=== PATIENT | male | born 1940 | race Asian ===

== ENCOUNTER 2018-03-18 15:01 | Inpatient (IN) | payer MEDICARE, OTHER ==
[~2018-03-18] VITALS: Ht 177.8 cm; Wt 93.0 kg
[2018-03-18 15:02] VITALS: BP 110/54
--- NOTE | 2018-03-18 15:10 | Emergency Room Report ---
History of Present Illness General Chief Complaint: Abnormal Labs Source: Medical Record, EMS Present Illness HPI Patient is sent in for low hemoglobin. It was 6.4 on March 07. The patient is on chronic hemodialysis. Patient is on amiodarone, Plavix, vitamin B complex, vitamin C, aspirin, Colace , labetalol, lactobacillus, zinc, [place] and multivitamins. The patient has hemodialysis Tuesdays and Tuesday. He has an AV shunt right upper arm and also a central line in the right upper chest. He has multiple decubiti. Diagnoses: Chronic respiratory failure, hypertension, type 2 diabetes, end- stage renal disease, dysphagia. Allergies: Coded Allergies: No Known Allergies (Unverified , 03/18/18) Patient History Limited by: medical condition Past Medical History: see triage record, old chart reviewed Past Surgical History: other - av fistula, G tube Social History: Denies: smoking, alcohol use, drug use Social History Narrative [facility] Reviewed Nursing Documentation: PMH: Agreed; PSxH: Agreed Review of Systems All Other Systems: limited Physical Exam Vital Signs Date Time Temp Pulse Resp B/P (MAP) Pulse Ox O2 Delivery O2 Flow Rate FiO2 03/18/18 14:54 97.3 64 25 110/54 99 Mechanical Ventilator 5.0 97.3 Sp02 EP Interpretation: reviewed, normal General Appearance: no apparent distress, alert, Chronically Ill Head: normocephalic, other - anasarca Eyes: bilateral eye normal inspection, bilateral eye PERRL ENT: moist mucus membranes Neck: supple, tracheotomy Respiratory: lungs clear, normal breath sounds Cardiovascular #1: regular rate, rhythm, edema - anasarca Cardiovascular #2: 2+ radial (R) - AV fistula upper arm with thrill Gastrointestinal: non tender, soft, no mass, other - g tu be, decreased bowel sounds Genitourinary: penis normal Musculoskeletal: swelling, other - contractures UE Neurologic: alert - follows examiner with eyes, other - functional paraplegia Psychiatric: depressed affect Skin: other - multiple decubiti Procedures Critical Care Time Critical Care Time Total Critical Care Time: 45 min bedside evaluation and treatment excludes procedures (EKG). Reason for critical care: critical anemia, sepsis, hypotension, ESRD Possible complications: hypotension, hypertension, NV, shock, arrhythmias, metabolic acidosis, end organ damage, respiratory failure. Interventions: blood transfusion, fluid bolus, antibiotics, consultation Course: Patient with low h/h. BP dropped. Fluid bolus ordered as needed time to get blood. Blood bank notified of need for emergent transfusion. BP better with fluids. Antibiotics started for plumonary and urinary sources of infection. Discussed with admitting MD. Improved. Blood transfused with improvement. Emergent transfusion (patient unable to sign for consent). Consultations: nursing staff, EMS, consulting MD, blood bank, RN Performed by: Dr. Perez Tolerated well condition = serious Medical Decision Making Diagnostic Impression: Primary Impression: Sepsis Qualified Codes: A41.9 - Sepsis, unspecified organism Additional Impressions: Anemia Qualified Codes: N18.6 - End stage renal disease; D63.1 - Anemia in chronic kidney disease; Z99.2 - Dependence on renal dialysis UTI (urinary tract infection) Qualified Codes: N39.0 - Urinary tract infection, site not specified ESRD (end stage renal disease) on dialysis Ventilator dependent [place] Soft tissue disorder related to use, overuse, and pressure of multiple sites ER Course Patient presents with laboratory value that shows a low hemoglobin and hematocrit. Differential includes active bleeding, anemia of chronic disease, iron deficiency amongst others. The patient will be evaluated with EKG, chest x -ray and blood cultures and labs. Because is a dialysis patient we will hold off on hydration. Ventilator settings have been ordered. Depending on lab results he may be admitted for transfusion and dialysis. Based on normal vital , acute blood loss less likely. EKG without injury. Chest x-ray with bilateral infiltrates and effusions. This could be congestive heart failure or pneumonia. Labs with critical anemia and ESRD, elevated WBC. Pyuria. Normal lactate. Patient's blood pressure dropped. His could be related to blood loss and also sepsis. A small fluid bolus is given and also blood is ordered immediately. In addition to that the patient will be covered with broad-spectrum antibiotics. BP better with small fluid bolus. Antibiotics ordered and also blood. Discussed with Dr. Conner. Blood transfused emergently (signed by me). Improved VS after transfusion and antibiotics. Admit SDU, Dr. Conner. Laboratory Tests Test 03/18/18 15:10 White Blood Count 16.2 K/UL (4.8-10.8) H Red Blood Count 2.37 M/UL (4.70-6.10) L Hemoglobin 6.7 G/DL (14.2-18.0) *L Hematocrit 21.6 % (42.0-52.0) L Mean Corpuscular Volume 91 FL (80-99) Mean Corpuscular Hemoglobin 28.2 PG (27.0-31.0) Mean Corpuscular Hemoglobin Concent 31.0 G/DL (32.0-36.0) L Red Cell Distribution Width 17.6 % (11.6-14.8) H Platelet Count 59 K/UL (150-450) L Mean Platelet Volume 6.5 FL (6.5-10.1) Neutrophils (%) (Auto) % (45.0-75.0) Lymphocytes (%) (Auto) % (20.0-45.0) Monocytes (%) (Auto) % (1.0-10.0) Eosinophils (%) (Auto) % (0.0-3.0) Basophils (%) (Auto) % (0.0-2.0) Differential Total Cells Counted 100 Neutrophils % (Manual) 86 % (45-75) H Lymphocytes % (Manual) 7 % (20-45) L Monocytes % (Manual) 4 % (1-10) Eosinophils % (Manual) 3 % (0-3) Basophils % (Manual) 0 % (0-2) Band Neutrophils 0 % (0-8) Reactive Lymphocytes Occasional Platelet Estimate Decreased L Platelet Morphology Normal Polychromasia 1+ Hypochromasia 2+ Basophilic Stippling Occasional Anisocytosis 2+ Prothrombin Time 11.4 SEC (9.30-11.50) Prothrombin Time INR 1.1 (0.9-1.1) PTT 47 SEC (23-33) H Urine Color Brown Urine Appearance Turbid Urine pH 8 (4.5-8.0) Urine Specific [place] 1.015 (1.005-1.035) Urine Protein 4+ (NEGATIVE) H Urine Glucose (UA) 1+ (NEGATIVE) H Urine Ketones Negative (NEGATIVE) Urine Blood 5+ (NEGATIVE) H Urine Nitrite Negative (NEGATIVE) Urine Bilirubin Negative (NEGATIVE) Urine Urobilinogen Normal MG/DL (0.0-1.0) Urine Leukocyte Esterase 3+ (NEGATIVE) H Urine RBC 10-15 /HPF (0 - 0) H Urine WBC Tntc /HPF (0 - 0) H Urine Squamous Epithelial Cells None /LPF (NONE/OCC) Urine Amorphous Sediment Many /LPF (NONE) H Urine Bacteria Few /HPF (NONE) Sodium Level 138 MMOL/L (136-145) Potassium Level 3.2 MMOL/L (3.5-5.1) L Chloride Level 101 MMOL/L (98-107) Carbon Dioxide Level 31 MMOL/L (21-32) Anion Gap 7 mmol/L (5-15) Blood Urea Nitrogen 71 mg/dL (7-18) H Creatinine 2.2 MG/DL (0.55-1.30) H Estimate Glomerular Filtration Rate mL/min (>60) Glucose Level 122 MG/DL (74-106) H Lactic Acid Level 1.60 mmol/L (0.4-2.0) Calcium Level 8.6 MG/DL (8.5-10.1) Total Bilirubin 0.5 MG/DL (0.2-1.0) Aspartate Amino Transferase (AST) 49 U/L (15-37) H Alanine Aminotransferase (ALT) 26 U/L (12-78) Alkaline Phosphatase 344 U/L (46-116) H Total Creatine Kinase 43 U/L (26-308) Troponin I 0.000 ng/mL (0.000-0.056) Pro-B-Type Natriuretic Peptide > 32196 pg/mL (0-125) H Total Protein 5.7 G/DL (6.4-8.2) L Albumin 1.2 G/DL (3.4-5.0) L Globulin 4.5 g/dL Albumin/Globulin Ratio 0.3 (1.0-2.7) L EKG Diagnostic Results Rate: normal Rhythm: NSR ST Segments: no acute changes Rhythm Strip Diag. Results EP Interpretation: yes Rhythm: NSR, no PVC's, no ectopy Chest X-Ray Diagnostic Results Chest X-Ray Diagnostic Results : Chest X-Ray Ordered: Yes # of Views/Limited/Complete: 1 View Indication: Other EP Interpretation: Yes Interpretation: no pneumothorax, other - infiltrates and possible effusions Impression: Other Electronically Signed by: Electronically signed by Kenneth Perez MD Last Vital Signs Date Time Temp Pulse Resp B/P (MAP) Pulse Ox O2 Delivery O2 Flow Rate FiO2 03/19/18 00:58 73 18 40 03/19/18 00:00 96.1 108/48 (68) 100 96.1 03/18/18 22:14 Mechanical Ventilator 03/18/18 19:51 15.0 Status: improved Disposition: ADMITTED INPATIENT Condition: Serious Kenneth Perez M.D. Mar 18, 2018 15:10
[2018-03-18 15:40] LABS: HEMATOCRIT 21.6 % (42.0-52.0); MEAN CORPUSCULAR VOLUME 91 FL (80-99); PLATELET COUNT 59 K/UL (150-450); RED BLOOD COUNT 2.37 M/UL (4.70-6.10); RED CELL DISTRIBUTION WIDTH 17.6 % (11.6-14.8); WHITE BLOOD COUNT 16.2 K/UL (4.8-10.8)
[2018-03-18 15:42] LABS: APPEARANCE,URINE TURBID; BILIRUBIN, URINE NEGATIVE (NEGATIVE); COLOR,URINE BROWN; GLUCOSE, URINE (UA) 1+ (NEGATIVE); KETONES,URINE NEGATIVE (NEGATIVE); LEUKOCYTE ESTERASE ,URINE 3+ (NEGATIVE); NITRITE,URINE NEGATIVE (NEGATIVE); PH,URINE 8 (4.5-8.0); PROTEIN,URINE 4+ (NEGATIVE); UROBILINOGEN,URINE NORMAL MG/DL (0.0-1.0)
[2018-03-18 15:45] VITALS: BP 60/38
[2018-03-18 15:48] LABS: HEMOGLOBIN 6.7 G/DL (14.2-18.0)
--- NOTE | 2018-03-18 15:57 | Diagnostic Imaging Report ---
EXAM: XR Chest, 1 View CLINICAL HISTORY: ALOC TECHNIQUE: Frontal view of the chest. COMPARISON: No relevant prior studies available. FINDINGS: Large basilar opacities, likely combination of pleural fluid and atelectasis/consolidation. Obscured heart margins. Vascular congestion. Central venous catheter in a right subclavian approach, tip in the lower SVC. Right axillary arterial stent. Tracheostomy. IMPRESSION: Large basilar opacities, likely a combination of pleural fluid and atelectasis/consolidation. Vascular congestion.
[2018-03-18] MEDS ORDERED: Piperacillin/Tazobactam 3.375 GM in NS 110 ML IVPB ONE (16:00)
[2018-03-18] MEDS ORDERED: Gentamicin 100mg/50ml Premix 50 ML IVPB ONE (16:00)
[2018-03-18] MEDS ORDERED: NS 250 ML IVPB ONE (16:00)
[2018-03-18] MEDS ORDERED: Vancomycin 1 GM in D5W 275 ML IVPB ONE (16:00)
[2018-03-18 16:03] LABS: INR 1.1 (0.9-1.1)
[2018-03-18 16:13] LABS: ANION GAP 7 mmol/L (5-15); BLOOD UREA NITROGEN 71 mg/dL (7-18); CALCIUM 8.6 MG/DL (8.5-10.1); CARBON DIOXIDE 31 MMOL/L (21-32); CHLORIDE 101 MMOL/L (98-107); CREATININE 2.2 MG/DL (0.55-1.30); POTASSIUM 3.2 MMOL/L (3.5-5.1); SODIUM 138 MMOL/L (136-145)
[2018-03-18 16:23] LABS: ALANINE AMINOTRANSFERASE 26 U/L (12-78); ALBUMIN 1.2 G/DL (3.4-5.0); ALBUMIN/GLOBULIN RATIO 0.3 (1.0-2.7); ALKALINE PHOSPHATASE 344 U/L (46-116); ASPARTATE AMINO TRANSFERASE 49 U/L (15-37); BILIRUBIN,TOTAL 0.5 MG/DL (0.2-1.0); CREATINE KINASE 43 U/L (26-308)
[2018-03-18 16:36] VITALS: BP 104/49
[2018-03-18] MEDS ORDERED: ATORVASTATIN CA20 MG GT (18:17)
[2018-03-18] MEDS ORDERED: MULTIVITAMINS1 EAC8 GT (18:17)
[2018-03-18] MEDS ORDERED: PLAVIX75 MG GT (18:17)
[2018-03-18] MEDS ORDERED: ACIDOPHILUS1 EAC6 GT (18:17)
[2018-03-18] MEDS ORDERED: ASPIRIN EC81 MG GT (18:17)
[2018-03-18] MEDS ORDERED: VITAMIN C500 MG/11 GT (18:17)
[2018-03-18] MEDS ORDERED: NORCO 5-325 TA1 EACH GT (18:17)
[2018-03-18] MEDS ORDERED: VITAMIN B COMP1 EAC2 GT (18:17)
[2018-03-18] MEDS ORDERED: RENVELA0.8 GM GT (18:17)
[2018-03-18] MEDS ORDERED: AMIODARONE HCL200 MG GT (18:17)
[2018-03-18] MEDS ORDERED: LABETALOL HCL100 MG GT (18:17)
[2018-03-18] MEDS ORDERED: DOCUSATE SODIU100 MG GT (18:17)
[2018-03-18] MEDS ORDERED: ZINC SULFATE220 M1 GT (18:17)
[2018-03-18 19:20] VITALS: BP 123/38
[2018-03-18 20:00] VITALS: BP 101/47
[2018-03-18] MEDS: Dyna-Hex 2% Top Sol 2oz TOPIC SCH (21:12)
[2018-03-18] MEDS ORDERED: FLEET ENEMA133 ML RECTAL (21:33)
[2018-03-18] MEDS ORDERED: LOPERAMIDE2 M1 PO (21:33)
[2018-03-18] MEDS ORDERED: ACETAMINOPHEN325 M1 GT (21:33)
[2018-03-18] MEDS ORDERED: DULCOLAX10 MG RC (21:33)
[2018-03-18] MEDS ORDERED: MILK OF MA2400 MG/10 GT (21:42)
[2018-03-18] MEDS ORDERED: Milk of Magnesia 30ml Ud GT PRN (22:30)
[2018-03-18] MEDS: Amiodarone 200mg tab GT SCH (23:00)
[2018-03-18] MEDS: Renvela 800mg Pkt GT SCH (23:24)
[2018-03-19] VITALS: BP 108/48
[2018-03-19] MEDS ORDERED: Norco 5mg/325mg tab ORAL PRN
[2018-03-19] MEDS ORDERED: Norco 5mg/325mg tab GT PRN (00:15)
[2018-03-19 04:00] VITALS: BP 92/45
[2018-03-19 05:42] LABS: HEMATOCRIT 22.8 % (42.0-52.0); HEMOGLOBIN 7.5 G/DL (14.2-18.0); MEAN CORPUSCULAR VOLUME 88 FL (80-99); PLATELET COUNT 54 K/UL (150-450); RED CELL DISTRIBUTION WIDTH 17.1 % (11.6-14.8); WHITE BLOOD COUNT 15.8 K/UL (4.8-10.8)
[2018-03-19 05:51] LABS: ANION GAP 10 mmol/L (5-15); BLOOD UREA NITROGEN 73 mg/dL (7-18); CALCIUM 8.2 MG/DL (8.5-10.1); CARBON DIOXIDE 29 MMOL/L (21-32); CHLORIDE 102 MMOL/L (98-107); CREATININE 2.4 MG/DL (0.55-1.30); POTASSIUM 2.8 MMOL/L (3.5-5.1); SODIUM 141 MMOL/L (136-145)
[2018-03-19] MEDS: NovoLOG Insulin Flexpen SUBQ SCH ×5 (06:00→23:48)
[2018-03-19] MEDS: Renvela 800mg Pkt GT SCH ×3 (06:21→21:34)
[2018-03-19 08:00] VITALS: BP 129/60
[2018-03-19] MEDS ORDERED: Multivitamins W/Minerals 15 ML UDC GT SCH (09:00)
[2018-03-19] MEDS ORDERED: Ascorbic Acid 500mg tab GT SCH ×2 (09:00)
[2018-03-19] MEDS ORDERED: Lactobacillus-GG tablet ORAL SCH (09:00)
[2018-03-19] MEDS ORDERED: Amiodarone 200mg tab GT SCH (09:00)
[2018-03-19] MEDS: Zosyn 2.25 gm in D5W 55ml IV SCH ×3 (10:28→21:34)
[2018-03-19] MEDS: Vitamin B Complex Tab GT SCH (10:28)
[2018-03-19] MEDS: Amiodarone 200mg tab GT SCH ×2 (10:28→21:34)
[2018-03-19] MEDS: Zinc Sulfate 220mg cap GT SCH (10:28)
[2018-03-19] MEDS: Lactobacillus-GG tablet GT SCH (10:29)
--- NOTE | 2018-03-19 10:30 | History and Physical Report ---
DATE OF ADMISSION: 03/18/2018 CHIEF COMPLAINT: Severe anemia needing transfusion. HISTORY OF PRESENT ILLNESS: This is a 77-year-old [place] male who is a ventilator, dialysis patient. I was called yesterday about the patient having hemoglobin dropped to 6.4. The patient was supposed to have his dialysis yesterday, but was rerouted to this hospital for a blood transfusion. An emergency room workup revealed that the patient done at [facility] is septic and this is probably the reason why the patient is becoming more anemic. The patient is extremely complicated as listed below. PAST MEDICAL HISTORY: 1. Ventilator-dependent respiratory failure. 2. Status post anoxic encephalopathy following a CVA. 3. End-stage renal failure secondary to type 2 diabetes mellitus. 4. Multiple decubitus ulcer amounting to 42 lesions. 5. Status post G-tube. 6. Anemia of chronic kidney disease. 7. History of schizophrenia. 8. Unrepresented patient. No family or DPOA. MEDICATIONS: Enteral tube feeding, Epogen on dialysis, Tylenol p.r.n., amiodarone, vitamin C, atorvastatin, subcutaneous heparin, insulin sliding scale, lactobacillus, milk of magnesia, sevelamer. ALLERGIES: No known drug allergies. FAMILY HISTORY: Unable to obtain due to mental status. SOCIAL HISTORY: Unable to obtain due to mental status. REVIEW OF SYSTEMS: Unable to obtain due to mental status. PHYSICAL EXAMINATION: GENERAL: This is an elderly, vegetative patient who is on ventilator. VITAL SIGNS: Current blood pressure 120/50, pulse 74 and regular, respirations 18, and temperature 97.2 axillary. HEENT: The head is normocephalic and atraumatic. Pupils are equal, round, and reactive to light. NECK: He has midline tracheostomy with semi-purulent secretions. LUNGS: Bilateral rhonchi. HEART: Regular rate and rhythm without rubs, murmurs, or gallops. CHEST: He has multiple scars from previous surgeries. ABDOMEN: Soft and nontender. He has a G-tube. No hepatosplenomegaly. EXTREMITIES: He has multiple contractures, especially in the right arm. He has right upper arm AV fistula with thrill and bruit. He has 3 to 4+ peripheral edema everywhere. NEUROLOGIC: The patient is obtunded. There were no lateralizing signs. LABORATORY AND ANCILLARY DATA: Admission hemoglobin 6.7 and today 7.5 after transfusion. White count on admission 16,200 and today 15,800. Platelet count on admission 59,000 and today 54,000. Admission sodium 138 and potassium 3.2, and today 141 and 2.8 respectively. BUN 73 and creatinine 2.4. Albumin 1.2. Chest x-ray, large basilar opacities the nature of which is unknown, it can be fluid, atelectasis, or consolidation. ASSESSMENT: 1. Suspect line sepsis, most likely related to the patient's central line. 2. Multifactorial anemia, mainly of CKD, exacerbated by recurrent septicemia, which is multifactorial. 3. Ventilator-dependent respiratory failure. 4. Status post anoxic encephalopathy following a CVA. 5. End-stage renal failure secondary to type 2 diabetes mellitus. 6. Multiple decubitus ulcer amounting to 42 lesions. 7. Status post G-tube. 8. History of schizophrenia. 9. Unrepresented patient. No family or DPOA. PLAN: 1. Broad-spectrum IV antibiotics awaiting the culture results.Rule our line sepsis. 2. ID and Pulmonary consults. 3. Hemodialysis has been already attempted yesterday. The patient did not tolerate. To be repeated today and then as needed and tolerated by the patient. 4. Transfuse on dialysis as tolerated. Dilip Conner M.D. DR: Axel JOB#: [id number] CC: ALEIDA
[2018-03-19] MEDS ORDERED: Heparin 2000 units/Ns 1000ml INJ PRN (10:45)
[2018-03-19] MEDS ORDERED: Lidocaine 1% Plain 30 ml INJ PRN (10:45)
[2018-03-19 10:55] LABS: % IRON SATURATION 19 % (15-50); IRON 19 ug/dL (50-175); TOTAL IRON BINDING CAPACITY 98 ug/dL (250-450)
[2018-03-19 11:11] LABS: FERRITIN 1752 NG/ML (8-388)
[2018-03-19 12:00] VITALS: BP 126/52
[2018-03-19] MEDS ORDERED: Vancomycin 500mg/D5W 110ml IVPB ONE ×2 (13:00)
--- NOTE | 2018-03-19 13:40 | Consultation ---
History of Present Illness General Date patient seen: Mar 19, 2018 Chief Complaint: Abnormal Labs Reason for Consultation: multiple large full thickness wounds / decubitus Present Illness HPI 77 year old male with multiple medical comorbidities presented for anemia. During admission noted to have multiple large wounds and decubitus ulcers of full thickness. surgery called to evaluate. patient seen, chart reviewed, patient examined. Allergies: Coded Allergies: No Known Allergies (Unverified , 03/18/18) Medication History Scheduled Amiodarone Hcl* (Cordarone*), 200 MG GT EVERY 12 HOURS, (Reported) Aspirin Ec* (Aspirin Ec*), 81 MG GT DAILY, (Reported) Atorvastatin Calcium* (Atorvastatin Calcium*), 20 MG GT BEDTIME, (Reported) Clopidogrel Bisulfate* (Plavix*), 75 MG GT DAILY, (Reported) Docusate Sodium* (Docusate Sodium*), 100 MG GT TWICE A DAY, (Reported) Labetalol Hcl* (Normodyne*), 100 MG GT EVERY 12 HOURS, (Reported) Lactobacillus Acidophilus (Acidophilus), 4 EACH GT DAILY, (Reported) Multivitamin With Minerals (Multivitamins With Minerals*), 1 TAB GT DAILY, ( Reported) Sevelamer Carbonate* (Renvela*), 800 MG GT Q8HR, (Reported) Vit C/Ascorbate Ca/Ascorb Sod (Vitamin C 500 Mg/15 Ml Liquid), 500 MG GT BID, ( Reported) Vitamin B Complex (Vitamin B Complex), 1 CAP GT DAILY, (Reported) Zinc Sulfate (Zinc Sulfate*), 220 MG GT DAILY, (Reported) Scheduled PRN Acetaminophen* (Acetaminophen 325MG Tablet*), 650 MG GT Q4H PRN for Mild Pain/ Temp > 100.5, (Reported) Bisacodyl (Dulcolax), 10 MG RC DAILY PRN for Constipation, (Reported) Hydrocodone Bit/Acetaminophen 5-325* ([place] 5-325*), 1 TAB GT DAILY PRN for For Pain, (Reported) Loperamide Hcl (Loperamide), 2 MG PO DAILY PRN for Diarrhea, (Reported) Magnesium Hydroxide* (Milk Of Magnesia*), 10 ML GT DAILY PRN for Constipation, ( Reported) Na Phos,M-B/Na Phos,Di-Ba* (Fleet Enema*), 133 ML RECTAL DAILY PRN for Constipation, (Reported) Patient History Limited by: medical condition History Provided By: Medical Record, PMD Healthcare decision maker Resuscitation status Full Code Advanced Directive on File Past Medical/Surgical History Past Medical/Surgical History: (1) Decubitus ulcer of ankle, stage 4 (2) Decubitus ulcer of buttock, stage 4 (3) Decubitus ulcer of foot, stage 4 (4) Decubitus ulcer of heel, stage 4 (5) Decubitus ulcer of both heels, stage 4 (6) Decubitus ulcer of left buttock, stage 4 (7) Decubitus ulcer of right buttock, stage 4 (8) Decubitus ulcer of sacral region, 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, overuse, and pressure of multiple sites (11) Anemia (12) Sepsis (13) UTI (urinary tract infection) (14) Ventilator dependent (15) ESRD (end stage renal disease) on dialysis Review of Systems ROS Narrative cannot obtain given medical condition Physical Exam General Appearance: no apparent distress Lines, tubes and drains: other HEENT: mucous membranes moist Neck: normal inspection Respiratory/Chest: no respiratory distress, no accessory muscle use, other Cardiovascular/Chest: normal rate Abdomen: soft, no organomegaly, no mass Extremities: other Skin Exam: other Neurologic: unresponsiveness Last 24 Hour Vital Signs Date Time Temp Pulse Resp B/P (MAP) Pulse Ox O2 Delivery O2 Flow Rate FiO2 03/19/18 13:23 75 03/19/18 10:32 79 20 40 03/19/18 09:00 82 19 40 03/19/18 08:00 98.0 86 18 129/60 (83) 100 98.0 03/19/18 08:00 40 03/19/18 08:00 Mechanical Ventilator 03/19/18 08:00 81 03/19/18 07:05 81 19 40 03/19/18 05:26 74 18 40 03/19/18 04:00 Mechanical Ventilator 03/19/18 04:00 40 03/19/18 04:00 73 03/19/18 04:00 97.2 76 16 92/45 (61) 99 97.2 03/19/18 03:10 14 19 40 03/19/18 00:58 73 18 40 03/19/18 00:00 40 03/19/18 00:00 97.0 74 16 108/48 (68) 100 97.0 03/19/18 00:00 Mechanical Ventilator 03/19/18 00:00 72 03/18/18 23:00 81 18 40 03/18/18 22:53 70 97/47 03/18/18 22:14 Mechanical Ventilator 03/18/18 22:08 Mechanical Ventilator 03/18/18 21:00 Mechanical Ventilator 03/18/18 20:57 73 21 40 03/18/18 20:00 97.0 73 19 101/47 (65) 99 97.0 03/18/18 20:00 40 03/18/18 20:00 75 03/18/18 19:51 97.3 69 15 123/38 99 Mechanical Ventilator 15.0 40 97.3 03/18/18 19:20 69 15 123/38 100 Mechanical Ventilator 15.0 40 03/18/18 19:16 87 22 40 03/18/18 17:20 68 14 40 03/18/18 16:36 71 21 104/49 100 Mechanical Ventilator 15.0 40 03/18/18 16:31 40 03/18/18 15:45 73 21 60/38 100 Mechanical Ventilator 40 03/18/18 15:13 73 14 40 03/18/18 15:13 73 14 Mechanical Ventilator 15.0 40 03/18/18 15:02 97.3 70 25 110/54 99 Mechanical Ventilator 5.0 97.3 03/18/18 14:54 97.3 64 25 110/54 99 Mechanical Ventilator 5.0 97.3 Intake and Output 03/18/18 03/19/18 19:00 07:00 Intake Total 310 ml Output Total 30 ml Balance 280 ml Intake Tube Feeding 60 ml Blood Product 250 ml Output Urine Total 0 ml Stool Total 30 ml Laboratory Tests Test 03/18/18 15:10 03/19/18 03:40 03/19/18 10:10 White Blood Count 16.2 K/UL (4.8-10.8) H 15.8 K/UL (4.8-10.8) H Red Blood Count 2.37 M/UL (4.70-6.10) L 2.60 M/UL (4.70-6.10) L Hemoglobin 6.7 G/DL (14.2-18.0) *L 7.5 G/DL (14.2-18.0) L Hematocrit 21.6 % (42.0-52.0) L 22.8 % (42.0-52.0) L Mean Corpuscular Volume 91 FL (80-99) 88 FL (80-99) Mean Corpuscular Hemoglobin 28.2 PG (27.0-31.0) 28.8 PG (27.0-31.0) Mean Corpuscular Hemoglobin Concent 31.0 G/DL (32.0-36.0) L 32.8 G/DL (32.0-36.0) Red Cell Distribution Width 17.6 % (11.6-14.8) H 17.1 % (11.6-14.8) H Platelet Count 59 K/UL (150-450) L 54 K/UL (150-450) L Mean Platelet Volume 6.5 FL (6.5-10.1) 6.6 FL (6.5-10.1) Neutrophils (%) (Auto) % (45.0-75.0) % (45.0-75.0) Lymphocytes (%) (Auto) % (20.0-45.0) % (20.0-45.0) Monocytes (%) (Auto) % (1.0-10.0) % (1.0-10.0) Eosinophils (%) (Auto) % (0.0-3.0) % (0.0-3.0) Basophils (%) (Auto) % (0.0-2.0) % (0.0-2.0) Differential Total Cells Counted 100 100 Neutrophils % (Manual) 86 % (45-75) H 82 % (45-75) H Lymphocytes % (Manual) 7 % (20-45) L 7 % (20-45) L Monocytes % (Manual) 4 % (1-10) 3 % (1-10) Eosinophils % (Manual) 3 % (0-3) 0 % (0-3) Basophils % (Manual) 0 % (0-2) 0 % (0-2) Band Neutrophils 0 % (0-8) 8 % (0-8) Reactive Lymphocytes Occasional Platelet Estimate Decreased L Decreased L Platelet Morphology Normal Normal Polychromasia 1+ Hypochromasia 2+ 1+ Basophilic Stippling Occasional Anisocytosis 2+ 1+ Prothrombin Time 11.4 SEC (9.30-11.50) Prothromb Time International Ratio 1.1 (0.9-1.1) Activated Partial Thromboplast Time 47 SEC (23-33) H Urine Color Brown Urine Appearance Turbid Urine pH 8 (4.5-8.0) Urine Specific [place] 1.015 (1.005-1.035) Urine Protein 4+ (NEGATIVE) H Urine Glucose (UA) 1+ (NEGATIVE) H Urine Ketones Negative (NEGATIVE) Urine Blood 5+ (NEGATIVE) H Urine Nitrite Negative (NEGATIVE) Urine Bilirubin Negative (NEGATIVE) Urine Urobilinogen Normal MG/DL (0.0-1.0) Urine Leukocyte Esterase 3+ (NEGATIVE) H Urine RBC 10-15 /HPF (0 - 0) H Urine WBC Tntc /HPF (0 - 0) H Urine Squamous Epithelial Cells None /LPF (NONE/OCC) Urine Amorphous Sediment Many /LPF (NONE) H Urine Bacteria Few /HPF (NONE) Sodium Level 138 MMOL/L (136-145) 141 MMOL/L (136-145) Potassium Level 3.2 MMOL/L (3.5-5.1) L 2.8 MMOL/L (3.5-5.1) L Chloride Level 101 MMOL/L (98-107) 102 MMOL/L (98-107) Carbon Dioxide Level 31 MMOL/L (21-32) 29 MMOL/L (21-32) Anion Gap 7 mmol/L (5-15) 10 mmol/L (5-15) Blood Urea Nitrogen 71 mg/dL (7-18) H 73 mg/dL (7-18) H Creatinine 2.2 MG/DL (0.55-1.30) H 2.4 MG/DL (0.55-1.30) H Estimat Glomerular Filtration Rate mL/min (>60) mL/min (>60) Glucose Level 122 MG/DL (74-106) H 77 MG/DL (74-106) Lactic Acid Level 1.60 mmol/L (0.4-2.0) Calcium Level 8.6 MG/DL (8.5-10.1) 8.2 MG/DL (8.5-10.1) L Total Bilirubin 0.5 MG/DL (0.2-1.0) Aspartate Amino Transf (AST/SGOT) 49 U/L (15-37) H Alanine Aminotransferase (ALT/SGPT) 26 U/L (12-78) Alkaline Phosphatase 344 U/L (46-116) H Total Creatine Kinase 43 U/L (26-308) Troponin I 0.000 ng/mL (0.000-0.056) Pro-B-Type Natriuretic Peptide > 18573 pg/mL (0-125) H Total Protein 5.7 G/DL (6.4-8.2) L Albumin 1.2 G/DL (3.4-5.0) L Globulin 4.5 g/dL Albumin/Globulin Ratio 0.3 (1.0-2.7) L Iron Level 19 ug/dL (50-175) L Total Iron Binding Capacity 98 ug/dL (250-450) L Percent Iron Saturation 19 % (15-50) Unsaturated Iron Binding 79 ug/dL (112-346) L Ferritin 1752 NG/ML (8-388) H Random Vancomycin Level 12.8 ug/mL Microbiology Date/Time Source Procedure Growth Status 03/18/18 15:15 Blood Blood Culture - Preliminary Resulted 03/18/18 15:00 Blood Blood Culture - Preliminary Resulted 03/18/18 15:10 Urine,Clean Catch Urine Culture - Preliminary Resulted 03/18/18 20:00 Sacral Wound Gram Stain - Final Resulted 03/18/18 20:00 Sacral Wound Wound Culture Pending Resulted Height (Feet): 5 Height (Inches): 10.00 Weight (Pounds): 188 Medications Current Medications Medications (Trade) Dose Ordered Sig/Marques Route PRN Reason Start Time Stop Time Status Last Admin Dose Admin Acetaminophen (Tylenol) 650 mg Q4H PRN GT Mild Pain/Temp > 100.5 03/18/18 21:00 04/17/18 20:59 Acetaminophen/ Hydrocodone Bitart ([place] 5/325) 1 tab DAILY PRN GT For Pain 03/19/18 00:15 03/26/18 00:00 Albumin Human 100 ml @ 200 mls/hr PRN PRN IV sbp<90 during hd 03/19/18 21:30 03/20/18 04:00 Amiodarone HCl (Cordarone) 200 mg EVERY 12 HOURS GT 03/18/18 23:00 04/17/18 22:59 03/19/18 10:28 Ascorbic Acid (Vitamin C) 100 mg TWICE A DAY GT 03/19/18 09:00 04/18/18 08:59 UNV Atorvastatin Calcium (Lipitor) 20 mg BEDTIME GT 03/18/18 23:00 04/17/18 22:59 03/18/18 23:24 Chlorhexidine Gluconate (Linda-Hex 2%) 1 applic DAILY@1999 TOPIC 03/18/18 21:00 04/17/18 20:59 03/18/18 21:12 Chlorhexidine Gluconate (Linda-Hex 2%) 1 applic DAILY@1999 TOPIC 03/19/18 20:00 04/18/18 19:59 Dextrose (Dextrose 50%) 25 ml Q30M PRN IV Hypoglycemia 03/18/18 22:30 04/17/18 22:29 Dextrose (Dextrose 50%) 50 ml Q30M PRN IV Hypoglycemia 03/18/18 22:30 04/17/18 22:29 Epoetin Pawel (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)) 10,000 units TUE-TUE-TUE SUBQ 03/20/18 21:00 04/19/18 20:59 Heparin Sodium (Porcine) (Heparin Sod 1000 units/ml 10ml) 2,000 unit ONCE IV 03/19/18 20:30 03/19/18 21:30 Heparin Sodium (Porcine) (Heparin Sod 1000 units/ml 10ml) 2,000 unit ONCE IV 03/19/18 21:30 03/19/18 22:30 Heparin Sodium/ Sodium Chloride (Heparin 2000 units/Ns 1000ml premix) 2,000 unit ONCE PRN INJ PICC PLACEMENT 03/19/18 10:45 03/20/18 23:59 Insulin Aspart (NovoLOG) Q6HR SUBQ 03/19/18 00:00 04/18/18 00:00 03/19/18 12:31 Iron Sucrose 100 mg/Sodium Chloride 60 ml @ 240 mls/hr BEDTIME IV 03/19/18 21:00 03/23/18 21:14 Lactobacillus Acidophilus (Culturelle) 4 tab DAILY GT 03/19/18 09:00 04/18/18 08:59 03/19/18 10:29 Lidocaine HCl (Xylocaine 1% 30ml) 30 ml ONCE PRN INJ PICC PLACEMENT 03/19/18 10:45 03/20/18 23:59 Magnesium Hydroxide (Mom) 10 ml DAILY PRN GT Constipation 03/18/18 22:30 04/17/18 22:29 Multivitamins (Multivitamins W/ Minerals 15ml Liquid) 15 ml DAILY GT 03/19/18 09:00 04/18/18 08:59 03/19/18 10:27 Piperacillin Sod/ Tazobactam Sod 2.25 gm/Dextrose 55 ml @ 110 mls/hr Q8HR IV 03/19/18 09:00 03/26/18 08:59 03/19/18 10:28 Sevelamer Carbonate (Renvela) 800 mg Q8HR GT 03/18/18 23:00 04/17/18 22:59 03/19/18 06:21 Sodium Chloride 1,000 ml @ 500 mls/hr Q2H PRN IVLG sbp<90 during hd 03/19/18 20:25 03/20/18 04:00 Vancomycin HCl (Vanco rx to dose) 1 ea DAILY PRN MISC Per rx protocol 03/19/18 07:45 04/18/18 07:44 Vancomycin HCl 1 gm/Dextrose 275 ml @ 183.708 mls/hr ONCE ONCE IVPB 03/19/18 18:00 03/19/18 19:29 Vitamin B Complex (Vitamin B Complex) 1 tab DAILY GT 03/19/18 09:00 04/18/18 08:59 03/19/18 10:28 Zinc Sulfate (Zinc Sulfate) 220 mg DAILY GT 03/19/18 09:00 04/18/18 08:59 03/19/18 10:28 Assessment/Plan Problem List: (1) Decubitus ulcer of sacral region, stage 4 Assessment & Plan: Unstageable right lower buttock ulcer; large; no active drainage, no foul odor, macerated edges, eschar cap noted Unstageable right inner buttock ulcer; large; no active drainage, no foul odor, macerated edges, necrotic soft eschar cap noted Stage 4 full thickness sacral decubitus ulcer with necrotic / fibrinous tissue noted, macerated edges, bleeding at edges, serous drainage, no odor Unstageable left buttock ulcer; large; no active drainage, no foul odor, macerated edges, eschar w/ debris noted Left heel with large unstageable necrotic eschar cap Left leg with large unstageable necrotic eschar cap left foot with anterior unstageable necrotic eschar cap left leg with large linear wound with necrotic eschar right ankle with large necrotic eschar cap right heel with large necortic eschar cap all wounds present upon admission. will be cared for during hospital stay. no wounds with active infection some wounds will require debridement Plan: pressure release mattress turn q2h as per protocol elevate heels with pillows. heel protectors apply foam dressings to heels and dry necrotic eschar wounds gauze packing and dressing for sacral wound which will need debridement foam dressings to buttock wounds. will discuss with wound care nurse and adjust orders prn ICD Codes: L89.154 - Pressure ulcer of sacral region, stage 4 SNOMED: [id number], [id number] Tray Francis Mar 19, 2018 13:40
[2018-03-19] MEDS ORDERED: NS Irrig 1000ml ONE (15:12)
[2018-03-19] MEDS ORDERED: Tubing IV Secondary IV ONE (15:12)
[2018-03-19] MEDS ORDERED: D5 1/2NS 1000ml IV ONE (15:12)
[2018-03-19 16:00] VITALS: BP 132/58
[2018-03-19] MEDS ORDERED: Vancomycin 1gm/D5W 275ml IVPB ONE ×2 (18:00)
[2018-03-19 20:00] VITALS: BP 132/48
[2018-03-19] MEDS ORDERED: Dyna-Hex 2% Top Sol 2oz TOPIC SCH (20:00)
--- NOTE | 2018-03-19 20:01 | Infectious Diseases Prog Note ---
Assessment/Plan Assessment/Plan Full consult to follow: A) 1) sepsis, leukocytosis, fevers 2) gram neg and gram + bacteremia, likely line infection 3) uti, ? c.diff., rectal tube 4) pna 5) multiple wounds P) 1) vancomycin and zosyn, po vancomycin 2) will need removal of subclavian central line and change to picc line 3) wound care and debridement per surgery as needed 4) check cultures, labs and c.diff, f/u chest x-ray 5) thank you Subjective Allergies: Coded Allergies: No Known Allergies (Unverified , 03/18/18) Objective Vital Signs Last 24 Hour Vital Signs Date Time Temp Pulse Resp B/P (MAP) Pulse Ox O2 Delivery O2 Flow Rate FiO2 03/19/18 19:09 84 27 40 03/19/18 17:05 87 20 40 03/19/18 16:13 84 03/19/18 16:00 Mechanical Ventilator 03/19/18 16:00 99.7 81 20 132/58 (82) 100 99.7 03/19/18 16:00 40 03/19/18 15:29 85 20 40 03/19/18 13:23 75 03/19/18 12:55 79 21 40 03/19/18 12:00 99.7 82 18 126/52 (76) 100 99.7 03/19/18 12:00 Mechanical Ventilator 03/19/18 12:00 40 03/19/18 10:32 79 20 40 03/19/18 09:00 82 19 40 03/19/18 08:00 98.0 86 18 129/60 (83) 100 98.0 03/19/18 08:00 40 03/19/18 08:00 Mechanical Ventilator 03/19/18 08:00 81 03/19/18 07:05 81 19 40 03/19/18 05:26 74 18 40 03/19/18 04:00 Mechanical Ventilator 03/19/18 04:00 40 03/19/18 04:00 73 03/19/18 04:00 97.2 76 16 92/45 (61) 99 97.2 03/19/18 03:10 14 19 40 03/19/18 00:58 73 18 40 03/19/18 00:00 40 03/19/18 00:00 97.0 74 16 108/48 (68) 100 97.0 03/19/18 00:00 Mechanical Ventilator 03/19/18 00:00 72 03/18/18 23:00 81 18 40 03/18/18 22:53 70 97/47 03/18/18 22:14 Mechanical Ventilator 03/18/18 22:08 Mechanical Ventilator 03/18/18 21:00 Mechanical Ventilator 03/18/18 20:57 73 21 40 03/18/18 20:00 97.0 73 19 101/47 (65) 99 97.0 03/18/18 20:00 40 03/18/18 20:00 75 Height (Feet): 5 Height (Inches): 10.00 Weight (Pounds): 188 Microbiology Date/Time Source Procedure Growth Status 03/18/18 15:15 Blood Blood Culture - Preliminary Resulted 03/18/18 15:00 Blood Blood Culture - Preliminary Resulted 03/18/18 15:10 Urine,Clean Catch Urine Culture - Preliminary Resulted 03/18/18 20:00 Sacral Wound Gram Stain - Final Resulted 03/18/18 20:00 Sacral Wound Wound Culture Pending Resulted Laboratory Tests Test 03/19/18 03:40 03/19/18 10:10 White Blood Count 15.8 K/UL (4.8-10.8) H Red Blood Count 2.60 M/UL (4.70-6.10) L Hemoglobin 7.5 G/DL (14.2-18.0) L Hematocrit 22.8 % (42.0-52.0) L Mean Corpuscular Volume 88 FL (80-99) Mean Corpuscular Hemoglobin 28.8 PG (27.0-31.0) Mean Corpuscular Hemoglobin Concent 32.8 G/DL (32.0-36.0) Red Cell Distribution Width 17.1 % (11.6-14.8) H Platelet Count 54 K/UL (150-450) L Mean Platelet Volume 6.6 FL (6.5-10.1) Neutrophils (%) (Auto) % (45.0-75.0) Lymphocytes (%) (Auto) % (20.0-45.0) Monocytes (%) (Auto) % (1.0-10.0) Eosinophils (%) (Auto) % (0.0-3.0) Basophils (%) (Auto) % (0.0-2.0) Differential Total Cells Counted 100 Neutrophils % (Manual) 82 % (45-75) H Lymphocytes % (Manual) 7 % (20-45) L Monocytes % (Manual) 3 % (1-10) Eosinophils % (Manual) 0 % (0-3) Basophils % (Manual) 0 % (0-2) Band Neutrophils 8 % (0-8) Platelet Estimate Decreased L Platelet Morphology Normal Hypochromasia 1+ Anisocytosis 1+ Sodium Level 141 MMOL/L (136-145) Potassium Level 2.8 MMOL/L (3.5-5.1) L Chloride Level 102 MMOL/L (98-107) Carbon Dioxide Level 29 MMOL/L (21-32) Anion Gap 10 mmol/L (5-15) Blood Urea Nitrogen 73 mg/dL (7-18) H Creatinine 2.4 MG/DL (0.55-1.30) H Estimat Glomerular Filtration Rate mL/min (>60) Glucose Level 77 MG/DL (74-106) Calcium Level 8.2 MG/DL (8.5-10.1) L Iron Level 19 ug/dL (50-175) L Total Iron Binding Capacity 98 ug/dL (250-450) L Percent Iron Saturation 19 % (15-50) Unsaturated Iron Binding 79 ug/dL (112-346) L Ferritin 1752 NG/ML (8-388) H Random Vancomycin Level 12.8 ug/mL Current Medications Medications (Trade) Dose Ordered Sig/Marques Route PRN Reason Start Time Stop Time Status Last Admin Dose Admin Acetaminophen (Tylenol) 650 mg Q4H PRN GT Mild Pain/Temp > 100.5 03/18/18 21:00 04/17/18 20:59 Acetaminophen/ Hydrocodone Bitart ([place] 5/325) 1 tab DAILY PRN GT For Pain 03/19/18 00:15 03/26/18 00:00 Albumin Human 100 ml @ 200 mls/hr PRN PRN IV sbp<90 during hd 03/19/18 21:30 03/20/18 04:00 Amiodarone HCl (Cordarone) 200 mg EVERY 12 HOURS GT 03/18/18 23:00 04/17/18 22:59 03/19/18 10:28 Ascorbic Acid (Vitamin C) 100 mg TWICE A DAY GT 03/19/18 09:00 04/18/18 08:59 UNV Atorvastatin Calcium (Lipitor) 20 mg BEDTIME GT 03/18/18 23:00 04/17/18 22:59 03/18/18 23:24 Chlorhexidine Gluconate (Linda-Hex 2%) 1 applic DAILY@1999 TOPIC 03/18/18 21:00 04/17/18 20:59 03/18/18 21:12 Chlorhexidine Gluconate (Linda-Hex 2%) 1 applic DAILY@1999 TOPIC 03/19/18 20:00 04/18/18 19:59 Dextrose (Dextrose 50%) 25 ml Q30M PRN IV Hypoglycemia 03/18/18 22:30 04/17/18 22:29 Dextrose (Dextrose 50%) 50 ml Q30M PRN IV Hypoglycemia 03/18/18 22:30 04/17/18 22:29 Epoetin Pawel (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)) 10,000 units TUE-TUE-TUE SUBQ 03/20/18 21:00 04/19/18 20:59 Heparin Sodium (Porcine) (Heparin Sod 1000 units/ml 10ml) 2,000 unit ONCE IV 03/19/18 20:30 03/19/18 21:30 Heparin Sodium (Porcine) (Heparin Sod 1000 units/ml 10ml) 2,000 unit ONCE IV 03/19/18 21:30 03/19/18 22:30 Heparin Sodium/ Sodium Chloride (Heparin 2000 units/Ns 1000ml premix) 2,000 unit ONCE PRN INJ PICC PLACEMENT 03/19/18 10:45 03/20/18 23:59 Insulin Aspart (NovoLOG) Q6HR SUBQ 03/19/18 00:00 04/18/18 00:00 03/19/18 18:24 Iron Sucrose 100 mg/Sodium Chloride 60 ml @ 240 mls/hr BEDTIME IV 03/19/18 21:00 03/23/18 21:14 Lactobacillus Acidophilus (Culturelle) 4 tab DAILY GT 03/19/18 09:00 04/18/18 08:59 03/19/18 10:29 Lidocaine HCl (Xylocaine 1% 30ml) 30 ml ONCE PRN INJ PICC PLACEMENT 03/19/18 10:45 03/20/18 23:59 Magnesium Hydroxide (Mom) 10 ml DAILY PRN GT Constipation 03/18/18 22:30 04/17/18 22:29 Multivitamins (Multivitamins W/ Minerals 15ml Liquid) 15 ml DAILY GT 03/19/18 09:00 04/18/18 08:59 03/19/18 10:27 Piperacillin Sod/ Tazobactam Sod 2.25 gm/Dextrose 55 ml @ 110 mls/hr Q8HR IV 03/19/18 09:00 03/26/18 08:59 03/19/18 14:57 Sevelamer Carbonate (Renvela) 800 mg Q8HR GT 03/18/18 23:00 04/17/18 22:59 03/19/18 14:57 Sodium Chloride 1,000 ml @ 500 mls/hr Q2H PRN IVLG sbp<90 during hd 03/19/18 20:25 03/20/18 04:00 Vancomycin HCl (Vanco rx to dose) 1 ea DAILY PRN MISC Per rx protocol 03/19/18 07:45 04/18/18 07:44 Vitamin B Complex (Vitamin B Complex) 1 tab DAILY GT 03/19/18 09:00 04/18/18 08:59 03/19/18 10:28 Zinc Sulfate (Zinc Sulfate) 220 mg DAILY GT 03/19/18 09:00 04/18/18 08:59 03/19/18 10:28 Kate Quintero MD Mar 19, 2018 20:01
[2018-03-19] MEDS ORDERED: Heparin Sod 1000 units/ml 10ml IV SCH ×2 (20:30→21:30)
[2018-03-19] MEDS: Dyna-Hex 2% Top Sol 2oz TOPIC SCH (21:33)
[2018-03-19] MEDS: Iron Sucrose 100 MG in NS 55 ML IV SCH (21:34)
[2018-03-19] MEDS: Vancomycin oral 125mg/2.5ml ORAL SCH (21:38)
[2018-03-20] VITALS: BP 132/55
[2018-03-20 04:00] VITALS: BP 103/53
[2018-03-20 04:59] LABS: HEMATOCRIT 24.5 % (42.0-52.0); HEMOGLOBIN 8.1 G/DL (14.2-18.0); MEAN CORPUSCULAR VOLUME 88 FL (80-99); PLATELET COUNT 77 K/UL (150-450); RED BLOOD COUNT 2.77 M/UL (4.70-6.10); RED CELL DISTRIBUTION WIDTH 16.5 % (11.6-14.8); WHITE BLOOD COUNT 13.2 K/UL (4.8-10.8)
[2018-03-20 05:11] LABS: ALANINE AMINOTRANSFERASE 26 U/L (12-78); ALBUMIN 1.2 G/DL (3.4-5.0); ALBUMIN/GLOBULIN RATIO 0.3 (1.0-2.7); ALKALINE PHOSPHATASE 356 U/L (46-116); ANION GAP 12 mmol/L (5-15); ASPARTATE AMINO TRANSFERASE 39 U/L (15-37); BILIRUBIN,TOTAL 0.7 MG/DL (0.2-1.0); BLOOD UREA NITROGEN 86 mg/dL (7-18); CALCIUM 8.1 MG/DL (8.5-10.1); CARBON DIOXIDE 26 MMOL/L (21-32); CHLORIDE 100 MMOL/L (98-107); CREATININE 2.9 MG/DL (0.55-1.30); POTASSIUM 3.5 MMOL/L (3.5-5.1); SODIUM 138 MMOL/L (136-145)
[2018-03-20] MEDS: Zosyn 2.25 gm in D5W 55ml IV SCH ×3 (05:47→21:25)
[2018-03-20] MEDS: Renvela 800mg Pkt GT SCH ×3 (05:47→21:25)
[2018-03-20] MEDS: NovoLOG Insulin Flexpen SUBQ SCH ×4 (05:49→23:38)
[2018-03-20 08:00] VITALS: BP 104/52
[2018-03-20] MEDS ORDERED: Lidocaine 1% Plain 30 ml INJ PRN (08:30)
[2018-03-20] MEDS ORDERED: Heparin 2000 units/Ns 1000ml INJ PRN (08:30)
--- NOTE | 2018-03-20 08:57 | Nephrology Progress Note ---
Assessment/Plan Plan m/p polymicrobial line sepsis. Needs new PICC line urgently!!!. Patient unrepresented. Another attempt to dialyze under way today. Difficult to dialyze due to septic shock. May need ICU+ pressors. Decubiti - Dr. Andrade consulted. VDRF Per Pul. Severe Anemia --STEPHEN IV Venofer, transfuse PRN. Subjective Subjective Obtunded Objective Objective Last 24 Hour Vital Signs Date Time Temp Pulse Resp B/P (MAP) Pulse Ox O2 Delivery O2 Flow Rate FiO2 03/20/18 04:56 75 20 40 03/20/18 04:00 73 03/20/18 04:00 98.5 74 20 103/53 (70) 96 98.5 03/20/18 04:00 40 03/20/18 04:00 Mechanical Ventilator 03/20/18 03:06 77 19 40 03/20/18 01:24 87 25 40 03/20/18 00:00 Mechanical Ventilator 03/20/18 00:00 99.0 82 19 132/55 (80) 100 99.0 03/19/18 22:43 80 21 40 03/19/18 20:42 80 21 40 03/19/18 20:00 Mechanical Ventilator 03/19/18 20:00 81 03/19/18 20:00 98.2 80 20 132/48 (76) 98 98.2 03/19/18 20:00 40 03/19/18 19:09 84 27 40 03/19/18 17:05 87 20 40 03/19/18 16:13 84 03/19/18 16:00 Mechanical Ventilator 03/19/18 16:00 99.7 81 20 132/58 (82) 100 99.7 03/19/18 16:00 40 03/19/18 15:29 85 20 40 03/19/18 13:23 75 03/19/18 12:55 79 21 40 03/19/18 12:00 99.7 82 18 126/52 (76) 100 99.7 03/19/18 12:00 Mechanical Ventilator 03/19/18 12:00 40 03/19/18 10:32 79 20 40 03/19/18 09:00 82 19 40 Intake and Output 03/19/18 03/20/18 19:00 07:00 Intake Total 690 ml 433.708 ml Output Total 100 ml 0 ml Balance 590 ml 433.708 ml Intake Free Water 200 ml 50 ml IV Total 310 ml 183.708 ml Tube Feeding 180 ml 200 ml Output Urine Total 0 ml Stool Total 100 ml 0 ml Laboratory Tests 03/19/18 10:10: Iron Level 19L, Total Iron Binding Capacity 98L, Percent Iron Saturation 19, Unsaturated Iron Binding 79L, Ferritin 1752H, Random Vancomycin Level 12.8 03/20/18 03:47: White Blood Count 13.2H, Red Blood Count 2.77L, Hemoglobin 8.1L, Hematocrit 24.5L, Mean Corpuscular Volume 88, Mean Corpuscular Hemoglobin 29.2, Mean Corpuscular Hemoglobin Concent 33.2, Red Cell Distribution Width 16.5H, Platelet Count 77L, Mean Platelet Volume 6.5, Neutrophils (%) (Auto) , Lymphocytes (%) (Auto) , Monocytes (%) (Auto) , Eosinophils (%) (Auto) , Basophils (%) (Auto) , Differential Total Cells Counted 100, Neutrophils % ( Manual) 84H, Lymphocytes % (Manual) 10L, Monocytes % (Manual) 3, Eosinophils % ( Manual) 3, Basophils % (Manual) 0, Band Neutrophils 0, Platelet Estimate DecreasedL, Platelet Morphology Normal, Hypochromasia 1+, Anisocytosis 1+, Sodium Level 138, Potassium Level 3.5, Chloride Level 100, Carbon Dioxide Level 26, Anion Gap 12, Blood Urea Nitrogen 86H, Creatinine 2.9H, Estimat Glomerular Filtration Rate , Glucose Level 156H, Calcium Level 8.1L, Total Bilirubin 0.7, Aspartate Amino Transf (AST/SGOT) 39H, Alanine Aminotransferase (ALT/SGPT) 26, Alkaline Phosphatase 356H, Total Protein 5.7L, Albumin 1.2L, Globulin 4.5, Albumin/Globulin Ratio 0.3L Height (Feet): 5 Height (Inches): 10.00 Weight (Pounds): 188 Objective Multiple decubiti noted. CV RR Trach site Ok. Lungs B ronchi. And SNT. BS +. PEG OK. E muscle wasting. Rt. arm contracture @ elbow. Rt. arm AVF + bruit. Neuro - alert + responsive. Nonverbal. Dilip Conner MD Mar 20, 2018 08:57
[2018-03-20] MEDS: Vancomycin oral 125mg/2.5ml ORAL SCH ×4 (09:35→21:24)
[2018-03-20] MEDS: Lactobacillus-GG tablet GT SCH (09:36)
[2018-03-20] MEDS: Vitamin B Complex Tab GT SCH (09:36)
[2018-03-20] MEDS: Zinc Sulfate 220mg cap GT SCH (09:37)
[2018-03-20] MEDS: Nephrovite tab (Rena-Vite) ORAL SCH (09:45)
--- NOTE | 2018-03-20 11:02 | Diagnostic Imaging Report ---
Indication: Dyspnea Technique: One view of the chest Comparison: 03/18/2018 Findings: Bilateral pleural effusions, mid and lower lung hazy opacities, interstitial congestive changes are probably not significantly changed allowing for differences in exposure technique. Right axillary stent, right subclavian central venous catheter, tracheostomy remain. Heart size is upper limits normal. Impression: Unchanged, over 2 days, findings as above.
[2018-03-20 12:00] VITALS: BP 154/68
[2018-03-20] MEDS: Amiodarone 200mg tab GT SCH ×2 (13:26→21:26)
--- NOTE | 2018-03-20 14:00 | Consultation ---
DATE OF CONSULTATION: 03/20/2018 PULMONARY CONSULTATION CONSULTING PHYSICIAN: Rogelio Chiu M.D. REFERRING PHYSICIAN: Dilip Conner M.D. REASON FOR CONSULTATION: Respiratory failure, abnormal x-ray. HISTORY OF PRESENT ILLNESS: This is a 77-year-old Persian male, who is a ventilator dialysis patient. The patient noted to have a reduced hemoglobin and was admitted for further care and management. I was called to assist with ventilator management at this time. The patient admitted, cultures obtained, and notable for positive sepsis, bacteremia. I was called to assist with his overall respiratory care. The patient is unable to give much in the way of history. Respiratory status reviewed. The patient is currently on full support on the ventilator. The patient findings all reviewed in detail. The patient is chronically ventilator-dependent as mentioned, has chronic secretions. No acute changes noted. X-ray with significant findings suggestive of pulmonary edema. Care discussed with the primary care doctor. History and physical previously reviewed. assisted chart was reviewed. PAST MEDICAL HISTORY: Notable for chronic respiratory failure, chronic ventilator dependence, anoxia, CVA, end-stage renal disease, multiple decubitus, G-tube, and history of schizophrenia. MEDICATIONS: Reviewed. ALLERGIES: Reviewed. FAMILY HISTORY: Unable to obtain. SOCIAL HISTORY: Resides in a subacute. PHYSICAL EXAMINATION: GENERAL: A well-developed male, chronically ill appearing. VITAL SIGNS: Blood pressure 103/53, pulse 74, respirations 20, saturations 96% on 40% FiO2, and temperature 98.5. HEENT: Overall negative. NECK: Supple. Tracheostomy is in midline. Carotids 2+. LUNGS: With scattered rhonchi. Crackles at both bases. CARDIAC: S1, S2. Regular rate and rhythm without murmurs, rubs, or gallops. ABDOMEN: Soft, nontender. G-tube in place. No hepatosplenomegaly. EXTREMITIES: Chronic contractures noted. Notable for significant edema. NEUROLOGIC: The patient is obtunded and unable to respond to painful stimuli. LABORATORY DATA: Reviewed. Blood cultures are positive. White count 13, hemoglobin 8.1, and platelets 277. Chemistries noted, BUN 86, creatinine 2.9. Electrolytes are otherwise within normal. Albumin is only 1.2. X-ray with significant pulmonary edema and pleural effusions, possible pneumonia cannot be fully ruled out. IMPRESSION: 1. Respiratory failure. 2. Profound anemia, status post transfusion. 3. Chronic respiratory failure. 4. Severe protein-calorie malnutrition. 5. CVA. 6. Anoxia. 7. Underlying sepsis. RECOMMENDATIONS: Supportive care. IV antibiotics. Cultures noted. Final sensitivities to follow. ID followup. Hemodialysis with ultrafiltration. Follow up x-ray exam. Follow up arterial blood gases. Monitor clinically for change and intervention and chronic ventilatory support with adjustment as needed. Pending re-evaluation. Supportive care. Hold on any type of anticoagulation with noted anemia and we will monitor clinically for changes. Rogelio Chiu M.D. DR: ОЛЕГ JOB#: [id number] CC: ALEIDA
[2018-03-20 16:00] VITALS: BP 127/60
--- NOTE | 2018-03-20 18:14 | Diagnostic Imaging Report ---
Indication: Normal renal function tests. Abnormal liver function tests Technique: Barriga-scale and duplex images of the upper abdomen were obtained Comparison: none Findings: There is a large right pleural effusion Gallbladder demonstrates gallstones. Sonographic Gomez's sign is negative. Common bile duct measures 2 mm in diameter. No intrahepatic biliary ductal dilatation. Liver demonstrates equivocally minimally decreased echogenicity, no focal abnormality. Portal vein and hepatic veins are patent. Pancreas is unremarkable. Spleen is mildly enlarged, measuring 13.9 cm long axis dimension. Left kidney measures 10.6 cm in length. Right kidney measures 10.4 cm length. Both kidneys demonstrate increased echogenicity. There is no hydronephrosis. There are renal cysts bilaterally. . Non-aneurysmal abdominal aorta . Impression: Cholelithiasis. Negative for dilated ducts Equivocal apparent minimal decrease hepatic echogenicity, doubtful significance. Echogenic bilateral kidneys, consistent with medical renal disease. Negative for hydronephrosis Large right pleural effusion Incidental finding bilateral renal cysts
[2018-03-20 20:00] VITALS: BP 111/64
[2018-03-20] MEDS ORDERED: Dyna-Hex 2% Top Sol 2oz TOPIC SCH ×2 (20:00)
[2018-03-20] MEDS: Dyna-Hex 2% Top Sol 2oz TOPIC SCH (21:24)
[2018-03-20] MEDS: Iron Sucrose 100 MG in NS 55 ML IV SCH (21:25)
[2018-03-20] MEDS: Epogen (for ESRD on dialysis) SUBQ SCH (21:25)
[2018-03-21] VITALS: BP 155/88
--- NOTE | 2018-03-21 00:45 | Consultation ---
DATE OF CONSULTATION: 03/19/2018 INFECTIOUS DISEASE CONSULTATION CONSULTING PHYSICIAN: Kate Quintero M.D. ATTENDING PHYSICIAN: Dilip Conner M.D. REFERRING PHYSICIAN: Dilip Conner M.D. REASON FOR CONSULTATION: Sepsis, elevated white count, fevers, gram-positive and gram-negative bacteremia, urinary tract infection, and pneumonia. CHIEF COMPLAINT: The patient's chief complaint coming in to the hospital was severe anemia, sepsis, elevated white count, and fevers. HISTORY OF PRESENT ILLNESS: This is a 77-year-old male, who has history of multiple medical problems. The patient has trach and vent and came in with a central line and has a Reynolds, G-tube, and dysphagia. The patient presents with fevers, anemia, leukocytosis, and sepsis. Infectious Disease consultation was requested for antibiotic management. The patient was placed on vancomycin and Zosyn. Workup shows that he has gram-negative and gram-positive cocci in chains in the blood. He has a positive UA. He has multiple wounds and he has pneumonia. The patient is currently on vancomycin and Zosyn. The patient really cannot give any history. He is poorly responsive. Case was discussed with Dr. Conner and the RN. MAR was noted. Orders were noted. Notes and records were reviewed. PAST MEDICAL HISTORY: The patient's past medical history includes the history of the following. The patient has a past medical history of respiratory failure, vent, trach, chronic respiratory failure, history of dysphagia, G-tube, history of encephalopathy, CVA, history of end-stage renal disease, history of diabetes, hypertension, history of multiple decubitus, history of anemia, and history of schizophrenia. He has a history of AV fistula in the past. He has a history of central line coming in, in the right subclavian upper chest. No history of diabetes or cancer mentioned, but he does have a CVA history. No history of hypertension mentioned in the records. Possible hyperlipidemia, he is on atorvastatin and possible arrhythmia, he is on amiodarone. Again, unclear if he has history of hypertension at this time. MEDICATIONS: Upon reviewing the MAR, the patient is on the following medications. He is on vitamin B, Epogen, and lidocaine. He has been on heparin, vancomycin, Zosyn, and chlorhexidine. He has been on zinc sulfate, vitamin B, lactobacillus, ascorbic acid, and hydrocodone. He is on atorvastatin and Lipitor. He is on Renvela and amiodarone. Outside medication noted and reconciliated. He has been on also acetaminophen. ALLERGIES: No known drug allergies. No antibiotic allergies. SOCIAL HISTORY: Negative for smoking, alcohol, or drug abuse. FAMILY HISTORY: Noncontributory per the records. No mention of exposure to tuberculosis or cancer. REVIEW OF SYSTEMS: CONSTITUTIONAL: He has generalized weakness and fatigue. Poorly responsive. He in with low-grade fevers. He is currently not on pressors. resp -+ vent. CARDIAC: No pressors, no chest pain GASTROINTESTINAL: No nausea or vomiting, but does have a rectal tube or G-tube. GENITOURINARY: He has a Reynolds. PULMONARY: On a vent. SKIN: He has multiple wounds. NEUROLOGIC: No seizures. Generalized weakness. Poorly responsive. PHYSICAL EXAMINATION: VITAL SIGNS: When I saw the patient, temperature 99.7, pulse rate 82, respiratory rate 18, saturation 100%, FiO2 40%, and blood pressure 126/52. GENERAL: Lethargic, weak, and poorly responsive. HEAD AND NECK: He has trach. Normocephalic. No icterus. No thrush. LUNGS: Bilateral rhonchi and rales. No crackles. HEART: Regular. No obvious gallop or murmur. ABDOMEN: Soft. Positive bowel sounds. He has G-tube. SKIN: No rash. He has multiple wounds that are reviewed. MUSCULOSKELETAL: No effusion. Legs are without cellulitis. PERIPHERAL VASCULAR: No cyanosis or gangrene. GENITOURINARY: He has a Reynolds. Urine is slightly cloudy. He has a rectal tube. LINES: Line sites without phlebitis. NEUROLOGIC: Weakness. Poorly responsive. LABORATORY DATA: Creatinine 2.4. Alkaline phosphatase 344. White count 15.8 and hemoglobin 7.5. White count yesterday was 16.2. UA, 3+ leukocyte esterase and too many to count white blood cells. CULTURES: Blood cultures grew out gram-negative bacilli and also gram-positive cocci in chains. I discussed with microbiology. Identification is pending. Urine culture is pending. Wound cultures are pending. Sputum culture is pending. It has been ordered. IMAGING STUDIES: Chest x-ray showed large basilar opacities, combination of fluid, atelectasis, and consolidation. Report was noted and reviewed. ASSESSMENT AND PLAN: 1. The patient has sepsis, elevated white count, and fevers. The patient has gram-positive and gram-negative bacteremia. Most likely, line infection. Rule out gastrointestinal source. Rule out urine source. The patient has what looks like possible aspiration and healthcare-acquired pneumonia. The patient has what looks like urinary tract infection. The patient has multiple wounds and is being followed by surgery. Debridement as needed. The patient will be continued on vancomycin and Zosyn to cover multiple infection including sepsis, gram-positive bacteremia, line infection, pneumonia, and urinary tract infection. Continue vancomycin and Zosyn. Check final cultures. Followup blood cultures. Check identification of blood cultures. I would also change line and I would convert to PICC line and remove subclavian line. Case discussed at length with Dr. Conner and the RN. Continue vancomycin and Zosyn pending final workup. 2. The patient has history of cerebrovascular accident and questionable history of hypertension and arrhythmia. 3. Vent respiratory failure. 4. Dysphagia, G-tube. 5. End-stage renal disease, unclear if he has hemodialysis at this time. 6. Diabetes. Diabetes treatment per primary. 7. Anemia. 8. The patient is on amiodarone. 9. Schizophrenia. 10. Possible hyperlipidemia. 11. No known allergies. 12. Social history is negative. 13. MAR was noted. 14. Case was discussed with RN. 15. Family history is noncontributory. 16. Step-down unit care. 17. Vent care. 18. Continue treatment per primary consultants. 19. Notes and records were noted. 20. Orders were entered. Kate Quintero M.D. DR: LEILA JOB#: [id number] CC: ALEIDA
--- NOTE | 2018-03-21 01:00 | Consultation ---
DATE OF CONSULTATION: 03/19/2018 ADDENDUM PAST MEDICAL HISTORY: The past medical history of the patient I believe includes the patient does have past history of diabetes if I did not mention. In addition, he also has history of possible hypertension, hyperlipidemia, and arrhythmias. He is on amiodarone. Kate Quintero M.D. DR: Cassidy JOB#: [id number] CC:
[2018-03-21 04:00] VITALS: BP 105/49
[2018-03-21] MEDS: Zosyn 2.25 gm in D5W 55ml IV SCH ×2 (05:37→13:39)
[2018-03-21] MEDS: Renvela 800mg Pkt GT SCH ×3 (05:37→21:55)
[2018-03-21] MEDS: NovoLOG Insulin Flexpen SUBQ SCH ×3 (05:41→19:00)
[2018-03-21 08:00] VITALS: BP 139/58
--- NOTE | 2018-03-21 08:36 | Pulmonology Progress Note ---
Assessment/Plan Assessment/Plan IMPRESSION: 1. Respiratory failure. 2. Profound anemia, status post transfusion. 3. Chronic respiratory failure. 4. Severe protein-calorie malnutrition. 5. CVA. 6. Anoxia. 7. Underlying sepsis. 8. pulmonary jeaneth 9. possible pneumonia 10. pleural effusion PLAN care noted IV antibiotics respiratory care Ventilatory support SNF meds supportive care suction as needed keep negative no wean oxygen therapy prognosis guarded Subjective ROS Limited/Unobtainable: Yes Allergies: Coded Allergies: No Known Allergies (Unverified , 03/18/18) Subjective on vent poorly responsive care reviewed Objective Last 24 Hour Vital Signs Date Time Temp Pulse Resp B/P (MAP) Pulse Ox O2 Delivery O2 Flow Rate FiO2 03/21/18 08:00 99.0 78 21 139/58 (85) 100 99.0 03/21/18 06:50 77 22 30 03/21/18 05:20 81 19 30 03/21/18 04:05 79 03/21/18 04:00 97.9 80 22 105/49 (67) 100 97.9 03/21/18 04:00 30 03/21/18 04:00 Mechanical Ventilator 03/21/18 03:29 82 20 30 03/21/18 01:30 50 20 30 03/21/18 00:00 Mechanical Ventilator 03/21/18 00:00 80 03/21/18 00:00 98.2 50 20 155/88 (110) 100 98.2 03/20/18 22:56 54 22 30 03/20/18 21:21 74 21 30 03/20/18 20:00 Mechanical Ventilator 03/20/18 20:00 30 03/20/18 20:00 98.2 77 19 111/64 (80) 100 98.2 03/20/18 19:53 77 03/20/18 19:30 75 23 30 03/20/18 18:00 81 19 30 03/20/18 16:45 79 03/20/18 16:00 86 03/20/18 16:00 98.1 87 20 127/60 (82) 100 98.1 03/20/18 16:00 30 03/20/18 16:00 Mechanical Ventilator 03/20/18 15:10 89 25 30 03/20/18 12:42 80 20 30 03/20/18 12:00 98.4 79 20 154/68 (96) 99 98.4 03/20/18 12:00 Mechanical Ventilator 03/20/18 12:00 79 03/20/18 12:00 30 03/20/18 11:30 30 03/20/18 11:10 30 03/20/18 10:53 75 27 40 Intake and Output 03/20/18 03/21/18 19:00 07:00 Intake Total 460 ml 520 ml Output Total 50 ml Balance 410 ml 520 ml Intake Free Water 220 ml 60 ml Tube Feeding 240 ml 460 ml Output Urine Total 0 ml Stool Total 50 ml Objective GENERAL: A well-developed male, chronically ill appearing. male, reduced LOC HEENT: Overall negative. NECK: Supple. Tracheostomy is in midline. Carotids 2+. LUNGS: With noted rhonchi. Crackles at both bases. CARDIAC: S1, S2. Regular rate and rhythm without murmurs, rubs, or gallops. ABDOMEN: Soft, nontender. G-tube in place. No hepatosplenomegaly. EXTREMITIES: Chronic contractures noted. Notable for significant edema. NEUROLOGIC: The patient is obtunded without change Microbiology Date/Time Source Procedure Growth Status 03/18/18 15:15 Blood Blood Culture - Preliminary Klebsiella Pneumoniae Resulted 03/18/18 15:00 Blood Blood Culture - Preliminary Gram Negative Bacillus 1 Resulted 03/19/18 11:30 Sputum Induced Gram Stain - Final Resulted 03/19/18 11:30 Sputum Culture - Preliminary Gram Negative Bacillus 1 Gram Negative Bacillus 2 Resulted 03/18/18 15:10 Nasal Nares MRSA Culture - Final NO METHICILLIN RESISTANT STAPH AUREUS... Complete 03/18/18 15:10 Urine,Clean Catch Urine Culture - Preliminary YEAST Resulted 03/18/18 20:00 Sacral Wound Gram Stain - Final Resulted 03/18/18 20:00 Wound Culture - Preliminary Gram Negative Bacillus 1 Gram Negative Bacillus 2 Resulted 03/18/18 15:10 Rectum VRE Culture - Final Enterococcus Faecalis - Vre Enterococcus Faecium - Vre Resulted 03/18/18 15:10 Rectum Pending Resulted Laboratory Tests 03/20/18 10:10: Arterial Blood pH 7.532H, Arterial Blood Partial Pressure CO2 31.7L, Arterial Blood Partial Pressure O2 145.1H, Arterial Blood HCO3 26.0, Arterial Blood Oxygen Saturation 98.5, Arterial Blood Base Excess 3.4H, Joe Test Positive Current Medications Medications (Trade) Dose Ordered Sig/Marques Route PRN Reason Start Time Stop Time Status Last Admin Dose Admin Acetaminophen (Tylenol) 650 mg Q4H PRN GT Mild Pain/Temp > 100.5 03/18/18 21:00 04/17/18 20:59 Acetaminophen/ Hydrocodone Bitart ([place] 5/325) 1 tab DAILY PRN GT For Pain 03/19/18 00:15 03/26/18 00:00 Amiodarone HCl (Cordarone) 200 mg EVERY 12 HOURS GT 03/18/18 23:00 04/17/18 22:59 03/20/18 21:26 Ascorbic Acid (Vitamin C) 100 mg TWICE A DAY GT 03/19/18 09:00 04/18/18 08:59 UNV Atorvastatin Calcium (Lipitor) 20 mg BEDTIME GT 03/18/18 23:00 04/17/18 22:59 03/20/18 21:26 Chlorhexidine Gluconate (Linda-Hex 2%) 1 applic DAILY@2000 TOPIC 03/20/18 20:00 04/19/18 19:59 03/20/18 21:24 Dextrose (Dextrose 50%) 25 ml Q30M PRN IV Hypoglycemia 03/18/18 22:30 04/17/18 22:29 Dextrose (Dextrose 50%) 50 ml Q30M PRN IV Hypoglycemia 03/18/18 22:30 04/17/18 22:29 Epoetin Pawel (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)) 10,000 units TUE-TUE-TUE SUBQ 03/20/18 21:00 04/19/18 20:59 03/20/18 21:25 Insulin Aspart (NovoLOG) Q6HR SUBQ 03/19/18 00:00 04/18/18 00:00 03/21/18 05:41 Iron Sucrose 100 mg/Sodium Chloride 60 ml @ 240 mls/hr BEDTIME IV 03/19/18 21:00 03/23/18 21:14 03/20/18 21:25 Lactobacillus Acidophilus (Culturelle) 4 tab DAILY GT 03/19/18 09:00 04/18/18 08:59 03/20/18 09:36 Linezolid 300 ml @ 300 mls/hr Q12HR@0500,1700 IVPB 03/20/18 17:00 03/27/18 16:59 03/21/18 04:13 Magnesium Hydroxide (Mom) 10 ml DAILY PRN GT Constipation 03/18/18 22:30 04/17/18 22:29 Piperacillin Sod/ Tazobactam Sod 2.25 gm/Dextrose 55 ml @ 110 mls/hr Q8HR IV 03/19/18 09:00 03/26/18 08:59 03/21/18 05:37 Sevelamer Carbonate (Renvela) 800 mg Q8HR GT 03/18/18 23:00 04/17/18 22:59 03/21/18 05:37 Vancomycin HCl (Firvanq) 125 mg FOUR TIMES A DAY ORAL 03/19/18 21:00 03/26/18 20:59 03/20/18 21:24 Vitamin B Complex (Vitamin B Complex) 1 tab DAILY GT 03/19/18 09:00 04/18/18 08:59 03/20/18 09:36 Vitamin B Complex/ Vit C/Folic Acid (Nephrovite) 1 tab DAILY ORAL 03/20/18 09:31 04/19/18 09:30 03/20/18 09:45 Zinc Sulfate (Zinc Sulfate) 220 mg DAILY GT 03/19/18 09:00 04/18/18 08:59 03/20/18 09:37 Rogelio Chiu MD Mar 21, 2018 08:36
[2018-03-21] MEDS: Nephrovite tab (Rena-Vite) ORAL SCH (08:57)
[2018-03-21] MEDS: Amiodarone 200mg tab GT SCH ×2 (08:57→20:49)
[2018-03-21] MEDS: Vitamin B Complex Tab GT SCH (08:57)
[2018-03-21] MEDS: Zinc Sulfate 220mg cap GT SCH (08:57)
[2018-03-21] MEDS: Lactobacillus-GG tablet GT SCH (09:03)
[2018-03-21] MEDS: Vancomycin oral 125mg/2.5ml ORAL SCH ×2 (09:04→12:01)
--- NOTE | 2018-03-21 09:56 | Nephrology Progress Note ---
Assessment/Plan Plan m/p polymicrobial line sepsis. Needs new central line urgently!!!. Patient unrepresented. ESRD HD MWF Decubiti - Dr. Andrade consulted. VDRF Per Pul. Severe Anemia --STEPHEN IV Venofer, transfuse PRN. Subjective Subjective Obtunded Objective Objective Last 24 Hour Vital Signs Date Time Temp Pulse Resp B/P (MAP) Pulse Ox O2 Delivery O2 Flow Rate FiO2 03/21/18 08:00 82 03/21/18 08:00 99.0 78 21 139/58 (85) 100 99.0 03/21/18 06:50 77 22 30 03/21/18 05:20 81 19 30 03/21/18 04:05 79 03/21/18 04:00 97.9 80 22 105/49 (67) 100 97.9 03/21/18 04:00 30 03/21/18 04:00 Mechanical Ventilator 03/21/18 03:29 82 20 30 03/21/18 01:30 50 20 30 03/21/18 00:00 Mechanical Ventilator 03/21/18 00:00 80 03/21/18 00:00 98.2 50 20 155/88 (110) 100 98.2 03/20/18 22:56 54 22 30 03/20/18 21:21 74 21 30 03/20/18 20:00 Mechanical Ventilator 03/20/18 20:00 30 03/20/18 20:00 98.2 77 19 111/64 (80) 100 98.2 03/20/18 19:53 77 03/20/18 19:30 75 23 30 03/20/18 18:00 81 19 30 03/20/18 16:45 79 03/20/18 16:00 86 03/20/18 16:00 98.1 87 20 127/60 (82) 100 98.1 03/20/18 16:00 30 03/20/18 16:00 Mechanical Ventilator 03/20/18 15:10 89 25 30 03/20/18 12:42 80 20 30 03/20/18 12:00 98.4 79 20 154/68 (96) 99 98.4 03/20/18 12:00 Mechanical Ventilator 03/20/18 12:00 79 03/20/18 12:00 30 03/20/18 11:30 30 03/20/18 11:10 30 10/1/18 10:53 75 27 40 Intake and Output 03/20/18 03/21/18 19:00 07:00 Intake Total 460 ml 520 ml Output Total 50 ml Balance 410 ml 520 ml Intake Free Water 220 ml 60 ml Tube Feeding 240 ml 460 ml Output Urine Total 0 ml Stool Total 50 ml Laboratory Tests 03/20/18 10:10: Arterial Blood pH 7.532H, Arterial Blood Partial Pressure CO2 31.7L, Arterial Blood Partial Pressure O2 145.1H, Arterial Blood HCO3 26.0, Arterial Blood Oxygen Saturation 98.5, Arterial Blood Base Excess 3.4H, Joe Test Positive Height (Feet): 5 Height (Inches): 10.00 Weight (Pounds): 188 Objective Multiple decubiti noted and examined with nursing staff. Thw wounds are very deep! CV RR Trach site Ok. Lungs B ronchi. And SNT. BS +. PEG OK. E muscle wasting. Rt. arm contracture @ elbow. Rt. arm AVF + bruit. Neuro - alert + responsive. Nonverbal. Dilip Conner MD Mar 21, 2018 09:56
[2018-03-21] MEDS ORDERED: Heparin 2000 units/Ns 1000ml INJ SCH (11:15)
[2018-03-21] MEDS ORDERED: Lidocaine 1% Plain 30 ml INJ SCH (11:15)
[2018-03-21 12:00] VITALS: BP 145/71
[2018-03-21] MEDS: Dakin's 0.125% Soln (Quarter Strength) 16oz TOPIC SCH (13:40)
[2018-03-21] MEDS: Acetaminophen 650mg/20.3ml GT PRN (14:07)
--- NOTE | 2018-03-21 14:07 | Brief Operative Note ---
Immediate Post Operative Note Operative Note Chief Complaint: anemia Pre-op Diagnosis: needs central IV access Procedure: L fem central line Post-op Diagnosis: same as pre-op Findings: consistent w/pre-op dx studies Surgeon: Renae SHERWOOD Anesthesia: local Specimen: none Complications: none Fluids: none Implant(s) used?: No Eric Sherwood MD Mar 21, 2018 14:07
--- NOTE | 2018-03-21 14:14 | Diagnostic Imaging Report ---
Indication: Reason For Exam: IV Technique: Emergency signed physician consent, documentation of need for such, was confirmed to be in the electronic medical record. Procedure performed at bedside. Procedural timeout performed. Due to evidence of prior upper extremity venous interventions, left groin access was chosen. Ultrasound confirms patent compressible left common femoral vein. Total sterile technique, including sterile probe cover and sterile gel, sterile gloves, hand hygiene, hat, mask, sterile gown, large sterile drape, and preparation with 2% chlorhexidine utilized.Local anesthesia with 1% lidocaine. Under real-time ultrasound guidance, puncture left greater saphenous vein using 21-gauge needle, passage 0.018 guidewire, insertion 4 Croatian micropuncture introducer, passage 0.035 guidewire, over which was passed serial dilators and then a triple-lumen central venous catheter. Completion chest radiograph obtained, demonstrating catheter tip position at the mid common iliac vein. Impression: Successful placement of left femoral central venous catheter, as described.
--- NOTE | 2018-03-21 15:30 | General Surgery Progress Note ---
General Surgery-Progress Note Subjective Additional Comments central line changed to femoral temporarily Objective Last 24 Hour Vital Signs Date Time Temp Pulse Resp B/P (MAP) Pulse Ox O2 Delivery O2 Flow Rate FiO2 03/21/18 14:07 100.4 03/21/18 12:55 84 18 30 03/21/18 12:00 81 03/21/18 12:00 30 03/21/18 12:00 99.7 81 17 145/71 (95) 100 99.7 03/21/18 12:00 Mechanical Ventilator 03/21/18 11:15 71 18 30 03/21/18 09:01 68 20 30 03/21/18 08:00 Mechanical Ventilator 03/21/18 08:00 30 03/21/18 08:00 82 03/21/18 08:00 99.0 78 21 139/58 (85) 100 99.0 03/21/18 06:50 77 22 30 03/21/18 05:20 81 19 30 03/21/18 04:05 79 03/21/18 04:00 97.9 80 22 105/49 (67) 100 97.9 03/21/18 04:00 30 03/21/18 04:00 Mechanical Ventilator 03/21/18 03:29 82 20 30 03/21/18 01:30 50 20 30 03/21/18 00:00 Mechanical Ventilator 03/21/18 00:00 80 03/21/18 00:00 98.2 50 20 155/88 (110) 100 98.2 03/20/18 22:56 54 22 30 03/20/18 21:21 74 21 30 03/20/18 20:00 Mechanical Ventilator 03/20/18 20:00 30 03/20/18 20:00 98.2 77 19 111/64 (80) 100 98.2 03/20/18 19:53 77 03/20/18 19:30 75 23 30 03/20/18 18:00 81 19 30 03/20/18 16:45 79 03/20/18 16:00 86 03/20/18 16:00 98.1 87 20 127/60 (82) 100 98.1 03/20/18 16:00 30 03/20/18 16:00 Mechanical Ventilator I&O Intake and Output 03/20/18 03/21/18 19:00 07:00 Intake Total 460 ml 520 ml Output Total 50 ml Balance 410 ml 520 ml Intake Free Water 220 ml 60 ml Tube Feeding 240 ml 460 ml Output Urine Total 0 ml Stool Total 50 ml Dressing: other Wound: other Drains: other Cardiovascular: RSR Respiratory: clear, decreased breath sounds Abdomen: soft, distended, present bowel sounds Extremities: other Plan Problems: (1) Decubitus ulcer of sacral region, stage 4 Assessment & Plan: Unstageable right lower buttock ulcer; large; no active drainage, no foul odor, macerated edges, eschar cap noted Unstageable right inner buttock ulcer; large; no active drainage, no foul odor, macerated edges, necrotic soft eschar cap noted Stage 4 full thickness sacral decubitus ulcer with necrotic / fibrinous tissue noted, macerated edges, bleeding at edges, serous drainage, no odor Unstageable left buttock ulcer; large; no active drainage, no foul odor, macerated edges, eschar w/ debris noted Left heel with large unstageable necrotic eschar cap Left leg with large unstageable necrotic eschar cap left foot with anterior unstageable necrotic eschar cap left leg with large linear wound with necrotic eschar right ankle with large necrotic eschar cap right heel with large necortic eschar cap Maroon indurated area in close proximity Trachea(L)4.8cm x (W)3.5cm ,multiple full thickness wounds with necrosis R and L upper ext including metacarpals of both hands .Scattered full thickness wounds across abd. Largest of which is to R abd (L)6.3cm x (W)2.5cm with loose slough and erythema .Full thickness ulcer noted to deejay R tibia- inferior to R knee (L)1.5cm x (W)1cm wound bed with 75 % slough ,scant purulent exudate.Full thickness wound deejay R tibia (L)12.8cm x (W)2.4 cm,wound has 100% mixed slough /necrosis. Full thickness wound dorsum R foot with 100% soft necrosis(L)8.7cm x (W)5.2cm .Dry eschar lateral and head of R 1st metatarsal (L)3.5cm x (W)1.7cm.Dry eschar R hallux (L) 2.5cm x (W) 2.8cm.Dry eschar noted to2nd through 5th metatarsals.Dry necrosis with yellow slough noted to lateral L tibia (L)17.5cm x (W)2.1cm. 100% necrosis dorso / flexor L foot (L)4.4cm x (W)3.7cm. 100% necrosis lateral L malleolus (L)2.7cm x (W)2.2cm. Necrosis noted to all five metatarsal heads on L foot.Full thickness wound L trochanteric with 90% mixed slough /necrosis (L)6.5cm x (W)7cm.Wound is malodorous. Full thickness wound L Ischium (L)9.3cm x (W)8cm wound with 100% mixed slough /necrosis and is malodorous. Full thickness sacral wound with slough /necrosis (L)14.5cm x (W)11cm x (D)2.4cm.Wound malodorous.Full thickness wound R trochanter (L)11cm x (W)8.4cm with 95% necrosis and is malodorous .Full thickness wound R ischium (L)5cm x (W02.5cm ,95% soft necrosis and erythema ,and is malodorous . all wounds present upon admission. will be cared for during hospital stay. no wounds with active infection some wounds will require debridement Plan: pressure release mattress turn q2h as per protocol elevate heels with pillows. heel protectors apply foam dressings to heels and dry necrotic eschar wounds gauze packing and dressing for sacral wound which will need debridement foam dressings to buttock wounds. will discuss with wound care nurse and adjust orders Tray Sutton Mar 21, 2018 15:30
[2018-03-21 16:00] VITALS: BP 102/40
[2018-03-21] MEDS ORDERED: Amikacin Rx to dose MISC PRN (16:30)
[2018-03-21] MEDS ORDERED: Amikacin 500 MG in NS 110 ML IV ONE ×2 (16:30→18:00)
--- NOTE | 2018-03-21 16:49 | Infectious Diseases Prog Note ---
Assessment/Plan Assessment/Plan ASSESSMENT AND PLAN: 1. sepsis, klebsiella/gram + chains bacteremia/line infection, leukocytosis, fevers, ? fungal uti vs colonizer, multiple wounds - ? infected, vre colonization - meropenem, amikacin, zyvox (cover for vre pending final blood culture results) - change/remove line - monitor labs and chest x-ray, f/u on surveillance blood cultures - wound care and debridement if needed per surgery - recheck ua and culture - d/w Dr. Conner 2. The patient has history of cerebrovascular accident and questionable history of hypertension and arrhythmia. 3. Vent respiratory failure. 4. Dysphagia, G-tube. 5. End-stage renal disease - getting hd, has shunt 6. Diabetes - Diabetes treatment per primary. 7. Anemia. 8. The patient is on amiodarone. 9. Schizophrenia. 10. Possible hyperlipidemia. 11. No known allergies. 12. Social history is negative. 13. MAR was noted. 14. Case was discussed with RN. 15. Family history is noncontributory. 16. Step-down unit care. 17. Vent care. 18. Continue treatment per primary consultants. 19. Notes and records were noted. 20. Orders were entered. Subjective Constitutional: Reports: fatigue, other - + trach and vent ; Denies: fever HEENT: Reports: congestion Respiratory: Reports: shortness of breath Cardiovascular: Denies: chest pain Gastrointestinal/Abdominal: Reports: diarrhea, other - + rectal tube ; Denies: nausea, vomiting Genitourinary: Reports: other - + condom cath, + hd Neurologic: Reports: weakness, other - poorly responsive Psychiatric: Reports: other - na Skin: Reports: other - wounds covered ; Denies: rash Endocrine: Reports: other - na Hematologic: Denies: bleeding Musculoskeletal: Reports: other - na Allergies: Coded Allergies: No Known Allergies (Unverified , 03/18/18) Objective Vital Signs Last 24 Hour Vital Signs Date Time Temp Pulse Resp B/P (MAP) Pulse Ox O2 Delivery O2 Flow Rate FiO2 03/21/18 16:00 30 03/21/18 16:00 Mechanical Ventilator 03/21/18 16:00 98.4 81 22 102/40 (60) 96 98.4 03/21/18 15:20 81 18 30 03/21/18 14:37 98.4 03/21/18 14:07 100.4 03/21/18 12:55 84 18 30 03/21/18 12:00 81 03/21/18 12:00 30 03/21/18 12:00 99.7 81 17 145/71 (95) 100 99.7 03/21/18 12:00 Mechanical Ventilator 03/21/18 11:15 71 18 30 03/21/18 09:01 68 20 30 03/21/18 08:00 Mechanical Ventilator 03/21/18 08:00 30 03/21/18 08:00 82 03/21/18 08:00 99.0 78 21 139/58 (85) 100 99.0 03/21/18 06:50 77 22 30 03/21/18 05:20 81 19 30 03/21/18 04:05 79 03/21/18 04:00 97.9 80 22 105/49 (67) 100 97.9 03/21/18 04:00 30 03/21/18 04:00 Mechanical Ventilator 03/21/18 03:29 82 20 30 03/21/18 01:30 50 20 30 03/21/18 00:00 Mechanical Ventilator 03/21/18 00:00 80 03/21/18 00:00 98.2 50 20 155/88 (110) 100 98.2 03/20/18 22:56 54 22 30 03/20/18 21:21 74 21 30 03/20/18 20:00 Mechanical Ventilator 03/20/18 20:00 30 03/20/18 20:00 98.2 77 19 111/64 (80) 100 98.2 03/20/18 19:53 77 03/20/18 19:30 75 23 30 03/20/18 18:00 81 19 30 03/20/18 16:45 79 Height (Feet): 5 Height (Inches): 10.00 Weight (Pounds): 188 General Appearance: no acute distress, other - + trach and vent, poorly responsive HEENT: normocephalic, atraumatic, anicteric, no JVD, status post trach Respiratory/Chest: crackles/rales, rhonchi - bilaterally, other - on vent Cardiovascular: normal rate, regular rhythm, no gallop/murmur, no JVD Abdomen: normal bowel sounds, soft, non tender, non distended Genitourinary: other - + condom cath, + hd Extremities: no cyanosis Skin: no rash, other - wounds covered Neurologic/Psychiatric: motor weakness, other - lethargic, poorly responsive Lymphatic: no neck adenopathy Musculoskeletal: no effusion Objective 03/20 - chest -ray - Comparison: 03/18/2018 Findings: Bilateral pleural effusions, mid and lower lung hazy opacities, interstitial congestive changes are probably not significantly changed allowing for differences in exposure technique. Right axillary stent, right subclavian central venous catheter, tracheostomy remain. Heart size is upper limits normal. Impression: Unchanged, over 2 days, findings as above. Microbiology Date/Time Source Procedure Growth Status 03/19/18 11:30 Sputum Induced Gram Stain - Final Resulted 03/19/18 11:30 Sputum Culture - Preliminary Gram Negative Bacillus 1 Gram Negative Bacillus 2 Resulted 03/20/18 16:00 Stool Clostridium difficile Toxin Assay - Final Complete 03/18/18 20:00 Sacral Wound Gram Stain - Final Resulted 03/18/18 20:00 Wound Culture - Preliminary Klebsiella Pneumoniae Providencia Stuartii Gram Positive Cocci Resulted Labs Test 03/19/18 03:40 03/19/18 10:10 03/20/18 03:47 03/20/18 10:10 White Blood Count 15.8 K/UL (4.8-10.8) 13.2 K/UL (4.8-10.8) Red Blood Count 2.60 M/UL (4.70-6.10) 2.77 M/UL (4.70-6.10) Hemoglobin 7.5 G/DL (14.2-18.0) 8.1 G/DL (14.2-18.0) Hematocrit 22.8 % (42.0-52.0) 24.5 % (42.0-52.0) Mean Corpuscular Volume 88 FL (80-99) 88 FL (80-99) Mean Corpuscular Hemoglobin 28.8 PG (27.0-31.0) 29.2 PG (27.0-31.0) Mean Corpuscular Hemoglobin Concent 32.8 G/DL (32.0-36.0) 33.2 G/DL (32.0-36.0) Red Cell Distribution Width 17.1 % (11.6-14.8) 16.5 % (11.6-14.8) Platelet Count 54 K/UL (150-450) 77 K/UL (150-450) Mean Platelet Volume 6.6 FL (6.5-10.1) 6.5 FL (6.5-10.1) Neutrophils (%) (Auto) % (45.0-75.0) % (45.0-75.0) Lymphocytes (%) (Auto) % (20.0-45.0) % (20.0-45.0) Monocytes (%) (Auto) % (1.0-10.0) % (1.0-10.0) Eosinophils (%) (Auto) % (0.0-3.0) % (0.0-3.0) Basophils (%) (Auto) % (0.0-2.0) % (0.0-2.0) Differential Total Cells Counted 100 100 Neutrophils % (Manual) 82 % (45-75) 84 % (45-75) Lymphocytes % (Manual) 7 % (20-45) 10 % (20-45) Monocytes % (Manual) 3 % (1-10) 3 % (1-10) Eosinophils % (Manual) 0 % (0-3) 3 % (0-3) Basophils % (Manual) 0 % (0-2) 0 % (0-2) Band Neutrophils 8 % (0-8) 0 % (0-8) Platelet Estimate Decreased Decreased Platelet Morphology Normal Normal Hypochromasia 1+ 1+ Anisocytosis 1+ 1+ Sodium Level 141 MMOL/L (136-145) 138 MMOL/L (136-145) Potassium Level 2.8 MMOL/L (3.5-5.1) 3.5 MMOL/L (3.5-5.1) Chloride Level 102 MMOL/L (98-107) 100 MMOL/L (98-107) Carbon Dioxide Level 29 MMOL/L (21-32) 26 MMOL/L (21-32) Anion Gap 10 mmol/L (5-15) 12 mmol/L (5-15) Blood Urea Nitrogen 73 mg/dL (7-18) 86 mg/dL (7-18) Creatinine 2.4 MG/DL (0.55-1.30) 2.9 MG/DL (0.55-1.30) Estimat Glomerular Filtration Rate mL/min (>60) mL/min (>60) Glucose Level 77 MG/DL (74-106) 156 MG/DL (74-106) Calcium Level 8.2 MG/DL (8.5-10.1) 8.1 MG/DL (8.5-10.1) Iron Level 19 ug/dL (50-175) Total Iron Binding Capacity 98 ug/dL (250-450) Percent Iron Saturation 19 % (15-50) Unsaturated Iron Binding 79 ug/dL (112-346) Ferritin 1752 NG/ML (8-388) Random Vancomycin Level 12.8 ug/mL Total Bilirubin 0.7 MG/DL (0.2-1.0) Aspartate Amino Transf (AST/SGOT) 39 U/L (15-37) Alanine Aminotransferase (ALT/SGPT) 26 U/L (12-78) Alkaline Phosphatase 356 U/L (46-116) Total Protein 5.7 G/DL (6.4-8.2) Albumin 1.2 G/DL (3.4-5.0) Globulin 4.5 g/dL Albumin/Globulin Ratio 0.3 (1.0-2.7) Arterial Blood pH 7.532 (7.350-7.450) Arterial Blood Partial Pressure CO2 31.7 mmHg (35.0-45.0) Arterial Blood Partial Pressure O2 145.1 mmHg (75.0-100.0) Arterial Blood HCO3 26.0 mmol/L (22.0-26.0) Arterial Blood Oxygen Saturation 98.5 % (95-100) Arterial Blood Base Excess 3.4 (-2-2) Joe Test Positive Current Medications Medications (Trade) Dose Ordered Sig/Marques Route PRN Reason Start Time Stop Time Status Last Admin Dose Admin Acetaminophen (Tylenol) 650 mg Q4H PRN GT Mild Pain/Temp > 100.5 03/18/18 21:00 04/17/18 20:59 03/21/18 14:07 Acetaminophen/ Hydrocodone Bitart (Amity 5/325) 1 tab DAILY PRN GT For Pain 03/19/18 00:15 03/26/18 00:00 Amiodarone HCl (Cordarone) 200 mg EVERY 12 HOURS GT 03/18/18 23:00 04/17/18 22:59 03/21/18 08:57 Atorvastatin Calcium (Lipitor) 20 mg BEDTIME GT 03/18/18 23:00 04/17/18 22:59 03/20/18 21:26 Chlorhexidine Gluconate (Linda-Hex 2%) 1 applic DAILY@2000 TOPIC 03/20/18 20:00 04/19/18 19:59 03/20/18 21:24 Dextrose (Dextrose 50%) 25 ml Q30M PRN IV Hypoglycemia 03/18/18 22:30 04/17/18 22:29 Dextrose (Dextrose 50%) 50 ml Q30M PRN IV Hypoglycemia 03/18/18 22:30 04/17/18 22:29 Epoetin Pawel (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)) 10,000 units TUE-TUE-TUE SUBQ 03/20/18 21:00 04/19/18 20:59 03/20/18 21:25 Heparin Sodium/ Sodium Chloride (Heparin 2000 units/Ns 1000ml premix) 2,000 unit ONCE INJ 03/21/18 11:15 03/21/18 23:59 03/21/18 11:15 Insulin Aspart (NovoLOG) Q6HR SUBQ 03/19/18 00:00 04/18/18 00:00 03/21/18 12:01 Iron Sucrose 100 mg/Sodium Chloride 60 ml @ 240 mls/hr BEDTIME IV 03/19/18 21:00 03/23/18 21:14 03/20/18 21:25 Lactobacillus Acidophilus (Culturelle) 4 tab DAILY GT 03/19/18 09:00 04/18/18 08:59 03/21/18 09:03 Lidocaine HCl (Xylocaine 1% 30ml) 30 ml ONCE INJ 03/21/18 11:15 03/21/18 23:59 03/21/18 11:15 Linezolid 300 ml @ 300 mls/hr Q12HR@0500,1700 IVPB 03/20/18 17:00 03/27/18 16:59 03/21/18 04:13 Magnesium Hydroxide (Mom) 10 ml DAILY PRN GT Constipation 03/18/18 22:30 04/17/18 22:29 Piperacillin Sod/ Tazobactam Sod 2.25 gm/Dextrose 55 ml @ 110 mls/hr Q8HR IV 03/19/18 09:00 03/26/18 08:59 03/21/18 13:39 Sevelamer Carbonate (Renvela) 800 mg Q8HR GT 03/18/18 23:00 04/17/18 22:59 03/21/18 13:40 Sodium Hypochlorite (Dakin's Quarter Strength) 1 applic DAILY TOPIC 03/21/18 10:51 04/20/18 10:50 03/21/18 13:40 Sodium Chloride 1,000 ml @ 500 mls/hr Q2H PRN IVLG sbp<90 during hd 03/22/18 09:56 04/21/18 09:55 Vancomycin HCl (Firvanq) 125 mg FOUR TIMES A DAY ORAL 03/19/18 21:00 03/26/18 20:59 03/21/18 12:01 Vitamin B Complex (Vitamin B Complex) 1 tab DAILY GT 03/19/18 09:00 04/18/18 08:59 03/21/18 08:57 Vitamin B Complex/ Vit C/Folic Acid (Nephrovite) 1 tab DAILY ORAL 03/20/18 09:31 04/19/18 09:30 03/21/18 08:57 Zinc Sulfate (Zinc Sulfate) 220 mg DAILY GT 03/19/18 09:00 04/18/18 08:59 03/21/18 08:57 Kate Quintero MD Mar 21, 2018 16:49
--- NOTE | 2018-03-21 19:10 | Cardiology Report ---
APPROVED REPORT EKG Measurement Heart [id number] Normal sinus rhythm Low voltage QRS Nonspecific ST and T wave abnormality Abnormal ECG
[2018-03-21 20:00] VITALS: BP 155/42
[2018-03-21 20:47] LABS: HEMATOCRIT 19.1 % (42.0-52.0); MEAN CORPUSCULAR VOLUME 89 FL (80-99); PLATELET COUNT 61 K/UL (150-450); RED BLOOD COUNT 2.14 M/UL (4.70-6.10); WHITE BLOOD COUNT 11.5 K/UL (4.8-10.8)
[2018-03-21] MEDS: Dyna-Hex 2% Top Sol 2oz TOPIC SCH (20:49)
[2018-03-21 21:04] LABS: HEMOGLOBIN 6.5 G/DL (14.2-18.0)
[2018-03-21] MEDS: Iron Sucrose 100 MG in NS 55 ML IV SCH (21:54)
[2018-03-22] VITALS: BP 124/47
[2018-03-22] MEDS: NovoLOG Insulin Flexpen SUBQ SCH ×4 (01:01→18:33)
[2018-03-22 04:00] VITALS: BP 107/56
[2018-03-22] MEDS: Renvela 800mg Pkt GT SCH ×3 (05:19→22:15)
[2018-03-22 06:51] LABS: HEMATOCRIT 19.2 % (42.0-52.0); MEAN CORPUSCULAR VOLUME 88 FL (80-99); PLATELET COUNT 59 K/UL (150-450); RED BLOOD COUNT 2.18 M/UL (4.70-6.10); RED CELL DISTRIBUTION WIDTH 16.7 % (11.6-14.8); WHITE BLOOD COUNT 11.8 K/UL (4.8-10.8)
[2018-03-22 06:58] LABS: HEMOGLOBIN 6.2 G/DL (14.2-18.0)
[2018-03-22 07:09] LABS: ANION GAP 11 mmol/L (5-15); BLOOD UREA NITROGEN 80 mg/dL (7-18); CALCIUM 7.8 MG/DL (8.5-10.1); CARBON DIOXIDE 26 MMOL/L (21-32); CHLORIDE 95 MMOL/L (98-107); CREATININE 3.3 MG/DL (0.55-1.30); PHOSPHORUS 2.4 MG/DL (2.5-4.9); POTASSIUM 3.6 MMOL/L (3.5-5.1); SODIUM 132 MMOL/L (136-145)
[2018-03-22 07:49] LABS: ALANINE AMINOTRANSFERASE 56 U/L (12-78); ALKALINE PHOSPHATASE 479 U/L (46-116); ASPARTATE AMINO TRANSFERASE 95 U/L (15-37); BILIRUBIN,DIRECT 0.3 MG/DL (0.0-0.3); BILIRUBIN,TOTAL 0.6 MG/DL (0.2-1.0)
[2018-03-22 08:00] VITALS: BP 101/44
[2018-03-22] MEDS: Lactobacillus-GG tablet GT SCH (08:46)
[2018-03-22] MEDS: Amiodarone 200mg tab GT SCH ×2 (08:47→22:15)
[2018-03-22] MEDS: Nephrovite tab (Rena-Vite) ORAL SCH (08:47)
[2018-03-22] MEDS: Vitamin B Complex Tab GT SCH (08:47)
[2018-03-22] MEDS: Zinc Sulfate 220mg cap GT SCH (08:47)
[2018-03-22] MEDS: Dakin's 0.125% Soln (Quarter Strength) 16oz TOPIC SCH (08:47)
[2018-03-22 12:00] VITALS: BP 120/65
[2018-03-22] MEDS: Betadine 10% Oint 30gm TOPIC SCH (13:26)
--- NOTE | 2018-03-22 14:04 | Nephrology Progress Note ---
Assessment/Plan Plan m/p polymicrobial line sepsis. Had new TLC. ESRD HD MWF Decubiti - Dr. Andrade consulted. VDRF Per Pul. Severe Anemia --STEPHEN IV Venofer, transfuse PRN. Podiatry consulted. Subjective Subjective Obtunded. Had HD earlier. Net UF 1 L. Objective Objective Last 24 Hour Vital Signs Date Time Temp Pulse Resp B/P (MAP) Pulse Ox O2 Delivery O2 Flow Rate FiO2 03/22/18 12:45 70 16 30 03/22/18 12:00 Mechanical Ventilator 03/22/18 12:00 30 03/22/18 12:00 98.4 76 2 120/65 (83) 96 98.4 03/22/18 11:20 74 24 30 03/22/18 11:15 Mechanical Ventilator 30 03/22/18 11:03 Mechanical Ventilator 03/22/18 09:44 72 03/22/18 09:11 74 23 30 03/22/18 08:00 97.9 72 21 101/44 (63) 96 97.9 03/22/18 08:00 30 03/22/18 08:00 Mechanical Ventilator 03/22/18 07:22 76 25 30 03/22/18 04:37 75 21 30 03/22/18 04:00 76 03/22/18 04:00 97.9 75 19 107/56 (73) 100 97.9 03/22/18 04:00 Mechanical Ventilator 03/22/18 04:00 30 03/22/18 03:09 74 20 30 03/22/18 01:30 73 20 30 03/22/18 00:00 71 03/22/18 00:00 98.1 77 22 124/47 (72) 100 98.1 03/22/18 00:00 Mechanical Ventilator 03/22/18 00:00 30 03/21/18 23:10 72 18 30 03/21/18 21:00 74 19 30 03/21/18 20:00 76 03/21/18 20:00 30 03/21/18 20:00 98.2 80 23 155/42 (79) 96 98.2 03/21/18 20:00 Mechanical Ventilator 03/21/18 19:30 76 21 30 03/21/18 16:54 74 21 30 03/21/18 16:00 30 10/2/18 16:00 Mechanical Ventilator 03/21/18 16:00 98.4 81 22 102/40 (60) 96 98.4 03/21/18 16:00 83 03/21/18 15:20 81 18 30 03/21/18 14:37 98.4 03/21/18 14:07 100.4 Intake and Output 03/21/18 03/22/18 19:00 07:00 Intake Total 515 ml 1020 ml Output Total 500 ml 300 ml Balance 15 ml 720 ml Intake Free Water 60 ml 60 ml IV Total 55 ml 360 ml Tube Feeding 400 ml 600 ml Output Urine Total 500 ml Stool Total 300 ml Laboratory Tests 03/21/18 19:00: White Blood Count 11.5H, Red Blood Count 2.14L, Hemoglobin 6.5*L, Hematocrit 19.1L, Mean Corpuscular Volume 89, Mean Corpuscular Hemoglobin 30.2, Mean Corpuscular Hemoglobin Concent 33.9, Red Cell Distribution Width 16.0H, Platelet Count 61L, Mean Platelet Volume 5.5L, Neutrophils (%) (Auto) , Lymphocytes (%) (Auto) , Monocytes (%) (Auto) , Eosinophils (%) (Auto) , Basophils (%) (Auto) , Differential Total Cells Counted 100, Neutrophils % ( Manual) 80H, Lymphocytes % (Manual) 15L, Monocytes % (Manual) 3, Eosinophils % ( Manual) 2, Basophils % (Manual) 0, Band Neutrophils 0, Platelet Estimate DecreasedL, Platelet Morphology Normal, Hypochromasia 2+, Anisocytosis 1+ 03/22/18 06:15: White Blood Count 11.8H, Red Blood Count 2.18L, Hemoglobin 6.2*L, Hematocrit 19.2L, Mean Corpuscular Volume 88, Mean Corpuscular Hemoglobin 28.3, Mean Corpuscular Hemoglobin Concent 32.0, Red Cell Distribution Width 16.7H, Platelet Count 59L, Mean Platelet Volume 8.9, Neutrophils (%) (Auto) , Lymphocytes (%) (Auto) , Monocytes (%) (Auto) , Eosinophils (%) (Auto) , Basophils (%) (Auto) , Differential Total Cells Counted 100, Neutrophils % ( Manual) 77H, Lymphocytes % (Manual) 15L, Monocytes % (Manual) 4, Eosinophils % ( Manual) 4H, Basophils % (Manual) 0, Band Neutrophils 0, Platelet Estimate DecreasedL, Platelet Morphology Normal, Hypochromasia 1+, Anisocytosis 1+, Sodium Level 132L, Potassium Level 3.6, Chloride Level 95L, Carbon Dioxide Level 26, Anion Gap 11, Blood Urea Nitrogen 80H, Creatinine 3.3H, Estimat Glomerular Filtration Rate , Glucose Level 256H, Calcium Level 7.8L, Phosphorus Level 2.4L, Total Bilirubin 0.6, Direct Bilirubin 0.3, Aspartate Amino Transf ( AST/SGOT) 95H, Alanine Aminotransferase (ALT/SGPT) 56, Alkaline Phosphatase 479H , Total Protein 4.6L, Albumin 1.0L Height (Feet): 5 Height (Inches): 10.00 Weight (Pounds): 200 Objective Multiple decubiti noted and examined with nursing staff. Thw wounds are very deep! CV RR Trach site Ok. Lungs B ronchi. And SNT. BS +. PEG OK. E muscle wasting. Rt. arm contracture @ elbow. Rt. arm AVF + bruit. Neuro - alert + responsive. Nonverbal. Dilip Conner MD Mar 22, 2018 14:03
--- NOTE | 2018-03-22 14:56 | Consultation ---
Consult Note Assessment/Plan Patient known to me from admission OSH A/ 1) Bilateral leg necrosis 2) Bilateral heel necrosis 3) Bilateral ankle necrosis 4) Bilateral feet necrosis 5) PAD 6) ESRD P/ Patient's lower extremity wounds have progressed Agree with current wound care ordered. No surgical intervention indicated from my standpoint. If lower extremity condition continues to worsen recommend BK vs AKA. Thank you Percy Rubi DPM Mar 22, 2018 14:56
[2018-03-22 16:00] VITALS: BP 140/57
--- NOTE | 2018-03-22 17:14 | General Surgery Progress Note ---
General Surgery-Progress Note Subjective Additional Comments no acute events. Objective Last 24 Hour Vital Signs Date Time Temp Pulse Resp B/P (MAP) Pulse Ox O2 Delivery O2 Flow Rate FiO2 03/22/18 17:08 78 03/22/18 16:00 30 03/22/18 16:00 Mechanical Ventilator 03/22/18 15:28 76 20 30 03/22/18 14:31 77 03/22/18 12:45 70 16 30 03/22/18 12:00 Mechanical Ventilator 03/22/18 12:00 30 03/22/18 12:00 98.4 76 2 120/65 (83) 96 98.4 03/22/18 11:20 74 24 30 03/22/18 11:15 Mechanical Ventilator 30 03/22/18 11:03 Mechanical Ventilator 03/22/18 09:44 72 03/22/18 09:11 74 23 30 03/22/18 08:00 97.9 72 21 101/44 (63) 96 97.9 03/22/18 08:00 30 03/22/18 08:00 Mechanical Ventilator 03/22/18 07:22 76 25 30 03/22/18 04:37 75 21 30 03/22/18 04:00 76 03/22/18 04:00 97.9 75 19 107/56 (73) 100 97.9 03/22/18 04:00 Mechanical Ventilator 03/22/18 04:00 30 03/22/18 03:09 74 20 30 03/22/18 01:30 73 20 30 03/22/18 00:00 71 03/22/18 00:00 98.1 77 22 124/47 (72) 100 98.1 03/22/18 00:00 Mechanical Ventilator 03/22/18 00:00 30 03/21/18 23:10 72 18 30 03/21/18 21:00 74 19 30 03/21/18 20:00 76 03/21/18 20:00 30 03/21/18 20:00 98.2 80 23 155/42 (79) 96 98.2 03/21/18 20:00 Mechanical Ventilator 03/21/18 19:30 76 21 30 I&O Intake and Output 03/21/18 03/22/18 19:00 07:00 Intake Total 515 ml 1020 ml Output Total 500 ml 300 ml Balance 15 ml 720 ml Intake Free Water 60 ml 60 ml IV Total 55 ml 360 ml Tube Feeding 400 ml 600 ml Output Urine Total 500 ml Stool Total 300 ml Dressing: other Wound: other Drains: other Cardiovascular: RSR Respiratory: decreased breath sounds Abdomen: soft, present bowel sounds Extremities: other Laboratory Tests Test 03/21/18 19:00 03/22/18 06:15 White Blood Count 11.5 K/UL (4.8-10.8) H 11.8 K/UL (4.8-10.8) H Red Blood Count 2.14 M/UL (4.70-6.10) L 2.18 M/UL (4.70-6.10) L Hemoglobin 6.5 G/DL (14.2-18.0) *L 6.2 G/DL (14.2-18.0) *L Hematocrit 19.1 % (42.0-52.0) L 19.2 % (42.0-52.0) L Mean Corpuscular Volume 89 FL (80-99) 88 FL (80-99) Mean Corpuscular Hemoglobin 30.2 PG (27.0-31.0) 28.3 PG (27.0-31.0) Mean Corpuscular Hemoglobin Concent 33.9 G/DL (32.0-36.0) 32.0 G/DL (32.0-36.0) Red Cell Distribution Width 16.0 % (11.6-14.8) H 16.7 % (11.6-14.8) H Platelet Count 61 K/UL (150-450) L 59 K/UL (150-450) L Mean Platelet Volume 5.5 FL (6.5-10.1) L 8.9 FL (6.5-10.1) Neutrophils (%) (Auto) % (45.0-75.0) % (45.0-75.0) Lymphocytes (%) (Auto) % (20.0-45.0) % (20.0-45.0) Monocytes (%) (Auto) % (1.0-10.0) % (1.0-10.0) Eosinophils (%) (Auto) % (0.0-3.0) % (0.0-3.0) Basophils (%) (Auto) % (0.0-2.0) % (0.0-2.0) Differential Total Cells Counted 100 100 Neutrophils % (Manual) 80 % (45-75) H 77 % (45-75) H Lymphocytes % (Manual) 15 % (20-45) L 15 % (20-45) L Monocytes % (Manual) 3 % (1-10) 4 % (1-10) Eosinophils % (Manual) 2 % (0-3) 4 % (0-3) H Basophils % (Manual) 0 % (0-2) 0 % (0-2) Band Neutrophils 0 % (0-8) 0 % (0-8) Platelet Estimate Decreased L Decreased L Platelet Morphology Normal Normal Hypochromasia 2+ 1+ Anisocytosis 1+ 1+ Sodium Level 132 MMOL/L (136-145) L Potassium Level 3.6 MMOL/L (3.5-5.1) Chloride Level 95 MMOL/L (98-107) L Carbon Dioxide Level 26 MMOL/L (21-32) Anion Gap 11 mmol/L (5-15) Blood Urea Nitrogen 80 mg/dL (7-18) H Creatinine 3.3 MG/DL (0.55-1.30) H Estimat Glomerular Filtration Rate mL/min (>60) Glucose Level 256 MG/DL (74-106) H Calcium Level 7.8 MG/DL (8.5-10.1) L Phosphorus Level 2.4 MG/DL (2.5-4.9) L Total Bilirubin 0.6 MG/DL (0.2-1.0) Direct Bilirubin 0.3 MG/DL (0.0-0.3) Aspartate Amino Transf (AST/SGOT) 95 U/L (15-37) H Alanine Aminotransferase (ALT/SGPT) 56 U/L (12-78) Alkaline Phosphatase 479 U/L (46-116) H Total Protein 4.6 G/DL (6.4-8.2) L Albumin 1.0 G/DL (3.4-5.0) L Plan Problems: (1) Decubitus ulcer of sacral region, stage 4 Assessment & Plan: Unstageable right lower buttock ulcer; large; no active drainage, no foul odor, macerated edges, eschar cap noted Unstageable right inner buttock ulcer; large; no active drainage, no foul odor, macerated edges, necrotic soft eschar cap noted Stage 4 full thickness sacral decubitus ulcer with necrotic / fibrinous tissue noted, macerated edges, bleeding at edges, serous drainage, no odor Unstageable left buttock ulcer; large; no active drainage, no foul odor, macerated edges, eschar w/ debris noted Left heel with large unstageable necrotic eschar cap Left leg with large unstageable necrotic eschar cap left foot with anterior unstageable necrotic eschar cap left leg with large linear wound with necrotic eschar right ankle with large necrotic eschar cap right heel with large necortic eschar cap Maroon indurated area in close proximity Trachea(L)4.8cm x (W)3.5cm ,multiple full thickness wounds with necrosis R and L upper ext including metacarpals of both hands .Scattered full thickness wounds across abd. Largest of which is to R abd (L)6.3cm x (W)2.5cm with loose slough and erythema .Full thickness ulcer noted to deejay R tibia- inferior to R knee (L)1.5cm x (W)1cm wound bed with 75 % slough ,scant purulent exudate.Full thickness wound deejay R tibia (L)12.8cm x (W)2.4 cm,wound has 100% mixed slough /necrosis. Full thickness wound dorsum R foot with 100% soft necrosis(L)8.7cm x (W)5.2cm .Dry eschar lateral and head of R 1st metatarsal (L)3.5cm x (W)1.7cm.Dry eschar R hallux (L) 2.5cm x (W) 2.8cm.Dry eschar noted to2nd through 5th metatarsals.Dry necrosis with yellow slough noted to lateral L tibia (L)17.5cm x (W)2.1cm. 100% necrosis dorso / flexor L foot (L)4.4cm x (W)3.7cm. 100% necrosis lateral L malleolus (L)2.7cm x (W)2.2cm. Necrosis noted to all five metatarsal heads on L foot.Full thickness wound L trochanteric with 90% mixed slough /necrosis (L)6.5cm x (W)7cm.Wound is malodorous. Full thickness wound L Ischium (L)9.3cm x (W)8cm wound with 100% mixed slough /necrosis and is malodorous. Full thickness sacral wound with slough /necrosis (L)14.5cm x (W)11cm x (D)2.4cm.Wound malodorous.Full thickness wound R trochanter (L)11cm x (W)8.4cm with 95% necrosis and is malodorous .Full thickness wound R ischium (L)5cm x (W02.5cm ,95% soft necrosis and erythema ,and is malodorous . all wounds present upon admission. will be cared for during hospital stay. no wounds with active infection some wounds will require debridement Plan: pressure release mattress turn q2h as per protocol elevate heels with pillows. heel protectors apply foam dressings to heels and dry necrotic eschar wounds gauze packing and dressing for sacral wound which will need debridement foam dressings to buttock wounds. will discuss with wound care nurse and adjust orders prn (2) Sepsis Assessment & Plan: right subclavian line removed radiology placed femoral line temporary for venous access hopefully will be able to go without venous access and po meds upon discharge if needs IV access upon discharge will have to change venous line to midline. possibly left upper extremity Tray Francis Mar 22, 2018 17:13
--- NOTE | 2018-03-22 19:12 | Pulmonology Progress Note ---
Assessment/Plan Assessment/Plan IMPRESSION: 1. Respiratory failure. 2. Profound anemia, status post transfusion. 3. Chronic respiratory failure. 4. Severe protein-calorie malnutrition. 5. CVA. 6. Anoxia. 7. Underlying sepsis. 8. pulmonary jeaneth 9. possible pneumonia 10. pleural effusion PLAN care noted and reviewed IV antibiotics respiratory care noted no wean Ventilatory support SNF meds supportive care suction as needed keep negative transfuse; consider gi eval prognosis guarded Subjective ROS Limited/Unobtainable: Yes Allergies: Coded Allergies: No Known Allergies (Unverified , 03/18/18) Subjective on vent poorly responsive care reviewed seen earlier transfusion ordered Objective Last 24 Hour Vital Signs Date Time Temp Pulse Resp B/P (MAP) Pulse Ox O2 Delivery O2 Flow Rate FiO2 03/22/18 17:18 71 20 30 03/22/18 17:08 78 03/22/18 16:00 97.2 83 18 140/57 (84) 100 97.2 03/22/18 16:00 30 03/22/18 16:00 Mechanical Ventilator 03/22/18 15:28 76 20 30 03/22/18 14:31 77 03/22/18 12:45 70 16 30 03/22/18 12:00 Mechanical Ventilator 03/22/18 12:00 30 03/22/18 12:00 98.4 76 24 120/65 (83) 96 98.4 03/22/18 11:20 74 24 30 03/22/18 11:15 Mechanical Ventilator 30 03/22/18 11:03 Mechanical Ventilator 03/22/18 09:44 72 03/22/18 09:11 74 23 30 03/22/18 08:00 97.9 72 21 101/44 (63) 96 97.9 03/22/18 08:00 30 03/22/18 08:00 Mechanical Ventilator 03/22/18 07:22 76 25 30 03/22/18 04:37 75 21 30 03/22/18 04:00 76 03/22/18 04:00 97.9 75 19 107/56 (73) 100 97.9 03/22/18 04:00 Mechanical Ventilator 03/22/18 04:00 30 03/22/18 03:09 74 20 30 03/22/18 01:30 73 20 30 03/22/18 00:00 71 03/22/18 00:00 98.1 77 22 124/47 (72) 100 98.1 03/22/18 00:00 Mechanical Ventilator 03/22/18 00:00 30 03/21/18 23:10 72 18 30 03/21/18 21:00 74 19 30 03/21/18 20:00 76 03/21/18 20:00 30 03/21/18 20:00 98.2 80 23 155/42 (79) 96 98.2 03/21/18 20:00 Mechanical Ventilator 03/21/18 19:30 76 21 30 Intake and Output 03/21/18 03/22/18 19:00 07:00 Intake Total 515 ml 1070 ml Output Total 500 ml 300 ml Balance 15 ml 770 ml Intake Free Water 60 ml 60 ml IV Total 55 ml 360 ml Tube Feeding 400 ml 650 ml Output Urine Total 500 ml Stool Total 300 ml Objective GENERAL: A well-developed male, chronically ill appearing. male, reduced LOC HEENT: Overall negative. NECK: Supple. Tracheostomy is in midline. Carotids 2+. LUNGS: With some rhonchi. Crackles at both bases. CARDIAC: S1, S2. Regular rate and rhythm without murmurs, rubs, or gallops. ABDOMEN: Soft, nontender. G-tube in place. No hepatosplenomegaly. EXTREMITIES: Chronic contractures noted. Notable for significant edema. NEUROLOGIC: The patient is obtunded Microbiology Date/Time Source Procedure Growth Status 03/20/18 16:00 Stool Clostridium difficile Toxin Assay - Final Complete Laboratory Tests 03/22/18 06:15: White Blood Count 11.8H, Red Blood Count 2.18L, Hemoglobin 6.2*L, Hematocrit 19.2L, Mean Corpuscular Volume 88, Mean Corpuscular Hemoglobin 28.3, Mean Corpuscular Hemoglobin Concent 32.0, Red Cell Distribution Width 16.7H, Platelet Count 59L, Mean Platelet Volume 8.9, Neutrophils (%) (Auto) , Lymphocytes (%) (Auto) , Monocytes (%) (Auto) , Eosinophils (%) (Auto) , Basophils (%) (Auto) , Differential Total Cells Counted 100, Neutrophils % ( Manual) 77H, Lymphocytes % (Manual) 15L, Monocytes % (Manual) 4, Eosinophils % ( Manual) 4H, Basophils % (Manual) 0, Band Neutrophils 0, Platelet Estimate DecreasedL, Platelet Morphology Normal, Hypochromasia 1+, Anisocytosis 1+, Sodium Level 132L, Potassium Level 3.6, Chloride Level 95L, Carbon Dioxide Level 26, Anion Gap 11, Blood Urea Nitrogen 80H, Creatinine 3.3H, Estimat Glomerular Filtration Rate , Glucose Level 256H, Calcium Level 7.8L, Phosphorus Level 2.4L, Total Bilirubin 0.6, Direct Bilirubin 0.3, Aspartate Amino Transf ( AST/SGOT) 95H, Alanine Aminotransferase (ALT/SGPT) 56, Alkaline Phosphatase 479H , Total Protein 4.6L, Albumin 1.0L 03/22/18 18:30: Random Amikacin Level [Pending] Current Medications Medications (Trade) Dose Ordered Sig/Marques Route PRN Reason Start Time Stop Time Status Last Admin Dose Admin Acetaminophen (Tylenol) 650 mg Q4H PRN GT Mild Pain/Temp > 100.5 03/18/18 21:00 04/17/18 20:59 03/21/18 14:07 Acetaminophen/ Hydrocodone Bitart ([place] 5/325) 1 tab DAILY PRN GT For Pain 03/19/18 00:15 03/26/18 00:00 Amikacin Protocol (Amikacin pharmacy to dose) 1 ea DAILY PRN MISC Per rx protocol 03/21/18 16:30 04/20/18 16:29 Amiodarone HCl (Cordarone) 200 mg EVERY 12 HOURS GT 03/18/18 23:00 04/17/18 22:59 03/22/18 08:47 Atorvastatin Calcium (Lipitor) 20 mg BEDTIME GT 03/18/18 23:00 04/17/18 22:59 03/21/18 20:49 Chlorhexidine Gluconate (Linda-Hex 2%) 1 applic DAILY@2000 TOPIC 03/20/18 20:00 04/19/18 19:59 03/21/18 20:49 Dextrose (Dextrose 50%) 25 ml Q30M PRN IV Hypoglycemia 03/18/18 22:30 04/17/18 22:29 Dextrose (Dextrose 50%) 50 ml Q30M PRN IV Hypoglycemia 03/18/18 22:30 04/17/18 22:29 Epoetin Pawel (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)) 10,000 units TUE-TUE-FRI SUBQ 03/20/18 21:00 04/19/18 20:59 03/20/18 21:25 Insulin Aspart (NovoLOG) Q6HR SUBQ 03/19/18 00:00 04/18/18 00:00 03/22/18 18:33 Iron Sucrose 100 mg/Sodium Chloride 60 ml @ 240 mls/hr BEDTIME IV 03/19/18 21:00 03/23/18 21:14 03/21/18 21:54 Lactobacillus Acidophilus (Culturelle) 4 tab DAILY GT 03/19/18 09:00 04/18/18 08:59 03/22/18 08:46 Linezolid 300 ml @ 300 mls/hr Q12HR@0500,1700 IVPB 03/20/18 17:00 03/27/18 16:59 03/22/18 17:00 Magnesium Hydroxide (Mom) 10 ml DAILY PRN GT Constipation 03/18/18 22:30 04/17/18 22:29 Meropenem 500 mg/ Sodium Chloride 50 ml @ 100 mls/hr Q24HRS IVPB 03/21/18 17:30 03/26/18 17:29 03/22/18 18:33 Povidone Iodine (Betadine Oint) 1 applic DAILY TOPIC 03/22/18 09:27 04/21/18 09:26 03/22/18 13:26 Sevelamer Carbonate (Renvela) 800 mg Q8HR GT 03/18/18 23:00 04/17/18 22:59 03/22/18 13:42 Sodium Hypochlorite (Dakin's Quarter Strength) 1 applic DAILY TOPIC 03/21/18 10:51 04/20/18 10:50 03/22/18 08:47 Sodium Chloride 1,000 ml @ 500 mls/hr Q2H PRN IVLG sbp<90 during hd 03/22/18 09:56 04/21/18 09:55 Vitamin B Complex (Vitamin B Complex) 1 tab DAILY GT 03/19/18 09:00 04/18/18 08:59 03/22/18 08:47 Vitamin B Complex/ Vit C/Folic Acid (Nephrovite) 1 tab DAILY ORAL 03/20/18 09:31 04/19/18 09:30 03/22/18 08:47 Zinc Sulfate (Zinc Sulfate) 220 mg DAILY GT 03/19/18 09:00 04/18/18 08:59 03/22/18 08:47 Rogelio Chiu MD Mar 22, 2018 19:12
[2018-03-22 20:00] VITALS: BP 136/68
--- NOTE | 2018-03-22 21:49 | General Progress Note ---
Progress Note Progress Note Patient seen and examined Admitted with sepsis Right subclavian line was removed On HD via right arm av shunt Comatose with anoxic encephalopathy Arm contracted and legs stiff with foot drops Bilateral heel and leg decub and sacral decub necrosis Calcific PAD Former smoker with dementia No POA and no family Rec Decub precautions Podiatry and general surgery f/u--if worsening necrosis will need bilateral leg above knee amputations HD via av shunt Abx per ID with dialysis Supportive care Poor overall terminal prognosis d/w nurse at bedside d/w pmd Castillo Hernandez MD Mar 22, 2018 21:49
[2018-03-22] MEDS ORDERED: Amikacin 500 MG in NS 110 ML IV SCH (22:00)
[2018-03-22] MEDS: Dyna-Hex 2% Top Sol 2oz TOPIC SCH (22:15)
[2018-03-22] MEDS: Epogen (for ESRD on dialysis) SUBQ SCH (22:15)
[2018-03-22] MEDS: Iron Sucrose 100 MG in NS 55 ML IV SCH (22:16)
[2018-03-23] VITALS: BP 130/68
[2018-03-23] MEDS: NovoLOG Insulin Flexpen SUBQ SCH ×4 (00:14→17:57)
[2018-03-23 04:00] VITALS: BP 152/62
[2018-03-23] MEDS: Renvela 800mg Pkt GT SCH ×3 (05:50→20:32)
--- NOTE | 2018-03-23 06:46 | Consultation ---
DATE OF CONSULTATION: 03/22/2018 CONSULTING PHYSICIAN: Percy Ott D.P.M. REQUESTING PHYSICIAN: Dilip Conner M.D. REASON FOR CONSULTATION: Necrotic wounds, bilateral lower extremities. HISTORY OF PRESENT ILLNESS: The patient is an unfortunate 77-year-old male who was admitted to [facility] on 03/18/2018 for anemia and sepsis. The patient is known to my service from prior admission from an outside hospital and was consulted for followup. The patient is nonverbal, on the ventilator. History was obtained through chart review. PAST MEDICAL HISTORY: Significant for end-stage renal disease, respiratory failure, dysphagia, G-tube placement, history of encephalopathy, cerebrovascular accident, history of diabetes, hypertension, multiple decubitus ulcers, anemia, and AV fistula placement in the past. MEDICATIONS: Per MAR and include meropenem, amikacin, and linezolid. ALLERGIES: He has no known drug allergies. FAMILY HISTORY: Noncontributory. SOCIAL HISTORY: The patient resides in a half-way facility. REVIEW OF SYSTEMS: Unobtainable. PHYSICAL EXAMINATION: VITAL SIGNS: Temperature is 97.3, pulse is 83, respiration rate is 18, blood pressure is 140/57, and saturating 100% on ventilator. EXTREMITIES: Lower extremity physical exam, vascular, nonpalpable pedal pulses noted bilaterally. Feet are cool to touch. There is 1+ pitting edema noted. No cyanosis noted. DERMATOLOGICAL: There are multiple necrotic lesions noted on bilateral lower extremities. Extensive lesions on both legs, ankles, heels, and especially the feet, all appeared to be . No signs of acute infection are noted. No malodor is noted. No drainage or purulence is noted from the site. No periwound erythema. MUSCULOSKELETAL: No gross deformity is noted. The patient is bedbound. LABORATORY AND DIAGNOSTIC DATA: White blood cell count is 11.8, hemoglobin and hematocrit are 6.2 and 19.2, and platelet count is 59,000. Potassium is 3.6, glucose is 256, creatinine is 2.3, and BUN is 80. Albumin is 1.0. INR is 1.1. No cultures of the lower extremity are noted. No lower extremity imaging is noted. ASSESSMENT: 1. Bilateral leg necrosis. 2. Bilateral heel necrosis. 3. Bilateral ankle necrosis. 4. Bilateral feet necrosis. 5. Peripheral arterial disease in the presence of diabetes mellitus. 6. End-stage renal disease. PLAN: The patient's lower extremity wounds have progressed since last consultation. Agree with current wound care orders including application of Betadine and dry dressing to all sites. No surgical intervention is indicated from my standpoint. If the lower extremity conditions continue to worsen, we would recommend a BKA versus AKA. Thank you for the courtesy of this consultation, Dr. Conner. Percy Ott D.P.M. DR: MARIA DEL ROSARIO JOB#: [id number] CC:
[2018-03-23 08:00] VITALS: BP 139/62
--- NOTE | 2018-03-23 08:47 | Pulmonology Progress Note ---
Assessment/Plan Assessment/Plan IMPRESSION: 1. Respiratory failure. 2. Profound anemia, status post transfusion. 3. Chronic respiratory failure. 4. Severe protein-calorie malnutrition. 5. CVA. 6. Anoxia. 7. Underlying sepsis. 8. pulmonary jeaneth 9. possible pneumonia 10. pleural effusion PLAN care noted and appears same IV antibiotics respiratory care reviewed vent reviewed no wean Ventilatory support - full SNF meds supportive care suction as needed keep negative monitor prognosis guarded impression, plan, and exam edited and reviewed in detail care discussed with RN Subjective ROS Limited/Unobtainable: Yes Allergies: Coded Allergies: No Known Allergies (Unverified , 03/18/18) Subjective on vent poorly responsive care reviewed seen earlier transfusion ordered Objective Last 24 Hour Vital Signs Date Time Temp Pulse Resp B/P (MAP) Pulse Ox O2 Delivery O2 Flow Rate FiO2 03/23/18 08:43 75 24 30 03/23/18 08:40 73 03/23/18 06:45 73 19 30 03/23/18 05:11 85 21 30 03/23/18 04:00 97.8 77 20 152/62 (92) 100 97.8 03/23/18 04:00 30 03/23/18 04:00 Mechanical Ventilator 03/23/18 04:00 81 03/23/18 02:30 90 21 30 03/23/18 01:05 89 22 30 03/23/18 00:00 Mechanical Ventilator 03/23/18 00:00 98.1 82 18 130/68 (88) 100 98.1 03/23/18 00:00 82 03/22/18 23:37 89 22 30 03/22/18 21:42 86 24 30 03/22/18 20:00 30 03/22/18 20:00 97.3 88 22 136/68 (90) 100 97.3 03/22/18 20:00 Mechanical Ventilator 03/22/18 19:42 80 21 30 03/22/18 17:18 71 20 30 03/22/18 17:08 78 03/22/18 16:00 97.2 83 18 140/57 (84) 100 97.2 03/22/18 16:00 30 03/22/18 16:00 Mechanical Ventilator 03/22/18 15:28 76 20 30 03/22/18 14:31 77 03/22/18 12:45 70 16 30 03/22/18 12:00 Mechanical Ventilator 03/22/18 12:00 30 03/22/18 12:00 98.4 76 24 120/65 (83) 96 98.4 03/22/18 11:20 74 24 30 03/22/18 11:15 Mechanical Ventilator 30 03/22/18 11:03 Mechanical Ventilator 03/22/18 09:44 72 03/22/18 09:11 74 23 30 Intake and Output 03/22/18 03/23/18 19:00 07:00 Intake Total 1070 ml 640 ml Output Total 100 ml 250 ml Balance 970 ml 390 ml Intake Free Water 120 ml 90 ml IV Total 300 ml Tube Feeding 400 ml 550 ml Blood Product 250 ml Output Urine Total 0 ml 0 ml Stool Total 100 ml 250 ml Objective GENERAL: A well-developed male, chronically ill appearing. male, reduced LOC HEENT: Overall negative. NECK: Supple. Tracheostomy is in midline. Carotids 2+. LUNGS: With some rhonchi. Crackles at both bases. CARDIAC: S1, S2. Regular rate and rhythm without murmurs, rubs, or gallops. ABDOMEN: Soft, nontender. G-tube in place. No hepatosplenomegaly. EXTREMITIES: Chronic contractures noted. Notable for significant edema. NEUROLOGIC: The patient is obtunded Microbiology Date/Time Source Procedure Growth Status 03/20/18 16:00 Stool Clostridium difficile Toxin Assay - Final Complete Laboratory Tests 03/22/18 18:30: Random Amikacin Level < 2.5 Current Medications Medications (Trade) Dose Ordered Sig/Marques Route PRN Reason Start Time Stop Time Status Last Admin Dose Admin Acetaminophen (Tylenol) 650 mg Q4H PRN GT Mild Pain/Temp > 100.5 03/18/18 21:00 04/17/18 20:59 03/21/18 14:07 Acetaminophen/ Hydrocodone Bitart ([place] 5/325) 1 tab DAILY PRN GT For Pain 03/19/18 00:15 03/26/18 00:00 Amikacin Protocol (Amikacin pharmacy to dose) 1 ea DAILY PRN MISC Per rx protocol 03/21/18 16:30 04/20/18 16:29 Amiodarone HCl (Cordarone) 200 mg EVERY 12 HOURS GT 03/18/18 23:00 04/17/18 22:59 03/22/18 22:15 Atorvastatin Calcium (Lipitor) 20 mg BEDTIME GT 03/18/18 23:00 04/17/18 22:59 03/22/18 22:16 Chlorhexidine Gluconate (Linda-Hex 2%) 1 applic DAILY@2000 TOPIC 03/20/18 20:00 04/19/18 19:59 03/22/18 22:15 Dextrose (Dextrose 50%) 25 ml Q30M PRN IV Hypoglycemia 03/18/18 22:30 04/17/18 22:29 Dextrose (Dextrose 50%) 50 ml Q30M PRN IV Hypoglycemia 03/18/18 22:30 04/17/18 22:29 Epoetin Pawel (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)) 10,000 units TUE-TUE-TUE SUBQ 03/20/18 21:00 04/19/18 20:59 03/22/18 22:15 Insulin Aspart (NovoLOG) Q6HR SUBQ 03/19/18 00:00 04/18/18 00:00 03/23/18 05:51 Iron Sucrose 100 mg/Sodium Chloride 60 ml @ 240 mls/hr BEDTIME IV 03/19/18 21:00 03/23/18 21:14 03/22/18 22:16 Lactobacillus Acidophilus (Culturelle) 4 tab DAILY GT 03/19/18 09:00 04/18/18 08:59 03/22/18 08:46 Linezolid 300 ml @ 300 mls/hr Q12HR@0500,1700 IVPB 03/20/18 17:00 03/27/18 16:59 03/23/18 05:50 Magnesium Hydroxide (Mom) 10 ml DAILY PRN GT Constipation 03/18/18 22:30 04/17/18 22:29 Meropenem 500 mg/ Sodium Chloride 50 ml @ 100 mls/hr Q24HRS IVPB 03/21/18 17:30 03/26/18 17:29 03/22/18 18:33 Povidone Iodine (Betadine Oint) 1 applic DAILY TOPIC 03/22/18 09:27 04/21/18 09:26 03/22/18 13:26 Sevelamer Carbonate (Renvela) 800 mg Q8HR GT 03/18/18 23:00 04/17/18 22:59 03/23/18 05:50 Sodium Hypochlorite (Dakin's Quarter Strength) 1 applic DAILY TOPIC 03/21/18 10:51 04/20/18 10:50 03/22/18 08:47 Sodium Chloride 1,000 ml @ 500 mls/hr Q2H PRN IVLG sbp<90 during hd 03/22/18 09:56 04/21/18 09:55 Vitamin B Complex (Vitamin B Complex) 1 tab DAILY GT 03/19/18 09:00 04/18/18 08:59 03/22/18 08:47 Vitamin B Complex/ Vit C/Folic Acid (Nephrovite) 1 tab DAILY ORAL 03/20/18 09:31 04/19/18 09:30 03/22/18 08:47 Zinc Sulfate (Zinc Sulfate) 220 mg DAILY GT 03/19/18 09:00 04/18/18 08:59 03/22/18 08:47 Rogelio Chiu MD Mar 23, 2018 08:47
[2018-03-23] MEDS: Amiodarone 200mg tab GT SCH ×2 (09:00→20:31)
[2018-03-23] MEDS: Betadine 10% Oint 30gm TOPIC SCH (09:00)
[2018-03-23 09:55] LABS: ANION GAP 9 mmol/L (5-15); BLOOD UREA NITROGEN 61 mg/dL (7-18); CALCIUM 7.8 MG/DL (8.5-10.1); CARBON DIOXIDE 26 MMOL/L (21-32); CHLORIDE 99 MMOL/L (98-107); CREATININE 2.9 MG/DL (0.55-1.30); POTASSIUM 3.3 MMOL/L (3.5-5.1); SODIUM 134 MMOL/L (136-145)
[2018-03-23 10:00] LABS: ALANINE AMINOTRANSFERASE 51 U/L (12-78); ALBUMIN/GLOBULIN RATIO 0.2 (1.0-2.7); ALKALINE PHOSPHATASE 445 U/L (46-116); ASPARTATE AMINO TRANSFERASE 64 U/L (15-37); BILIRUBIN,TOTAL 0.5 MG/DL (0.2-1.0)
[2018-03-23] MEDS: Nephrovite tab (Rena-Vite) ORAL SCH (10:14)
[2018-03-23] MEDS: Vitamin B Complex Tab GT SCH (10:14)
[2018-03-23] MEDS: Lactobacillus-GG tablet GT SCH (10:14)
[2018-03-23] MEDS: Zinc Sulfate 220mg cap GT SCH (10:15)
[2018-03-23] MEDS: Dakin's 0.125% Soln (Quarter Strength) 16oz TOPIC SCH (10:17)
--- NOTE | 2018-03-23 11:04 | Diagnostic Imaging Report ---
Indication: Dyspnea Comparison: 03/20/2018 A single view chest radiograph was obtained. Findings: Interstitial edema suspected with bilateral pleural effusions and cardiomegaly. Tracheostomy again noted. IMPRESSION: Pulmonary edema
[2018-03-23 12:15] VITALS: BP 120/60
--- NOTE | 2018-03-23 15:00 | General Surgery Progress Note ---
General Surgery-Progress Note Subjective Additional Comments leukocytosis 11k Objective Last 24 Hour Vital Signs Date Time Temp Pulse Resp B/P (MAP) Pulse Ox O2 Delivery O2 Flow Rate FiO2 03/23/18 12:58 77 22 30 03/23/18 12:15 97.5 73 19 120/60 (80) 100 97.5 03/23/18 12:00 Mechanical Ventilator 03/23/18 12:00 74 03/23/18 12:00 30 03/23/18 10:44 91 26 30 03/23/18 08:43 75 24 30 03/23/18 08:40 73 03/23/18 08:00 Mechanical Ventilator 03/23/18 08:00 30 03/23/18 08:00 98.3 74 20 139/62 (87) 100 98.3 03/23/18 06:45 73 19 30 03/23/18 05:11 85 21 30 03/23/18 04:00 97.8 77 20 152/62 (92) 100 97.8 03/23/18 04:00 30 03/23/18 04:00 Mechanical Ventilator 03/23/18 04:00 81 03/23/18 02:30 90 21 30 03/23/18 01:05 89 22 30 03/23/18 00:00 Mechanical Ventilator 03/23/18 00:00 98.1 82 18 130/68 (88) 100 98.1 03/23/18 00:00 82 03/22/18 23:37 89 22 30 03/22/18 21:42 86 24 30 03/22/18 20:00 30 03/22/18 20:00 97.3 88 22 136/68 (90) 100 97.3 03/22/18 20:00 Mechanical Ventilator 03/22/18 19:42 80 21 30 03/22/18 17:18 71 20 30 03/22/18 17:08 78 03/22/18 16:00 97.2 83 18 140/57 (84) 100 97.2 03/22/18 16:00 30 03/22/18 16:00 Mechanical Ventilator 03/22/18 15:28 76 20 30 I&O Intake and Output 03/22/18 03/23/18 19:00 07:00 Intake Total 1070 ml 690 ml Output Total 100 ml 250 ml Balance 970 ml 440 ml Intake Free Water 120 ml 90 ml IV Total 300 ml Tube Feeding 400 ml 600 ml Blood Product 250 ml Output Urine Total 0 ml 0 ml Stool Total 100 ml 250 ml Dressing: other Wound: other Drains: other Cardiovascular: RSR Respiratory: decreased breath sounds Abdomen: soft, present bowel sounds Extremities: other Laboratory Tests Test 03/22/18 18:30 03/23/18 08:30 Random Amikacin Level < 2.5 ug/mL Sodium Level 134 MMOL/L (136-145) L Potassium Level 3.3 MMOL/L (3.5-5.1) L Chloride Level 99 MMOL/L (98-107) Carbon Dioxide Level 26 MMOL/L (21-32) Anion Gap 9 mmol/L (5-15) Blood Urea Nitrogen 61 mg/dL (7-18) H Creatinine 2.9 MG/DL (0.55-1.30) H Estimat Glomerular Filtration Rate mL/min (>60) Glucose Level 186 MG/DL (74-106) H Calcium Level 7.8 MG/DL (8.5-10.1) L Total Bilirubin 0.5 MG/DL (0.2-1.0) Aspartate Amino Transf (AST/SGOT) 64 U/L (15-37) H Alanine Aminotransferase (ALT/SGPT) 51 U/L (12-78) Alkaline Phosphatase 445 U/L (46-116) H Total Protein 5.3 G/DL (6.4-8.2) L Albumin 1.0 G/DL (3.4-5.0) L Globulin 4.3 g/dL Albumin/Globulin Ratio 0.2 (1.0-2.7) L Plan Problems: (1) Decubitus ulcer of sacral region, stage 4 Assessment & Plan: Unstageable right lower buttock ulcer; large; no active drainage, no foul odor, macerated edges, eschar cap noted Unstageable right inner buttock ulcer; large; no active drainage, no foul odor, macerated edges, necrotic soft eschar cap noted Stage 4 full thickness sacral decubitus ulcer with necrotic / fibrinous tissue noted, macerated edges, bleeding at edges, serous drainage, no odor Unstageable left buttock ulcer; large; no active drainage, no foul odor, macerated edges, eschar w/ debris noted Left heel with large unstageable necrotic eschar cap Left leg with large unstageable necrotic eschar cap left foot with anterior unstageable necrotic eschar cap left leg with large linear wound with necrotic eschar right ankle with large necrotic eschar cap right heel with large necortic eschar cap Maroon indurated area in close proximity Trachea(L)4.8cm x (W)3.5cm ,multiple full thickness wounds with necrosis R and L upper ext including metacarpals of both hands .Scattered full thickness wounds across abd. Largest of which is to R abd (L)6.3cm x (W)2.5cm with loose slough and erythema .Full thickness ulcer noted to deejay R tibia- inferior to R knee (L)1.5cm x (W)1cm wound bed with 75 % slough ,scant purulent exudate.Full thickness wound deejay R tibia (L)12.8cm x (W)2.4 cm,wound has 100% mixed slough /necrosis. Full thickness wound dorsum R foot with 100% soft necrosis(L)8.7cm x (W)5.2cm .Dry eschar lateral and head of R 1st metatarsal (L)3.5cm x (W)1.7cm.Dry eschar R hallux (L) 2.5cm x (W) 2.8cm.Dry eschar noted to2nd through 5th metatarsals.Dry necrosis with yellow slough noted to lateral L tibia (L)17.5cm x (W)2.1cm. 100% necrosis dorso / flexor L foot (L)4.4cm x (W)3.7cm. 100% necrosis lateral L malleolus (L)2.7cm x (W)2.2cm. Necrosis noted to all five metatarsal heads on L foot.Full thickness wound L trochanteric with 90% mixed slough /necrosis (L)6.5cm x (W)7cm.Wound is malodorous. Full thickness wound L Ischium (L)9.3cm x (W)8cm wound with 100% mixed slough /necrosis and is malodorous. Full thickness sacral wound with slough /necrosis (L)14.5cm x (W)11cm x (D)2.4cm.Wound malodorous.Full thickness wound R trochanter (L)11cm x (W)8.4cm with 95% necrosis and is malodorous .Full thickness wound R ischium (L)5cm x (W02.5cm ,95% soft necrosis and erythema ,and is malodorous . all wounds present upon admission. will be cared for during hospital stay. no wounds with active infection some wounds will require debridement Plan: pressure release mattress turn q2h as per protocol elevate heels with pillows. heel protectors apply foam dressings to heels and dry necrotic eschar wounds gauze packing and dressing for sacral wound which will need debridement foam dressings to buttock wounds. will discuss with wound care nurse and adjust orders prn (2) Sepsis Assessment & Plan: right subclavian line removed radiology placed femoral line temporary for venous access hopefully will be able to go without venous access and po meds upon discharge if needs IV access upon discharge will have to change venous line to midline. possibly left upper extremity Tray Francis Mar 23, 2018 15:00
[2018-03-23 16:00] VITALS: BP 128/71
--- NOTE | 2018-03-23 16:03 | Nephrology Progress Note ---
Assessment/Plan Plan m/p polymicrobial line sepsis. Had new TLC. ESRD HD MWF Decubiti - Dr. Andrade consulted. VDRF Per Pul. Severe Anemia --STEPHEN IV Venofer, transfuse PRN. Podiatry consulted. Subjective Subjective Obtunded. Objective Objective Last 24 Hour Vital Signs Date Time Temp Pulse Resp B/P (MAP) Pulse Ox O2 Delivery O2 Flow Rate FiO2 03/23/18 14:50 73 22 30 03/23/18 14:50 73 22 Mechanical Ventilator 30 03/23/18 12:58 77 22 30 03/23/18 12:15 97.5 73 19 120/60 (80) 100 97.5 03/23/18 12:00 Mechanical Ventilator 03/23/18 12:00 74 03/23/18 12:00 30 03/23/18 10:44 91 26 30 03/23/18 08:43 75 24 30 03/23/18 08:40 73 03/23/18 08:00 Mechanical Ventilator 03/23/18 08:00 30 03/23/18 08:00 98.3 74 20 139/62 (87) 100 98.3 03/23/18 06:45 73 19 30 03/23/18 05:11 85 21 30 03/23/18 04:00 97.8 77 20 152/62 (92) 100 97.8 03/23/18 04:00 30 03/23/18 04:00 Mechanical Ventilator 03/23/18 04:00 81 03/23/18 02:30 90 21 30 03/23/18 01:05 89 22 30 03/23/18 00:00 Mechanical Ventilator 03/23/18 00:00 98.1 82 18 130/68 (88) 100 98.1 03/23/18 00:00 82 03/22/18 23:37 89 22 30 03/22/18 21:42 86 24 30 03/22/18 20:00 30 03/22/18 20:00 97.3 88 22 136/68 (90) 100 97.3 03/22/18 20:00 Mechanical Ventilator 03/22/18 19:42 80 21 30 03/22/18 17:18 71 20 30 03/22/18 17:08 78 Intake and Output 03/22/18 03/23/18 19:00 07:00 Intake Total 1070 ml 690 ml Output Total 100 ml 250 ml Balance 970 ml 440 ml Intake Free Water 120 ml 90 ml IV Total 300 ml Tube Feeding 400 ml 600 ml Blood Product 250 ml Output Urine Total 0 ml 0 ml Stool Total 100 ml 250 ml Laboratory Tests 03/22/18 18:30: Random Amikacin Level < 2.5 03/23/18 08:30: Sodium Level 134L, Potassium Level 3.3L, Chloride Level 99, Carbon Dioxide Level 26, Anion Gap 9, Blood Urea Nitrogen 61H, Creatinine 2.9H, Estimat Glomerular Filtration Rate , Glucose Level 186H, Calcium Level 7.8L, Total Bilirubin 0.5, Aspartate Amino Transf (AST/SGOT) 64H, Alanine Aminotransferase ( ALT/SGPT) 51, Alkaline Phosphatase 445H, Total Protein 5.3L, Albumin 1.0L, Globulin 4.3, Albumin/Globulin Ratio 0.2L Height (Feet): 5 Height (Inches): 10.00 Weight (Pounds): 194 Objective Multiple decubiti noted and examined with nursing staff. Thw wounds are very deep! CV RR Trach site Ok. Lungs B ronchi. And SNT. BS +. PEG OK. E muscle wasting. Rt. arm contracture @ elbow. Rt. arm AVF + bruit. Neuro - alert + responsive. Nonverbal. Dilip Conner MD Mar 23, 2018 16:03
--- NOTE | 2018-03-23 17:29 | Infectious Diseases Prog Note ---
Assessment/Plan Assessment/Plan ASSESSMENT AND PLAN: 1. sepsis, klebsiella (kpc)/proteus/acinetobacter/vre bacteremia/line infection , psuedomonas/acinetobacter pna, leukocytosis, fevers, multiple wounds - ? infected, vre colonization - change antibiotics to meropenem, polymyxin, ciprofloxacin, zyvox - line removed/changed - monitor labs and chest x-ray, f/u on surveillance blood cultures - wound care and debridement if needed per surgery - recheck ua and culture - d/w Dr. Conner - d/w microbiology - d/w RN 2. The patient has history of cerebrovascular accident and questionable history of hypertension and arrhythmia. 3. Vent respiratory failure. 4. Dysphagia, G-tube. 5. End-stage renal disease - getting hd, has shunt 6. Diabetes - Diabetes treatment per primary. 7. Anemia. 8. The patient is on amiodarone. 9. Schizophrenia. 10. Possible hyperlipidemia. 11. No known allergies. 12. Social history is negative. 13. MAR was noted. 14. Case was discussed with RN. 15. Family history is noncontributory. 16. Step-down unit care. 17. Vent care. 18. Continue treatment per primary consultants. 19. Notes and records were noted. 20. Orders were entered. Subjective Constitutional: Reports: fatigue, other - + trach/vent; Denies: fever HEENT: Reports: congestion Respiratory: Reports: shortness of breath Cardiovascular: Reports: other - no pressors Gastrointestinal/Abdominal: Reports: other - + rectal tube; Denies: nausea, vomiting Genitourinary: Reports: other - + condom cath, + hd Neurologic: Reports: weakness, other - lethargic Psychiatric: Reports: other - na Skin: Denies: rash Hematologic: Denies: bleeding Musculoskeletal: Reports: other - na Allergies: Coded Allergies: No Known Allergies (Unverified , 03/18/18) Objective Vital Signs Last 24 Hour Vital Signs Date Time Temp Pulse Resp B/P (MAP) Pulse Ox O2 Delivery O2 Flow Rate FiO2 03/23/18 16:24 76 03/23/18 16:00 97.6 77 19 128/71 (90) 100 97.6 03/23/18 16:00 Mechanical Ventilator 03/23/18 16:00 30 03/23/18 14:50 73 22 30 03/23/18 14:50 73 22 Mechanical Ventilator 30 03/23/18 12:58 77 22 30 03/23/18 12:15 97.5 73 19 120/60 (80) 100 97.5 03/23/18 12:00 Mechanical Ventilator 03/23/18 12:00 74 03/23/18 12:00 30 03/23/18 10:44 91 26 30 03/23/18 08:43 75 24 30 03/23/18 08:40 73 03/23/18 08:00 Mechanical Ventilator 03/23/18 08:00 30 03/23/18 08:00 98.3 74 20 139/62 (87) 100 98.3 03/23/18 06:45 73 19 30 03/23/18 05:11 85 21 30 03/23/18 04:00 97.8 77 20 152/62 (92) 100 97.8 03/23/18 04:00 30 03/23/18 04:00 Mechanical Ventilator 03/23/18 04:00 81 03/23/18 02:30 90 21 30 03/23/18 01:05 89 22 30 03/23/18 00:00 Mechanical Ventilator 03/23/18 00:00 98.1 82 18 130/68 (88) 100 98.1 03/23/18 00:00 82 03/22/18 23:37 89 22 30 03/22/18 21:42 86 24 30 03/22/18 20:00 30 03/22/18 20:00 97.3 88 22 136/68 (90) 100 97.3 03/22/18 20:00 Mechanical Ventilator 03/22/18 19:42 80 21 30 03/22/18 17:18 71 20 30 Height (Feet): 5 Height (Inches): 10.00 Weight (Pounds): 194 General Appearance: other - + trach and vent HEENT: normocephalic, atraumatic, anicteric, no JVD, status post trach Respiratory/Chest: crackles/rales, rhonchi - bilaterally Cardiovascular: normal rate, regular rhythm, no gallop/murmur, no JVD Abdomen: normal bowel sounds, soft, non tender, no organomegaly, non distended Genitourinary: other - + condom cath, no uo Extremities: no cyanosis Skin: no rash, ulcers - wounds covered Neurologic/Psychiatric: motor weakness, other - lethargic, weak, poorly responsive Lymphatic: no neck adenopathy Musculoskeletal: no effusion Objective 03/20 - chest -ray - Comparison: 03/18/2018 Findings: Bilateral pleural effusions, mid and lower lung hazy opacities, interstitial congestive changes are probably not significantly changed allowing for differences in exposure technique. Right axillary stent, right subclavian central venous catheter, tracheostomy remain. Heart size is upper limits normal. Impression: Unchanged, over 2 days, findings as above. 03/23 - chest x-ray - Findings: Interstitial edema suspected with bilateral pleural effusions and cardiomegaly. Tracheostomy again noted. IMPRESSION: Pulmonary edema Microbiology Date/Time Source Procedure Growth Status 03/22/18 06:15 Blood Blood Culture - Preliminary Resulted 03/19/18 11:30 Sputum Induced Gram Stain - Final Resulted 03/19/18 11:30 Sputum Culture - Preliminary A.baumanii Complx - Mdr Pseudomonas Aeruginosa Resulted 03/20/18 16:00 Stool Clostridium difficile Toxin Assay - Final Complete 03/18/18 15:10 Urine,Clean Catch Urine Culture - Final Ally Tropicalis Complete 03/21/18 17:30 Catheter Site Catheter Tip Culture - Preliminary NO GROWTH AFTER 24 HOURS Resulted Microbiology Date/Time Source Procedure Growth Status 03/22/18 06:15 Blood Blood Culture - Preliminary Resulted 03/22/18 06:15 Blood Blood Culture - Preliminary Resulted 03/21/18 17:30 Catheter Site Catheter Tip Culture - Preliminary NO GROWTH AFTER 24 HOURS Resulted Labs Test 03/21/18 19:00 03/22/18 06:15 03/22/18 18:30 03/23/18 08:30 White Blood Count 11.5 K/UL (4.8-10.8) 11.8 K/UL (4.8-10.8) Red Blood Count 2.14 M/UL (4.70-6.10) 2.18 M/UL (4.70-6.10) Hemoglobin 6.5 G/DL (14.2-18.0) 6.2 G/DL (14.2-18.0) Hematocrit 19.1 % (42.0-52.0) 19.2 % (42.0-52.0) Mean Corpuscular Volume 89 FL (80-99) 88 FL (80-99) Mean Corpuscular Hemoglobin 30.2 PG (27.0-31.0) 28.3 PG (27.0-31.0) Mean Corpuscular Hemoglobin Concent 33.9 G/DL (32.0-36.0) 32.0 G/DL (32.0-36.0) Red Cell Distribution Width 16.0 % (11.6-14.8) 16.7 % (11.6-14.8) Platelet Count 61 K/UL (150-450) 59 K/UL (150-450) Mean Platelet Volume 5.5 FL (6.5-10.1) 8.9 FL (6.5-10.1) Neutrophils (%) (Auto) % (45.0-75.0) % (45.0-75.0) Lymphocytes (%) (Auto) % (20.0-45.0) % (20.0-45.0) Monocytes (%) (Auto) % (1.0-10.0) % (1.0-10.0) Eosinophils (%) (Auto) % (0.0-3.0) % (0.0-3.0) Basophils (%) (Auto) % (0.0-2.0) % (0.0-2.0) Differential Total Cells Counted 100 100 Neutrophils % (Manual) 80 % (45-75) 77 % (45-75) Lymphocytes % (Manual) 15 % (20-45) 15 % (20-45) Monocytes % (Manual) 3 % (1-10) 4 % (1-10) Eosinophils % (Manual) 2 % (0-3) 4 % (0-3) Basophils % (Manual) 0 % (0-2) 0 % (0-2) Band Neutrophils 0 % (0-8) 0 % (0-8) Platelet Estimate Decreased Decreased Platelet Morphology Normal Normal Hypochromasia 2+ 1+ Anisocytosis 1+ 1+ Sodium Level 132 MMOL/L (136-145) 134 MMOL/L (136-145) Potassium Level 3.6 MMOL/L (3.5-5.1) 3.3 MMOL/L (3.5-5.1) Chloride Level 95 MMOL/L (98-107) 99 MMOL/L (98-107) Carbon Dioxide Level 26 MMOL/L (21-32) 26 MMOL/L (21-32) Anion Gap 11 mmol/L (5-15) 9 mmol/L (5-15) Blood Urea Nitrogen 80 mg/dL (7-18) 61 mg/dL (7-18) Creatinine 3.3 MG/DL (0.55-1.30) 2.9 MG/DL (0.55-1.30) Estimat Glomerular Filtration Rate mL/min (>60) mL/min (>60) Glucose Level 256 MG/DL (74-106) 186 MG/DL (74-106) Calcium Level 7.8 MG/DL (8.5-10.1) 7.8 MG/DL (8.5-10.1) Phosphorus Level 2.4 MG/DL (2.5-4.9) Total Bilirubin 0.6 MG/DL (0.2-1.0) 0.5 MG/DL (0.2-1.0) Direct Bilirubin 0.3 MG/DL (0.0-0.3) Aspartate Amino Transf (AST/SGOT) 95 U/L (15-37) 64 U/L (15-37) Alanine Aminotransferase (ALT/SGPT) 56 U/L (12-78) 51 U/L (12-78) Alkaline Phosphatase 479 U/L (46-116) 445 U/L (46-116) Total Protein 4.6 G/DL (6.4-8.2) 5.3 G/DL (6.4-8.2) Albumin 1.0 G/DL (3.4-5.0) 1.0 G/DL (3.4-5.0) Random Amikacin Level < 2.5 ug/mL Globulin 4.3 g/dL Albumin/Globulin Ratio 0.2 (1.0-2.7) Laboratory Tests Test 03/22/18 18:30 03/23/18 08:30 Random Amikacin Level < 2.5 ug/mL Sodium Level 134 MMOL/L (136-145) L Potassium Level 3.3 MMOL/L (3.5-5.1) L Chloride Level 99 MMOL/L (98-107) Carbon Dioxide Level 26 MMOL/L (21-32) Anion Gap 9 mmol/L (5-15) Blood Urea Nitrogen 61 mg/dL (7-18) H Creatinine 2.9 MG/DL (0.55-1.30) H Estimat Glomerular Filtration Rate mL/min (>60) Glucose Level 186 MG/DL (74-106) H Calcium Level 7.8 MG/DL (8.5-10.1) L Total Bilirubin 0.5 MG/DL (0.2-1.0) Aspartate Amino Transf (AST/SGOT) 64 U/L (15-37) H Alanine Aminotransferase (ALT/SGPT) 51 U/L (12-78) Alkaline Phosphatase 445 U/L (46-116) H Total Protein 5.3 G/DL (6.4-8.2) L Albumin 1.0 G/DL (3.4-5.0) L Globulin 4.3 g/dL Albumin/Globulin Ratio 0.2 (1.0-2.7) L Current Medications Medications (Trade) Dose Ordered Sig/Marques Route PRN Reason Start Time Stop Time Status Last Admin Dose Admin Acetaminophen (Tylenol) 650 mg Q4H PRN GT Mild Pain/Temp > 100.5 03/18/18 21:00 04/17/18 20:59 03/21/18 14:07 Acetaminophen/ Hydrocodone Bitart ([place] 5/325) 1 tab DAILY PRN GT For Pain 03/19/18 00:15 03/26/18 00:00 Amikacin Protocol (Amikacin pharmacy to dose) 1 ea DAILY PRN MISC Per rx protocol 03/21/18 16:30 04/20/18 16:29 Amiodarone HCl (Cordarone) 200 mg EVERY 12 HOURS GT 03/18/18 23:00 04/17/18 22:59 03/23/18 09:00 Atorvastatin Calcium (Lipitor) 20 mg BEDTIME GT 03/18/18 23:00 04/17/18 22:59 03/22/18 22:16 Chlorhexidine Gluconate (Linda-Hex 2%) 1 applic DAILY@1999 TOPIC 03/20/18 20:00 04/19/18 19:59 03/22/18 22:15 Dextrose (Dextrose 50%) 25 ml Q30M PRN IV Hypoglycemia 03/18/18 22:30 04/17/18 22:29 Dextrose (Dextrose 50%) 50 ml Q30M PRN IV Hypoglycemia 03/18/18 22:30 04/17/18 22:29 Epoetin Pawel (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)) 10,000 units TUE-TUE-TUE SUBQ 03/20/18 21:00 04/19/18 20:59 03/22/18 22:15 Heparin Sodium (Porcine) (Heparin Sod 1000 units/ml 10ml) 2,000 unit ONCE IV 03/24/18 16:15 03/24/18 23:59 Insulin Aspart (NovoLOG) Q6HR SUBQ 03/19/18 00:00 04/18/18 00:00 03/23/18 12:47 Iron Sucrose 100 mg/Sodium Chloride 60 ml @ 240 mls/hr BEDTIME IV 03/19/18 21:00 03/23/18 21:14 03/22/18 22:16 Lactobacillus Acidophilus (Culturelle) 4 tab DAILY GT 03/19/18 09:00 04/18/18 08:59 03/23/18 10:14 Linezolid 300 ml @ 300 mls/hr Q12HR@0500,1700 IVPB 03/20/18 17:00 03/27/18 16:59 03/23/18 05:50 Magnesium Hydroxide (Mom) 10 ml DAILY PRN GT Constipation 03/18/18 22:30 04/17/18 22:29 Meropenem 500 mg/ Sodium Chloride 50 ml @ 100 mls/hr Q24HRS IVPB 03/21/18 17:30 03/26/18 17:29 03/22/18 18:33 Povidone Iodine (Betadine Oint) 1 applic DAILY TOPIC 03/22/18 09:27 04/21/18 09:26 03/23/18 09:00 Sevelamer Carbonate (Renvela) 800 mg Q8HR GT 03/18/18 23:00 04/17/18 22:59 03/23/18 13:00 Sodium Hypochlorite (Dakin's Quarter Strength) 1 applic DAILY TOPIC 03/21/18 10:51 04/20/18 10:50 03/23/18 10:17 Sodium Chloride 1,000 ml @ 500 mls/hr Q2H PRN IVLG sbp<90 during hd 03/22/18 09:56 04/21/18 09:55 Sodium Chloride 1,000 ml @ 500 mls/hr Q2H PRN IVLG sbp<90 during hd 03/24/18 16:03 03/24/18 23:59 Vitamin B Complex (Vitamin B Complex) 1 tab DAILY GT 03/19/18 09:00 04/18/18 08:59 03/23/18 10:14 Vitamin B Complex/ Vit C/Folic Acid (Nephrovite) 1 tab DAILY ORAL 03/20/18 09:31 04/19/18 09:30 03/23/18 10:14 Zinc Sulfate (Zinc Sulfate) 220 mg DAILY GT 03/19/18 09:00 04/18/18 08:59 03/23/18 10:15 Kate Quintero MD Mar 23, 2018 17:28
[2018-03-23 20:00] VITALS: BP 130/57
[2018-03-23] MEDS: Dyna-Hex 2% Top Sol 2oz TOPIC SCH (20:00)
[2018-03-23] MEDS: Iron Sucrose 100 MG in NS 55 ML IV SCH (21:04)
[2018-03-23] MEDS: POLYMYXIN B SULFATE IVPB SCH (21:15)
[2018-03-23] MEDS: D5W IVPB SCH (21:15)
[2018-03-23] MEDS ORDERED: metroNIDAZOLE 500mg tab ORAL SCH (22:00)
[2018-03-24] VITALS: BP 126/58
[2018-03-24 04:00] VITALS: BP 133/60
[2018-03-24] MEDS: Renvela 800mg Pkt GT SCH ×3 (05:43→21:33)
[2018-03-24] MEDS: NovoLOG Insulin Flexpen SUBQ SCH ×4 (05:44→17:07)
[2018-03-24 07:06] LABS: BASOPHILS % (AUTO) 0.6 % (0.0-2.0); EOSINOPHILS % (AUTO) 3.8 % (0.0-3.0); HEMATOCRIT 24.7 % (42.0-52.0); HEMOGLOBIN 8.2 G/DL (14.2-18.0); LYMPHOCYTES % (AUTO) 12.1 % (20.0-45.0); MEAN CORPUSCULAR VOLUME 87 FL (80-99); MONOCYTES % (AUTO) 2.2 % (1.0-10.0); NEUTROPHILS % (AUTO) 81.4 % (45.0-75.0); PLATELET COUNT 101 K/UL (150-450); RED BLOOD COUNT 2.85 M/UL (4.70-6.10); RED CELL DISTRIBUTION WIDTH 15.7 % (11.6-14.8); WHITE BLOOD COUNT 12.2 K/UL (4.8-10.8)
[2018-03-24 07:09] LABS: ALANINE AMINOTRANSFERASE 69 U/L (12-78); ALBUMIN 1.1 G/DL (3.4-5.0); ALBUMIN/GLOBULIN RATIO 0.2 (1.0-2.7); ALKALINE PHOSPHATASE 475 U/L (46-116); ANION GAP 8 mmol/L (5-15); ASPARTATE AMINO TRANSFERASE 84 U/L (15-37); BILIRUBIN,TOTAL 0.7 MG/DL (0.2-1.0); BLOOD UREA NITROGEN 64 mg/dL (7-18); CALCIUM 8.1 MG/DL (8.5-10.1); CARBON DIOXIDE 27 MMOL/L (21-32); CHLORIDE 98 MMOL/L (98-107); CREATININE 3.2 MG/DL (0.55-1.30); POTASSIUM 3.3 MMOL/L (3.5-5.1); SODIUM 133 MMOL/L (136-145)
[2018-03-24 08:00] VITALS: BP 178/87
--- NOTE | 2018-03-24 08:09 | Pulmonology Progress Note ---
Assessment/Plan Assessment/Plan IMPRESSION: 1. Respiratory failure. 2. Profound anemia, status post transfusion. 3. Chronic respiratory failure. 4. Severe protein-calorie malnutrition. 5. CVA. 6. Anoxia. 7. Underlying sepsis. 8. pulmonary edema 9. possible pneumonia 10. pleural effusion PLAN care noted and appears same IV antibiotics respiratory care reviewed vent reviewed no wean Ventilatory support - full SNF meds supportive care suction as needed keep negative as likely majority of findings on imaging related to fluid monitor prognosis guarded impression, plan, and exam edited and reviewed in detail care discussed with RN Subjective ROS Limited/Unobtainable: Yes Allergies: Coded Allergies: No Known Allergies (Unverified , 03/18/18) Subjective on vent poorly responsive care reviewed imaging noted Objective Last 24 Hour Vital Signs Date Time Temp Pulse Resp B/P (MAP) Pulse Ox O2 Delivery O2 Flow Rate FiO2 03/24/18 05:09 83 22 30 03/24/18 04:00 98.8 77 20 133/60 (84) 100 98.8 03/24/18 04:00 80 03/24/18 04:00 30 03/24/18 04:00 Mechanical Ventilator 03/24/18 02:46 91 17 30 03/24/18 00:50 79 20 30 03/24/18 00:00 Mechanical Ventilator 03/24/18 00:00 77 03/24/18 00:00 98.6 77 18 126/58 (80) 100 98.6 03/23/18 22:51 75 19 30 03/23/18 21:04 79 23 30 03/23/18 20:00 Mechanical Ventilator 03/23/18 20:00 84 03/23/18 20:00 98.1 82 18 130/57 (81) 100 98.1 03/23/18 20:00 30 03/23/18 18:56 84 21 30 03/23/18 16:50 77 19 30 03/23/18 16:24 76 03/23/18 16:00 97.6 77 19 128/71 (90) 100 97.6 03/23/18 16:00 Mechanical Ventilator 03/23/18 16:00 30 03/23/18 14:50 73 22 30 03/23/18 14:50 73 22 Mechanical Ventilator 30 03/23/18 12:58 77 22 30 03/23/18 12:15 97.5 73 19 120/60 (80) 100 97.5 03/23/18 12:00 Mechanical Ventilator 03/23/18 12:00 74 03/23/18 12:00 30 03/23/18 10:44 91 26 30 03/23/18 08:43 75 24 30 03/23/18 08:40 73 Intake and Output 03/23/18 03/24/18 19:00 07:00 Intake Total 800 ml 1150 ml Output Total 30 ml 75 ml Balance 770 ml 1075 ml Intake Free Water 100 ml IV Total 300 ml 600 ml Tube Feeding 400 ml 550 ml Stool Total 30 ml 75 ml Objective GENERAL: A well-developed male, chronically ill appearing. male, reduced LOC HEENT: Overall negative. NECK: Supple. Tracheostomy is in midline. Carotids 2+. LUNGS: With scattered rhonchi. Crackles at both bases. CARDIAC: S1, S2. Regular rate and rhythm without murmurs, rubs, or gallops. ABDOMEN: Soft, nontender. G-tube in place. No hepatosplenomegaly. EXTREMITIES: Chronic contractures noted. Notable for significant edema. NEUROLOGIC: The patient is obtunded Microbiology Date/Time Source Procedure Growth Status 03/22/18 06:15 Blood Blood Culture - Preliminary Staphylococcus Aureus Resulted 03/22/18 06:15 Blood Blood Culture - Preliminary Staphylococcus Sp Coag Neg Resulted 03/21/18 17:30 Catheter Site Catheter Tip Culture - Preliminary NO GROWTH AFTER 24 HOURS Resulted Laboratory Tests 03/23/18 08:30: Sodium Level 134L, Potassium Level 3.3L, Chloride Level 99, Carbon Dioxide Level 26, Anion Gap 9, Blood Urea Nitrogen 61H, Creatinine 2.9H, Estimat Glomerular Filtration Rate , Glucose Level 186H, Calcium Level 7.8L, Total Bilirubin 0.5, Aspartate Amino Transf (AST/SGOT) 64H, Alanine Aminotransferase ( ALT/SGPT) 51, Alkaline Phosphatase 445H, Total Protein 5.3L, Albumin 1.0L, Globulin 4.3, Albumin/Globulin Ratio 0.2L 03/24/18 04:00: Sodium Level 133L, Potassium Level 3.3L, Chloride Level 98, Carbon Dioxide Level 27, Anion Gap 8, Blood Urea Nitrogen 64H, Creatinine 3.2H, Estimat Glomerular Filtration Rate , Glucose Level 102, Calcium Level 8.1L, Total Bilirubin 0.7, Aspartate Amino Transf (AST/SGOT) 84H, Alanine Aminotransferase ( ALT/SGPT) 69, Alkaline Phosphatase 475H, Total Protein 5.8L, Albumin 1.1L, Globulin 4.7, Albumin/Globulin Ratio 0.2L, White Blood Count 12.2H, Red Blood Count 2.85L, Hemoglobin 8.2L, Hematocrit 24.7L, Mean Corpuscular Volume 87, Mean Corpuscular Hemoglobin 28.7, Mean Corpuscular Hemoglobin Concent 33.1, Red Cell Distribution Width 15.7H, Platelet Count 101L, Mean Platelet Volume 6.7, Neutrophils (%) (Auto) 81.4H, Lymphocytes (%) (Auto) 12.1L, Monocytes (%) (Auto ) 2.2, Eosinophils (%) (Auto) 3.8H, Basophils (%) (Auto) 0.6 Current Medications Medications (Trade) Dose Ordered Sig/Marques Route PRN Reason Start Time Stop Time Status Last Admin Dose Admin Acetaminophen (Tylenol) 650 mg Q4H PRN GT Mild Pain/Temp > 100.5 03/18/18 21:00 04/17/18 20:59 03/21/18 14:07 Acetaminophen/ Hydrocodone Bitart ([place] 5/325) 1 tab DAILY PRN GT For Pain 03/19/18 00:15 03/26/18 00:00 Amiodarone HCl (Cordarone) 200 mg EVERY 12 HOURS GT 03/18/18 23:00 04/17/18 22:59 03/23/18 20:31 Atorvastatin Calcium (Lipitor) 20 mg BEDTIME GT 03/18/18 23:00 04/17/18 22:59 03/23/18 20:31 Chlorhexidine Gluconate (Linda-Hex 2%) 1 applic DAILY@1999 TOPIC 03/20/18 20:00 04/19/18 19:59 03/23/18 20:00 Ciprofloxacin (Cipro 250mg tab) 250 mg Q24H ORAL 03/23/18 21:00 03/30/18 20:59 03/23/18 21:15 Dextrose (Dextrose 50%) 25 ml Q30M PRN IV Hypoglycemia 03/18/18 22:30 04/17/18 22:29 Dextrose (Dextrose 50%) 50 ml Q30M PRN IV Hypoglycemia 03/18/18 22:30 04/17/18 22:29 Epoetin Pawel (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)) 10,000 units TUE-TUE-TUE SUBQ 03/20/18 21:00 04/19/18 20:59 03/22/18 22:15 Heparin Sodium (Porcine) (Heparin Sod 1000 units/ml 10ml) 2,000 unit ONCE IV 03/24/18 16:15 03/24/18 23:59 Insulin Aspart (NovoLOG) Q6HR SUBQ 03/19/18 00:00 04/18/18 00:00 03/24/18 05:44 Lactobacillus Acidophilus (Culturelle) 4 tab DAILY GT 03/19/18 09:00 04/18/18 08:59 03/23/18 10:14 Linezolid 300 ml @ 300 mls/hr Q12HR@0500,1700 IVPB 03/20/18 17:00 03/27/18 16:59 03/24/18 05:24 Magnesium Hydroxide (Mom) 10 ml DAILY PRN GT Constipation 03/18/18 22:30 04/17/18 22:29 Meropenem 500 mg/ Sodium Chloride 50 ml @ 100 mls/hr Q24H IVPB 03/23/18 20:00 03/28/18 19:59 03/23/18 20:00 Polymyxin B Sulfate 617671 units/Dextrose 250 ml @ 250 mls/hr Q12HR@1000,2200 IVPB 03/23/18 22:00 03/30/18 21:59 03/23/18 21:15 Povidone Iodine (Betadine Oint) 1 applic DAILY TOPIC 03/22/18 09:27 04/21/18 09:26 03/23/18 09:00 Sevelamer Carbonate (Renvela) 800 mg Q8HR GT 03/18/18 23:00 04/17/18 22:59 03/24/18 05:43 Sodium Hypochlorite (Dakin's Quarter Strength) 1 applic DAILY TOPIC 03/21/18 10:51 04/20/18 10:50 03/23/18 10:17 Sodium Chloride 1,000 ml @ 500 mls/hr Q2H PRN IVLG sbp<90 during hd 03/22/18 09:56 04/21/18 09:55 Sodium Chloride 1,000 ml @ 500 mls/hr Q2H PRN IVLG sbp<90 during hd 03/24/18 16:03 03/24/18 23:59 Vitamin B Complex (Vitamin B Complex) 1 tab DAILY GT 03/19/18 09:00 04/18/18 08:59 03/23/18 10:14 Vitamin B Complex/ Vit C/Folic Acid (Nephrovite) 1 tab DAILY ORAL 03/20/18 09:31 04/19/18 09:30 03/23/18 10:14 Zinc Sulfate (Zinc Sulfate) 220 mg DAILY GT 03/19/18 09:00 04/18/18 08:59 03/23/18 10:15 Rogelio Chiu MD Mar 24, 2018 08:09
[2018-03-24] MEDS: Zinc Sulfate 220mg cap GT SCH (10:14)
[2018-03-24] MEDS: Vitamin B Complex Tab GT SCH (10:14)
[2018-03-24] MEDS: Lactobacillus-GG tablet GT SCH (10:14)
[2018-03-24] MEDS: Nephrovite tab (Rena-Vite) ORAL SCH (10:14)
[2018-03-24] MEDS: Amiodarone 200mg tab GT SCH ×2 (10:14→21:31)
[2018-03-24] MEDS: Dakin's 0.125% Soln (Quarter Strength) 16oz TOPIC SCH (10:15)
[2018-03-24] MEDS: Betadine 10% Oint 30gm TOPIC SCH (10:16)
--- NOTE | 2018-03-24 10:33 | Nephrology Progress Note ---
Assessment/Plan Plan m/p polymicrobial line sepsis. Had new TLC. ESRD HD MWF Decubiti - Dr. Andrade consulted. VDRF -Per Pul. Severe Anemia --STEPHEN IV Venofer, transfuse PRN. Podiatry consulted. Subjective Subjective Obtunded. Objective Objective Last 24 Hour Vital Signs Date Time Temp Pulse Resp B/P (MAP) Pulse Ox O2 Delivery O2 Flow Rate FiO2 03/24/18 09:16 91 24 30 03/24/18 08:04 88 03/24/18 08:00 98.4 86 20 178/87 (117) 100 98.4 03/24/18 06:40 92 20 30 03/24/18 05:09 83 22 30 03/24/18 04:00 98.8 77 20 133/60 (84) 100 98.8 03/24/18 04:00 80 03/24/18 04:00 30 03/24/18 04:00 Mechanical Ventilator 03/24/18 02:46 91 17 30 03/24/18 00:50 79 20 30 03/24/18 00:00 Mechanical Ventilator 03/24/18 00:00 77 03/24/18 00:00 98.6 77 18 126/58 (80) 100 98.6 03/23/18 22:51 75 19 30 03/23/18 21:04 79 23 30 03/23/18 20:00 Mechanical Ventilator 03/23/18 20:00 84 03/23/18 20:00 98.1 82 18 130/57 (81) 100 98.1 03/23/18 20:00 30 03/23/18 18:56 84 21 30 03/23/18 16:50 77 19 30 03/23/18 16:24 76 03/23/18 16:00 97.6 77 19 128/71 (90) 100 97.6 03/23/18 16:00 Mechanical Ventilator 03/23/18 16:00 30 03/23/18 14:50 73 22 30 03/23/18 14:50 73 22 Mechanical Ventilator 30 03/23/18 12:58 77 22 30 03/23/18 12:15 97.5 73 19 120/60 (80) 100 97.5 03/23/18 12:00 Mechanical Ventilator 03/23/18 12:00 74 03/23/18 12:00 30 03/23/18 10:44 91 26 30 Intake and Output 03/23/18 03/24/18 19:00 07:00 Intake Total 800 ml 1150 ml Output Total 30 ml 75 ml Balance 770 ml 1075 ml Intake Free Water 100 ml IV Total 300 ml 600 ml Tube Feeding 400 ml 550 ml Stool Total 30 ml 75 ml Laboratory Tests 03/24/18 04:00: White Blood Count 12.2H, Red Blood Count 2.85L, Hemoglobin 8.2L, Hematocrit 24.7L, Mean Corpuscular Volume 87, Mean Corpuscular Hemoglobin 28.7, Mean Corpuscular Hemoglobin Concent 33.1, Red Cell Distribution Width 15.7H, Platelet Count 101L, Mean Platelet Volume 6.7, Neutrophils (%) (Auto) 81.4H, Lymphocytes (%) (Auto) 12.1L, Monocytes (%) (Auto) 2.2, Eosinophils (%) (Auto) 3.8H, Basophils (%) (Auto) 0.6, Sodium Level 133L, Potassium Level 3.3L, Chloride Level 98, Carbon Dioxide Level 27, Anion Gap 8, Blood Urea Nitrogen 64H , Creatinine 3.2H, Estimat Glomerular Filtration Rate , Glucose Level 102, Calcium Level 8.1L, Total Bilirubin 0.7, Aspartate Amino Transf (AST/SGOT) 84H, Alanine Aminotransferase (ALT/SGPT) 69, Alkaline Phosphatase 475H, Total Protein 5.8L, Albumin 1.1L, Globulin 4.7, Albumin/Globulin Ratio 0.2L Height (Feet): 5 Height (Inches): 10.00 Weight (Pounds): 203 Objective Multiple decubiti noted and examined with nursing staff. Thw wounds are very deep! CV RR Trach site Ok. Lungs B ronchi. And SNT. BS +. PEG OK. E muscle wasting. Rt. arm contracture @ elbow. Rt. arm AVF + bruit. Neuro - alert + responsive. Nonverbal. Dilip Conner MD Mar 24, 2018 10:33
[2018-03-24] MEDS: POLYMYXIN B SULFATE IVPB SCH ×2 (10:43→22:35)
[2018-03-24] MEDS: D5W IVPB SCH ×2 (10:43→22:35)
--- NOTE | 2018-03-24 11:05 | Podiatric Progress Note ---
Assessment/Plan Patient Umberto Concepcion is a 77 year old male who was admitted on Mar 18, 2018 at 15:40 with Assessment/Plan A/ 1) Bilateral leg necrosis 2) Bilateral heel necrosis 3) Bilateral ankle necrosis 4) Bilateral feet necrosis 5) PAD 6) ESRD P/ Patient's lower extremity wounds are end stage Agree with current wound care ordered. No surgical intervention indicated from my standpoint. If lower extremity condition continues to worsen recommend BK vs AKA. Thank you Dr Conner Subjective Allergies: Coded Allergies: No Known Allergies (Unverified , 03/18/18) Subjective Patient nonverbal on vent Objective Exam Last 24 Hour Vital Signs Date Time Temp Pulse Resp B/P (MAP) Pulse Ox O2 Delivery O2 Flow Rate FiO2 03/24/18 09:16 91 24 30 03/24/18 08:04 88 03/24/18 08:00 98.4 86 20 178/87 (117) 100 98.4 03/24/18 06:40 92 20 30 03/24/18 05:09 83 22 30 03/24/18 04:00 98.8 77 20 133/60 (84) 100 98.8 03/24/18 04:00 80 03/24/18 04:00 30 03/24/18 04:00 Mechanical Ventilator 03/24/18 02:46 91 17 30 03/24/18 00:50 79 20 30 03/24/18 00:00 Mechanical Ventilator 03/24/18 00:00 77 03/24/18 00:00 98.6 77 18 126/58 (80) 100 98.6 03/23/18 22:51 75 19 30 03/23/18 21:04 79 23 30 03/23/18 20:00 Mechanical Ventilator 03/23/18 20:00 84 03/23/18 20:00 98.1 82 18 130/57 (81) 100 98.1 03/23/18 20:00 30 03/23/18 18:56 84 21 30 03/23/18 16:50 77 19 30 03/23/18 16:24 76 03/23/18 16:00 97.6 77 19 128/71 (90) 100 97.6 03/23/18 16:00 Mechanical Ventilator 03/23/18 16:00 30 03/23/18 14:50 73 22 30 03/23/18 14:50 73 22 Mechanical Ventilator 30 03/23/18 12:58 77 22 30 03/23/18 12:15 97.5 73 19 120/60 (80) 100 97.5 03/23/18 12:00 Mechanical Ventilator 03/23/18 12:00 74 03/23/18 12:00 30 Laboratory Tests Test 03/24/18 04:00 White Blood Count 12.2 K/UL (4.8-10.8) H Red Blood Count 2.85 M/UL (4.70-6.10) L Hemoglobin 8.2 G/DL (14.2-18.0) L Hematocrit 24.7 % (42.0-52.0) L Mean Corpuscular Volume 87 FL (80-99) Mean Corpuscular Hemoglobin 28.7 PG (27.0-31.0) Mean Corpuscular Hemoglobin Concent 33.1 G/DL (32.0-36.0) Red Cell Distribution Width 15.7 % (11.6-14.8) H Platelet Count 101 K/UL (150-450) L Mean Platelet Volume 6.7 FL (6.5-10.1) Neutrophils (%) (Auto) 81.4 % (45.0-75.0) H Lymphocytes (%) (Auto) 12.1 % (20.0-45.0) L Monocytes (%) (Auto) 2.2 % (1.0-10.0) Eosinophils (%) (Auto) 3.8 % (0.0-3.0) H Basophils (%) (Auto) 0.6 % (0.0-2.0) Sodium Level 133 MMOL/L (136-145) L Potassium Level 3.3 MMOL/L (3.5-5.1) L Chloride Level 98 MMOL/L (98-107) Carbon Dioxide Level 27 MMOL/L (21-32) Anion Gap 8 mmol/L (5-15) Blood Urea Nitrogen 64 mg/dL (7-18) H Creatinine 3.2 MG/DL (0.55-1.30) H Estimat Glomerular Filtration Rate mL/min (>60) Glucose Level 102 MG/DL (74-106) Calcium Level 8.1 MG/DL (8.5-10.1) L Total Bilirubin 0.7 MG/DL (0.2-1.0) Aspartate Amino Transf (AST/SGOT) 84 U/L (15-37) H Alanine Aminotransferase (ALT/SGPT) 69 U/L (12-78) Alkaline Phosphatase 475 U/L (46-116) H Total Protein 5.8 G/DL (6.4-8.2) L Albumin 1.1 G/DL (3.4-5.0) L Globulin 4.7 g/dL Albumin/Globulin Ratio 0.2 (1.0-2.7) L Microbiology Date/Time Source Procedure Growth Status 03/22/18 06:15 Blood Blood Culture - Preliminary Staphylococcus Aureus Resulted 03/19/18 11:30 Sputum Induced Gram Stain - Final Resulted 03/19/18 11:30 Sputum Culture - Preliminary A.baumanii Complx - Mdr Pseudomonas Aeruginosa Resulted 03/20/18 16:00 Stool Clostridium difficile Toxin Assay - Final Complete 03/18/18 15:10 Urine,Clean Catch Urine Culture - Final Ally Tropicalis Complete 03/21/18 17:30 Catheter Site Catheter Tip Culture - Preliminary NO GROWTH AFTER 48 HOURS Resulted Dermatological Dermatological Narrative no malodor, no drainage from bilateral Percy Sharma DPM Mar 24, 2018 11:05
[2018-03-24 12:00] VITALS: BP 124/63
[2018-03-24 16:00] VITALS: BP 121/60
--- NOTE | 2018-03-24 16:02 | General Surgery Progress Note ---
General Surgery-Progress Note Subjective Additional Comments overall poor prognosis Objective Last 24 Hour Vital Signs Date Time Temp Pulse Resp B/P (MAP) Pulse Ox O2 Delivery O2 Flow Rate FiO2 03/24/18 13:14 78 18 30 03/24/18 12:00 76 03/24/18 12:00 30 03/24/18 12:00 97.7 79 18 124/63 (83) 100 97.7 03/24/18 12:00 Mechanical Ventilator 03/24/18 11:01 77 18 30 03/24/18 09:16 91 24 30 03/24/18 08:04 88 03/24/18 08:00 Mechanical Ventilator 03/24/18 08:00 30 03/24/18 08:00 98.4 86 20 178/87 (117) 100 98.4 03/24/18 06:40 92 20 30 03/24/18 05:09 83 22 30 03/24/18 04:00 98.8 77 20 133/60 (84) 100 98.8 03/24/18 04:00 80 03/24/18 04:00 30 03/24/18 04:00 Mechanical Ventilator 03/24/18 02:46 91 17 30 03/24/18 00:50 79 20 30 03/24/18 00:00 Mechanical Ventilator 03/24/18 00:00 77 03/24/18 00:00 98.6 77 18 126/58 (80) 100 98.6 03/23/18 22:51 75 19 30 03/23/18 21:04 79 23 30 03/23/18 20:00 Mechanical Ventilator 03/23/18 20:00 84 03/23/18 20:00 98.1 82 18 130/57 (81) 100 98.1 03/23/18 20:00 30 03/23/18 18:56 84 21 30 03/23/18 16:50 77 19 30 03/23/18 16:24 76 I&O Intake and Output 03/23/18 03/24/18 19:00 07:00 Intake Total 800 ml 1150 ml Output Total 30 ml 75 ml Balance 770 ml 1075 ml Intake Free Water 100 ml IV Total 300 ml 600 ml Tube Feeding 400 ml 550 ml Stool Total 30 ml 75 ml Dressing: other Wound: other Drains: other Cardiovascular: RSR Respiratory: clear Abdomen: soft, distended, present bowel sounds Extremities: other Laboratory Tests Test 03/24/18 04:00 White Blood Count 12.2 K/UL (4.8-10.8) H Red Blood Count 2.85 M/UL (4.70-6.10) L Hemoglobin 8.2 G/DL (14.2-18.0) L Hematocrit 24.7 % (42.0-52.0) L Mean Corpuscular Volume 87 FL (80-99) Mean Corpuscular Hemoglobin 28.7 PG (27.0-31.0) Mean Corpuscular Hemoglobin Concent 33.1 G/DL (32.0-36.0) Red Cell Distribution Width 15.7 % (11.6-14.8) H Platelet Count 101 K/UL (150-450) L Mean Platelet Volume 6.7 FL (6.5-10.1) Neutrophils (%) (Auto) 81.4 % (45.0-75.0) H Lymphocytes (%) (Auto) 12.1 % (20.0-45.0) L Monocytes (%) (Auto) 2.2 % (1.0-10.0) Eosinophils (%) (Auto) 3.8 % (0.0-3.0) H Basophils (%) (Auto) 0.6 % (0.0-2.0) Sodium Level 133 MMOL/L (136-145) L Potassium Level 3.3 MMOL/L (3.5-5.1) L Chloride Level 98 MMOL/L (98-107) Carbon Dioxide Level 27 MMOL/L (21-32) Anion Gap 8 mmol/L (5-15) Blood Urea Nitrogen 64 mg/dL (7-18) H Creatinine 3.2 MG/DL (0.55-1.30) H Estimat Glomerular Filtration Rate mL/min (>60) Glucose Level 102 MG/DL (74-106) Calcium Level 8.1 MG/DL (8.5-10.1) L Total Bilirubin 0.7 MG/DL (0.2-1.0) Aspartate Amino Transf (AST/SGOT) 84 U/L (15-37) H Alanine Aminotransferase (ALT/SGPT) 69 U/L (12-78) Alkaline Phosphatase 475 U/L (46-116) H Total Protein 5.8 G/DL (6.4-8.2) L Albumin 1.1 G/DL (3.4-5.0) L Globulin 4.7 g/dL Albumin/Globulin Ratio 0.2 (1.0-2.7) L Plan Problems: (1) Decubitus ulcer of sacral region, stage 4 Assessment & Plan: Unstageable right lower buttock ulcer; large; no active drainage, no foul odor, macerated edges, eschar cap noted Unstageable right inner buttock ulcer; large; no active drainage, no foul odor, macerated edges, necrotic soft eschar cap noted Stage 4 full thickness sacral decubitus ulcer with necrotic / fibrinous tissue noted, macerated edges, bleeding at edges, serous drainage, no odor Unstageable left buttock ulcer; large; no active drainage, no foul odor, macerated edges, eschar w/ debris noted Left heel with large unstageable necrotic eschar cap Left leg with large unstageable necrotic eschar cap left foot with anterior unstageable necrotic eschar cap left leg with large linear wound with necrotic eschar right ankle with large necrotic eschar cap right heel with large necortic eschar cap Maroon indurated area in close proximity Trachea(L)4.8cm x (W)3.5cm ,multiple full thickness wounds with necrosis R and L upper ext including metacarpals of both hands .Scattered full thickness wounds across abd. Largest of which is to R abd (L)6.3cm x (W)2.5cm with loose slough and erythema .Full thickness ulcer noted to deejay R tibia- inferior to R knee (L)1.5cm x (W)1cm wound bed with 75 % slough ,scant purulent exudate.Full thickness wound deejay R tibia (L)12.8cm x (W)2.4 cm,wound has 100% mixed slough /necrosis. Full thickness wound dorsum R foot with 100% soft necrosis(L)8.7cm x (W)5.2cm .Dry eschar lateral and head of R 1st metatarsal (L)3.5cm x (W)1.7cm.Dry eschar R hallux (L) 2.5cm x (W) 2.8cm.Dry eschar noted to2nd through 5th metatarsals.Dry necrosis with yellow slough noted to lateral L tibia (L)17.5cm x (W)2.1cm. 100% necrosis dorso / flexor L foot (L)4.4cm x (W)3.7cm. 100% necrosis lateral L malleolus (L)2.7cm x (W)2.2cm. Necrosis noted to all five metatarsal heads on L foot.Full thickness wound L trochanteric with 90% mixed slough /necrosis (L)6.5cm x (W)7cm.Wound is malodorous. Full thickness wound L Ischium (L)9.3cm x (W)8cm wound with 100% mixed slough /necrosis and is malodorous. Full thickness sacral wound with slough /necrosis (L)14.5cm x (W)11cm x (D)2.4cm.Wound malodorous.Full thickness wound R trochanter (L)11cm x (W)8.4cm with 95% necrosis and is malodorous .Full thickness wound R ischium (L)5cm x (W02.5cm ,95% soft necrosis and erythema ,and is malodorous . all wounds present upon admission. will be cared for during hospital stay. no wounds with active infection some wounds will require debridement Plan: pressure release mattress turn q2h as per protocol elevate heels with pillows. heel protectors apply foam dressings to heels and dry necrotic eschar wounds gauze packing and dressing for sacral wound which will need debridement foam dressings to buttock wounds. appreciate podiatry input will discuss with wound care nurse and adjust orders prn (2) Sepsis Assessment & Plan: right subclavian line removed radiology placed femoral line temporary for venous access hopefully will be able to go without venous access and po meds upon discharge if needs IV access upon discharge will have to change venous line to midline. possibly left upper extremity Tray Francis Mar 24, 2018 16:02
[2018-03-24] MEDS ORDERED: Heparin Sod 1000 units/ml 10ml IV SCH (16:15)
[2018-03-24 20:00] VITALS: BP 130/61
[2018-03-24] MEDS: Dyna-Hex 2% Top Sol 2oz TOPIC SCH (21:31)
[2018-03-24] MEDS: Ciprofloxacin 500mg tab ORAL SCH (21:32)
[2018-03-24] MEDS: Epogen (for ESRD on dialysis) SUBQ SCH (21:32)
[2018-03-24] MEDS: Labetalol 200mg tab ORAL SCH (21:32)
[2018-03-25] VITALS: BP 92/47
[2018-03-25] MEDS: NovoLOG Insulin Flexpen SUBQ SCH ×5 (00:08→23:12)
[2018-03-25 04:00] VITALS: BP 101/46
[2018-03-25] MEDS: Renvela 800mg Pkt GT SCH ×3 (06:29→21:22)
[2018-03-25 08:00] VITALS: BP 122/86
[2018-03-25] MEDS ORDERED: Heparin Sod 1000 units/ml 10ml IV SCH (08:17)
--- NOTE | 2018-03-25 08:17 | Diagnostic Imaging Report ---
INDICATION: Cough COMPARISON: Chest x-ray dated 03/23/18 FINDINGS: Single frontal view demonstrates partial the visualized tracheostomy tube. Stable right axillary stent. The left chest is not fully imaged. Continued demonstration opacity in bilateral mid to lower lung zones. Atherosclerotic vascular disease. IMPRESSION: No significant change. Tubes as outlined above. Stable patchy opacity in bilateral mid to lower lung zones.
[2018-03-25] MEDS: Zinc Sulfate 220mg cap GT SCH (08:55)
[2018-03-25] MEDS: Vitamin B Complex Tab GT SCH (08:55)
[2018-03-25] MEDS: Lactobacillus-GG tablet GT SCH (08:55)
[2018-03-25] MEDS: Nephrovite tab (Rena-Vite) ORAL SCH (08:55)
[2018-03-25] MEDS: Amiodarone 200mg tab GT SCH ×2 (08:55→20:12)
[2018-03-25] MEDS: Betadine 10% Oint 30gm TOPIC SCH (08:56)
[2018-03-25] MEDS: Dakin's 0.125% Soln (Quarter Strength) 16oz TOPIC SCH (08:56)
[2018-03-25] MEDS: Labetalol 200mg tab ORAL SCH ×2 (08:57→20:12)
--- NOTE | 2018-03-25 09:51 | Nephrology Progress Note ---
Assessment/Plan Plan m/p polymicrobial line sepsis. MRSA Sepsis . Unknown etilogy. DW Dr. Prieto ID. Asking to hold planned DC for today! ESRD HD MWF Decubiti - Dr. Andrade consulted. VDRF -Per Pul. Severe Anemia --STEPHEN IV Venofer, transfuse PRN. Podiatry consulted. Subjective Subjective Obtunded. Objective Objective Last 24 Hour Vital Signs Date Time Temp Pulse Resp B/P (MAP) Pulse Ox O2 Delivery O2 Flow Rate FiO2 03/25/18 08:57 63 122/86 03/25/18 08:10 69 22 30 03/25/18 08:00 97.5 63 21 122/86 (98) 99 97.5 03/25/18 05:56 65 22 30 03/25/18 04:00 30 03/25/18 04:00 61 03/25/18 04:00 97.6 67 21 101/46 (64) 99 97.6 03/25/18 04:00 Mechanical Ventilator 03/25/18 03:24 60 19 30 03/25/18 00:46 62 23 30 03/25/18 00:00 98.0 61 23 92/47 (62) 100 98.0 03/25/18 00:00 62 03/25/18 00:00 30 03/25/18 00:00 Mechanical Ventilator 03/24/18 23:35 63 23 30 03/24/18 21:32 82 130/61 03/24/18 21:10 80 21 30 03/24/18 20:00 30 03/24/18 20:00 97.7 78 22 130/61 (84) 100 97.7 03/24/18 20:00 Mechanical Ventilator 03/24/18 19:33 82 03/24/18 19:05 77 19 30 03/24/18 17:24 80 21 30 03/24/18 16:35 76 20 30 03/24/18 16:00 Mechanical Ventilator 03/24/18 16:00 97.8 81 22 121/60 (80) 100 97.8 03/24/18 16:00 30 03/24/18 15:15 74 03/24/18 13:14 78 18 30 03/24/18 12:00 76 03/24/18 12:00 30 03/24/18 12:00 97.7 79 18 124/63 (83) 100 97.7 03/24/18 12:00 Mechanical Ventilator 03/24/18 11:01 77 18 30 Intake and Output 03/24/18 03/25/18 19:00 07:00 Intake Total 360 ml 1300 ml Output Total 50 ml 100 ml Balance 310 ml 1200 ml Intake Free Water 100 ml IV Total 600 ml Tube Feeding 300 ml 600 ml Other 60 ml Output Urine Total 0 ml Stool Total 50 ml 100 ml Height (Feet): 5 Height (Inches): 10.00 Weight (Pounds): 205 Objective Multiple decubiti noted and examined with nursing staff. Thw wounds are very deep! CV RR Trach site Ok. Lungs B ronchi. And SNT. BS +. PEG OK. E muscle wasting. Rt. arm contracture @ elbow. Rt. arm AVF + bruit. Neuro - alert + responsive. Nonverbal. Dilip Conner MD Mar 25, 2018 09:51
[2018-03-25] MEDS: POLYMYXIN B SULFATE IVPB SCH ×2 (10:28→21:22)
[2018-03-25] MEDS: D5W IVPB SCH ×2 (10:28→21:22)
[2018-03-25 12:00] VITALS: BP 116/47
[2018-03-25] MEDS ORDERED: Tubing IV Secondary IV ONE ×2 (15:00→15:15)
[2018-03-25] MEDS ORDERED: NS 275ml ONE ×2 (15:00→15:15)
[2018-03-25] MEDS ORDERED: NS Irrig 1000ml ONE (15:15)
--- NOTE | 2018-03-25 15:47 | Pulmonology Progress Note ---
Assessment/Plan Assessment/Plan Assessment/Plan IMPRESSION: 1. Respiratory failure. 2. Profound anemia, status post transfusion. 3. Chronic respiratory failure. 4. Severe protein-calorie malnutrition. 5. CVA. 6. Anoxia. 7. Underlying sepsis. 8. pulmonary edema 9. possible pneumonia 10. pleural effusion PLAN care noted and appears same IV antibiotics respiratory care reviewed vent reviewed no wean Ventilatory support - full SNF meds supportive care suction as needed keep negative as likely majority of findings on imaging related to fluid monitor prognosis guarded impression, plan, and exam edited and reviewed in detail care discussed with RN Subjective ROS Limited/Unobtainable: Yes Allergies: Coded Allergies: No Known Allergies (Unverified , 03/18/18) Subjective on vent poorly responsive care reviewed imaging noted Objective Last 24 Hour Vital Signs Date Time Temp Pulse Resp B/P (MAP) Pulse Ox O2 Delivery O2 Flow Rate FiO2 03/24/18 05:09 83 22 30 03/24/18 04:00 98.8 77 20 133/60 (84) 100 98.8 03/24/18 04:00 80 03/24/18 04:00 30 03/24/18 04:00 Mechanical Ventilator 03/24/18 02:46 91 17 30 03/24/18 00:50 79 20 30 03/24/18 00:00 Mechanical Ventilator 03/24/18 00:00 77 03/24/18 00:00 98.6 77 18 126/58 (80) 100 98.6 03/23/18 22:51 75 19 30 03/23/18 21:04 79 23 30 03/23/18 20:00 Mechanical Ventilator 03/23/18 20:00 84 03/23/18 20:00 98.1 82 18 130/57 (81) 100 98.1 03/23/18 20:00 30 03/23/18 18:56 84 21 30 03/23/18 16:50 77 19 30 03/23/18 16:24 76 03/23/18 16:00 97.6 77 19 128/71 (90) 100 97.6 03/23/18 16:00 Mechanical Ventilator 03/23/18 16:00 30 03/23/18 14:50 73 22 30 03/23/18 14:50 73 22 Mechanical Ventilator 30 03/23/18 12:58 77 22 30 10/4/18 12:15 97.5 73 19 120/60 (80) 100 97.5 03/23/18 12:00 Mechanical Ventilator 03/23/18 12:00 74 03/23/18 12:00 30 03/23/18 10:44 91 26 30 03/23/18 08:43 75 24 30 03/23/18 08:40 73 Intake and Output 03/23/18 03/24/18 19:00 07:00 Intake Total 800 ml 1150 ml Output Total 30 ml 75 ml Balance 770 ml 1075 ml Intake Free Water 100 ml IV Total 300 ml 600 ml Tube Feeding 400 ml 550 ml Stool Total 30 ml 75 ml Objective GENERAL: A well-developed male, chronically ill appearing. male, reduced LOC HEENT: Overall negative. NECK: Supple. Tracheostomy is in midline. Carotids 2+. LUNGS: With scattered rhonchi. Crackles at both bases. CARDIAC: S1, S2. Regular rate and rhythm without murmurs, rubs, or gallops. ABDOMEN: Soft, nontender. G-tube in place. No hepatosplenomegaly. EXTREMITIES: Chronic contractures noted. Notable for significant edema. NEUROLOGIC: The patient is obtunded Microbiology Date/Time Source Procedure Growth Status 03/22/18 06:15 Blood Blood Culture - Preliminary Staphylococcus Aureus Resulted 03/22/18 06:15 Blood Blood Culture - Preliminary Staphylococcus Sp Coag Neg Resulted 03/21/18 17:30 Catheter Site Catheter Tip Culture - Preliminary NO GROWTH AFTER 24 HOURS Resulted Laboratory Tests 03/23/18 08:30: Sodium Level 134L, Potassium Level 3.3L, Chloride Level 99, Carbon Dioxide Level 26, Anion Gap 9, Blood Urea Nitrogen 61H, Creatinine 2.9H, Estimat Glomerular Filtration Rate , Glucose Level 186H, Calcium Level 7.8L, Total Bilirubin 0.5, Aspartate Amino Transf (AST/SGOT) 64H, Alanine Aminotransferase ( ALT/SGPT) 51, Alkaline Phosphatase 445H, Total Protein 5.3L, Albumin 1.0L, Globulin 4.3, Albumin/Globulin Ratio 0.2L 03/24/18 04:00: Sodium Level 133L, Potassium Level 3.3L, Chloride Level 98, Carbon Dioxide Level 27, Anion Gap 8, Blood Urea Nitrogen 64H, Creatinine 3.2H, Estimat Glomerular Filtration Rate , Glucose Level 102, Calcium Level 8.1L, Total Bilirubin 0.7, Aspartate Amino Transf (AST/SGOT) 84H, Alanine Aminotransferase ( ALT/SGPT) 69, Alkaline Phosphatase 475H, Total Protein 5.8L, Albumin 1.1L, Globulin 4.7, Albumin/Globulin Ratio 0.2L, White Blood Count 12.2H, Red Blood Count 2.85L, Hemoglobin 8.2L, Hematocrit 24.7L, Mean Corpuscular Volume 87, Mean Corpuscular Hemoglobin 28.7, Mean Corpuscular Hemoglobin Concent 33.1, Red Cell Distribution Width 15.7H, Platelet Count 101L, Mean Platelet Volume 6.7, Neutrophils (%) (Auto) 81.4H, Lymphocytes (%) (Auto) 12.1L, Monocytes (%) (Auto ) 2.2, Eosinophils (%) (Auto) 3.8H, Basophils (%) (Auto) 0.6 Current Medications Medications (Trade) Dose Ordered Sig/Marques Route PRN Reason Start Time Stop Time Status Last Admin Dose Admin Acetaminophen (Tylenol) 650 mg Q4H PRN GT Mild Pain/Temp > 100.5 03/18/18 21:00 04/17/18 20:59 03/21/18 14:07 Acetaminophen/ Hydrocodone Bitart ([place] 5/325) 1 tab DAILY PRN GT For Pain 03/19/18 00:15 03/26/18 00:00 Amiodarone HCl (Cordarone) 200 mg EVERY 12 HOURS GT 03/18/18 23:00 04/17/18 22:59 03/23/18 20:31 Atorvastatin Calcium (Lipitor) 20 mg BEDTIME GT 03/18/18 23:00 04/17/18 22:59 03/23/18 20:31 Chlorhexidine Gluconate (Linda-Hex 2%) 1 applic DAILY@1999 TOPIC 03/20/18 20:00 04/19/18 19:59 03/23/18 20:00 Ciprofloxacin (Cipro 250mg tab) 250 mg Q24H ORAL 03/23/18 21:00 03/30/18 20:59 03/23/18 21:15 Dextrose (Dextrose 50%) 25 ml Q30M PRN IV Hypoglycemia 03/18/18 22:30 04/17/18 22:29 Dextrose (Dextrose 50%) 50 ml Q30M PRN IV Hypoglycemia 03/18/18 22:30 04/17/18 22:29 Epoetin Pawel (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)) 10,000 units TUE-TUE-TUE SUBQ 03/20/18 21:00 04/19/18 20:59 03/22/18 22:15 Heparin Sodium (Porcine) (Heparin Sod 1000 units/ml 10ml) 2,000 unit ONCE IV 03/24/18 16:15 03/24/18 23:59 Insulin Aspart (NovoLOG) Q6HR SUBQ 03/19/18 00:00 04/18/18 00:00 03/24/18 05:44 Lactobacillus Acidophilus (Culturelle) 4 tab DAILY GT 03/19/18 09:00 04/18/18 08:59 03/23/18 10:14 Linezolid 300 ml @ 300 mls/hr Q12HR@0500,1700 IVPB 03/20/18 17:00 03/27/18 16:59 03/24/18 05:24 Magnesium Hydroxide (Mom) 10 ml DAILY PRN GT Constipation 03/18/18 22:30 04/17/18 22:29 Meropenem 500 mg/ Sodium Chloride 50 ml @ 100 mls/hr Q24H IVPB 03/23/18 20:00 03/28/18 19:59 03/23/18 20:00 Polymyxin B Sulfate 558768 units/Dextrose 250 ml @ 250 mls/hr Q12HR@1000,2200 IVPB 03/23/18 22:00 03/30/18 21:59 03/23/18 21:15 Povidone Iodine (Betadine Oint) 1 applic DAILY TOPIC 03/22/18 09:27 04/21/18 09:26 03/23/18 09:00 Sevelamer Carbonate (Renvela) 800 mg Q8HR GT 03/18/18 23:00 04/17/18 22:59 03/24/18 05:43 Sodium Hypochlorite (Dakin's Quarter Strength) 1 applic DAILY TOPIC 03/21/18 10:51 04/20/18 10:50 03/23/18 10:17 Sodium Chloride 1,000 ml @ 500 mls/hr Q2H PRN IVLG sbp<90 during hd 03/22/18 09:56 04/21/18 09:55 Sodium Chloride 1,000 ml @ 500 mls/hr Q2H PRN IVLG sbp<90 during hd 03/24/18 16:03 03/24/18 23:59 Vitamin B Complex (Vitamin B Complex) 1 tab DAILY GT 03/19/18 09:00 04/18/18 08:59 03/23/18 10:14 Vitamin B Complex/ Vit C/Folic Acid (Nephrovite) 1 tab DAILY ORAL 03/20/18 09:31 04/19/18 09:30 03/23/18 10:14 Zinc Sulfate (Zinc Sulfate) 220 mg DAILY GT 03/19/18 09:00 04/18/18 08:59 03/23/18 10:15 Subjective ROS Limited/Unobtainable: Yes Allergies: Coded Allergies: No Known Allergies (Unverified , 03/18/18) Objective Last 24 Hour Vital Signs Date Time Temp Pulse Resp B/P (MAP) Pulse Ox O2 Delivery O2 Flow Rate FiO2 03/25/18 15:20 75 23 30 03/25/18 13:45 67 22 30 03/25/18 12:00 Mechanical Ventilator 03/25/18 12:00 97.3 59 20 116/47 (70) 100 97.3 03/25/18 12:00 65 03/25/18 12:00 30 03/25/18 11:42 65 22 30 03/25/18 10:15 64 18 30 03/25/18 08:57 63 122/86 03/25/18 08:10 69 22 30 03/25/18 08:00 97.5 63 21 122/86 (98) 99 97.5 03/25/18 08:00 62 03/25/18 08:00 30 03/25/18 08:00 Mechanical Ventilator 03/25/18 05:56 65 22 30 03/25/18 04:00 30 03/25/18 04:00 61 03/25/18 04:00 97.6 67 21 101/46 (64) 99 97.6 03/25/18 04:00 Mechanical Ventilator 03/25/18 03:24 60 19 30 03/25/18 00:46 62 23 30 03/25/18 00:00 98.0 61 23 92/47 (62) 100 98.0 03/25/18 00:00 62 03/25/18 00:00 30 03/25/18 00:00 Mechanical Ventilator 03/24/18 23:35 63 23 30 03/24/18 21:32 82 130/61 03/24/18 21:10 80 21 30 03/24/18 20:00 30 03/24/18 20:00 97.7 78 22 130/61 (84) 100 97.7 03/24/18 20:00 Mechanical Ventilator 03/24/18 19:33 82 03/24/18 19:05 77 19 30 03/24/18 17:24 80 21 30 03/24/18 16:35 76 20 30 03/24/18 16:00 Mechanical Ventilator 03/24/18 16:00 97.8 81 22 121/60 (80) 100 97.8 03/24/18 16:00 30 Intake and Output 03/24/18 03/25/18 19:00 07:00 Intake Total 360 ml 1300 ml Output Total 50 ml 100 ml Balance 310 ml 1200 ml Intake Free Water 100 ml IV Total 600 ml Tube Feeding 300 ml 600 ml Other 60 ml Output Urine Total 0 ml Stool Total 50 ml 100 ml Microbiology Date/Time Source Procedure Growth Status 03/24/18 04:00 Blood Blood Culture - Preliminary Resulted Current Medications Medications (Trade) Dose Ordered Sig/Marques Route PRN Reason Start Time Stop Time Status Last Admin Dose Admin Acetaminophen (Tylenol) 650 mg Q4H PRN GT Mild Pain/Temp > 100.5 03/18/18 21:00 04/17/18 20:59 03/21/18 14:07 Acetaminophen/ Hydrocodone Bitart ([place] 5/325) 1 tab DAILY PRN GT For Pain 03/19/18 00:15 03/26/18 00:00 Amiodarone HCl (Cordarone) 200 mg EVERY 12 HOURS GT 03/18/18 23:00 04/17/18 22:59 03/25/18 08:55 Atorvastatin Calcium (Lipitor) 20 mg BEDTIME GT 03/18/18 23:00 04/17/18 22:59 03/24/18 21:32 Chlorhexidine Gluconate (Linda-Hex 2%) 1 applic DAILY@2000 TOPIC 03/20/18 20:00 04/19/18 19:59 03/24/18 21:31 Ciprofloxacin (Cipro 500mg tab) 500 mg Q24H ORAL 03/24/18 21:00 03/31/18 20:59 03/24/18 21:32 Dextrose (Dextrose 50%) 25 ml Q30M PRN IV Hypoglycemia 03/18/18 22:30 04/17/18 22:29 Dextrose (Dextrose 50%) 50 ml Q30M PRN IV Hypoglycemia 03/18/18 22:30 04/17/18 22:29 Epoetin Pawel (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)) 10,000 units TUE-TUE-TUE SUBQ 03/20/18 21:00 04/19/18 20:59 03/24/18 21:32 Heparin Sodium (Porcine) (Heparin Sod 1000 units/ml 10ml) 2,000 unit ONCE IV 03/25/18 08:17 03/25/18 23:59 Insulin Aspart (NovoLOG) Q6HR SUBQ 03/19/18 00:00 04/18/18 00:00 03/25/18 12:15 Labetalol HCl (Normodyne) 200 mg Q12HR ORAL 03/24/18 21:00 04/23/18 20:59 03/24/18 21:32 Lactobacillus Acidophilus (Culturelle) 4 tab DAILY GT 03/19/18 09:00 04/18/18 08:59 03/25/18 08:55 Magnesium Hydroxide (Mom) 10 ml DAILY PRN GT Constipation 03/18/18 22:30 04/17/18 22:29 Meropenem 500 mg/ Sodium Chloride 50 ml @ 100 mls/hr Q24H IVPB 03/23/18 20:00 03/28/18 19:59 03/24/18 21:31 Polymyxin B Sulfate [id number] units/Dextrose 250 ml @ 250 mls/hr Q12HR@1000,2200 IVPB 03/23/18 22:00 03/30/18 21:59 03/25/18 10:28 Povidone Iodine (Betadine Oint) 1 applic DAILY TOPIC 03/22/18 09:27 04/21/18 09:26 03/25/18 08:56 Sevelamer Carbonate (Renvela) 800 mg Q8HR GT 03/18/18 23:00 04/17/18 22:59 03/25/18 15:11 Sodium Hypochlorite (Dakin's Quarter Strength) 1 applic DAILY TOPIC 03/21/18 10:51 04/20/18 10:50 03/25/18 08:56 Sodium Chloride 1,000 ml @ 500 mls/hr Q2H PRN IVLG sbp<90 during hd 03/25/18 08:14 03/25/18 23:59 Vancomycin HCl (Vanco rx to dose) 1 ea DAILY PRN MISC Per rx protocol 03/25/18 14:45 04/24/18 14:44 Vancomycin HCl/ Dextrose 250 ml @ 166.667 mls/hr ONCE ONCE IVPB 03/25/18 16:00 03/25/18 17:29 Vitamin B Complex (Vitamin B Complex) 1 tab DAILY GT 03/19/18 09:00 04/18/18 08:59 03/25/18 08:55 Vitamin B Complex/ Vit C/Folic Acid (Nephrovite) 1 tab DAILY ORAL 03/20/18 09:31 04/19/18 09:30 03/25/18 08:55 Zinc Sulfate (Zinc Sulfate) 220 mg DAILY GT 03/19/18 09:00 04/18/18 08:59 03/25/18 08:55 Kenneth Huang MD Mar 25, 2018 15:47
[2018-03-25 16:00] VITALS: BP 105/57
[2018-03-25] MEDS ORDERED: Vancomycin 1250mg/D5W 250ml IVPB ONE (16:00)
--- NOTE | 2018-03-25 16:00 | Infectious Diseases Prog Note ---
Assessment/Plan Assessment/Plan ASSESSMENT AND PLAN: 1. 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 infected - change antibiotics to meropenem, polymyxin, ciprofloxacin, vancomycin - previous line removed, now has femoral line which needs removal - monitor labs and chest x-ray, f/u on surveillance blood cultures - wound care and debridement if needed per surgery - surveillance blood cultures, check TTE - d/w Dr. Conner - d/w microbiology - d/w RN - not stable for discharge - still bacteremia, needs femoral line removed 2. The patient has history of cerebrovascular accident and questionable history of hypertension and arrhythmia. 3. Vent respiratory failure. 4. Dysphagia, G-tube. 5. End-stage renal disease - getting hd, has shunt 6. Diabetes - Diabetes treatment per primary. 7. Anemia. 8. The patient is on amiodarone. 9. Schizophrenia. 10. Possible hyperlipidemia. 11. No known allergies. 12. Social history is negative. 13. MAR was noted. 14. Case was discussed with RN. 15. Family history is noncontributory. 16. Step-down unit care. 17. Vent care. 18. Continue treatment per primary consultants. 19. Notes and records were noted. 20. Orders were entered. Subjective Constitutional: Reports: fatigue, other - on vent , getting hd HEENT: Reports: congestion Respiratory: Reports: shortness of breath Cardiovascular: Reports: other - no pressors Gastrointestinal/Abdominal: Reports: diarrhea, other - + rectal tube ; Denies: nausea, vomiting Genitourinary: Reports: other - no davidson, + hd Neurologic: Reports: weakness, other - lethargic Psychiatric: Reports: other - na Skin: Denies: rash Hematologic: Denies: bleeding Musculoskeletal: Reports: other - na Allergies: Coded Allergies: No Known Allergies (Unverified , 03/18/18) Objective Vital Signs Last 24 Hour Vital Signs Date Time Temp Pulse Resp B/P (MAP) Pulse Ox O2 Delivery O2 Flow Rate FiO2 03/25/18 15:20 75 23 30 03/25/18 13:45 67 22 30 03/25/18 12:00 Mechanical Ventilator 03/25/18 12:00 97.3 59 20 116/47 (70) 100 97.3 03/25/18 12:00 65 03/25/18 12:00 30 03/25/18 11:42 65 22 30 03/25/18 10:15 64 18 30 03/25/18 08:57 63 122/86 03/25/18 08:10 69 22 30 03/25/18 08:00 97.5 63 21 122/86 (98) 99 97.5 03/25/18 08:00 62 03/25/18 08:00 30 03/25/18 08:00 Mechanical Ventilator 03/25/18 05:56 65 22 30 03/25/18 04:00 30 03/25/18 04:00 61 03/25/18 04:00 97.6 67 21 101/46 (64) 99 97.6 03/25/18 04:00 Mechanical Ventilator 03/25/18 03:24 60 19 30 03/25/18 00:46 62 23 30 03/25/18 00:00 98.0 61 23 92/47 (62) 100 98.0 03/25/18 00:00 62 03/25/18 00:00 30 03/25/18 00:00 Mechanical Ventilator 03/24/18 23:35 63 23 30 03/24/18 21:32 82 130/61 03/24/18 21:10 80 21 30 03/24/18 20:00 30 03/24/18 20:00 97.7 78 22 130/61 (84) 100 97.7 03/24/18 20:00 Mechanical Ventilator 03/24/18 19:33 82 03/24/18 19:05 77 19 30 03/24/18 17:24 80 21 30 03/24/18 16:35 76 20 30 03/24/18 16:00 Mechanical Ventilator 03/24/18 16:00 97.8 81 22 121/60 (80) 100 97.8 03/24/18 16:00 30 Height (Feet): 5 Height (Inches): 10.00 Weight (Pounds): 205 General Appearance: other - + trach and vent HEENT: normocephalic, atraumatic, anicteric, no JVD, status post trach Respiratory/Chest: crackles/rales, rhonchi - bilaterally, other - + vent Cardiovascular: normal rate, regular rhythm, no gallop/murmur, no JVD Abdomen: normal bowel sounds, soft, non tender, no organomegaly, non distended , other - + rectal tube Genitourinary: other - no davidson Extremities: no cyanosis Skin: no rash, ulcers - wounds - covered Neurologic/Psychiatric: motor weakness, other - lethargic and poorly reponsive Lymphatic: no neck adenopathy Musculoskeletal: no effusion Objective 03/20 - chest -ray - Comparison: 03/18/2018 Findings: Bilateral pleural effusions, mid and lower lung hazy opacities, interstitial congestive changes are probably not significantly changed allowing for differences in exposure technique. Right axillary stent, right subclavian central venous catheter, tracheostomy remain. Heart size is upper limits normal. Impression: Unchanged, over 2 days, findings as above. 03/23 - chest x-ray - Findings: Interstitial edema suspected with bilateral pleural effusions and cardiomegaly. Tracheostomy again noted. IMPRESSION: Pulmonary edema Chest x-ray - 03/25 - FINDINGS: Single frontal view demonstrates partial the visualized tracheostomy tube. Stable right axillary stent. The left chest is not fully imaged. Continued demonstration opacity in bilateral mid to lower lung zones. Atherosclerotic vascular disease. IMPRESSION: No significant change. Tubes as outlined above. Stable patchy opacity in bilateral mid to lower lung zones. Microbiology Date/Time Source Procedure Growth Status 03/24/18 04:00 Blood Blood Culture - Preliminary Resulted 03/19/18 11:30 Sputum Induced Gram Stain - Final Complete 03/19/18 11:30 Sputum Culture - Final A.baumanii Complx - Mdr Pseudomonas Aeruginosa Complete 03/20/18 16:00 Stool Clostridium difficile Toxin Assay - Final Complete 03/18/18 15:10 Urine,Clean Catch Urine Culture - Final Ally Tropicalis Complete 03/21/18 17:30 Catheter Site Catheter Tip Culture - Preliminary NO GROWTH AFTER 72 HOURS Resulted Microbiology Date/Time Source Procedure Growth Status 03/24/18 04:00 Blood Blood Culture - Preliminary Resulted Labs Test 03/22/18 18:30 03/23/18 08:30 03/24/18 04:00 Random Amikacin Level < 2.5 ug/mL Sodium Level 134 MMOL/L (136-145) 133 MMOL/L (136-145) Potassium Level 3.3 MMOL/L (3.5-5.1) 3.3 MMOL/L (3.5-5.1) Chloride Level 99 MMOL/L (98-107) 98 MMOL/L (98-107) Carbon Dioxide Level 26 MMOL/L (21-32) 27 MMOL/L (21-32) Anion Gap 9 mmol/L (5-15) 8 mmol/L (5-15) Blood Urea Nitrogen 61 mg/dL (7-18) 64 mg/dL (7-18) Creatinine 2.9 MG/DL (0.55-1.30) 3.2 MG/DL (0.55-1.30) Estimat Glomerular Filtration Rate mL/min (>60) mL/min (>60) Glucose Level 186 MG/DL (74-106) 102 MG/DL (74-106) Calcium Level 7.8 MG/DL (8.5-10.1) 8.1 MG/DL (8.5-10.1) Total Bilirubin 0.5 MG/DL (0.2-1.0) 0.7 MG/DL (0.2-1.0) Aspartate Amino Transf (AST/SGOT) 64 U/L (15-37) 84 U/L (15-37) Alanine Aminotransferase (ALT/SGPT) 51 U/L (12-78) 69 U/L (12-78) Alkaline Phosphatase 445 U/L (46-116) 475 U/L (46-116) Total Protein 5.3 G/DL (6.4-8.2) 5.8 G/DL (6.4-8.2) Albumin 1.0 G/DL (3.4-5.0) 1.1 G/DL (3.4-5.0) Globulin 4.3 g/dL 4.7 g/dL Albumin/Globulin Ratio 0.2 (1.0-2.7) 0.2 (1.0-2.7) White Blood Count 12.2 K/UL (4.8-10.8) Red Blood Count 2.85 M/UL (4.70-6.10) Hemoglobin 8.2 G/DL (14.2-18.0) Hematocrit 24.7 % (42.0-52.0) Mean Corpuscular Volume 87 FL (80-99) Mean Corpuscular Hemoglobin 28.7 PG (27.0-31.0) Mean Corpuscular Hemoglobin Concent 33.1 G/DL (32.0-36.0) Red Cell Distribution Width 15.7 % (11.6-14.8) Platelet Count 101 K/UL (150-450) Mean Platelet Volume 6.7 FL (6.5-10.1) Neutrophils (%) (Auto) 81.4 % (45.0-75.0) Lymphocytes (%) (Auto) 12.1 % (20.0-45.0) Monocytes (%) (Auto) 2.2 % (1.0-10.0) Eosinophils (%) (Auto) 3.8 % (0.0-3.0) Basophils (%) (Auto) 0.6 % (0.0-2.0) Current Medications Medications (Trade) Dose Ordered Sig/Marques Route PRN Reason Start Time Stop Time Status Last Admin Dose Admin Acetaminophen (Tylenol) 650 mg Q4H PRN GT Mild Pain/Temp > 100.5 03/18/18 21:00 04/17/18 20:59 03/21/18 14:07 Acetaminophen/ Hydrocodone Bitart ([place] 5/325) 1 tab DAILY PRN GT For Pain 03/19/18 00:15 03/26/18 00:00 Amiodarone HCl (Cordarone) 200 mg EVERY 12 HOURS GT 03/18/18 23:00 04/17/18 22:59 03/25/18 08:55 Atorvastatin Calcium (Lipitor) 20 mg BEDTIME GT 03/18/18 23:00 04/17/18 22:59 03/24/18 21:32 Chlorhexidine Gluconate (Linda-Hex 2%) 1 applic DAILY@1999 TOPIC 03/20/18 20:00 04/19/18 19:59 03/24/18 21:31 Ciprofloxacin (Cipro 500mg tab) 500 mg Q24H ORAL 03/24/18 21:00 03/31/18 20:59 03/24/18 21:32 Dextrose (Dextrose 50%) 25 ml Q30M PRN IV Hypoglycemia 03/18/18 22:30 04/17/18 22:29 Dextrose (Dextrose 50%) 50 ml Q30M PRN IV Hypoglycemia 03/18/18 22:30 04/17/18 22:29 Epoetin Pawel (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)) 10,000 units MON-WED-TUE SUBQ 03/20/18 21:00 04/19/18 20:59 03/24/18 21:32 Heparin Sodium (Porcine) (Heparin Sod 1000 units/ml 10ml) 2,000 unit ONCE IV 03/25/18 08:17 03/25/18 23:59 Insulin Aspart (NovoLOG) Q6HR SUBQ 03/19/18 00:00 04/18/18 00:00 03/25/18 12:15 Labetalol HCl (Normodyne) 200 mg Q12HR ORAL 03/24/18 21:00 04/23/18 20:59 03/24/18 21:32 Lactobacillus Acidophilus (Culturelle) 4 tab DAILY GT 03/19/18 09:00 04/18/18 08:59 03/25/18 08:55 Magnesium Hydroxide (Mom) 10 ml DAILY PRN GT Constipation 03/18/18 22:30 04/17/18 22:29 Meropenem 500 mg/ Sodium Chloride 50 ml @ 100 mls/hr Q24H IVPB 03/23/18 20:00 03/28/18 19:59 03/24/18 21:31 Polymyxin B Sulfate 227188 units/Dextrose 250 ml @ 250 mls/hr Q12HR@1000,2200 IVPB 03/23/18 22:00 03/30/18 21:59 03/25/18 10:28 Povidone Iodine (Betadine Oint) 1 applic DAILY TOPIC 03/22/18 09:27 04/21/18 09:26 03/25/18 08:56 Sevelamer Carbonate (Renvela) 800 mg Q8HR GT 03/18/18 23:00 04/17/18 22:59 03/25/18 15:11 Sodium Hypochlorite (Dakin's Quarter Strength) 1 applic DAILY TOPIC 03/21/18 10:51 04/20/18 10:50 03/25/18 08:56 Sodium Chloride 1,000 ml @ 500 mls/hr Q2H PRN IVLG sbp<90 during hd 03/25/18 08:14 03/25/18 23:59 Vancomycin HCl (Vanco rx to dose) 1 ea DAILY PRN MISC Per rx protocol 03/25/18 14:45 04/24/18 14:44 Vancomycin HCl/ Dextrose 250 ml @ 166.667 mls/hr ONCE ONCE IVPB 03/25/18 16:00 03/25/18 17:29 Vitamin B Complex (Vitamin B Complex) 1 tab DAILY GT 03/19/18 09:00 04/18/18 08:59 03/25/18 08:55 Vitamin B Complex/ Vit C/Folic Acid (Nephrovite) 1 tab DAILY ORAL 03/20/18 09:31 04/19/18 09:30 03/25/18 08:55 Zinc Sulfate (Zinc Sulfate) 220 mg DAILY GT 03/19/18 09:00 04/18/18 08:59 03/25/18 08:55 Kate Quintero MD Mar 25, 2018 16:00
[2018-03-25 20:00] VITALS: BP 167/71
[2018-03-25] MEDS: Dyna-Hex 2% Top Sol 2oz TOPIC SCH (20:11)
[2018-03-25] MEDS: Ciprofloxacin 500mg tab ORAL SCH (20:12)
[2018-03-26] VITALS: BP 115/50
[2018-03-26 04:00] VITALS: BP 135/62
[2018-03-26] MEDS: Renvela 800mg Pkt GT SCH ×3 (06:00→22:06)
[2018-03-26] MEDS: NovoLOG Insulin Flexpen SUBQ SCH ×3 (06:01→17:10)
[2018-03-26 06:30] LABS: HEMATOCRIT 22.1 % (42.0-52.0); HEMOGLOBIN 7.5 G/DL (14.2-18.0); MEAN CORPUSCULAR VOLUME 88 FL (80-99); PLATELET COUNT 106 K/UL (150-450); RED BLOOD COUNT 2.52 M/UL (4.70-6.10); RED CELL DISTRIBUTION WIDTH 15.4 % (11.6-14.8); WHITE BLOOD COUNT 12.5 K/UL (4.8-10.8)
[2018-03-26 07:24] LABS: ALANINE AMINOTRANSFERASE 73 U/L (12-78); ALBUMIN 1.1 G/DL (3.4-5.0); ALBUMIN/GLOBULIN RATIO 0.2 (1.0-2.7); ALKALINE PHOSPHATASE 460 U/L (46-116); ANION GAP 9 mmol/L (5-15); ASPARTATE AMINO TRANSFERASE 76 U/L (15-37); BILIRUBIN,TOTAL 0.6 MG/DL (0.2-1.0); BLOOD UREA NITROGEN 41 mg/dL (7-18); CALCIUM 8.1 MG/DL (8.5-10.1); CARBON DIOXIDE 25 MMOL/L (21-32); CHLORIDE 97 MMOL/L (98-107); CREATININE 2.4 MG/DL (0.55-1.30); POTASSIUM 3.7 MMOL/L (3.5-5.1); SODIUM 131 MMOL/L (136-145)
[2018-03-26 08:00] VITALS: BP 135/66
--- NOTE | 2018-03-26 09:31 | Nephrology Progress Note ---
Assessment/Plan Plan m/p polymicrobial line sepsis. MRSA Sepsis . Unknown etilogy! DW Dr. Prieto ID. ESRD HD MWF Decubiti - Dr. Andrade consulted. VDRF -Per Pul. Severe Anemia --STEPHEN IV Venofer, transfuse PRN. Podiatry consulted. ISA Navarro. Continuing to hold his bed. Subjective Subjective Obtunded. Objective Objective Last 24 Hour Vital Signs Date Time Temp Pulse Resp B/P (MAP) Pulse Ox O2 Delivery O2 Flow Rate FiO2 03/26/18 08:38 70 20 30 03/26/18 06:52 67 24 30 03/26/18 04:59 65 20 30 03/26/18 04:00 30 03/26/18 04:00 67 03/26/18 04:00 Mechanical Ventilator 03/26/18 04:00 97.5 65 22 135/62 (86) 96 97.5 03/26/18 03:30 66 23 30 03/26/18 01:01 61 20 30 03/26/18 00:00 97.5 58 23 115/50 (71) 100 97.5 03/26/18 00:00 Mechanical Ventilator 03/26/18 00:00 30 03/25/18 23:37 58 03/25/18 23:20 57 21 30 03/25/18 20:45 66 24 30 03/25/18 20:12 83 167/71 03/25/18 20:00 30 03/25/18 20:00 97.5 83 18 167/71 (103) 100 97.5 03/25/18 20:00 Mechanical Ventilator 03/25/18 20:00 80 03/25/18 19:29 82 20 30 03/25/18 17:26 86 26 30 03/25/18 16:00 97.5 80 22 105/57 (73) 100 97.5 03/25/18 16:00 30 03/25/18 16:00 83 03/25/18 16:00 Mechanical Ventilator 03/25/18 15:20 75 23 30 03/25/18 13:45 67 22 30 03/25/18 12:00 Mechanical Ventilator 03/25/18 12:00 97.3 59 20 116/47 (70) 100 97.3 03/25/18 12:00 65 03/25/18 12:00 30 03/25/18 11:42 65 22 30 03/25/18 10:15 64 18 30 Intake and Output 03/25/18 03/26/18 19:00 07:00 Intake Total 300 ml 1080 ml Output Total 100 ml 50 ml Balance 200 ml 1030 ml Intake Free Water 60 ml IV Total 300 ml Tube Feeding 300 ml 600 ml Other 120 ml Stool Total 100 ml 50 ml # Voids 1 Laboratory Tests 03/26/18 04:00: White Blood Count 12.5H, Red Blood Count 2.52L, Hemoglobin 7.5L, Hematocrit 22.1L, Mean Corpuscular Volume 88, Mean Corpuscular Hemoglobin 29.8, Mean Corpuscular Hemoglobin Concent 33.8, Red Cell Distribution Width 15.4H, Platelet Count 106L, Mean Platelet Volume 5.9L, Neutrophils (%) (Auto) , Lymphocytes (%) (Auto) , Monocytes (%) (Auto) , Eosinophils (%) (Auto) , Basophils (%) (Auto) , Differential Total Cells Counted 100, Neutrophils % ( Manual) 87H, Lymphocytes % (Manual) 8L, Monocytes % (Manual) 4, Eosinophils % ( Manual) 1, Basophils % (Manual) 0, Band Neutrophils 0, Platelet Estimate DecreasedL, Platelet Morphology Normal, Hypochromasia 1+, Anisocytosis 1+, Sodium Level 131L, Potassium Level 3.7, Chloride Level 97L, Carbon Dioxide Level 25, Anion Gap 9, Blood Urea Nitrogen 41H, Creatinine 2.4H, Estimat Glomerular Filtration Rate , Glucose Level 127H, Calcium Level 8.1L, Total Bilirubin 0.6, Aspartate Amino Transf (AST/SGOT) 76H, Alanine Aminotransferase ( ALT/SGPT) 73, Alkaline Phosphatase 460H, Total Protein 5.5L, Albumin 1.1L, Globulin 4.4, Albumin/Globulin Ratio 0.2L Height (Feet): 5 Height (Inches): 10.00 Weight (Pounds): 205 Objective Multiple decubiti noted and examined with nursing staff. Thw wounds are very deep! CV RR Trach site Ok. Lungs B ronchi. And SNT. BS +. PEG OK. E muscle wasting. Rt. arm contracture @ elbow. Rt. arm AVF + bruit. Neuro - alert + responsive. Nonverbal. Dilip Conner MD Mar 26, 2018 09:31
[2018-03-26] MEDS: Lactobacillus-GG tablet GT SCH (10:00)
[2018-03-26] MEDS: Nephrovite tab (Rena-Vite) ORAL SCH (10:00)
[2018-03-26] MEDS: Vitamin B Complex Tab GT SCH (10:00)
[2018-03-26] MEDS: Labetalol 200mg tab ORAL SCH ×2 (10:01→20:52)
[2018-03-26] MEDS: Zinc Sulfate 220mg cap GT SCH (10:01)
[2018-03-26] MEDS: Dakin's 0.125% Soln (Quarter Strength) 16oz TOPIC SCH (10:01)
[2018-03-26] MEDS: Amiodarone 200mg tab GT SCH ×2 (10:01→20:52)
[2018-03-26] MEDS: Betadine 10% Oint 30gm TOPIC SCH (10:37)
[2018-03-26] MEDS: D5W IVPB SCH ×2 (10:37→22:06)
[2018-03-26] MEDS: POLYMYXIN B SULFATE IVPB SCH ×2 (10:37→22:06)
[2018-03-26 12:00] VITALS: BP 103/52
--- NOTE | 2018-03-26 14:03 | General Surgery Progress Note ---
General Surgery-Progress Note Subjective Additional Comments bacteremia / leukocytosis Objective Last 24 Hour Vital Signs Date Time Temp Pulse Resp B/P (MAP) Pulse Ox O2 Delivery O2 Flow Rate FiO2 03/26/18 12:40 67 22 30 03/26/18 12:00 97.7 66 18 103/52 (69) 100 97.7 03/26/18 12:00 Mechanical Ventilator 03/26/18 12:00 57 03/26/18 12:00 30 03/26/18 10:41 65 20 30 03/26/18 10:01 70 135/66 03/26/18 08:38 70 20 30 03/26/18 08:00 Mechanical Ventilator 03/26/18 08:00 30 03/26/18 08:00 68 03/26/18 08:00 97.3 68 20 135/66 (89) 100 97.3 03/26/18 06:52 67 24 30 03/26/18 04:59 65 20 30 03/26/18 04:00 30 03/26/18 04:00 67 03/26/18 04:00 Mechanical Ventilator 03/26/18 04:00 97.5 65 22 135/62 (86) 96 97.5 03/26/18 03:30 66 23 30 03/26/18 01:01 61 20 30 03/26/18 00:00 97.5 58 23 115/50 (71) 100 97.5 03/26/18 00:00 Mechanical Ventilator 03/26/18 00:00 30 03/25/18 23:37 58 03/25/18 23:20 57 21 30 03/25/18 20:45 66 24 30 03/25/18 20:12 83 167/71 03/25/18 20:00 30 03/25/18 20:00 97.5 83 18 167/71 (103) 100 97.5 03/25/18 20:00 Mechanical Ventilator 03/25/18 20:00 80 03/25/18 19:29 82 20 30 03/25/18 17:26 86 26 30 03/25/18 16:00 97.5 80 22 105/57 (73) 100 97.5 03/25/18 16:00 30 03/25/18 16:00 83 03/25/18 16:00 Mechanical Ventilator 03/25/18 15:20 75 23 30 I&O Intake and Output 03/25/18 03/26/18 19:00 07:00 Intake Total 300 ml 1080 ml Output Total 100 ml 50 ml Balance 200 ml 1030 ml Intake Free Water 60 ml IV Total 300 ml Tube Feeding 300 ml 600 ml Other 120 ml Stool Total 100 ml 50 ml # Voids 1 Dressing: other - see wound orders Wound: other - see photos Drains: other Cardiovascular: RSR Respiratory: decreased breath sounds Abdomen: soft, present bowel sounds Extremities: other Laboratory Tests Test 03/26/18 04:00 White Blood Count 12.5 K/UL (4.8-10.8) H Red Blood Count 2.52 M/UL (4.70-6.10) L Hemoglobin 7.5 G/DL (14.2-18.0) L Hematocrit 22.1 % (42.0-52.0) L Mean Corpuscular Volume 88 FL (80-99) Mean Corpuscular Hemoglobin 29.8 PG (27.0-31.0) Mean Corpuscular Hemoglobin Concent 33.8 G/DL (32.0-36.0) Red Cell Distribution Width 15.4 % (11.6-14.8) H Platelet Count 106 K/UL (150-450) L Mean Platelet Volume 5.9 FL (6.5-10.1) L Neutrophils (%) (Auto) % (45.0-75.0) Lymphocytes (%) (Auto) % (20.0-45.0) Monocytes (%) (Auto) % (1.0-10.0) Eosinophils (%) (Auto) % (0.0-3.0) Basophils (%) (Auto) % (0.0-2.0) Differential Total Cells Counted 100 Neutrophils % (Manual) 87 % (45-75) H Lymphocytes % (Manual) 8 % (20-45) L Monocytes % (Manual) 4 % (1-10) Eosinophils % (Manual) 1 % (0-3) Basophils % (Manual) 0 % (0-2) Band Neutrophils 0 % (0-8) Platelet Estimate Decreased L Platelet Morphology Normal Hypochromasia 1+ Anisocytosis 1+ Sodium Level 131 MMOL/L (136-145) L Potassium Level 3.7 MMOL/L (3.5-5.1) Chloride Level 97 MMOL/L (98-107) L Carbon Dioxide Level 25 MMOL/L (21-32) Anion Gap 9 mmol/L (5-15) Blood Urea Nitrogen 41 mg/dL (7-18) H Creatinine 2.4 MG/DL (0.55-1.30) H Estimat Glomerular Filtration Rate mL/min (>60) Glucose Level 127 MG/DL (74-106) H Calcium Level 8.1 MG/DL (8.5-10.1) L Total Bilirubin 0.6 MG/DL (0.2-1.0) Aspartate Amino Transf (AST/SGOT) 76 U/L (15-37) H Alanine Aminotransferase (ALT/SGPT) 73 U/L (12-78) Alkaline Phosphatase 460 U/L (46-116) H Total Protein 5.5 G/DL (6.4-8.2) L Albumin 1.1 G/DL (3.4-5.0) L Globulin 4.4 g/dL Albumin/Globulin Ratio 0.2 (1.0-2.7) L Plan Problems: (1) Decubitus ulcer of sacral region, stage 4 Assessment & Plan: Unstageable right lower buttock ulcer; large; no active drainage, no foul odor, macerated edges, eschar cap noted Unstageable right inner buttock ulcer; large; no active drainage, no foul odor, macerated edges, necrotic soft eschar cap noted Stage 4 full thickness sacral decubitus ulcer with necrotic / fibrinous tissue noted, macerated edges, bleeding at edges, serous drainage, no odor Unstageable left buttock ulcer; large; no active drainage, no foul odor, macerated edges, eschar w/ debris noted Left heel with large unstageable necrotic eschar cap Left leg with large unstageable necrotic eschar cap left foot with anterior unstageable necrotic eschar cap left leg with large linear wound with necrotic eschar right ankle with large necrotic eschar cap right heel with large necortic eschar cap Maroon indurated area in close proximity Trachea(L)4.8cm x (W)3.5cm ,multiple full thickness wounds with necrosis R and L upper ext including metacarpals of both hands .Scattered full thickness wounds across abd. Largest of which is to R abd (L)6.3cm x (W)2.5cm with loose slough and erythema .Full thickness ulcer noted to deejay R tibia- inferior to R knee (L)1.5cm x (W)1cm wound bed with 75 % slough ,scant purulent exudate.Full thickness wound deejay R tibia (L)12.8cm x (W)2.4 cm,wound has 100% mixed slough /necrosis. Full thickness wound dorsum R foot with 100% soft necrosis(L)8.7cm x (W)5.2cm .Dry eschar lateral and head of R 1st metatarsal (L)3.5cm x (W)1.7cm.Dry eschar R hallux (L) 2.5cm x (W) 2.8cm.Dry eschar noted to2nd through 5th metatarsals.Dry necrosis with yellow slough noted to lateral L tibia (L)17.5cm x (W)2.1cm. 100% necrosis dorso / flexor L foot (L)4.4cm x (W)3.7cm. 100% necrosis lateral L malleolus (L)2.7cm x (W)2.2cm. Necrosis noted to all five metatarsal heads on L foot.Full thickness wound L trochanteric with 90% mixed slough /necrosis (L)6.5cm x (W)7cm.Wound is malodorous. Full thickness wound L Ischium (L)9.3cm x (W)8cm wound with 100% mixed slough /necrosis and is malodorous. Full thickness sacral wound with slough /necrosis (L)14.5cm x (W)11cm x (D)2.4cm.Wound malodorous.Full thickness wound R trochanter (L)11cm x (W)8.4cm with 95% necrosis and is malodorous .Full thickness wound R ischium (L)5cm x (W02.5cm ,95% soft necrosis and erythema ,and is malodorous . all wounds present upon admission. will be cared for during hospital stay. no wounds with active infection some wounds will require debridement Plan: pressure release mattress turn q2h as per protocol elevate heels with pillows. heel protectors apply foam dressings to heels and dry necrotic eschar wounds gauze packing and dressing for sacral wound which will need debridement foam dressings to buttock wounds. appreciate podiatry input will discuss with wound care nurse and adjust orders prn (2) Sepsis Assessment & Plan: right subclavian line removed radiology placed femoral line temporary for venous access hopefully will be able to go without venous access and po meds upon discharge if needs IV access upon discharge will have to change venous line to midline. possibly left upper extremity if concerned about left femoral central venous catheter as etiology of bacteremia, okay to remove once a left upper extremity midline / PICC line placed. will order for radiology thank you Tray Francis Mar 26, 2018 14:03
--- NOTE | 2018-03-26 14:39 | Pulmonology Progress Note ---
Assessment/Plan Assessment/Plan PULMONARY FOLLOW UP NOTE Assessment/Plan IMPRESSION: 1. Respiratory failure. CXR No change 2. Profound anemia, status post transfusion. 3. Chronic respiratory failure. 4. Severe protein-calorie malnutrition. 5. CVA. 6. Anoxia. 7. Underlying sepsis. 8. pulmonary edema 9. possible pneumonia 10. pleural effusion PLAN care noted and appears same IV antibiotics respiratory care reviewed vent reviewed no wean Ventilatory support - full SNF meds supportive care suction as needed keep negative as likely majority of findings on imaging related to fluid monitor prognosis guarded impression, plan, and exam edited and reviewed in detail care discussed with RN Subjective ROS Limited/Unobtainable: Yes Allergies: Coded Allergies: No Known Allergies (Unverified , 03/18/18) Subjective on vent poorly responsive care reviewed imaging noted Objective Last 24 Hour Vital Signs Date Time Temp Pulse Resp B/P (MAP) Pulse Ox O2 Delivery O2 Flow Rate FiO2 03/24/18 05:09 83 22 30 03/24/18 04:00 98.8 77 20 133/60 (84) 100 98.8 03/24/18 04:00 80 03/24/18 04:00 30 03/24/18 04:00 Mechanical Ventilator 03/24/18 02:46 91 17 30 03/24/18 00:50 79 20 30 03/24/18 00:00 Mechanical Ventilator 03/24/18 00:00 77 03/24/18 00:00 98.6 77 18 126/58 (80) 100 98.6 03/23/18 22:51 75 19 30 03/23/18 21:04 79 23 30 03/23/18 20:00 Mechanical Ventilator 03/23/18 20:00 84 03/23/18 20:00 98.1 82 18 130/57 (81) 100 98.1 03/23/18 20:00 30 03/23/18 18:56 84 21 30 03/23/18 16:50 77 19 30 03/23/18 16:24 76 03/23/18 16:00 97.6 77 19 128/71 (90) 100 97.6 03/23/18 16:00 Mechanical Ventilator 03/23/18 16:00 30 03/23/18 14:50 73 22 30 03/23/18 14:50 73 22 Mechanical Ventilator 30 03/23/18 12:58 77 22 30 03/23/18 12:15 97.5 73 19 120/60 (80) 100 97.5 03/23/18 12:00 Mechanical Ventilator 03/23/18 12:00 74 03/23/18 12:00 30 03/23/18 10:44 91 26 30 03/23/18 08:43 75 24 30 03/23/18 08:40 73 Intake and Output 03/23/18 03/24/18 19:00 07:00 Intake Total 800 ml 1150 ml Output Total 30 ml 75 ml Balance 770 ml 1075 ml Intake Free Water 100 ml IV Total 300 ml 600 ml Tube Feeding 400 ml 550 ml Stool Total 30 ml 75 ml Objective GENERAL: A well-developed male, chronically ill appearing. male, reduced LOC HEENT: Overall negative. NECK: Supple. Tracheostomy is in midline. Carotids 2+. LUNGS: With scattered rhonchi. Crackles at both bases. CARDIAC: S1, S2. Regular rate and rhythm without murmurs, rubs, or gallops. ABDOMEN: Soft, nontender. G-tube in place. No hepatosplenomegaly. EXTREMITIES: Chronic contractures noted. Notable for significant edema. NEUROLOGIC: The patient is obtunded Microbiology Date/Time Source Procedure Growth Status 03/22/18 06:15 Blood Blood Culture - Preliminary Staphylococcus Aureus Resulted 03/22/18 06:15 Blood Blood Culture - Preliminary Staphylococcus Sp Coag Neg Resulted 03/21/18 17:30 Catheter Site Catheter Tip Culture - Preliminary NO GROWTH AFTER 24 HOURS Resulted Laboratory Tests 03/23/18 08:30: Sodium Level 134L, Potassium Level 3.3L, Chloride Level 99, Carbon Dioxide Level 26, Anion Gap 9, Blood Urea Nitrogen 61H, Creatinine 2.9H, Estimat Glomerular Filtration Rate , Glucose Level 186H, Calcium Level 7.8L, Total Bilirubin 0.5, Aspartate Amino Transf (AST/SGOT) 64H, Alanine Aminotransferase ( ALT/SGPT) 51, Alkaline Phosphatase 445H, Total Protein 5.3L, Albumin 1.0L, Globulin 4.3, Albumin/Globulin Ratio 0.2L 03/24/18 04:00: Sodium Level 133L, Potassium Level 3.3L, Chloride Level 98, Carbon Dioxide Level 27, Anion Gap 8, Blood Urea Nitrogen 64H, Creatinine 3.2H, Estimat Glomerular Filtration Rate , Glucose Level 102, Calcium Level 8.1L, Total Bilirubin 0.7, Aspartate Amino Transf (AST/SGOT) 84H, Alanine Aminotransferase ( ALT/SGPT) 69, Alkaline Phosphatase 475H, Total Protein 5.8L, Albumin 1.1L, Globulin 4.7, Albumin/Globulin Ratio 0.2L, White Blood Count 12.2H, Red Blood Count 2.85L, Hemoglobin 8.2L, Hematocrit 24.7L, Mean Corpuscular Volume 87, Mean Corpuscular Hemoglobin 28.7, Mean Corpuscular Hemoglobin Concent 33.1, Red Cell Distribution Width 15.7H, Platelet Count 101L, Mean Platelet Volume 6.7, Neutrophils (%) (Auto) 81.4H, Lymphocytes (%) (Auto) 12.1L, Monocytes (%) (Auto ) 2.2, Eosinophils (%) (Auto) 3.8H, Basophils (%) (Auto) 0.6 Current Medications Medications (Trade) Dose Ordered Sig/Marques Route PRN Reason Start Time Stop Time Status Last Admin Dose Admin Acetaminophen (Tylenol) 650 mg Q4H PRN GT Mild Pain/Temp > 100.5 03/18/18 21:00 04/17/18 20:59 03/21/18 14:07 Acetaminophen/ Hydrocodone Bitart ([place] 5/325) 1 tab DAILY PRN GT For Pain 03/19/18 00:15 03/26/18 00:00 Amiodarone HCl (Cordarone) 200 mg EVERY 12 HOURS GT 03/18/18 23:00 04/17/18 22:59 03/23/18 20:31 Atorvastatin Calcium (Lipitor) 20 mg BEDTIME GT 03/18/18 23:00 04/17/18 22:59 03/23/18 20:31 Chlorhexidine Gluconate (Linda-Hex 2%) 1 applic DAILY@2000 TOPIC 03/20/18 20:00 04/19/18 19:59 03/23/18 20:00 Ciprofloxacin (Cipro 250mg tab) 250 mg Q24H ORAL 03/23/18 21:00 03/30/18 20:59 03/23/18 21:15 Dextrose (Dextrose 50%) 25 ml Q30M PRN IV Hypoglycemia 03/18/18 22:30 04/17/18 22:29 Dextrose (Dextrose 50%) 50 ml Q30M PRN IV Hypoglycemia 03/18/18 22:30 04/17/18 22:29 Epoetin Pawel (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)) 10,000 units TUE-TUE-TUE SUBQ 03/20/18 21:00 04/19/18 20:59 03/22/18 22:15 Heparin Sodium (Porcine) (Heparin Sod 1000 units/ml 10ml) 2,000 unit ONCE IV 03/24/18 16:15 03/24/18 23:59 Insulin Aspart (NovoLOG) Q6HR SUBQ 03/19/18 00:00 04/18/18 00:00 03/24/18 05:44 Lactobacillus Acidophilus (Culturelle) 4 tab DAILY GT 03/19/18 09:00 04/18/18 08:59 03/23/18 10:14 Linezolid 300 ml @ 300 mls/hr Q12HR@0500,1700 IVPB 03/20/18 17:00 03/27/18 16:59 03/24/18 05:24 Magnesium Hydroxide (Mom) 10 ml DAILY PRN GT Constipation 03/18/18 22:30 04/17/18 22:29 Meropenem 500 mg/ Sodium Chloride 50 ml @ 100 mls/hr Q24H IVPB 03/23/18 20:00 03/28/18 19:59 03/23/18 20:00 Polymyxin B Sulfate 017844 units/Dextrose 250 ml @ 250 mls/hr Q12HR@1000,2200 IVPB 03/23/18 22:00 03/30/18 21:59 03/23/18 21:15 Povidone Iodine (Betadine Oint) 1 applic DAILY TOPIC 03/22/18 09:27 04/21/18 09:26 03/23/18 09:00 Sevelamer Carbonate (Renvela) 800 mg Q8HR GT 03/18/18 23:00 04/17/18 22:59 03/24/18 05:43 Sodium Hypochlorite (Dakin's Quarter Strength) 1 applic DAILY TOPIC 03/21/18 10:51 04/20/18 10:50 03/23/18 10:17 Sodium Chloride 1,000 ml @ 500 mls/hr Q2H PRN IVLG sbp<90 during hd 03/22/18 09:56 04/21/18 09:55 Sodium Chloride 1,000 ml @ 500 mls/hr Q2H PRN IVLG sbp<90 during hd 03/24/18 16:03 03/24/18 23:59 Vitamin B Complex (Vitamin B Complex) 1 tab DAILY GT 03/19/18 09:00 04/18/18 08:59 03/23/18 10:14 Vitamin B Complex/ Vit C/Folic Acid (Nephrovite) 1 tab DAILY ORAL 03/20/18 09:31 04/19/18 09:30 03/23/18 10:14 Zinc Sulfate (Zinc Sulfate) 220 mg DAILY GT 03/19/18 09:00 04/18/18 08:59 03/23/18 10:15 Subjective ROS Limited/Unobtainable: No Allergies: Coded Allergies: No Known Allergies (Unverified , 03/18/18) Objective Last 24 Hour Vital Signs Date Time Temp Pulse Resp B/P (MAP) Pulse Ox O2 Delivery O2 Flow Rate FiO2 03/26/18 12:40 67 22 30 03/26/18 12:00 97.7 66 18 103/52 (69) 100 97.7 03/26/18 12:00 Mechanical Ventilator 03/26/18 12:00 57 03/26/18 12:00 30 03/26/18 10:41 65 20 30 03/26/18 10:01 70 135/66 03/26/18 08:38 70 20 30 03/26/18 08:00 Mechanical Ventilator 03/26/18 08:00 30 03/26/18 08:00 68 03/26/18 08:00 97.3 68 20 135/66 (89) 100 97.3 03/26/18 06:52 67 24 30 03/26/18 04:59 65 20 30 03/26/18 04:00 30 03/26/18 04:00 67 03/26/18 04:00 Mechanical Ventilator 03/26/18 04:00 97.5 65 22 135/62 (86) 96 97.5 03/26/18 03:30 66 23 30 03/26/18 01:01 61 20 30 03/26/18 00:00 97.5 58 23 115/50 (71) 100 97.5 03/26/18 00:00 Mechanical Ventilator 03/26/18 00:00 30 03/25/18 23:37 58 10/6/18 23:20 57 21 30 03/25/18 20:45 66 24 30 03/25/18 20:12 83 167/71 03/25/18 20:00 30 03/25/18 20:00 97.5 83 18 167/71 (103) 100 97.5 03/25/18 20:00 Mechanical Ventilator 03/25/18 20:00 80 03/25/18 19:29 82 20 30 03/25/18 17:26 86 26 30 03/25/18 16:00 97.5 80 22 105/57 (73) 100 97.5 03/25/18 16:00 30 03/25/18 16:00 83 03/25/18 16:00 Mechanical Ventilator 03/25/18 15:20 75 23 30 Intake and Output 03/25/18 03/26/18 19:00 07:00 Intake Total 300 ml 1080 ml Output Total 100 ml 50 ml Balance 200 ml 1030 ml Intake Free Water 60 ml IV Total 300 ml Tube Feeding 300 ml 600 ml Other 120 ml Stool Total 100 ml 50 ml # Voids 1 Microbiology Date/Time Source Procedure Growth Status 03/24/18 04:00 Blood Blood Culture - Preliminary Resulted 03/24/18 04:00 Blood Blood Culture - Preliminary Gram Negative Bacillus 1 Resulted Laboratory Tests 03/26/18 04:00: White Blood Count 12.5H, Red Blood Count 2.52L, Hemoglobin 7.5L, Hematocrit 22.1L, Mean Corpuscular Volume 88, Mean Corpuscular Hemoglobin 29.8, Mean Corpuscular Hemoglobin Concent 33.8, Red Cell Distribution Width 15.4H, Platelet Count 106L, Mean Platelet Volume 5.9L, Neutrophils (%) (Auto) , Lymphocytes (%) (Auto) , Monocytes (%) (Auto) , Eosinophils (%) (Auto) , Basophils (%) (Auto) , Differential Total Cells Counted 100, Neutrophils % ( Manual) 87H, Lymphocytes % (Manual) 8L, Monocytes % (Manual) 4, Eosinophils % ( Manual) 1, Basophils % (Manual) 0, Band Neutrophils 0, Platelet Estimate DecreasedL, Platelet Morphology Normal, Hypochromasia 1+, Anisocytosis 1+, Sodium Level 131L, Potassium Level 3.7, Chloride Level 97L, Carbon Dioxide Level 25, Anion Gap 9, Blood Urea Nitrogen 41H, Creatinine 2.4H, Estimat Glomerular Filtration Rate , Glucose Level 127H, Calcium Level 8.1L, Total Bilirubin 0.6, Aspartate Amino Transf (AST/SGOT) 76H, Alanine Aminotransferase ( ALT/SGPT) 73, Alkaline Phosphatase 460H, Total Protein 5.5L, Albumin 1.1L, Globulin 4.4, Albumin/Globulin Ratio 0.2L Current Medications Medications (Trade) Dose Ordered Sig/Marques Route PRN Reason Start Time Stop Time Status Last Admin Dose Admin Acetaminophen (Tylenol) 650 mg Q4H PRN GT Mild Pain/Temp > 100.5 03/18/18 21:00 04/17/18 20:59 03/21/18 14:07 Amiodarone HCl (Cordarone) 200 mg EVERY 12 HOURS GT 03/18/18 23:00 04/17/18 22:59 03/26/18 10:01 Atorvastatin Calcium (Lipitor) 20 mg BEDTIME GT 03/18/18 23:00 04/17/18 22:59 03/25/18 20:12 Chlorhexidine Gluconate (Linda-Hex 2%) 1 applic DAILY@1999 TOPIC 03/20/18 20:00 04/19/18 19:59 03/25/18 20:11 Ciprofloxacin (Cipro 500mg tab) 500 mg Q24H ORAL 03/24/18 21:00 03/31/18 20:59 03/25/18 20:12 Dextrose (Dextrose 50%) 25 ml Q30M PRN IV Hypoglycemia 03/18/18 22:30 04/17/18 22:29 Dextrose (Dextrose 50%) 50 ml Q30M PRN IV Hypoglycemia 03/18/18 22:30 04/17/18 22:29 Epoetin Pawel (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)) 10,000 units TUE-TUE-TUE SUBQ 03/20/18 21:00 04/19/18 20:59 03/24/18 21:32 Heparin Sodium (Porcine) (Heparin Sod 1000 units/ml 10ml) 2,000 unit ONCE PRN IV HD USE 03/27/18 06:00 03/27/18 23:59 Heparin Sodium (Porcine) (Heparin) 1,000 unit POSTHD PRN INJ HD USE 03/27/18 06:00 03/27/18 23:59 Insulin Aspart (NovoLOG) Q6HR SUBQ 03/19/18 00:00 04/18/18 00:00 03/26/18 11:46 Labetalol HCl (Normodyne) 200 mg Q12HR ORAL 03/24/18 21:00 04/23/18 20:59 03/26/18 10:01 Lactobacillus Acidophilus (Culturelle) 4 tab DAILY GT 03/19/18 09:00 04/18/18 08:59 03/26/18 10:00 Magnesium Hydroxide (Mom) 10 ml DAILY PRN GT Constipation 03/18/18 22:30 04/17/18 22:29 Meropenem 500 mg/ Sodium Chloride 50 ml @ 100 mls/hr Q24H IVPB 03/23/18 20:00 03/28/18 19:59 03/25/18 20:11 Polymyxin B Sulfate [id number] units/Dextrose 250 ml @ 250 mls/hr Q12HR@1000,2200 IVPB 03/23/18 22:00 03/30/18 21:59 03/26/18 10:37 Povidone Iodine (Betadine Oint) 1 applic DAILY TOPIC 03/22/18 09:27 04/21/18 09:26 03/26/18 10:37 Sevelamer Carbonate (Renvela) 800 mg Q8HR GT 03/18/18 23:00 04/17/18 22:59 03/26/18 06:00 Sodium Hypochlorite (Dakin's Quarter Strength) 1 applic DAILY TOPIC 03/21/18 10:51 04/20/18 10:50 03/26/18 10:01 Sodium Chloride 1,000 ml @ 500 mls/hr Q2H PRN IVLG sbp<90 during hd 03/27/18 06:00 03/27/18 23:59 Vancomycin HCl (Vanco rx to dose) 1 ea DAILY PRN MISC Per rx protocol 03/25/18 14:45 04/24/18 14:44 Vitamin B Complex (Vitamin B Complex) 1 tab DAILY GT 03/19/18 09:00 04/18/18 08:59 03/26/18 10:00 Vitamin B Complex/ Vit C/Folic Acid (Nephrovite) 1 tab DAILY ORAL 03/20/18 09:31 04/19/18 09:30 03/26/18 10:00 Zinc Sulfate (Zinc Sulfate) 220 mg DAILY GT 03/19/18 09:00 04/18/18 08:59 03/26/18 10:01 Kenneth Huang MD Mar 26, 2018 14:39
[2018-03-26] MEDS ORDERED: NS 275ml ONE (15:46)
[2018-03-26 16:00] VITALS: BP 90/52
[2018-03-26 20:00] VITALS: BP 123/68
[2018-03-26] MEDS: Ciprofloxacin 500mg tab ORAL SCH (20:52)
[2018-03-26] MEDS: Dyna-Hex 2% Top Sol 2oz TOPIC SCH (20:54)
[2018-03-27] VITALS: BP 102/46
[2018-03-27 04:00] VITALS: BP 138/70
[2018-03-27] MEDS: Renvela 800mg Pkt GT SCH ×3 (05:48→21:58)
[2018-03-27] MEDS: NovoLOG Insulin Flexpen SUBQ SCH ×4 (05:49→18:08)
[2018-03-27] MEDS ORDERED: Heparin 1000 units/ml 1ml Vial INJ PRN (06:00)
[2018-03-27] MEDS ORDERED: Heparin Sod 1000 units/ml 10ml IV PRN (06:00)
[2018-03-27] MEDS ORDERED: Heparin 2000 units/Ns 1000ml INJ PRN (06:00)
[2018-03-27 08:00] VITALS: BP 115/47
[2018-03-27] MEDS ORDERED: Lidocaine 1% Plain 30 ml INJ PRN (08:00)
[2018-03-27] MEDS: Dakin's 0.125% Soln (Quarter Strength) 16oz TOPIC SCH (09:14)
[2018-03-27] MEDS: Zinc Sulfate 220mg cap GT SCH (09:15)
[2018-03-27] MEDS: Vitamin B Complex Tab GT SCH (09:15)
[2018-03-27] MEDS: Lactobacillus-GG tablet GT SCH (09:15)
[2018-03-27] MEDS: Nephrovite tab (Rena-Vite) ORAL SCH (09:15)
[2018-03-27] MEDS: Labetalol 200mg tab ORAL SCH ×2 (09:15→21:07)
[2018-03-27] MEDS: Betadine 10% Oint 30gm TOPIC SCH (09:15)
[2018-03-27] MEDS: Amiodarone 200mg tab GT SCH ×2 (09:15→21:08)
--- NOTE | 2018-03-27 09:57 | Cardiology Report ---
APPROVED REPORT EXAM: Two-dimensional and M-mode echocardiogram with Doppler and color Doppler. INDICATION ENDOCARTITIS M-Mode DIMENSIONS IVSd0.8 (0.7-1.1cm)Left Atrium (MM)4.7 (1.6-4.0cm) LVDd5.9 (3.5-5.6cm)Aortic Root3.2 (2.0-3.7cm) PWd1.1 (0.7-1.1cm)Aortic Cusp Exc.1.8 (1.5-2.0cm) IVSs1.5 cm LVDs4.0 (2.5-4.0cm) PWs1.2 cm Technically difficult study due to poor pts position . Normal left ventricular chamber size, borderline systolic function and wall motion. Left ventricular ejection fraction estimated to be 50%. No evidence of left ventricular hypertrophy by 2-D. No evidence of pericardial effusion. Large pleural effusion present . Mild left atrial enlargement . Right cardiac chamber sizes are within normal limits . Focal aortic valve sclerosis with adequate cusp excursion. Thickened mitral valve leaflets with normal excursion. Mitral annulus and aortic root calcification. Pulmonic valve not well visualized. Normal tricuspid valve structure. A color flow and spectral Doppler study was performed and revealed: Trace aortic insufficiency . Mild mitral regurgitation. Pseudo-normal LV physiology is consistent with moderately elevated LA pressure. Mild tricuspid regurgitation. Tricuspid systolic velocities suggests peak right ventricular systolic pressure of 41 mmHg consistent with mild pulmonary hypertension .
[2018-03-27] MEDS: POLYMYXIN B SULFATE IVPB SCH ×2 (10:00→22:32)
[2018-03-27] MEDS: D5W IVPB SCH ×2 (10:00→22:32)
--- NOTE | 2018-03-27 11:41 | Pulmonology Progress Note ---
Assessment/Plan Assessment/Plan IMPRESSION: 1. Respiratory failure. 2. Profound anemia, status post transfusion. 3. Chronic respiratory failure. 4. Severe protein-calorie malnutrition. 5. CVA. 6. Anoxia. 7. Underlying sepsis. 8. pulmonary edema 9. possible pneumonia 10. pleural effusion 11. bacteremia MDR PLAN care noted and appears same IV antibiotics noted respiratory care reviewed vent reviewed no wean at present Ventilatory support - full as is SNF meds supportive care suction as needed keep negative and monitor imaging prognosis guarded impression, plan, and exam edited and reviewed in detail care discussed with RN Subjective ROS Limited/Unobtainable: Yes Allergies: Coded Allergies: No Known Allergies (Unverified , 03/18/18) Subjective on vent poorly responsive care reviewed imaging noted and reviewed bcx positive Objective Last 24 Hour Vital Signs Date Time Temp Pulse Resp B/P (MAP) Pulse Ox O2 Delivery O2 Flow Rate FiO2 03/27/18 10:43 68 24 30 03/27/18 09:15 68 115/47 03/27/18 08:31 68 22 30 03/27/18 08:00 Mechanical Ventilator 03/27/18 08:00 30 03/27/18 08:00 97.3 69 22 115/47 (69) 96 97.3 03/27/18 08:00 69 03/27/18 06:40 50 24 30 03/27/18 05:30 64 22 30 03/27/18 04:00 Mechanical Ventilator 03/27/18 04:00 69 03/27/18 04:00 97.7 77 22 138/70 (92) 100 97.7 03/27/18 04:00 30 03/27/18 03:30 62 20 30 03/27/18 00:38 60 20 30 03/27/18 00:00 97.7 58 21 102/46 (64) 100 97.7 03/27/18 00:00 70 03/27/18 00:00 Mechanical Ventilator 03/26/18 23:30 56 23 30 03/26/18 21:03 76 20 30 03/26/18 20:52 72 123/68 03/26/18 20:00 Mechanical Ventilator 03/26/18 20:00 73 03/26/18 20:00 30 03/26/18 20:00 98.4 72 21 123/68 (86) 97 98.4 03/26/18 19:30 74 25 30 03/26/18 17:29 65 22 30 03/26/18 16:00 97.2 70 24 90/52 (65) 100 97.2 03/26/18 16:00 30 03/26/18 16:00 Mechanical Ventilator 03/26/18 16:00 64 03/26/18 15:11 74 22 30 03/26/18 12:40 67 22 30 03/26/18 12:00 97.7 66 18 103/52 (69) 100 97.7 03/26/18 12:00 Mechanical Ventilator 03/26/18 12:00 57 03/26/18 12:00 30 Intake and Output 03/26/18 03/27/18 19:00 07:00 Intake Total 710 ml 720 ml Output Total 100 ml Balance 610 ml 720 ml Intake Free Water 60 ml IV Total 250 ml Tube Feeding 400 ml 600 ml Other 120 ml Output Urine Total 0 ml Stool Total 100 ml # Bowel Movements 100 Objective GENERAL: A well-developed male, chronically ill appearing. male, reduced LOC HEENT: Overall negative. NECK: Supple. Tracheostomy is in midline. Carotids 2+. LUNGS: With scattered rhonchi. Crackles at both bases. CARDIAC: S1, S2. Regular rate and rhythm without murmurs, rubs, or gallops. ABDOMEN: Soft, nontender. G-tube in place. No hepatosplenomegaly. EXTREMITIES: Chronic contractures noted. Notable for significant edema. NEUROLOGIC: The patient is obtunded Microbiology Date/Time Source Procedure Growth Status 03/25/18 16:55 Blood Blood Culture - Preliminary NO GROWTH AFTER 24 HOURS Resulted 03/25/18 16:30 Blood Blood Culture - Preliminary NO GROWTH AFTER 24 HOURS Resulted 03/25/18 08:50 Blood Blood Culture - Preliminary NO GROWTH AFTER 24 HOURS Resulted 03/25/18 08:40 Blood Blood Culture - Preliminary NO GROWTH AFTER 24 HOURS Resulted Laboratory Tests 03/27/18 06:30: Random Vancomycin Level 16.5 Current Medications Medications (Trade) Dose Ordered Sig/Marques Route PRN Reason Start Time Stop Time Status Last Admin Dose Admin Acetaminophen (Tylenol) 650 mg Q4H PRN GT Mild Pain/Temp > 100.5 03/18/18 21:00 04/17/18 20:59 03/21/18 14:07 Amiodarone HCl (Cordarone) 200 mg EVERY 12 HOURS GT 9/29/18 23:00 04/17/18 22:59 03/27/18 09:15 Atorvastatin Calcium (Lipitor) 20 mg BEDTIME GT 03/27/18 21:00 04/17/18 22:59 Chlorhexidine Gluconate (Linda-Hex 2%) 1 applic DAILY@2000 TOPIC 03/20/18 20:00 04/19/18 19:59 03/26/18 20:54 Ciprofloxacin (Cipro 500mg tab) 500 mg Q24H ORAL 03/24/18 21:00 03/31/18 20:59 03/26/18 20:52 Dextrose (Dextrose 50%) 25 ml Q30M PRN IV Hypoglycemia 03/18/18 22:30 04/17/18 22:29 Dextrose (Dextrose 50%) 50 ml Q30M PRN IV Hypoglycemia 03/18/18 22:30 04/17/18 22:29 Epoetin Pawel (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)) 10,000 units TUE-TUE-TUE SUBQ 03/20/18 21:00 04/19/18 20:59 03/24/18 21:32 Heparin Sodium (Porcine) (Heparin Sod 1000 units/ml 10ml) 2,000 unit ONCE PRN IV HD USE 03/27/18 06:00 03/27/18 23:59 Heparin Sodium (Porcine) (Heparin) 1,000 unit POSTHD PRN INJ HD USE 03/27/18 06:00 03/27/18 23:59 Heparin Sodium/ Sodium Chloride (Heparin 2000 units/Ns 1000ml premix) 2,000 unit ONCE PRN INJ PICC LINE PLACEMENT 03/27/18 06:00 03/27/18 23:59 Insulin Aspart (NovoLOG) Q6HR SUBQ 03/19/18 00:00 04/18/18 00:00 03/27/18 05:49 Labetalol HCl (Normodyne) 200 mg Q12HR ORAL 03/24/18 21:00 04/23/18 20:59 03/27/18 09:15 Lactobacillus Acidophilus (Culturelle) 4 tab DAILY GT 03/19/18 09:00 04/18/18 08:59 03/27/18 09:15 Lidocaine HCl (Xylocaine 1% 30ml) 30 ml ONCE PRN INJ PICC LINE PLACEMENT 03/27/18 08:00 03/27/18 23:59 Magnesium Hydroxide (Mom) 10 ml DAILY PRN GT Constipation 03/18/18 22:30 04/17/18 22:29 Meropenem 500 mg/ Sodium Chloride 50 ml @ 100 mls/hr Q24H IVPB 03/23/18 20:00 03/28/18 19:59 03/26/18 20:53 Polymyxin B Sulfate 876831 units/Dextrose 250 ml @ 250 mls/hr Q12HR@1000,2200 IVPB 03/23/18 22:00 03/30/18 21:59 03/27/18 10:00 Povidone Iodine (Betadine Oint) 1 applic DAILY TOPIC 03/22/18 09:27 04/21/18 09:26 03/27/18 09:15 Sevelamer Carbonate (Renvela) 800 mg Q8HR GT 03/18/18 23:00 04/17/18 22:59 03/27/18 05:48 Sodium Hypochlorite (Dakin's Quarter Strength) 1 applic DAILY TOPIC 03/21/18 10:51 04/20/18 10:50 03/27/18 09:14 Sodium Chloride 1,000 ml @ 500 mls/hr Q2H PRN IVLG sbp<90 during hd 03/27/18 06:00 03/27/18 23:59 Vancomycin HCl (Vanco rx to dose) 1 ea DAILY PRN MISC Per rx protocol 03/25/18 14:45 04/24/18 14:44 Vancomycin HCl/ Dextrose 250 ml @ 166.667 mls/hr ONCE ONCE IVPB 03/27/18 20:00 03/27/18 21:29 Vitamin B Complex (Vitamin B Complex) 1 tab DAILY GT 03/19/18 09:00 04/18/18 08:59 03/27/18 09:15 Vitamin B Complex/ Vit C/Folic Acid (Nephrovite) 1 tab DAILY ORAL 03/20/18 09:31 04/19/18 09:30 03/27/18 09:15 Zinc Sulfate (Zinc Sulfate) 220 mg DAILY GT 03/19/18 09:00 04/18/18 08:59 03/27/18 09:15 Rogelio Chiu MD Mar 27, 2018 11:40
[2018-03-27 12:00] VITALS: BP 101/47
--- NOTE | 2018-03-27 15:17 | Nephrology Progress Note ---
Assessment/Plan Plan m/p polymicrobial line sepsis. MRSA Sepsis . Unknown etilogy! DW Dr. Prieto ID. ESRD HD MWF Decubiti - Dr. Andrade consulted. VDRF -Per Pul. Severe Anemia --STEPHEN IV Venofer, transfuse PRN. Podiatry consulted. ISA Navarro. Continuing to hold his bed. His TLC to be changed today. Subjective Subjective Obtunded. Objective Objective Last 24 Hour Vital Signs Date Time Temp Pulse Resp B/P (MAP) Pulse Ox O2 Delivery O2 Flow Rate FiO2 03/27/18 12:36 53 18 30 03/27/18 12:00 Mechanical Ventilator 03/27/18 12:00 97.7 61 20 101/47 (65) 99 97.7 03/27/18 12:00 30 03/27/18 12:00 70 03/27/18 10:43 68 24 30 03/27/18 09:15 68 115/47 03/27/18 08:31 68 22 30 03/27/18 08:00 Mechanical Ventilator 03/27/18 08:00 30 03/27/18 08:00 97.3 69 22 115/47 (69) 96 97.3 03/27/18 08:00 69 03/27/18 06:40 50 24 30 03/27/18 05:30 64 22 30 03/27/18 04:00 Mechanical Ventilator 03/27/18 04:00 69 03/27/18 04:00 97.7 77 22 138/70 (92) 100 97.7 03/27/18 04:00 30 03/27/18 03:30 62 20 30 03/27/18 00:38 60 20 30 03/27/18 00:00 97.7 58 21 102/46 (64) 100 97.7 03/27/18 00:00 70 03/27/18 00:00 Mechanical Ventilator 03/26/18 23:30 56 23 30 03/26/18 21:03 76 20 30 03/26/18 20:52 72 123/68 03/26/18 20:00 Mechanical Ventilator 03/26/18 20:00 73 03/26/18 20:00 30 03/26/18 20:00 98.4 72 21 123/68 (86) 97 98.4 03/26/18 19:30 74 25 30 03/26/18 17:29 65 22 30 03/26/18 16:00 97.2 70 24 90/52 (65) 100 97.2 03/26/18 16:00 30 03/26/18 16:00 Mechanical Ventilator 03/26/18 16:00 64 03/26/18 15:11 74 22 30 Intake and Output 03/26/18 03/27/18 19:00 07:00 Intake Total 710 ml 720 ml Output Total 100 ml Balance 610 ml 720 ml Intake Free Water 60 ml IV Total 250 ml Tube Feeding 400 ml 600 ml Other 120 ml Output Urine Total 0 ml Stool Total 100 ml # Bowel Movements 100 Laboratory Tests 03/27/18 06:30: Random Vancomycin Level 16.5 Height (Feet): 5 Height (Inches): 10.00 Weight (Pounds): 205 Objective Multiple decubiti noted and examined with nursing staff. Thw wounds are very deep! CV RR Trach site Ok. Lungs B ronchi. And SNT. BS +. PEG OK. E muscle wasting. Rt. arm contracture @ elbow. Rt. arm AVF + bruit. Neuro - alert + responsive. Nonverbal. Dilip Conner MD Mar 27, 2018 15:17
--- NOTE | 2018-03-27 15:41 | General Surgery Progress Note ---
General Surgery-Progress Note Subjective Additional Comments no acute events. plan to remove line Objective Last 24 Hour Vital Signs Date Time Temp Pulse Resp B/P (MAP) Pulse Ox O2 Delivery O2 Flow Rate FiO2 03/27/18 12:36 53 18 30 03/27/18 12:00 Mechanical Ventilator 03/27/18 12:00 97.7 61 20 101/47 (65) 99 97.7 03/27/18 12:00 30 03/27/18 12:00 70 03/27/18 10:43 68 24 30 03/27/18 09:15 68 115/47 03/27/18 08:31 68 22 30 03/27/18 08:00 Mechanical Ventilator 03/27/18 08:00 30 03/27/18 08:00 97.3 69 22 115/47 (69) 96 97.3 03/27/18 08:00 69 03/27/18 06:40 50 24 30 03/27/18 05:30 64 22 30 03/27/18 04:00 Mechanical Ventilator 03/27/18 04:00 69 03/27/18 04:00 97.7 77 22 138/70 (92) 100 97.7 03/27/18 04:00 30 03/27/18 03:30 62 20 30 03/27/18 00:38 60 20 30 03/27/18 00:00 97.7 58 21 102/46 (64) 100 97.7 03/27/18 00:00 70 03/27/18 00:00 Mechanical Ventilator 03/26/18 23:30 56 23 30 03/26/18 21:03 76 20 30 03/26/18 20:52 72 123/68 03/26/18 20:00 Mechanical Ventilator 03/26/18 20:00 73 03/26/18 20:00 30 03/26/18 20:00 98.4 72 21 123/68 (86) 97 98.4 03/26/18 19:30 74 25 30 03/26/18 17:29 65 22 30 03/26/18 16:00 97.2 70 24 90/52 (65) 100 97.2 03/26/18 16:00 30 03/26/18 16:00 Mechanical Ventilator 03/26/18 16:00 64 I&O Intake and Output 03/26/18 03/27/18 19:00 07:00 Intake Total 710 ml 720 ml Output Total 100 ml Balance 610 ml 720 ml Intake Free Water 60 ml IV Total 250 ml Tube Feeding 400 ml 600 ml Other 120 ml Output Urine Total 0 ml Stool Total 100 ml # Bowel Movements 100 Wound: clean Drains: other Cardiovascular: RSR Respiratory: decreased breath sounds Abdomen: soft, present bowel sounds Extremities: other Laboratory Tests Test 03/27/18 06:30 Random Vancomycin Level 16.5 ug/mL Plan Problems: (1) Decubitus ulcer of sacral region, stage 4 Assessment & Plan: Unstageable right lower buttock ulcer; large; no active drainage, no foul odor, macerated edges, eschar cap noted Unstageable right inner buttock ulcer; large; no active drainage, no foul odor, macerated edges, necrotic soft eschar cap noted Stage 4 full thickness sacral decubitus ulcer with necrotic / fibrinous tissue noted, macerated edges, bleeding at edges, serous drainage, no odor Unstageable left buttock ulcer; large; no active drainage, no foul odor, macerated edges, eschar w/ debris noted Left heel with large unstageable necrotic eschar cap Left leg with large unstageable necrotic eschar cap left foot with anterior unstageable necrotic eschar cap left leg with large linear wound with necrotic eschar right ankle with large necrotic eschar cap right heel with large necortic eschar cap Maroon indurated area in close proximity Trachea(L)4.8cm x (W)3.5cm ,multiple full thickness wounds with necrosis R and L upper ext including metacarpals of both hands .Scattered full thickness wounds across abd. Largest of which is to R abd (L)6.3cm x (W)2.5cm with loose slough and erythema .Full thickness ulcer noted to deejay R tibia- inferior to R knee (L)1.5cm x (W)1cm wound bed with 75 % slough ,scant purulent exudate.Full thickness wound deejya R tibia (L)12.8cm x (W)2.4 cm,wound has 100% mixed slough /necrosis. Full thickness wound dorsum R foot with 100% soft necrosis(L)8.7cm x (W)5.2cm .Dry eschar lateral and head of R 1st metatarsal (L)3.5cm x (W)1.7cm.Dry eschar R hallux (L) 2.5cm x (W) 2.8cm.Dry eschar noted to2nd through 5th metatarsals.Dry necrosis with yellow slough noted to lateral L tibia (L)17.5cm x (W)2.1cm. 100% necrosis dorso / flexor L foot (L)4.4cm x (W)3.7cm. 100% necrosis lateral L malleolus (L)2.7cm x (W)2.2cm. Necrosis noted to all five metatarsal heads on L foot.Full thickness wound L trochanteric with 90% mixed slough /necrosis (L)6.5cm x (W)7cm.Wound is malodorous. Full thickness wound L Ischium (L)9.3cm x (W)8cm wound with 100% mixed slough /necrosis and is malodorous. Full thickness sacral wound with slough /necrosis (L)14.5cm x (W)11cm x (D)2.4cm.Wound malodorous.Full thickness wound R trochanter (L)11cm x (W)8.4cm with 95% necrosis and is malodorous .Full thickness wound R ischium (L)5cm x (W02.5cm ,95% soft necrosis and erythema ,and is malodorous . all wounds present upon admission. will be cared for during hospital stay. no wounds with active infection some wounds will require debridement Plan: pressure release mattress turn q2h as per protocol elevate heels with pillows. heel protectors apply foam dressings to heels and dry necrotic eschar wounds gauze packing and dressing for sacral wound which will need debridement foam dressings to buttock wounds. appreciate podiatry input will discuss with wound care nurse and adjust orders prn (2) Sepsis Assessment & Plan: right subclavian line removed radiology placed femoral line temporary for venous access hopefully will be able to go without venous access and po meds upon discharge if needs IV access upon discharge will have to change venous line to midline. possibly left upper extremity if concerned about left femoral central venous catheter as etiology of bacteremia, okay to remove once a left upper extremity midline / PICC line placed. will order for radiology thank you Tray Francis Mar 27, 2018 15:41
[2018-03-27 16:00] VITALS: BP 103/46
--- NOTE | 2018-03-27 17:28 | Infectious Diseases Prog Note ---
Assessment/Plan Assessment/Plan ASSESSMENT AND PLAN: 1. sepsis, new mrsa/seater grinder bacteremia and likely femoral line infection, hx klebsiella (kpc)/proteus/acinetobacter/vre bacteremia/line infection, psuedomonas/acinetobacter pna, leukocytosis, fevers, multiple wounds - ? infected - meropenem, polymyxin, ciprofloxacin, vancomycin for now - previous line removed, now has femoral line which needs removal - plan on change to picc line - monitor labs and chest x-ray, f/u on surveillance blood cultures - wound care and debridement if needed per surgery - surveillance blood cultures - negative so far - TTE - no vegetation mentioned - communicated with Dr. Conner and Dr. Francis 2. The patient has history of cerebrovascular accident and questionable history of hypertension and arrhythmia. 3. Vent respiratory failure. 4. Dysphagia, G-tube. 5. End-stage renal disease - getting hd, has shunt 6. Diabetes - Diabetes treatment per primary. 7. Anemia. 8. The patient is on amiodarone. 9. Schizophrenia. 10. Possible hyperlipidemia. 11. No known allergies. 12. Social history is negative. 13. MAR was noted. 14. Case was discussed with RN. 15. Family history is noncontributory. 16. Step-down unit care. 17. Vent care. 18. Continue treatment per primary consultants. 19. Notes and records were noted. 20. Orders were entered. Subjective Constitutional: Reports: fatigue, other - poorly responsive ; Denies: fever HEENT: Reports: congestion, other - + trach Respiratory: Reports: shortness of breath, other - on vent Cardiovascular: Reports: other - no pressors Gastrointestinal/Abdominal: Reports: diarrhea, other - + rectal tube ; Denies: nausea, vomiting Neurologic: Reports: weakness, other - poorly responsive Psychiatric: Reports: other - na Skin: Reports: other - wounds covered Endocrine: Reports: other - na Hematologic: Denies: bleeding Musculoskeletal: Reports: other - xena Allergies: Coded Allergies: No Known Allergies (Unverified , 03/18/18) Objective Vital Signs Last 24 Hour Vital Signs Date Time Temp Pulse Resp B/P (MAP) Pulse Ox O2 Delivery O2 Flow Rate FiO2 03/27/18 16:00 Mechanical Ventilator 03/27/18 16:00 98.2 45 26 103/46 (65) 99 98.2 03/27/18 16:00 30 03/27/18 14:33 50 21 30 03/27/18 12:36 53 18 30 03/27/18 12:00 Mechanical Ventilator 03/27/18 12:00 97.7 61 20 101/47 (65) 99 97.7 03/27/18 12:00 30 03/27/18 12:00 70 03/27/18 10:43 68 24 30 03/27/18 09:15 68 115/47 03/27/18 08:31 68 22 30 03/27/18 08:00 Mechanical Ventilator 03/27/18 08:00 30 03/27/18 08:00 97.3 69 22 115/47 (69) 96 97.3 03/27/18 08:00 69 03/27/18 06:40 50 24 30 03/27/18 05:30 64 22 30 03/27/18 04:00 Mechanical Ventilator 03/27/18 04:00 69 03/27/18 04:00 97.7 77 22 138/70 (92) 100 97.7 03/27/18 04:00 30 03/27/18 03:30 62 20 30 03/27/18 00:38 60 20 30 03/27/18 00:00 97.7 58 21 102/46 (64) 100 97.7 03/27/18 00:00 70 03/27/18 00:00 Mechanical Ventilator 03/26/18 23:30 56 23 30 03/26/18 21:03 76 20 30 03/26/18 20:52 72 123/68 03/26/18 20:00 Mechanical Ventilator 03/26/18 20:00 73 03/26/18 20:00 30 03/26/18 20:00 98.4 72 21 123/68 (86) 97 98.4 03/26/18 19:30 74 25 30 03/26/18 17:29 65 22 30 Height (Feet): 5 Height (Inches): 10.00 Weight (Pounds): 205 General Appearance: other - on vent HEENT: normocephalic, atraumatic, anicteric, status post trach Respiratory/Chest: crackles/rales, rhonchi - bilaterally Cardiovascular: normal rate, regular rhythm, no gallop/murmur, no JVD Abdomen: normal bowel sounds, soft, non tender, no organomegaly, non distended , other - + rectal tube Genitourinary: other - no davidson Extremities: no cyanosis Skin: ulcers - wounds covered 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 Right axillary stent, right subclavian central venous catheter, tracheostomy remain. Heart size is upper limits normal. Impression: Unchanged, over 2 days, findings as above. 03/23 - chest x-ray - Findings: Interstitial edema suspected with bilateral pleural effusions and cardiomegaly. Tracheostomy again noted. IMPRESSION: Pulmonary edema Chest x-ray - 03/25 - FINDINGS: Single frontal view demonstrates partial the visualized tracheostomy tube. Stable right axillary stent. The left chest is not fully imaged. Continued demonstration opacity in bilateral mid to lower lung zones. Atherosclerotic vascular disease. IMPRESSION: No significant change. Tubes as outlined above. Stable patchy opacity in bilateral mid to lower lung zones. Microbiology Date/Time Source Procedure Growth Status 03/25/18 16:55 Blood Blood Culture - Preliminary NO GROWTH AFTER 24 HOURS Resulted 03/19/18 11:30 Sputum Induced Gram Stain - Final Complete 03/19/18 11:30 Sputum Culture - Final A.baumanii Complx - Mdr Pseudomonas Aeruginosa Complete 03/20/18 16:00 Stool Clostridium difficile Toxin Assay - Final Complete 03/18/18 15:10 Urine,Clean Catch Urine Culture - Final Ally Tropicalis Complete 03/21/18 17:30 Catheter Site Catheter Tip Culture - Final NO GROWTH AFTER 4 DAYS Complete Microbiology Date/Time Source Procedure Growth Status 03/25/18 16:55 Blood Blood Culture - Preliminary NO GROWTH AFTER 24 HOURS Resulted 03/25/18 16:30 Blood Blood Culture - Preliminary NO GROWTH AFTER 24 HOURS Resulted 03/25/18 08:50 Blood Blood Culture - Preliminary NO GROWTH AFTER 24 HOURS Resulted 03/25/18 08:40 Blood Blood Culture - Preliminary NO GROWTH AFTER 24 HOURS Resulted Labs Test 03/26/18 04:00 03/27/18 06:30 White Blood Count 12.5 K/UL (4.8-10.8) Red Blood Count 2.52 M/UL (4.70-6.10) Hemoglobin 7.5 G/DL (14.2-18.0) Hematocrit 22.1 % (42.0-52.0) Mean Corpuscular Volume 88 FL (80-99) Mean Corpuscular Hemoglobin 29.8 PG (27.0-31.0) Mean Corpuscular Hemoglobin Concent 33.8 G/DL (32.0-36.0) Red Cell Distribution Width 15.4 % (11.6-14.8) Platelet Count 106 K/UL (150-450) Mean Platelet Volume 5.9 FL (6.5-10.1) Neutrophils (%) (Auto) % (45.0-75.0) Lymphocytes (%) (Auto) % (20.0-45.0) Monocytes (%) (Auto) % (1.0-10.0) Eosinophils (%) (Auto) % (0.0-3.0) Basophils (%) (Auto) % (0.0-2.0) Differential Total Cells Counted 100 Neutrophils % (Manual) 87 % (45-75) Lymphocytes % (Manual) 8 % (20-45) Monocytes % (Manual) 4 % (1-10) Eosinophils % (Manual) 1 % (0-3) Basophils % (Manual) 0 % (0-2) Band Neutrophils 0 % (0-8) Platelet Estimate Decreased Platelet Morphology Normal Hypochromasia 1+ Anisocytosis 1+ Sodium Level 131 MMOL/L (136-145) Potassium Level 3.7 MMOL/L (3.5-5.1) Chloride Level 97 MMOL/L (98-107) Carbon Dioxide Level 25 MMOL/L (21-32) Anion Gap 9 mmol/L (5-15) Blood Urea Nitrogen 41 mg/dL (7-18) Creatinine 2.4 MG/DL (0.55-1.30) Estimat Glomerular Filtration Rate mL/min (>60) Glucose Level 127 MG/DL (74-106) Calcium Level 8.1 MG/DL (8.5-10.1) Total Bilirubin 0.6 MG/DL (0.2-1.0) Aspartate Amino Transf (AST/SGOT) 76 U/L (15-37) Alanine Aminotransferase (ALT/SGPT) 73 U/L (12-78) Alkaline Phosphatase 460 U/L (46-116) Total Protein 5.5 G/DL (6.4-8.2) Albumin 1.1 G/DL (3.4-5.0) Globulin 4.4 g/dL Albumin/Globulin Ratio 0.2 (1.0-2.7) Random Vancomycin Level 16.5 ug/mL Laboratory Tests Test 03/27/18 06:30 Random Vancomycin Level 16.5 ug/mL Current Medications Medications (Trade) Dose Ordered Sig/Marques Route PRN Reason Start Time Stop Time Status Last Admin Dose Admin Acetaminophen (Tylenol) 650 mg Q4H PRN GT Mild Pain/Temp > 100.5 03/18/18 21:00 04/17/18 20:59 03/21/18 14:07 Amiodarone HCl (Cordarone) 200 mg EVERY 12 HOURS GT 03/18/18 23:00 04/17/18 22:59 03/27/18 09:15 Atorvastatin Calcium (Lipitor) 20 mg BEDTIME GT 03/27/18 21:00 04/17/18 22:59 Chlorhexidine Gluconate (Linda-Hex 2%) 1 applic DAILY@1999 TOPIC 03/20/18 20:00 04/19/18 19:59 03/26/18 20:54 Ciprofloxacin (Cipro 500mg tab) 500 mg Q24H ORAL 03/24/18 21:00 03/31/18 20:59 03/26/18 20:52 Dextrose (Dextrose 50%) 25 ml Q30M PRN IV Hypoglycemia 03/18/18 22:30 04/17/18 22:29 Dextrose (Dextrose 50%) 50 ml Q30M PRN IV Hypoglycemia 03/18/18 22:30 04/17/18 22:29 Epoetin Pawel (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)) 10,000 units TUE-TUE-TUE SUBQ 03/20/18 21:00 04/19/18 20:59 03/24/18 21:32 Heparin Sodium (Porcine) (Heparin Sod 1000 units/ml 10ml) 2,000 unit ONCE PRN IV HD USE 03/27/18 06:00 03/27/18 23:59 Heparin Sodium (Porcine) (Heparin) 1,000 unit POSTHD PRN INJ HD USE 03/27/18 06:00 03/27/18 23:59 Heparin Sodium/ Sodium Chloride (Heparin 2000 units/Ns 1000ml premix) 2,000 unit ONCE PRN INJ PICC LINE PLACEMENT 03/27/18 06:00 03/27/18 23:59 Insulin Aspart (NovoLOG) Q6HR SUBQ 03/19/18 00:00 04/18/18 00:00 03/27/18 15:02 Labetalol HCl (Normodyne) 200 mg Q12HR ORAL 03/24/18 21:00 04/23/18 20:59 03/27/18 09:15 Lactobacillus Acidophilus (Culturelle) 4 tab DAILY GT 03/19/18 09:00 04/18/18 08:59 03/27/18 09:15 Lidocaine HCl (Xylocaine 1% 30ml) 30 ml ONCE PRN INJ PICC LINE PLACEMENT 03/27/18 08:00 03/27/18 23:59 Magnesium Hydroxide (Mom) 10 ml DAILY PRN GT Constipation 03/18/18 22:30 04/17/18 22:29 Meropenem 500 mg/ Sodium Chloride 50 ml @ 100 mls/hr Q24H IVPB 03/23/18 20:00 03/28/18 19:59 03/26/18 20:53 Polymyxin B Sulfate 489001 units/Dextrose 250 ml @ 250 mls/hr Q12HR@1000,2200 IVPB 03/23/18 22:00 03/30/18 21:59 03/27/18 10:00 Povidone Iodine (Betadine Oint) 1 applic DAILY TOPIC 03/22/18 09:27 04/21/18 09:26 03/27/18 09:15 Sevelamer Carbonate (Renvela) 800 mg Q8HR GT 03/18/18 23:00 04/17/18 22:59 03/27/18 15:01 Sodium Hypochlorite (Dakin's Quarter Strength) 1 applic DAILY TOPIC 03/21/18 10:51 04/20/18 10:50 03/27/18 09:14 Sodium Chloride 1,000 ml @ 500 mls/hr Q2H PRN IVLG sbp<90 during hd 03/27/18 06:00 03/27/18 23:59 Vancomycin HCl (Vanco rx to dose) 1 ea DAILY PRN MISC Per rx protocol 03/25/18 14:45 11/5/18 14:44 Vancomycin HCl/ Dextrose 250 ml @ 166.667 mls/hr ONCE ONCE IVPB 03/27/18 20:00 03/27/18 21:29 Vitamin B Complex (Vitamin B Complex) 1 tab DAILY GT 03/19/18 09:00 04/18/18 08:59 03/27/18 09:15 Vitamin B Complex/ Vit C/Folic Acid (Nephrovite) 1 tab DAILY ORAL 03/20/18 09:31 04/19/18 09:30 03/27/18 09:15 Zinc Sulfate (Zinc Sulfate) 220 mg DAILY GT 03/19/18 09:00 04/18/18 08:59 03/27/18 09:15 Kate Quintero MD Mar 27, 2018 17:28
[2018-03-27 20:00] VITALS: BP 123/55
[2018-03-27] MEDS ORDERED: Vancomycin 1250mg/D5W 250ml IVPB ONE (20:00)
[2018-03-27] MEDS: Dyna-Hex 2% Top Sol 2oz TOPIC SCH (20:14)
[2018-03-27] MEDS: Epogen (for ESRD on dialysis) SUBQ SCH (21:07)
[2018-03-27] MEDS: Ciprofloxacin 500mg tab ORAL SCH (21:07)
[2018-03-27] MEDS: Atorvastatin 20mg tab GT SCH (21:08)
[2018-03-27] MEDS: Meropenem 500 MG in NS 55 ML IVPB SCH (21:57)
[2018-03-28] VITALS: BP 110/49
[2018-03-28] MEDS: NovoLOG Insulin Flexpen SUBQ SCH ×5 (00:03→23:02)
[2018-03-28 00:13] LABS: BILIRUBIN, URINE NEGATIVE (NEGATIVE); COLOR,URINE BROWN; GLUCOSE, URINE (UA) NEGATIVE (NEGATIVE); KETONES,URINE NEGATIVE (NEGATIVE); LEUKOCYTE ESTERASE ,URINE 3+ (NEGATIVE); NITRITE,URINE NEGATIVE (NEGATIVE); PH,URINE 7 (4.5-8.0); PROTEIN,URINE 4+ (NEGATIVE); UROBILINOGEN,URINE NORMAL MG/DL (0.0-1.0)
[2018-03-28 00:26] LABS: APPEARANCE,URINE VERY CLOUDY
[2018-03-28 04:00] VITALS: BP 115/53
[2018-03-28 04:14] LABS: HEMATOCRIT 18.1 % (42.0-52.0); MEAN CORPUSCULAR VOLUME 87 FL (80-99); PLATELET COUNT 96 K/UL (150-450); RED BLOOD COUNT 2.08 M/UL (4.70-6.10); RED CELL DISTRIBUTION WIDTH 15.5 % (11.6-14.8); WHITE BLOOD COUNT 10.3 K/UL (4.8-10.8)
[2018-03-28 04:45] LABS: HEMOGLOBIN 6.3 G/DL (14.2-18.0)
[2018-03-28 04:49] LABS: ALANINE AMINOTRANSFERASE 53 U/L (12-78); ALBUMIN 0.9 G/DL (3.4-5.0); ALBUMIN/GLOBULIN RATIO 0.2 (1.0-2.7); ALKALINE PHOSPHATASE 492 U/L (46-116); ANION GAP 8 mmol/L (5-15); ASPARTATE AMINO TRANSFERASE 62 U/L (15-37); BILIRUBIN,TOTAL 0.5 MG/DL (0.2-1.0); BLOOD UREA NITROGEN 39 mg/dL (7-18); CALCIUM 8.4 MG/DL (8.5-10.1); CARBON DIOXIDE 27 MMOL/L (21-32); CHLORIDE 99 MMOL/L (98-107); CREATININE 2.6 MG/DL (0.55-1.30); POTASSIUM 3.4 MMOL/L (3.5-5.1); SODIUM 134 MMOL/L (136-145)
[2018-03-28] MEDS: Renvela 800mg Pkt GT SCH ×3 (05:48→22:58)
[2018-03-28 08:00] VITALS: BP 93/40
[2018-03-28] MEDS: Vitamin B Complex Tab GT SCH (08:05)
[2018-03-28] MEDS: Nephrovite tab (Rena-Vite) ORAL SCH (08:05)
[2018-03-28] MEDS: Zinc Sulfate 220mg cap GT SCH (08:05)
[2018-03-28] MEDS: Lactobacillus-GG tablet GT SCH (08:06)
[2018-03-28] MEDS: Labetalol 200mg tab ORAL SCH ×2 (08:06→20:36)
[2018-03-28] MEDS: Amiodarone 200mg tab GT SCH ×2 (08:06→20:33)
[2018-03-28] MEDS: Betadine 10% Oint 30gm TOPIC SCH (08:07)
[2018-03-28] MEDS: Dakin's 0.125% Soln (Quarter Strength) 16oz TOPIC SCH (08:07)
[2018-03-28] MEDS: POLYMYXIN B SULFATE IVPB SCH ×2 (09:39→22:58)
[2018-03-28] MEDS: D5W IVPB SCH ×2 (09:39→22:58)
--- NOTE | 2018-03-28 11:04 | Diagnostic Imaging Report ---
Indication: Dyspnea Comparison: 03/25/2018 A single view chest radiograph was obtained. Findings: There is evidence of a right pleural effusion and a probable left effusion. Pulmonary edema is present but appears slightly improved since the prior occasion. Tracheostomy is again noted. Heart is enlarged. IMPRESSION: Pulmonary edema with improvement from the prior study. Suggestion of bilateral pleural effusions.
[2018-03-28] MEDS: Acetaminophen 650mg/20.3ml GT PRN (11:38)
[2018-03-28 12:00] VITALS: BP 103/50
--- NOTE | 2018-03-28 13:26 | General Surgery Progress Note ---
General Surgery-Progress Note Subjective Additional Comments leukocytosis resolved Objective Last 24 Hour Vital Signs Date Time Temp Pulse Resp B/P (MAP) Pulse Ox O2 Delivery O2 Flow Rate FiO2 03/28/18 13:09 84 20 30 03/28/18 11:38 100.4 03/28/18 10:48 70 26 30 03/28/18 09:16 73 19 30 03/28/18 08:06 74 115/53 03/28/18 08:00 30 03/28/18 08:00 99.5 76 24 93/40 (57) 100 99.5 03/28/18 08:00 Mechanical Ventilator 03/28/18 07:50 74 03/28/18 07:33 74 23 30 03/28/18 05:10 73 24 30 03/28/18 04:00 98.1 74 20 115/53 (73) 100 98.1 03/28/18 04:00 Mechanical Ventilator 03/28/18 04:00 71 03/28/18 04:00 30 03/28/18 03:06 72 23 30 03/28/18 01:30 83 21 30 03/28/18 00:00 30 03/28/18 00:00 98.9 60 20 110/49 (69) 100 98.9 03/28/18 00:00 Mechanical Ventilator 03/27/18 23:52 68 03/27/18 23:24 69 21 30 03/27/18 21:30 75 20 30 03/27/18 21:07 85 123/55 03/27/18 20:00 Mechanical Ventilator 03/27/18 20:00 98.9 85 26 123/55 (77) 98 98.9 03/27/18 20:00 30 03/27/18 19:43 80 20 30 03/27/18 19:31 81 03/27/18 17:11 73 22 30 03/27/18 16:00 Mechanical Ventilator 03/27/18 16:00 98.2 45 26 103/46 (65) 99 98.2 03/27/18 16:00 30 03/27/18 16:00 70 03/27/18 14:33 50 21 30 I&O Intake and Output 03/27/18 03/28/18 19:00 07:00 Intake Total 610 ml 1105.000 ml Output Total 2050 ml 50 ml Balance -1440 ml 1055.000 ml Intake Free Water 60 ml IV Total 250 ml 555.000 ml Tube Feeding 300 ml 550 ml Output Urine Total 0 ml Stool Total 50 ml 50 ml Hemodialysis UF 2000 ml Dressing: other Wound: other Drains: other Cardiovascular: RSR Respiratory: decreased breath sounds Abdomen: soft, distended, present bowel sounds Extremities: other Laboratory Tests Test 03/27/18 23:15 03/28/18 03:45 Urine Color Brown Urine Appearance Very cloudy Urine pH 7 (4.5-8.0) Urine Specific [place] 1.010 (1.005-1.035) Urine Protein 4+ (NEGATIVE) H Urine Glucose (UA) Negative (NEGATIVE) Urine Ketones Negative (NEGATIVE) Urine Blood 5+ (NEGATIVE) H Urine Nitrite Negative (NEGATIVE) Urine Bilirubin Negative (NEGATIVE) Urine Urobilinogen Normal MG/DL (0.0-1.0) Urine Leukocyte Esterase 3+ (NEGATIVE) H Urine RBC Tntc /HPF (0 - 0) H Urine WBC Tntc /HPF (0 - 0) H Urine Squamous Epithelial Cells None /LPF (NONE/OCC) Urine Bacteria Many /HPF (NONE) H White Blood Count 10.3 K/UL (4.8-10.8) Red Blood Count 2.08 M/UL (4.70-6.10) L Hemoglobin 6.3 G/DL (14.2-18.0) *L Hematocrit 18.1 % (42.0-52.0) L Mean Corpuscular Volume 87 FL (80-99) Mean Corpuscular Hemoglobin 30.4 PG (27.0-31.0) Mean Corpuscular Hemoglobin Concent 34.9 G/DL (32.0-36.0) Red Cell Distribution Width 15.5 % (11.6-14.8) H Platelet Count 96 K/UL (150-450) L Mean Platelet Volume 5.9 FL (6.5-10.1) L Neutrophils (%) (Auto) % (45.0-75.0) Lymphocytes (%) (Auto) % (20.0-45.0) Monocytes (%) (Auto) % (1.0-10.0) Eosinophils (%) (Auto) % (0.0-3.0) Basophils (%) (Auto) % (0.0-2.0) Differential Total Cells Counted 100 Neutrophils % (Manual) 80 % (45-75) H Lymphocytes % (Manual) 13 % (20-45) L Monocytes % (Manual) 4 % (1-10) Eosinophils % (Manual) 3 % (0-3) Basophils % (Manual) 0 % (0-2) Band Neutrophils 0 % (0-8) Platelet Estimate Decreased L Platelet Morphology Normal Hypochromasia 4+ Anisocytosis 1+ Spherocytes 2+ Sodium Level 134 MMOL/L (136-145) L Potassium Level 3.4 MMOL/L (3.5-5.1) L Chloride Level 99 MMOL/L (98-107) Carbon Dioxide Level 27 MMOL/L (21-32) Anion Gap 8 mmol/L (5-15) Blood Urea Nitrogen 39 mg/dL (7-18) H Creatinine 2.6 MG/DL (0.55-1.30) H Estimat Glomerular Filtration Rate mL/min (>60) Glucose Level 94 MG/DL (74-106) Calcium Level 8.4 MG/DL (8.5-10.1) L Total Bilirubin 0.5 MG/DL (0.2-1.0) Aspartate Amino Transf (AST/SGOT) 62 U/L (15-37) H Alanine Aminotransferase (ALT/SGPT) 53 U/L (12-78) Alkaline Phosphatase 492 U/L (46-116) H Total Protein 4.9 G/DL (6.4-8.2) L Albumin 0.9 G/DL (3.4-5.0) L Globulin 4.0 g/dL Albumin/Globulin Ratio 0.2 (1.0-2.7) L Plan Problems: (1) Decubitus ulcer of sacral region, stage 4 Assessment & Plan: Unstageable right lower buttock ulcer; large; no active drainage, no foul odor, macerated edges, eschar cap noted Unstageable right inner buttock ulcer; large; no active drainage, no foul odor, macerated edges, necrotic soft eschar cap noted Stage 4 full thickness sacral decubitus ulcer with necrotic / fibrinous tissue noted, macerated edges, bleeding at edges, serous drainage, no odor Unstageable left buttock ulcer; large; no active drainage, no foul odor, macerated edges, eschar w/ debris noted Left heel with large unstageable necrotic eschar cap Left leg with large unstageable necrotic eschar cap left foot with anterior unstageable necrotic eschar cap left leg with large linear wound with necrotic eschar right ankle with large necrotic eschar cap right heel with large necortic eschar cap Maroon indurated area in close proximity Trachea(L)4.8cm x (W)3.5cm ,multiple full thickness wounds with necrosis R and L upper ext including metacarpals of both hands .Scattered full thickness wounds across abd. Largest of which is to R abd (L)6.3cm x (W)2.5cm with loose slough and erythema .Full thickness ulcer noted to deejay R tibia- inferior to R knee (L)1.5cm x (W)1cm wound bed with 75 % slough ,scant purulent exudate.Full thickness wound deejay R tibia (L)12.8cm x (W)2.4 cm,wound has 100% mixed slough /necrosis. Full thickness wound dorsum R foot with 100% soft necrosis(L)8.7cm x (W)5.2cm .Dry eschar lateral and head of R 1st metatarsal (L)3.5cm x (W)1.7cm.Dry eschar R hallux (L) 2.5cm x (W) 2.8cm.Dry eschar noted to2nd through 5th metatarsals.Dry necrosis with yellow slough noted to lateral L tibia (L)17.5cm x (W)2.1cm. 100% necrosis dorso / flexor L foot (L)4.4cm x (W)3.7cm. 100% necrosis lateral L malleolus (L)2.7cm x (W)2.2cm. Necrosis noted to all five metatarsal heads on L foot.Full thickness wound L trochanteric with 90% mixed slough /necrosis (L)6.5cm x (W)7cm.Wound is malodorous. Full thickness wound L Ischium (L)9.3cm x (W)8cm wound with 100% mixed slough /necrosis and is malodorous. Full thickness sacral wound with slough /necrosis (L)14.5cm x (W)11cm x (D)2.4cm.Wound malodorous.Full thickness wound R trochanter (L)11cm x (W)8.4cm with 95% necrosis and is malodorous .Full thickness wound R ischium (L)5cm x (W02.5cm ,95% soft necrosis and erythema ,and is malodorous . all wounds present upon admission. will be cared for during hospital stay. no wounds with active infection some wounds will require debridement Plan: pressure release mattress turn q2h as per protocol elevate heels with pillows. heel protectors apply foam dressings to heels and dry necrotic eschar wounds gauze packing and dressing for sacral wound which will need debridement foam dressings to buttock wounds. appreciate podiatry input will discuss with wound care nurse and adjust orders prn (2) Sepsis Assessment & Plan: right subclavian line removed radiology placed femoral line temporary for venous access hopefully will be able to go without venous access and po meds upon discharge if needs IV access upon discharge will have to change venous line to midline. possibly left upper extremity if concerned about left femoral central venous catheter as etiology of bacteremia, okay to remove once a left upper extremity midline / PICC line placed. will order for radiology planned for today. two physician consent signed. thank you Tray Francis Mar 28, 2018 13:26
[2018-03-28] MEDS ORDERED: Heparin 2000 units/Ns 1000ml INJ PRN (14:15)
[2018-03-28] MEDS ORDERED: Lidocaine 1% Plain 30 ml INJ PRN (14:15)
[2018-03-28 16:00] VITALS: BP 133/44
--- NOTE | 2018-03-28 16:11 | Nephrology Progress Note ---
Assessment/Plan Plan m/p polymicrobial line sepsis. New Hd tomorrow! MRSA Sepsis . Unknown etilogy! DW Dr. Prieto ID. ESRD HD MWF Decubiti - Dr. Andrade consulted. VDRF -Per Pul. Severe Anemia --STEPHEN IV Venofer, transfuse PRN. Podiatry consulted. ISA Navarro. Continuing to hold his bed. His TLC to be changed today. Subjective Subjective Obtunded. Objective Objective Last 24 Hour Vital Signs Date Time Temp Pulse Resp B/P (MAP) Pulse Ox O2 Delivery O2 Flow Rate FiO2 03/28/18 15:10 74 20 30 03/28/18 15:09 74 18 Mechanical Ventilator 30 03/28/18 13:09 84 20 30 03/28/18 12:00 30 03/28/18 12:00 Mechanical Ventilator 03/28/18 12:00 78 03/28/18 12:00 100.4 79 19 103/50 (67) 100 100.4 03/28/18 11:38 100.4 03/28/18 10:48 70 26 30 03/28/18 09:16 73 19 30 03/28/18 08:06 74 115/53 03/28/18 08:00 30 03/28/18 08:00 99.5 76 24 93/40 (57) 100 99.5 03/28/18 08:00 Mechanical Ventilator 03/28/18 07:50 74 03/28/18 07:33 74 23 30 03/28/18 05:10 73 24 30 03/28/18 04:00 98.1 74 20 115/53 (73) 100 98.1 03/28/18 04:00 Mechanical Ventilator 03/28/18 04:00 71 03/28/18 04:00 30 03/28/18 03:06 72 23 30 03/28/18 01:30 83 21 30 03/28/18 00:00 30 03/28/18 00:00 98.9 60 20 110/49 (69) 100 98.9 03/28/18 00:00 Mechanical Ventilator 03/27/18 23:52 68 03/27/18 23:24 69 21 30 03/27/18 21:30 75 20 30 03/27/18 21:07 85 123/55 03/27/18 20:00 Mechanical Ventilator 03/27/18 20:00 98.9 85 26 123/55 (77) 98 98.9 03/27/18 20:00 30 03/27/18 19:43 80 20 30 03/27/18 19:31 81 03/27/18 17:11 73 22 30 Intake and Output 03/27/18 03/28/18 19:00 07:00 Intake Total 610 ml 1105.000 ml Output Total 2050 ml 50 ml Balance -1440 ml 1055.000 ml Intake Free Water 60 ml IV Total 250 ml 555.000 ml Tube Feeding 300 ml 550 ml Output Urine Total 0 ml Stool Total 50 ml 50 ml Hemodialysis UF 2000 ml Laboratory Tests 03/27/18 23:15: Urine Color Brown, Urine Appearance Very cloudy, Urine pH 7, Urine Specific [place] 1.010, Urine Protein 4+H, Urine Glucose (UA) Negative, Urine Ketones Negative, Urine Blood 5+H, Urine Nitrite Negative, Urine Bilirubin Negative, Urine Urobilinogen Normal, Urine Leukocyte Esterase 3+H, Urine RBC TntcH, Urine WBC TntcH, Urine Squamous Epithelial Cells None, Urine Bacteria ManyH 03/28/18 03:45: White Blood Count 10.3, Red Blood Count 2.08L, Hemoglobin 6.3*L, Hematocrit 18.1L, Mean Corpuscular Volume 87, Mean Corpuscular Hemoglobin 30.4, Mean Corpuscular Hemoglobin Concent 34.9, Red Cell Distribution Width 15.5H, Platelet Count 96L, Mean Platelet Volume 5.9L, Neutrophils (%) (Auto) , Lymphocytes (%) (Auto) , Monocytes (%) (Auto) , Eosinophils (%) (Auto) , Basophils (%) (Auto) , Differential Total Cells Counted 100, Neutrophils % ( Manual) 80H, Lymphocytes % (Manual) 13L, Monocytes % (Manual) 4, Eosinophils % ( Manual) 3, Basophils % (Manual) 0, Band Neutrophils 0, Platelet Estimate DecreasedL, Platelet Morphology Normal, Hypochromasia 4+, Anisocytosis 1+, Spherocytes 2+, Sodium Level 134L, Potassium Level 3.4L, Chloride Level 99, Carbon Dioxide Level 27, Anion Gap 8, Blood Urea Nitrogen 39H, Creatinine 2.6H, Estimat Glomerular Filtration Rate , Glucose Level 94, Calcium Level 8.4L, Total Bilirubin 0.5, Aspartate Amino Transf (AST/SGOT) 62H, Alanine Aminotransferase (ALT/SGPT) 53, Alkaline Phosphatase 492H, Total Protein 4.9L, Albumin 0.9L, Globulin 4.0, Albumin/Globulin Ratio 0.2L Height (Feet): 5 Height (Inches): 10.00 Weight (Pounds): 205 Objective Multiple decubiti noted and examined with nursing staff. Thw wounds are very deep! CV RR Trach site Ok. Lungs B ronchi. And SNT. BS +. PEG OK. E muscle wasting. Rt. arm contracture @ elbow. Rt. arm AVF + bruit. Neuro - alert + responsive. Nonverbal. Dilip Conner MD Mar 28, 2018 16:11
[2018-03-28 20:00] VITALS: BP 110/49
[2018-03-28] MEDS: Ciprofloxacin 500mg tab ORAL SCH (20:33)
[2018-03-28] MEDS: Meropenem 500 MG in NS 55 ML IVPB SCH (20:33)
[2018-03-28] MEDS: Dyna-Hex 2% Top Sol 2oz TOPIC SCH (20:33)
[2018-03-28] MEDS: Atorvastatin 20mg tab GT SCH (20:33)
--- NOTE | 2018-03-28 21:35 | Pulmonology Progress Note ---
Assessment/Plan Assessment/Plan IMPRESSION: 1. Respiratory failure. 2. Profound anemia, status post transfusion. 3. Chronic respiratory failure. 4. Severe protein-calorie malnutrition. 5. CVA. 6. Anoxia. 7. Underlying sepsis. 8. pulmonary edema 9. possible pneumonia 10. pleural effusion 11. bacteremia MDR PLAN care noted and appears same IV antibiotics noted respiratory care reviewed vent reviewed no wean at present Ventilatory support - full as is SNF meds supportive care suction as needed keep negative and monitor imaging- overall better prognosis overall poor impression, plan, and exam edited and reviewed in detail care discussed with RN Subjective ROS Limited/Unobtainable: Yes Allergies: Coded Allergies: No Known Allergies (Unverified , 03/18/18) Subjective on vent poorly responsive care reviewed imaging noted and reviewed cultures noted Objective Last 24 Hour Vital Signs Date Time Temp Pulse Resp B/P (MAP) Pulse Ox O2 Delivery O2 Flow Rate FiO2 03/28/18 20:38 76 24 30 03/28/18 20:36 76 110/49 03/28/18 20:00 75 03/28/18 20:00 Mechanical Ventilator 03/28/18 20:00 30 03/28/18 20:00 98.6 76 20 110/49 (69) 100 98.6 03/28/18 19:30 62 20 30 03/28/18 16:33 75 18 30 03/28/18 16:00 30 03/28/18 16:00 Mechanical Ventilator 03/28/18 16:00 98.9 74 24 133/44 (73) 100 98.9 03/28/18 16:00 74 03/28/18 15:10 74 20 30 03/28/18 15:09 74 18 Mechanical Ventilator 30 03/28/18 13:09 84 20 30 03/28/18 12:08 98.7 03/28/18 12:00 30 03/28/18 12:00 Mechanical Ventilator 03/28/18 12:00 78 03/28/18 12:00 100.4 79 19 103/50 (67) 100 100.4 03/28/18 11:38 100.4 03/28/18 10:48 70 26 30 03/28/18 09:16 73 19 30 03/28/18 08:06 74 115/53 03/28/18 08:00 30 03/28/18 08:00 99.5 76 24 93/40 (57) 100 99.5 03/28/18 08:00 Mechanical Ventilator 03/28/18 07:50 74 03/28/18 07:33 74 23 30 03/28/18 05:10 73 24 30 03/28/18 04:00 98.1 74 20 115/53 (73) 100 98.1 03/28/18 04:00 Mechanical Ventilator 03/28/18 04:00 71 03/28/18 04:00 30 03/28/18 03:06 72 23 30 03/28/18 01:30 83 21 30 03/28/18 00:00 30 03/28/18 00:00 98.9 60 20 110/49 (69) 100 98.9 03/28/18 00:00 Mechanical Ventilator 03/27/18 23:52 68 03/27/18 23:24 69 21 30 Intake and Output 03/27/18 03/28/18 19:00 07:00 Intake Total 610 ml 1105.000 ml Output Total 2050 ml 50 ml Balance -1440 ml 1055.000 ml Intake Free Water 60 ml IV Total 250 ml 555.000 ml Tube Feeding 300 ml 550 ml Output Urine Total 0 ml Stool Total 50 ml 50 ml Hemodialysis UF 2000 ml Objective GENERAL: A well-developed male, chronically ill appearing. male, reduced LOC HEENT: Overall negative. NECK: Supple. Tracheostomy is in midline. Carotids 2+. LUNGS: With scattered rhonchi. Crackles at both bases. CARDIAC: S1, S2. Regular rate and rhythm without murmurs, rubs, or gallops. ABDOMEN: Soft, nontender. G-tube in place. No hepatosplenomegaly. EXTREMITIES: Chronic contractures noted. Notable for significant edema. NEUROLOGIC: The patient is obtunded Laboratory Tests 03/27/18 23:15: Urine Color Brown, Urine Appearance Very cloudy, Urine pH 7, Urine Specific [place] 1.010, Urine Protein 4+H, Urine Glucose (UA) Negative, Urine Ketones Negative, Urine Blood 5+H, Urine Nitrite Negative, Urine Bilirubin Negative, Urine Urobilinogen Normal, Urine Leukocyte Esterase 3+H, Urine RBC TntcH, Urine WBC TntcH, Urine Squamous Epithelial Cells None, Urine Bacteria ManyH 03/28/18 03:45: White Blood Count 10.3, Red Blood Count 2.08L, Hemoglobin 6.3*L, Hematocrit 18.1L, Mean Corpuscular Volume 87, Mean Corpuscular Hemoglobin 30.4, Mean Corpuscular Hemoglobin Concent 34.9, Red Cell Distribution Width 15.5H, Platelet Count 96L, Mean Platelet Volume 5.9L, Neutrophils (%) (Auto) , Lymphocytes (%) (Auto) , Monocytes (%) (Auto) , Eosinophils (%) (Auto) , Basophils (%) (Auto) , Differential Total Cells Counted 100, Neutrophils % ( Manual) 80H, Lymphocytes % (Manual) 13L, Monocytes % (Manual) 4, Eosinophils % ( Manual) 3, Basophils % (Manual) 0, Band Neutrophils 0, Platelet Estimate DecreasedL, Platelet Morphology Normal, Hypochromasia 4+, Anisocytosis 1+, Spherocytes 2+, Sodium Level 134L, Potassium Level 3.4L, Chloride Level 99, Carbon Dioxide Level 27, Anion Gap 8, Blood Urea Nitrogen 39H, Creatinine 2.6H, Estimat Glomerular Filtration Rate , Glucose Level 94, Calcium Level 8.4L, Total Bilirubin 0.5, Aspartate Amino Transf (AST/SGOT) 62H, Alanine Aminotransferase (ALT/SGPT) 53, Alkaline Phosphatase 492H, Total Protein 4.9L, Albumin 0.9L, Globulin 4.0, Albumin/Globulin Ratio 0.2L Current Medications Medications (Trade) Dose Ordered Sig/Marques Route PRN Reason Start Time Stop Time Status Last Admin Dose Admin Acetaminophen (Tylenol) 650 mg Q4H PRN GT Mild Pain/Temp > 100.5 03/18/18 21:00 04/17/18 20:59 03/28/18 11:38 Amiodarone HCl (Cordarone) 200 mg EVERY 12 HOURS GT 03/18/18 23:00 04/17/18 22:59 03/28/18 20:33 Atorvastatin Calcium (Lipitor) 20 mg BEDTIME GT 03/27/18 21:00 04/17/18 22:59 03/28/18 20:33 Chlorhexidine Gluconate (Linda-Hex 2%) 1 applic DAILY@1999 TOPIC 03/20/18 20:00 04/19/18 19:59 03/28/18 20:33 Ciprofloxacin (Cipro 500mg tab) 500 mg Q24H ORAL 03/24/18 21:00 03/31/18 20:59 10/9/18 20:33 Dextrose (Dextrose 50%) 25 ml Q30M PRN IV Hypoglycemia 03/18/18 22:30 04/17/18 22:29 Dextrose (Dextrose 50%) 50 ml Q30M PRN IV Hypoglycemia 03/18/18 22:30 04/17/18 22:29 Epoetin Pawel (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)) 10,000 units TUE-TUE-TUE SUBQ 03/20/18 21:00 04/19/18 20:59 03/27/18 21:07 Heparin Sodium (Porcine) (Heparin Sod 1000 units/ml 10ml) 2,000 unit ONCE IV 03/29/18 16:15 03/29/18 23:59 Heparin Sodium (Porcine) (Heparin) 1,000 unit POSTHD INJ 03/29/18 16:15 03/29/18 23:59 Heparin Sodium/ Sodium Chloride (Heparin 2000 units/Ns 1000ml premix) 2,000 unit ONCE PRN INJ PICC LINE PLACEMENT 03/28/18 14:15 03/28/18 23:59 Insulin Aspart (NovoLOG) Q6HR SUBQ 03/19/18 00:00 04/18/18 00:00 03/28/18 17:58 Labetalol HCl (Normodyne) 200 mg Q12HR ORAL 03/24/18 21:00 04/23/18 20:59 03/28/18 20:36 Lactobacillus Acidophilus (Culturelle) 4 tab DAILY GT 03/19/18 09:00 04/18/18 08:59 03/28/18 08:06 Lidocaine HCl (Xylocaine 1% 30ml) 30 ml ONCE PRN INJ PICC LINE PLACEMENT 03/28/18 14:15 03/28/18 23:59 Magnesium Hydroxide (Mom) 10 ml DAILY PRN GT Constipation 03/18/18 22:30 04/17/18 22:29 Meropenem 500 mg/ Sodium Chloride 55 ml @ 110 mls/hr Q24H IVPB 03/27/18 21:00 04/01/18 19:59 03/28/18 20:33 Polymyxin B Sulfate 035169 units/Dextrose 250 ml @ 250 mls/hr Q12HR@1000,2200 IVPB 03/23/18 22:00 03/30/18 21:59 03/28/18 09:39 Povidone Iodine (Betadine Oint) 1 applic DAILY TOPIC 03/22/18 09:27 04/21/18 09:26 03/28/18 08:07 Sevelamer Carbonate (Renvela) 800 mg Q8HR GT 03/18/18 23:00 04/17/18 22:59 03/28/18 14:22 Sodium Hypochlorite (Dakin's Quarter Strength) 1 applic DAILY TOPIC 03/21/18 10:51 04/20/18 10:50 03/28/18 08:07 Vancomycin HCl (Vanco rx to dose) 1 ea DAILY PRN MISC Per rx protocol 03/25/18 14:45 04/24/18 14:44 Vitamin B Complex (Vitamin B Complex) 1 tab DAILY GT 03/19/18 09:00 04/18/18 08:59 03/28/18 08:05 Vitamin B Complex/ Vit C/Folic Acid (Nephrovite) 1 tab DAILY ORAL 03/20/18 09:31 04/19/18 09:30 03/28/18 08:05 Zinc Sulfate (Zinc Sulfate) 220 mg DAILY GT 03/19/18 09:00 04/18/18 08:59 03/28/18 08:05 Rogelio Chiu MD Mar 28, 2018 21:35
[2018-03-29] VITALS: BP 96/44
[2018-03-29 04:00] VITALS: BP 125/56
[2018-03-29] MEDS: NovoLOG Insulin Flexpen SUBQ SCH ×3 (05:33→17:28)
[2018-03-29] MEDS: Renvela 800mg Pkt GT SCH ×3 (05:33→21:24)
[2018-03-29 09:00] VITALS: BP 119/56
[2018-03-29] MEDS: Vitamin B Complex Tab GT SCH (09:47)
[2018-03-29] MEDS: Lactobacillus-GG tablet GT SCH (09:47)
[2018-03-29] MEDS: Amiodarone 200mg tab GT SCH ×2 (09:48→21:25)
[2018-03-29] MEDS: Zinc Sulfate 220mg cap GT SCH (09:48)
[2018-03-29] MEDS: Labetalol 200mg tab ORAL SCH ×2 (09:48→21:26)
[2018-03-29] MEDS: Nephrovite tab (Rena-Vite) ORAL SCH (09:48)
[2018-03-29] MEDS: Betadine 10% Oint 30gm TOPIC SCH (09:49)
[2018-03-29] MEDS: Dakin's 0.125% Soln (Quarter Strength) 16oz TOPIC SCH (09:49)
[2018-03-29] MEDS: D5W IVPB SCH (10:54)
[2018-03-29] MEDS: POLYMYXIN B SULFATE IVPB SCH (10:54)
[2018-03-29 11:58] VITALS: BP 98/43
--- NOTE | 2018-03-29 14:17 | Pulmonology Progress Note ---
Assessment/Plan Assessment/Plan IMPRESSION: 1. Respiratory failure. 2. Profound anemia, status post transfusion. 3. Chronic respiratory failure. 4. Severe protein-calorie malnutrition. 5. CVA. 6. Anoxia. 7. Underlying sepsis. 8. pulmonary edema 9. possible pneumonia 10. pleural effusion 11. bacteremia MDR PLAN care noted and same IV antibiotics noted respiratory care reviewed vent reviewed as is no wean at present Ventilatory support - full on AC SNF meds supportive care suction and monitor keep negative and monitor imaging- overall better prognosis overall poor impression, plan, and exam edited and reviewed in detail care discussed with RN Subjective ROS Limited/Unobtainable: Yes Allergies: Coded Allergies: No Known Allergies (Unverified , 03/18/18) Subjective on vent poorly responsive care reviewed and discussed imaging noted and reviewed cultures noted Objective Last 24 Hour Vital Signs Date Time Temp Pulse Resp B/P (MAP) Pulse Ox O2 Delivery O2 Flow Rate FiO2 03/29/18 13:05 68 23 30 03/29/18 12:00 Mechanical Ventilator 03/29/18 12:00 30 03/29/18 11:58 98.6 66 20 98/43 (61) 100 98.6 03/29/18 11:26 65 23 30 03/29/18 09:48 73 119/56 03/29/18 09:07 73 03/29/18 09:00 98.4 71 22 119/56 (77) 100 98.4 03/29/18 08:50 70 20 30 03/29/18 08:00 30 03/29/18 08:00 Mechanical Ventilator 03/29/18 06:50 72 22 30 03/29/18 05:22 73 25 30 03/29/18 04:00 98.0 73 21 125/56 (79) 100 98.0 03/29/18 04:00 76 03/29/18 04:00 30 03/29/18 04:00 Mechanical Ventilator 03/29/18 03:23 75 23 30 03/29/18 01:13 78 23 30 03/29/18 00:00 75 03/29/18 00:00 98.8 76 20 96/44 (61) 95 98.8 03/29/18 00:00 Mechanical Ventilator 03/29/18 00:00 30 03/28/18 22:49 75 19 30 03/28/18 20:38 76 24 30 03/28/18 20:36 76 110/49 03/28/18 20:00 75 03/28/18 20:00 Mechanical Ventilator 03/28/18 20:00 30 03/28/18 20:00 98.6 76 20 110/49 (69) 100 98.6 03/28/18 19:30 62 20 30 03/28/18 16:33 75 18 30 03/28/18 16:00 30 03/28/18 16:00 Mechanical Ventilator 03/28/18 16:00 98.9 74 24 133/44 (73) 100 98.9 03/28/18 16:00 74 03/28/18 15:10 74 20 30 03/28/18 15:09 74 18 Mechanical Ventilator 30 Intake and Output 03/28/18 03/29/18 19:00 07:00 Intake Total 710 ml 1005 ml Output Total 0 ml Balance 710 ml 1005 ml Intake Free Water 30 ml IV Total 250 ml 305 ml Tube Feeding 400 ml 600 ml Blood Product 30 ml Other 100 ml Output Urine Total 0 ml # Voids 1 # Bowel Movements 100 Objective GENERAL: A well-developed male, chronically ill appearing. male, reduced LOC HEENT: Overall negative. NECK: Supple. Tracheostomy is in midline. Carotids 2+. LUNGS: With scattered rhonchi. Crackles at both bases. CARDIAC: S1, S2. Regular rate and rhythm without murmurs, rubs, or gallops. ABDOMEN: Soft, nontender. G-tube in place. No hepatosplenomegaly. EXTREMITIES: Chronic contractures noted. Notable for significant edema. NEUROLOGIC: The patient is obtunded Microbiology Date/Time Source Procedure Growth Status 03/27/18 23:15 Urine,Clean Catch Urine Culture - Preliminary Gram Negative Bacillus 1 Resulted Current Medications Medications (Trade) Dose Ordered Sig/Marques Route PRN Reason Start Time Stop Time Status Last Admin Dose Admin Acetaminophen (Tylenol) 650 mg Q4H PRN GT Mild Pain/Temp > 100.5 03/18/18 21:00 04/17/18 20:59 03/28/18 11:38 Amiodarone HCl (Cordarone) 200 mg EVERY 12 HOURS GT 03/18/18 23:00 04/17/18 22:59 03/29/18 09:48 Atorvastatin Calcium (Lipitor) 20 mg BEDTIME GT 03/27/18 21:00 04/17/18 22:59 03/28/18 20:33 Chlorhexidine Gluconate (Linda-Hex 2%) 1 applic DAILY@2000 TOPIC 03/20/18 20:00 04/19/18 19:59 03/28/18 20:33 Ciprofloxacin (Cipro 500mg tab) 500 mg Q24H ORAL 03/24/18 21:00 03/31/18 20:59 03/28/18 20:33 Dextrose (Dextrose 50%) 25 ml Q30M PRN IV Hypoglycemia 03/18/18 22:30 04/17/18 22:29 Dextrose (Dextrose 50%) 50 ml Q30M PRN IV Hypoglycemia 03/18/18 22:30 04/17/18 22:29 Epoetin Pawel (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)) 10,000 units TUE-TUE-TUE SUBQ 03/20/18 21:00 04/19/18 20:59 03/27/18 21:07 Heparin Sodium (Porcine) (Heparin Sod 1000 units/ml 10ml) 2,000 unit ONCE IV 03/29/18 16:15 03/29/18 23:59 Heparin Sodium (Porcine) (Heparin) 1,000 unit POSTHD INJ 03/29/18 16:15 03/29/18 23:59 Insulin Aspart (NovoLOG) Q6HR SUBQ 03/19/18 00:00 04/18/18 00:00 03/29/18 12:22 Labetalol HCl (Normodyne) 200 mg Q12HR ORAL 03/24/18 21:00 04/23/18 20:59 03/29/18 09:48 Lactobacillus Acidophilus (Culturelle) 4 tab DAILY GT 03/19/18 09:00 04/18/18 08:59 03/29/18 09:47 Magnesium Hydroxide (Mom) 10 ml DAILY PRN GT Constipation 03/18/18 22:30 04/17/18 22:29 Meropenem 500 mg/ Sodium Chloride 55 ml @ 110 mls/hr Q24H IVPB 03/27/18 21:00 04/01/18 19:59 03/28/18 20:33 Polymyxin B Sulfate 335898 units/Dextrose 250 ml @ 250 mls/hr Q12HR@1000,2200 IVPB 03/23/18 22:00 03/30/18 21:59 03/29/18 10:54 Povidone Iodine (Betadine Oint) 1 applic DAILY TOPIC 03/22/18 09:27 04/21/18 09:26 03/29/18 09:49 Sevelamer Carbonate (Renvela) 800 mg Q8HR GT 03/18/18 23:00 04/17/18 22:59 03/29/18 05:33 Sodium Hypochlorite (Dakin's Quarter Strength) 1 applic DAILY TOPIC 03/21/18 10:51 04/20/18 10:50 03/29/18 09:49 Vancomycin HCl (Vanco rx to dose) 1 ea DAILY PRN MISC Per rx protocol 03/25/18 14:45 04/24/18 14:44 Vitamin B Complex (Vitamin B Complex) 1 tab DAILY GT 03/19/18 09:00 04/18/18 08:59 03/29/18 09:47 Vitamin B Complex/ Vit C/Folic Acid (Nephrovite) 1 tab DAILY ORAL 03/20/18 09:31 04/19/18 09:30 03/29/18 09:48 Zinc Sulfate (Zinc Sulfate) 220 mg DAILY GT 03/19/18 09:00 04/18/18 08:59 03/29/18 09:48 Rogelio Chiu MD Mar 29, 2018 14:17
[2018-03-29 16:00] VITALS: BP 115/50
[2018-03-29] MEDS ORDERED: Amikacin Rx to dose MISC PRN (16:00)
--- NOTE | 2018-03-29 16:14 | Infectious Diseases Prog Note ---
Assessment/Plan Assessment/Plan ASSESSMENT AND PLAN: 1. 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 infected gram neg uti no iv access, cannot place picc line, femoral line removed because of bacteremia - change antibiotics amikacin and vancomycin with HD, po cipro/ampicillin/ minocycline - antibiotics not optimal but limited options with no iv access, sensitivities reviewed - lines removed - monitor labs and chest x-ray, f/u on surveillance blood cultures - f/u on urine culture - wound care and debridement if needed per surgery - surveillance blood cultures - negative so far - TTE - no vegetation mentioned - d/w with Dr. Conner at length - d/w pharmacy at [facility] 2. The patient has history of cerebrovascular accident and questionable history of hypertension and arrhythmia. 3. Vent respiratory failure, chf 4. Dysphagia, G-tube. 5. End-stage renal disease - getting hd, has shunt 6. Diabetes - Diabetes treatment per primary. 7. Anemia. 8. The patient is on amiodarone. 9. Schizophrenia. 10. Possible hyperlipidemia. 11. No known allergies. 12. Social history is negative. 13. MAR was noted. 14. Case was discussed with RN. 15. Family history is noncontributory. 16. Step-down unit care. 17. Vent care. 18. Continue treatment per primary consultants. 19. Notes and records were noted. 20. Orders were entered. 21. time spent - 40 minutes total time Subjective Constitutional: Reports: fever - lgt, fatigue, other - no iv access, cannot place picc line, femoral line removed Respiratory: Reports: shortness of breath Cardiovascular: Reports: other - no pressors Gastrointestinal/Abdominal: Reports: diarrhea - + rectal tube ; Denies: nausea , vomiting Genitourinary: Reports: other - no davidson Neurologic: Reports: weakness, other - lethargic Psychiatric: Reports: other - NA Skin: Reports: other - wounds covers ; Denies: rash Endocrine: Reports: other - NA Hematologic: Denies: bleeding Musculoskeletal: Reports: other - NA Allergies: Coded Allergies: No Known Allergies (Unverified , 03/18/18) Objective Vital Signs Last 24 Hour Vital Signs Date Time Temp Pulse Resp B/P (MAP) Pulse Ox O2 Delivery O2 Flow Rate FiO2 03/29/18 14:44 73 22 30 03/29/18 13:05 68 23 30 03/29/18 12:00 Mechanical Ventilator 03/29/18 12:00 30 03/29/18 12:00 66 03/29/18 11:58 98.6 66 20 98/43 (61) 100 98.6 03/29/18 11:26 65 23 30 03/29/18 09:48 73 119/56 03/29/18 09:07 73 03/29/18 09:00 98.4 71 22 119/56 (77) 100 98.4 03/29/18 08:50 70 20 30 03/29/18 08:00 30 03/29/18 08:00 Mechanical Ventilator 03/29/18 06:50 72 22 30 03/29/18 05:22 73 25 30 03/29/18 04:00 98.0 73 21 125/56 (79) 100 98.0 03/29/18 04:00 76 03/29/18 04:00 30 03/29/18 04:00 Mechanical Ventilator 03/29/18 03:23 75 23 30 03/29/18 01:13 78 23 30 03/29/18 00:00 75 03/29/18 00:00 98.8 76 20 96/44 (61) 95 98.8 03/29/18 00:00 Mechanical Ventilator 03/29/18 00:00 30 03/28/18 22:49 75 19 30 03/28/18 20:38 76 24 30 03/28/18 20:36 76 110/49 03/28/18 20:00 75 03/28/18 20:00 Mechanical Ventilator 03/28/18 20:00 30 03/28/18 20:00 98.6 76 20 110/49 (69) 100 98.6 03/28/18 19:30 62 20 30 03/28/18 16:33 75 18 30 03/28/18 16:00 30 03/28/18 16:00 Mechanical Ventilator 03/28/18 16:00 98.9 74 24 133/44 (73) 100 98.9 03/28/18 16:00 74 Height (Feet): 5 Height (Inches): 10.00 Weight (Pounds): 205 General Appearance: no acute distress, other - on vent, nad, no iv access, femoral line removed, cannot place picc line HEENT: normocephalic, atraumatic, anicteric, status post trach Respiratory/Chest: crackles/rales, rhonchi - bilaterally Cardiovascular: normal rate, regular rhythm, no gallop/murmur Abdomen: normal bowel sounds, soft, non tender, no organomegaly, non distended Genitourinary: other - no davidson, + hd Extremities: no cyanosis Skin: no rash, other - wounds covered Neurologic/Psychiatric: motor weakness, other - lethargic, poorly responsive Lymphatic: no neck adenopathy Musculoskeletal: no effusion Objective 03/20 - chest -ray - Comparison: 03/18/2018 Findings: Bilateral pleural effusions, mid and lower lung hazy opacities, interstitial congestive changes are probably not significantly changed allowing for differences in exposure technique. Right axillary stent, right subclavian central venous catheter, tracheostomy remain. Heart size is upper limits normal. Impression: Unchanged, over 2 days, findings as above. 03/23 - chest x-ray - Findings: Interstitial edema suspected with bilateral pleural effusions and cardiomegaly. Tracheostomy again noted. IMPRESSION: Pulmonary edema Chest x-ray - 03/25 - FINDINGS: Single frontal view demonstrates partial the visualized tracheostomy tube. Stable right axillary stent. The left chest is not fully imaged. Continued demonstration opacity in bilateral mid to lower lung zones. Atherosclerotic vascular disease. IMPRESSION: No significant change. Tubes as outlined above. Stable patchy opacity in bilateral mid to lower lung zones. Chest x-ray - 03/28/18 - A single view chest radiograph was obtained. Findings: There is evidence of a right pleural effusion and a probable left effusion. Pulmonary edema is present but appears slightly improved since the prior occasion. Tracheostomy is again noted. Heart is enlarged. IMPRESSION: Pulmonary edema with improvement from the prior study. Suggestion of bilateral pleural effusions. Microbiology Date/Time Source Procedure Growth Status 03/25/18 16:55 Blood Blood Culture - Preliminary NO GROWTH AFTER 72 HOURS Resulted 03/19/18 11:30 Sputum Induced Gram Stain - Final Complete 03/19/18 11:30 Sputum Culture - Final A.baumanii Complx - Mdr Pseudomonas Aeruginosa Complete 03/20/18 16:00 Stool Clostridium difficile Toxin Assay - Final Complete 03/27/18 23:15 Urine,Clean Catch Urine Culture - Preliminary Gram Negative Bacillus 1 Resulted 03/21/18 17:30 Catheter Site Catheter Tip Culture - Final NO GROWTH AFTER 4 DAYS Complete Microbiology Date/Time Source Procedure Growth Status 03/27/18 23:15 Urine,Clean Catch Urine Culture - Preliminary Gram Negative Bacillus 1 Resulted Labs Test 03/27/18 06:30 03/27/18 23:15 03/28/18 03:45 Random Vancomycin Level 16.5 ug/mL Urine Color Brown Urine Appearance Very cloudy Urine pH 7 (4.5-8.0) Urine Specific [place] 1.010 (1.005-1.035) Urine Protein 4+ (NEGATIVE) Urine Glucose (UA) Negative (NEGATIVE) Urine Ketones Negative (NEGATIVE) Urine Blood 5+ (NEGATIVE) Urine Nitrite Negative (NEGATIVE) Urine Bilirubin Negative (NEGATIVE) Urine Urobilinogen Normal MG/DL (0.0-1.0) Urine Leukocyte Esterase 3+ (NEGATIVE) Urine RBC Tntc /HPF (0 - 0) Urine WBC Tntc /HPF (0 - 0) Urine Squamous Epithelial Cells None /LPF (NONE/OCC) Urine Bacteria Many /HPF (NONE) White Blood Count 10.3 K/UL (4.8-10.8) Red Blood Count 2.08 M/UL (4.70-6.10) Hemoglobin 6.3 G/DL (14.2-18.0) Hematocrit 18.1 % (42.0-52.0) Mean Corpuscular Volume 87 FL (80-99) Mean Corpuscular Hemoglobin 30.4 PG (27.0-31.0) Mean Corpuscular Hemoglobin Concent 34.9 G/DL (32.0-36.0) Red Cell Distribution Width 15.5 % (11.6-14.8) Platelet Count 96 K/UL (150-450) Mean Platelet Volume 5.9 FL (6.5-10.1) Neutrophils (%) (Auto) % (45.0-75.0) Lymphocytes (%) (Auto) % (20.0-45.0) Monocytes (%) (Auto) % (1.0-10.0) Eosinophils (%) (Auto) % (0.0-3.0) Basophils (%) (Auto) % (0.0-2.0) Differential Total Cells Counted 100 Neutrophils % (Manual) 80 % (45-75) Lymphocytes % (Manual) 13 % (20-45) Monocytes % (Manual) 4 % (1-10) Eosinophils % (Manual) 3 % (0-3) Basophils % (Manual) 0 % (0-2) Band Neutrophils 0 % (0-8) Platelet Estimate Decreased Platelet Morphology Normal Hypochromasia 4+ Anisocytosis 1+ Spherocytes 2+ Sodium Level 134 MMOL/L (136-145) Potassium Level 3.4 MMOL/L (3.5-5.1) Chloride Level 99 MMOL/L (98-107) Carbon Dioxide Level 27 MMOL/L (21-32) Anion Gap 8 mmol/L (5-15) Blood Urea Nitrogen 39 mg/dL (7-18) Creatinine 2.6 MG/DL (0.55-1.30) Estimat Glomerular Filtration Rate mL/min (>60) Glucose Level 94 MG/DL (74-106) Calcium Level 8.4 MG/DL (8.5-10.1) Total Bilirubin 0.5 MG/DL (0.2-1.0) Aspartate Amino Transf (AST/SGOT) 62 U/L (15-37) Alanine Aminotransferase (ALT/SGPT) 53 U/L (12-78) Alkaline Phosphatase 492 U/L (46-116) Total Protein 4.9 G/DL (6.4-8.2) Albumin 0.9 G/DL (3.4-5.0) Globulin 4.0 g/dL Albumin/Globulin Ratio 0.2 (1.0-2.7) Current Medications Medications (Trade) Dose Ordered Sig/Marques Route PRN Reason Start Time Stop Time Status Last Admin Dose Admin Acetaminophen (Tylenol) 650 mg Q4H PRN GT Mild Pain/Temp > 100.5 03/18/18 21:00 04/17/18 20:59 03/28/18 11:38 Amikacin Protocol (Amikacin pharmacy to dose) 1 ea DAILY PRN MISC Per rx protocol 03/29/18 16:00 04/28/18 15:59 Amiodarone HCl (Cordarone) 200 mg EVERY 12 HOURS GT 03/18/18 23:00 04/17/18 22:59 03/29/18 09:48 Atorvastatin Calcium (Lipitor) 20 mg BEDTIME GT 10/8/18 21:00 04/17/18 22:59 03/28/18 20:33 Chlorhexidine Gluconate (Linda-Hex 2%) 1 applic DAILY@2000 TOPIC 03/20/18 20:00 04/19/18 19:59 03/28/18 20:33 Ciprofloxacin (Cipro 500mg tab) 500 mg Q24H ORAL 03/29/18 21:00 04/05/18 20:59 Dextrose (Dextrose 50%) 25 ml Q30M PRN IV Hypoglycemia 03/18/18 22:30 04/17/18 22:29 Dextrose (Dextrose 50%) 50 ml Q30M PRN IV Hypoglycemia 03/18/18 22:30 04/17/18 22:29 Epoetin Pawel (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)) 10,000 units TUE-TUE-TUE SUBQ 03/20/18 21:00 04/19/18 20:59 03/27/18 21:07 Heparin Sodium (Porcine) (Heparin Sod 1000 units/ml 10ml) 2,000 unit ONCE IV 03/29/18 16:15 03/29/18 23:59 Heparin Sodium (Porcine) (Heparin) 1,000 unit POSTHD INJ 03/29/18 16:15 03/29/18 23:59 Insulin Aspart (NovoLOG) Q6HR SUBQ 03/19/18 00:00 04/18/18 00:00 03/29/18 12:22 Labetalol HCl (Normodyne) 200 mg Q12HR ORAL 03/24/18 21:00 04/23/18 20:59 03/29/18 09:48 Lactobacillus Acidophilus (Culturelle) 4 tab DAILY GT 03/19/18 09:00 04/18/18 08:59 03/29/18 09:47 Magnesium Hydroxide (Mom) 10 ml DAILY PRN GT Constipation 03/18/18 22:30 04/17/18 22:29 Minocycline HCl (Minocin) 100 mg Q12HR ORAL 03/29/18 21:00 04/05/18 20:59 Povidone Iodine (Betadine Oint) 1 applic DAILY TOPIC 03/22/18 09:27 04/21/18 09:26 03/29/18 09:49 Sevelamer Carbonate (Renvela) 800 mg Q8HR GT 03/18/18 23:00 04/17/18 22:59 03/29/18 14:28 Sodium Hypochlorite (Dakin's Quarter Strength) 1 applic DAILY TOPIC 03/21/18 10:51 04/20/18 10:50 03/29/18 09:49 Vancomycin HCl (Vanco rx to dose) 1 ea DAILY PRN MISC Per rx protocol 03/25/18 14:45 04/24/18 14:44 Vitamin B Complex (Vitamin B Complex) 1 tab DAILY GT 03/19/18 09:00 04/18/18 08:59 03/29/18 09:47 Vitamin B Complex/ Vit C/Folic Acid (Nephrovite) 1 tab DAILY ORAL 03/20/18 09:31 04/19/18 09:30 03/29/18 09:48 Zinc Sulfate (Zinc Sulfate) 220 mg DAILY GT 03/19/18 09:00 04/18/18 08:59 03/29/18 09:48 Kate Quintero MD Mar 29, 2018 16:14
[2018-03-29] MEDS ORDERED: Heparin Sod 1000 units/ml 10ml IV SCH (16:15)
[2018-03-29] MEDS ORDERED: Heparin 1000 units/ml 1ml Vial INJ SCH (16:15)
--- NOTE | 2018-03-29 16:35 | Nephrology Progress Note ---
Assessment/Plan Plan m/p polymicrobial line sepsis. No veins for any central line. Asked to pull current TLC! MRSA Sepsis . Unknown etilogy! DW Dr. Prieto ID. ESRD HD MWF Decubiti - Dr. Andrade consulted. VDRF -Per Pul. Severe Anemia --STEPHEN IV Venofer, transfuse PRN. Podiatry consulted. ISA Navarro. Continuing to hold his bed. Subjective Subjective Obtunded. Objective Objective Last 24 Hour Vital Signs Date Time Temp Pulse Resp B/P (MAP) Pulse Ox O2 Delivery O2 Flow Rate FiO2 03/29/18 16:00 Mechanical Ventilator 03/29/18 16:00 98.2 70 28 115/50 (71) 100 98.2 03/29/18 16:00 30 03/29/18 14:44 73 22 30 03/29/18 13:05 68 23 30 03/29/18 12:00 Mechanical Ventilator 03/29/18 12:00 30 03/29/18 12:00 66 03/29/18 11:58 98.6 66 20 98/43 (61) 100 98.6 03/29/18 11:26 65 23 30 03/29/18 09:48 73 119/56 03/29/18 09:07 73 03/29/18 09:00 98.4 71 22 119/56 (77) 100 98.4 03/29/18 08:50 70 20 30 03/29/18 08:00 30 03/29/18 08:00 Mechanical Ventilator 03/29/18 06:50 72 22 30 03/29/18 05:22 73 25 30 03/29/18 04:00 98.0 73 21 125/56 (79) 100 98.0 03/29/18 04:00 76 03/29/18 04:00 30 03/29/18 04:00 Mechanical Ventilator 03/29/18 03:23 75 23 30 03/29/18 01:13 78 23 30 03/29/18 00:00 75 03/29/18 00:00 98.8 76 20 96/44 (61) 95 98.8 03/29/18 00:00 Mechanical Ventilator 03/29/18 00:00 30 03/28/18 22:49 75 19 30 03/28/18 20:38 76 24 30 03/28/18 20:36 76 110/49 10/9/18 20:00 75 03/28/18 20:00 Mechanical Ventilator 03/28/18 20:00 30 03/28/18 20:00 98.6 76 20 110/49 (69) 100 98.6 03/28/18 19:30 62 20 30 Intake and Output 03/28/18 03/29/18 19:00 07:00 Intake Total 710 ml 1005 ml Output Total 0 ml Balance 710 ml 1005 ml Intake Free Water 30 ml IV Total 250 ml 305 ml Tube Feeding 400 ml 600 ml Blood Product 30 ml Other 100 ml Output Urine Total 0 ml # Voids 1 # Bowel Movements 100 Height (Feet): 5 Height (Inches): 10.00 Weight (Pounds): 205 Objective Multiple decubiti noted and examined with nursing staff. Thw wounds are very deep! CV RR Trach site Ok. Lungs B ronchi. And SNT. BS +. PEG OK. E muscle wasting. Rt. arm contracture @ elbow. Rt. arm AVF + bruit. Neuro - alert + responsive. Nonverbal. Dilip Conner MD Mar 29, 2018 16:35
--- NOTE | 2018-03-29 16:44 | General Surgery Progress Note ---
General Surgery-Progress Note Subjective Additional Comments to remove central line. very difficult peripheral access and central difficult as well. very complicated case given history and current status Objective Last 24 Hour Vital Signs Date Time Temp Pulse Resp B/P (MAP) Pulse Ox O2 Delivery O2 Flow Rate FiO2 03/29/18 16:00 Mechanical Ventilator 03/29/18 16:00 98.2 70 28 115/50 (71) 100 98.2 03/29/18 16:00 30 03/29/18 14:44 73 22 30 03/29/18 13:05 68 23 30 03/29/18 12:00 Mechanical Ventilator 03/29/18 12:00 30 03/29/18 12:00 66 03/29/18 11:58 98.6 66 20 98/43 (61) 100 98.6 03/29/18 11:26 65 23 30 03/29/18 09:48 73 119/56 03/29/18 09:07 73 03/29/18 09:00 98.4 71 22 119/56 (77) 100 98.4 03/29/18 08:50 70 20 30 03/29/18 08:00 30 03/29/18 08:00 Mechanical Ventilator 03/29/18 06:50 72 22 30 03/29/18 05:22 73 25 30 03/29/18 04:00 98.0 73 21 125/56 (79) 100 98.0 03/29/18 04:00 76 03/29/18 04:00 30 03/29/18 04:00 Mechanical Ventilator 03/29/18 03:23 75 23 30 03/29/18 01:13 78 23 30 03/29/18 00:00 75 03/29/18 00:00 98.8 76 20 96/44 (61) 95 98.8 03/29/18 00:00 Mechanical Ventilator 03/29/18 00:00 30 03/28/18 22:49 75 19 30 03/28/18 20:38 76 24 30 03/28/18 20:36 76 110/49 03/28/18 20:00 75 03/28/18 20:00 Mechanical Ventilator 03/28/18 20:00 30 03/28/18 20:00 98.6 76 20 110/49 (69) 100 98.6 03/28/18 19:30 62 20 30 I&O Intake and Output 03/28/18 03/29/18 19:00 07:00 Intake Total 710 ml 1005 ml Output Total 0 ml Balance 710 ml 1005 ml Intake Free Water 30 ml IV Total 250 ml 305 ml Tube Feeding 400 ml 600 ml Blood Product 30 ml Other 100 ml Output Urine Total 0 ml # Voids 1 # Bowel Movements 100 Dressing: saturated Wound: other Drains: other Cardiovascular: RSR Respiratory: decreased breath sounds Abdomen: soft, present bowel sounds Extremities: other Plan Problems: (1) Decubitus ulcer of sacral region, stage 4 Assessment & Plan: Unstageable right lower buttock ulcer; large; no active drainage, no foul odor, macerated edges, eschar cap noted Unstageable right inner buttock ulcer; large; no active drainage, no foul odor, macerated edges, necrotic soft eschar cap noted Stage 4 full thickness sacral decubitus ulcer with necrotic / fibrinous tissue noted, macerated edges, bleeding at edges, serous drainage, no odor Unstageable left buttock ulcer; large; no active drainage, no foul odor, macerated edges, eschar w/ debris noted Left heel with large unstageable necrotic eschar cap Left leg with large unstageable necrotic eschar cap left foot with anterior unstageable necrotic eschar cap left leg with large linear wound with necrotic eschar right ankle with large necrotic eschar cap right heel with large necortic eschar cap Maroon indurated area in close proximity Trachea(L)4.8cm x (W)3.5cm ,multiple full thickness wounds with necrosis R and L upper ext including metacarpals of both hands .Scattered full thickness wounds across abd. Largest of which is to R abd (L)6.3cm x (W)2.5cm with loose slough and erythema .Full thickness ulcer noted to deejay R tibia- inferior to R knee (L)1.5cm x (W)1cm wound bed with 75 % slough ,scant purulent exudate.Full thickness wound deejay R tibia (L)12.8cm x (W)2.4 cm,wound has 100% mixed slough /necrosis. Full thickness wound dorsum R foot with 100% soft necrosis(L)8.7cm x (W)5.2cm .Dry eschar lateral and head of R 1st metatarsal (L)3.5cm x (W)1.7cm.Dry eschar R hallux (L) 2.5cm x (W) 2.8cm.Dry eschar noted to2nd through 5th metatarsals.Dry necrosis with yellow slough noted to lateral L tibia (L)17.5cm x (W)2.1cm. 100% necrosis dorso / flexor L foot (L)4.4cm x (W)3.7cm. 100% necrosis lateral L malleolus (L)2.7cm x (W)2.2cm. Necrosis noted to all five metatarsal heads on L foot.Full thickness wound L trochanteric with 90% mixed slough /necrosis (L)6.5cm x (W)7cm.Wound is malodorous. Full thickness wound L Ischium (L)9.3cm x (W)8cm wound with 100% mixed slough /necrosis and is malodorous. Full thickness sacral wound with slough /necrosis (L)14.5cm x (W)11cm x (D)2.4cm.Wound malodorous.Full thickness wound R trochanter (L)11cm x (W)8.4cm with 95% necrosis and is malodorous .Full thickness wound R ischium (L)5cm x (W02.5cm ,95% soft necrosis and erythema ,and is malodorous . all wounds present upon admission. will be cared for during hospital stay. no wounds with active infection some wounds will require debridement Plan: pressure release mattress turn q2h as per protocol elevate heels with pillows. heel protectors apply foam dressings to heels and dry necrotic eschar wounds gauze packing and dressing for sacral wound which will need debridement foam dressings to buttock wounds. appreciate podiatry input will discuss with wound care nurse and adjust orders prn (2) Sepsis Assessment & Plan: right subclavian line removed radiology placed femoral line temporary for venous access hopefully will be able to go without venous access and po meds upon discharge if needs IV access upon discharge will have to change venous line to midline. possibly left upper extremity if concerned about left femoral central venous catheter as etiology of bacteremia, okay to remove once a left upper extremity midline / PICC line placed. two physician consent signed. cannot find good left upper extremity vein need to remove TLC will have to change to tube meds and abx with dialysis thank you Tray Francis Mar 29, 2018 16:44
[2018-03-29 20:00] VITALS: BP 120/54
[2018-03-29] MEDS ORDERED: Amikacin 500 MG in NS 110 ML IV SCH (21:00)
[2018-03-29] MEDS: Dyna-Hex 2% Top Sol 2oz TOPIC SCH (21:24)
[2018-03-29] MEDS: Ciprofloxacin 500mg tab ORAL SCH (21:25)
[2018-03-29] MEDS: Epogen (for ESRD on dialysis) SUBQ SCH (21:25)
[2018-03-29] MEDS: Minocycline HCl 50mg cap ORAL SCH (21:25)
[2018-03-29] MEDS: Atorvastatin 20mg tab GT SCH (21:26)
[2018-03-29 21:44] LABS: HEMATOCRIT 23.1 % (42.0-52.0); HEMOGLOBIN 7.9 G/DL (14.2-18.0); MEAN CORPUSCULAR VOLUME 86 FL (80-99); PLATELET COUNT 107 K/UL (150-450); RED BLOOD COUNT 2.68 M/UL (4.70-6.10); RED CELL DISTRIBUTION WIDTH 14.3 % (11.6-14.8)
[2018-03-29 21:50] LABS: BASOPHILS % (AUTO) 0.9 % (0.0-2.0); EOSINOPHILS % (AUTO) 2.6 % (0.0-3.0); LYMPHOCYTES % (AUTO) 18.1 % (20.0-45.0); MONOCYTES % (AUTO) 6.9 % (1.0-10.0); NEUTROPHILS % (AUTO) 71.5 % (45.0-75.0)
[2018-03-29 22:18] LABS: ALANINE AMINOTRANSFERASE 48 U/L (12-78); ALBUMIN/GLOBULIN RATIO 0.3 (1.0-2.7); ALKALINE PHOSPHATASE 692 U/L (46-116); ANION GAP 8 mmol/L (5-15); ASPARTATE AMINO TRANSFERASE 81 U/L (15-37); BILIRUBIN,TOTAL 0.7 MG/DL (0.2-1.0); BLOOD UREA NITROGEN 33 mg/dL (7-18); CALCIUM 8.6 MG/DL (8.5-10.1); CARBON DIOXIDE 26 MMOL/L (21-32); CHLORIDE 100 MMOL/L (98-107); CREATININE 2.5 MG/DL (0.55-1.30); POTASSIUM 3.8 MMOL/L (3.5-5.1); SODIUM 134 MMOL/L (136-145)
[2018-03-29] MEDS ORDERED: Vancomycin 1250mg/D5W 250ml 250 ML IVPB ONE (23:00)
--- NOTE | 2018-03-29 23:45 | Consultation ---
DATE OF CONSULTATION: 03/22/2018 VASCULAR SURGERY CONSULTATION CONSULTING PHYSICIAN: Castillo Hernandez M.D. REFERRING PHYSICIAN: Dilip Conner M.D. REASON FOR EVALUATION: AV shunt evaluation and foot wounds. HISTORY OF PRESENT COMPLAINT: The patient has a history of tracheostomy and feeding gastrostomy. PAST MEDICAL HISTORY: As above. History of end-stage renal failure, on hemodialysis. Right arm AV shunt, contractures and anoxic encephalopathy, comatose, former smoker, dementia, has no power of associate attorney and no family. MEDICATIONS: See attached MAR. ALLERGIES: No known drug allergies. SOCIAL HISTORY: Former heavy smoker. History is unobtainable. FAMILY HISTORY: Unobtainable. REVIEW OF SYSTEMS: Unobtainable due to altered mental status. PHYSICAL EXAMINATION: GENERAL: The patient is comatose and unresponsive. He has a tracheostomy in place. LUNGS: He has rhonchi bilaterally. He has a right arm AV shunt. Palpable thrill. ABDOMEN: Soft. Feeding gastrostomy tube. EXTREMITIES: Arm edema, lower extremity edema. He has lower extremity wound, decubitus necrosis on the sacrum as well as the heel and leg. There is bilateral footdrop with absent pedal pulses. IMPRESSION: 1. Patent right arm AV shunt, on dialysis. 2. Comatose with anoxic encephalopathy, neck contractures with stiffness, and footdrop. 3. Bilateral heel and leg decubitus and sacral decubitus necrosis with calcific peripheral arterial disease. 4. Former smoker. 5. Dementia with no power of associate attorney or no family. PLAN AND RECOMMENDATIONS: 1. Decubitus precautions. 2. Podiatry and general surgery followup and if worsening necrotic ulcers, will need bilateral leg above-knee amputation. 3. Continue dialysis through the right arm AV shunt. 4. Antibiotics per ID preferably with the dialysis. 5. Supportive care. 6. Poor overall terminal prognosis. Castillo Hernandez M.D. DR: ALLIE JOB#: [id number] CC: ALEIDA
[2018-03-30] VITALS: BP 104/44
[2018-03-30] MEDS: NovoLOG Insulin Flexpen SUBQ SCH ×5 (00:27→23:07)
[2018-03-30 04:00] VITALS: BP 105/46
[2018-03-30] MEDS: Renvela 800mg Pkt GT SCH ×3 (05:00→21:29)
[2018-03-30 08:00] VITALS: BP 104/44
[2018-03-30] MEDS: Zinc Sulfate 220mg cap GT SCH (08:42)
[2018-03-30] MEDS: Nephrovite tab (Rena-Vite) ORAL SCH (08:42)
[2018-03-30] MEDS: Minocycline HCl 50mg cap ORAL SCH ×2 (08:42→20:31)
[2018-03-30] MEDS: Vitamin B Complex Tab GT SCH (08:42)
[2018-03-30] MEDS: Lactobacillus-GG tablet GT SCH (08:42)
[2018-03-30] MEDS: Amiodarone 200mg tab GT SCH ×2 (08:44→20:25)
[2018-03-30] MEDS: Labetalol 200mg tab ORAL SCH ×2 (08:47→21:00)
[2018-03-30] MEDS: Betadine 10% Oint 30gm TOPIC SCH (08:48)
[2018-03-30] MEDS: Dakin's 0.125% Soln (Quarter Strength) 16oz TOPIC SCH (08:48)
--- NOTE | 2018-03-30 08:53 | Pulmonology Progress Note ---
Assessment/Plan Assessment/Plan IMPRESSION: 1. Respiratory failure. 2. Profound anemia, status post transfusion. 3. Chronic respiratory failure. 4. Severe protein-calorie malnutrition. 5. CVA. 6. Anoxia. 7. Underlying sepsis. 8. pulmonary edema 9. possible pneumonia 10. pleural effusion 11. bacteremia MDR PLAN care noted and same IV antibiotics noted respiratory care reviewed vent reviewed as is no wean at present Ventilatory support - full on AC SNF meds supportive care suction and monitor keep negative and monitor imaging- overall better prognosis overall poor impression, plan, and exam edited and reviewed in detail care discussed with RN Subjective Allergies: Coded Allergies: No Known Allergies (Unverified , 03/18/18) Subjective on vent poorly responsive care reviewed and discussed imaging noted and reviewed cultures noted Objective Last 24 Hour Vital Signs Date Time Temp Pulse Resp B/P (MAP) Pulse Ox O2 Delivery O2 Flow Rate FiO2 03/30/18 08:47 62 93/41 03/30/18 08:00 Mechanical Ventilator 03/30/18 08:00 30 03/30/18 06:52 63 23 30 03/30/18 05:16 61 23 30 03/30/18 04:00 98.7 61 21 105/46 (65) 97 98.7 03/30/18 04:00 Mechanical Ventilator 03/30/18 04:00 30 03/30/18 04:00 60 03/30/18 03:18 63 20 30 03/30/18 01:30 68 27 30 03/30/18 00:00 66 03/30/18 00:00 30 03/30/18 00:00 Mechanical Ventilator 03/30/18 00:00 99.5 65 22 104/44 (64) 100 99.5 03/29/18 23:27 66 23 30 03/29/18 21:30 75 27 30 03/29/18 21:26 75 120/54 03/29/18 20:00 70 03/29/18 20:00 99.3 75 26 120/54 (76) 100 99.3 03/29/18 20:00 Mechanical Ventilator 03/29/18 20:00 30 03/29/18 19:30 71 20 30 03/29/18 17:26 71 22 30 03/29/18 17:12 68 03/29/18 16:00 Mechanical Ventilator 03/29/18 16:00 98.2 70 28 115/50 (71) 100 98.2 03/29/18 16:00 30 03/29/18 14:44 73 22 30 03/29/18 13:05 68 23 30 03/29/18 12:00 Mechanical Ventilator 03/29/18 12:00 30 03/29/18 12:00 66 03/29/18 11:58 98.6 66 20 98/43 (61) 100 98.6 03/29/18 11:26 65 23 30 03/29/18 09:48 73 119/56 03/29/18 09:07 73 03/29/18 09:00 98.4 71 22 119/56 (77) 100 98.4 Intake and Output 03/29/18 03/30/18 19:00 07:00 Intake Total 900 ml 800 ml Output Total 100 ml Balance 800 ml 800 ml Intake Free Water 250 ml IV Total 250 ml 250 ml Tube Feeding 400 ml 450 ml Other 100 ml Stool Total 100 ml # Voids 1 # Bowel Movements 50 Objective GENERAL: A well-developed male, chronically ill appearing. male, reduced LOC HEENT: Overall negative. NECK: Supple. Tracheostomy is in midline. Carotids 2+. LUNGS: With scattered rhonchi. Crackles at both bases. CARDIAC: S1, S2. Regular rate and rhythm without murmurs, rubs, or gallops. ABDOMEN: Soft, nontender. G-tube in place. No hepatosplenomegaly. EXTREMITIES: Chronic contractures noted. Notable for significant edema. NEUROLOGIC: The patient is obtunded Microbiology Date/Time Source Procedure Growth Status 03/27/18 23:15 Urine,Clean Catch Urine Culture - Preliminary Gram Negative Bacillus 1 Resulted Laboratory Tests 03/29/18 21:20: White Blood Count 9.0, Red Blood Count 2.68L, Hemoglobin 7.9L, Hematocrit 23.1L , Mean Corpuscular Volume 86, Mean Corpuscular Hemoglobin 29.3, Mean Corpuscular Hemoglobin Concent 34.1, Red Cell Distribution Width 14.3, Platelet Count 107L, Mean Platelet Volume 6.3L, Neutrophils (%) (Auto) 71.5, Lymphocytes (%) (Auto) 18.1L, Monocytes (%) (Auto) 6.9, Eosinophils (%) (Auto) 2.6, Basophils (%) (Auto) 0.9, Sodium Level 134L, Potassium Level 3.8, Chloride Level 100, Carbon Dioxide Level 26, Anion Gap 8, Blood Urea Nitrogen 33H, Creatinine 2.5H, Estimat Glomerular Filtration Rate , Glucose Level 157H, Calcium Level 8.6, Total Bilirubin 0.7, Aspartate Amino Transf (AST/SGOT) 81H, Alanine Aminotransferase (ALT/SGPT) 48, Alkaline Phosphatase 692H, Total Protein 4.8L, Albumin 1.0L, Globulin 3.8, Albumin/Globulin Ratio 0.3L, Random Vancomycin Level 19.8 Current Medications Medications (Trade) Dose Ordered Sig/Marques Route PRN Reason Start Time Stop Time Status Last Admin Dose Admin Acetaminophen (Tylenol) 650 mg Q4H PRN GT Mild Pain/Temp > 100.5 03/18/18 21:00 04/17/18 20:59 03/28/18 11:38 Amikacin Protocol (Amikacin pharmacy to dose) 1 ea DAILY PRN MISC Per rx protocol 03/29/18 16:00 04/28/18 15:59 Amiodarone HCl (Cordarone) 200 mg EVERY 12 HOURS GT 03/18/18 23:00 04/17/18 22:59 03/30/18 08:44 Ampicillin (Ampicillin) 1,000 mg Q24H ORAL 03/29/18 21:00 04/05/18 20:59 03/29/18 21:25 Atorvastatin Calcium (Lipitor) 20 mg BEDTIME GT 03/27/18 21:00 04/17/18 22:59 03/29/18 21:26 Chlorhexidine Gluconate (Linda-Hex 2%) 1 applic DAILY@2000 TOPIC 03/20/18 20:00 04/19/18 19:59 03/29/18 21:24 Ciprofloxacin (Cipro 500mg tab) 500 mg Q24H ORAL 03/29/18 21:00 04/05/18 20:59 03/29/18 21:25 Dextrose (Dextrose 50%) 25 ml Q30M PRN IV Hypoglycemia 03/18/18 22:30 04/17/18 22:29 Dextrose (Dextrose 50%) 50 ml Q30M PRN IV Hypoglycemia 03/18/18 22:30 04/17/18 22:29 Epoetin Pawel (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)) 10,000 units TUE-TUE-TUE SUBQ 03/20/18 21:00 04/19/18 20:59 03/29/18 21:25 Insulin Aspart (NovoLOG) Q6HR SUBQ 03/19/18 00:00 04/18/18 00:00 03/30/18 05:02 Labetalol HCl (Normodyne) 200 mg Q12HR ORAL 03/24/18 21:00 04/23/18 20:59 03/29/18 21:26 Lactobacillus Acidophilus (Culturelle) 4 tab DAILY GT 03/19/18 09:00 04/18/18 08:59 03/30/18 08:42 Magnesium Hydroxide (Mom) 10 ml DAILY PRN GT Constipation 03/18/18 22:30 04/17/18 22:29 Minocycline HCl (Minocin) 100 mg Q12HR ORAL 03/29/18 21:00 04/05/18 20:59 03/30/18 08:42 Povidone Iodine (Betadine Oint) 1 applic DAILY TOPIC 03/22/18 09:27 04/21/18 09:26 03/30/18 08:48 Sevelamer Carbonate (Renvela) 800 mg Q8HR GT 03/18/18 23:00 04/17/18 22:59 03/30/18 05:00 Sodium Hypochlorite (Dakin's Quarter Strength) 1 applic DAILY TOPIC 03/21/18 10:51 04/20/18 10:50 03/30/18 08:48 Vancomycin HCl (Vanco rx to dose) 1 ea DAILY PRN MISC Per rx protocol 03/25/18 14:45 04/24/18 14:44 Vitamin B Complex (Vitamin B Complex) 1 tab DAILY GT 03/19/18 09:00 04/18/18 08:59 03/30/18 08:42 Vitamin B Complex/ Vit C/Folic Acid (Nephrovite) 1 tab DAILY ORAL 03/20/18 09:31 04/19/18 09:30 03/30/18 08:42 Zinc Sulfate (Zinc Sulfate) 220 mg DAILY GT 03/19/18 09:00 04/18/18 08:59 03/30/18 08:42 Rogelio Chiu MD Mar 30, 2018 08:53
--- NOTE | 2018-03-30 11:41 | General Surgery Progress Note ---
General Surgery-Progress Note Subjective Additional Comments leukocytosis resolved. improved with line out Objective Last 24 Hour Vital Signs Date Time Temp Pulse Resp B/P (MAP) Pulse Ox O2 Delivery O2 Flow Rate FiO2 03/30/18 08:47 62 93/41 03/30/18 08:42 60 22 30 03/30/18 08:00 Mechanical Ventilator 03/30/18 08:00 97.9 60 22 104/44 (64) 98 97.9 03/30/18 08:00 61 03/30/18 08:00 30 03/30/18 06:52 63 23 30 03/30/18 05:16 61 23 30 03/30/18 04:00 98.7 61 21 105/46 (65) 97 98.7 03/30/18 04:00 Mechanical Ventilator 03/30/18 04:00 30 03/30/18 04:00 60 03/30/18 03:18 63 20 30 03/30/18 01:30 68 27 30 03/30/18 00:00 66 03/30/18 00:00 30 03/30/18 00:00 Mechanical Ventilator 03/30/18 00:00 99.5 65 22 104/44 (64) 100 99.5 03/29/18 23:27 66 23 30 03/29/18 21:30 75 27 30 03/29/18 21:26 75 120/54 03/29/18 20:00 70 03/29/18 20:00 99.3 75 26 120/54 (76) 100 99.3 03/29/18 20:00 Mechanical Ventilator 03/29/18 20:00 30 03/29/18 19:30 71 20 30 03/29/18 17:26 71 22 30 03/29/18 17:12 68 03/29/18 16:00 Mechanical Ventilator 03/29/18 16:00 98.2 70 28 115/50 (71) 100 98.2 03/29/18 16:00 30 03/29/18 14:44 73 22 30 03/29/18 13:05 68 23 30 03/29/18 12:00 Mechanical Ventilator 03/29/18 12:00 30 03/29/18 12:00 66 03/29/18 11:58 98.6 66 20 98/43 (61) 100 98.6 I&O Intake and Output 03/29/18 03/30/18 19:00 07:00 Intake Total 900 ml 800 ml Output Total 100 ml Balance 800 ml 800 ml Intake Free Water 250 ml IV Total 250 ml 250 ml Tube Feeding 400 ml 450 ml Other 100 ml Stool Total 100 ml # Voids 1 # Bowel Movements 50 Dressing: other Wound: other Drains: other Cardiovascular: RSR Respiratory: decreased breath sounds Abdomen: soft, distended, present bowel sounds Extremities: other Laboratory Tests Test 03/29/18 21:20 White Blood Count 9.0 K/UL (4.8-10.8) Red Blood Count 2.68 M/UL (4.70-6.10) L Hemoglobin 7.9 G/DL (14.2-18.0) L Hematocrit 23.1 % (42.0-52.0) L Mean Corpuscular Volume 86 FL (80-99) Mean Corpuscular Hemoglobin 29.3 PG (27.0-31.0) Mean Corpuscular Hemoglobin Concent 34.1 G/DL (32.0-36.0) Red Cell Distribution Width 14.3 % (11.6-14.8) Platelet Count 107 K/UL (150-450) L Mean Platelet Volume 6.3 FL (6.5-10.1) L Neutrophils (%) (Auto) 71.5 % (45.0-75.0) Lymphocytes (%) (Auto) 18.1 % (20.0-45.0) L Monocytes (%) (Auto) 6.9 % (1.0-10.0) Eosinophils (%) (Auto) 2.6 % (0.0-3.0) Basophils (%) (Auto) 0.9 % (0.0-2.0) Sodium Level 134 MMOL/L (136-145) L Potassium Level 3.8 MMOL/L (3.5-5.1) Chloride Level 100 MMOL/L (98-107) Carbon Dioxide Level 26 MMOL/L (21-32) Anion Gap 8 mmol/L (5-15) Blood Urea Nitrogen 33 mg/dL (7-18) H Creatinine 2.5 MG/DL (0.55-1.30) H Estimat Glomerular Filtration Rate mL/min (>60) Glucose Level 157 MG/DL (74-106) H Calcium Level 8.6 MG/DL (8.5-10.1) Total Bilirubin 0.7 MG/DL (0.2-1.0) Aspartate Amino Transf (AST/SGOT) 81 U/L (15-37) H Alanine Aminotransferase (ALT/SGPT) 48 U/L (12-78) Alkaline Phosphatase 692 U/L (46-116) H Total Protein 4.8 G/DL (6.4-8.2) L Albumin 1.0 G/DL (3.4-5.0) L Globulin 3.8 g/dL Albumin/Globulin Ratio 0.3 (1.0-2.7) L Random Vancomycin Level 19.8 ug/mL Plan Problems: (1) Decubitus ulcer of sacral region, stage 4 Assessment & Plan: Unstageable right lower buttock ulcer; large; no active drainage, no foul odor, macerated edges, eschar cap noted Unstageable right inner buttock ulcer; large; no active drainage, no foul odor, macerated edges, necrotic soft eschar cap noted Stage 4 full thickness sacral decubitus ulcer with necrotic / fibrinous tissue noted, macerated edges, bleeding at edges, serous drainage, no odor Unstageable left buttock ulcer; large; no active drainage, no foul odor, macerated edges, eschar w/ debris noted Left heel with large unstageable necrotic eschar cap Left leg with large unstageable necrotic eschar cap left foot with anterior unstageable necrotic eschar cap left leg with large linear wound with necrotic eschar right ankle with large necrotic eschar cap right heel with large necortic eschar cap Maroon indurated area in close proximity Trachea(L)4.8cm x (W)3.5cm ,multiple full thickness wounds with necrosis R and L upper ext including metacarpals of both hands .Scattered full thickness wounds across abd. Largest of which is to R abd (L)6.3cm x (W)2.5cm with loose slough and erythema .Full thickness ulcer noted to deejay R tibia- inferior to R knee (L)1.5cm x (W)1cm wound bed with 75 % slough ,scant purulent exudate.Full thickness wound deejay R tibia (L)12.8cm x (W)2.4 cm,wound has 100% mixed slough /necrosis. Full thickness wound dorsum R foot with 100% soft necrosis(L)8.7cm x (W)5.2cm .Dry eschar lateral and head of R 1st metatarsal (L)3.5cm x (W)1.7cm.Dry eschar R hallux (L) 2.5cm x (W) 2.8cm.Dry eschar noted to2nd through 5th metatarsals.Dry necrosis with yellow slough noted to lateral L tibia (L)17.5cm x (W)2.1cm. 100% necrosis dorso / flexor L foot (L)4.4cm x (W)3.7cm. 100% necrosis lateral L malleolus (L)2.7cm x (W)2.2cm. Necrosis noted to all five metatarsal heads on L foot.Full thickness wound L trochanteric with 90% mixed slough /necrosis (L)6.5cm x (W)7cm.Wound is malodorous. Full thickness wound L Ischium (L)9.3cm x (W)8cm wound with 100% mixed slough /necrosis and is malodorous. Full thickness sacral wound with slough /necrosis (L)14.5cm x (W)11cm x (D)2.4cm.Wound malodorous.Full thickness wound R trochanter (L)11cm x (W)8.4cm with 95% necrosis and is malodorous .Full thickness wound R ischium (L)5cm x (W02.5cm ,95% soft necrosis and erythema ,and is malodorous . all wounds present upon admission. will be cared for during hospital stay. no wounds with active infection some wounds will require debridement Plan: pressure release mattress turn q2h as per protocol elevate heels with pillows. heel protectors apply foam dressings to heels and dry necrotic eschar wounds gauze packing and dressing for sacral wound which will need debridement foam dressings to buttock wounds. appreciate podiatry input will discuss with wound care nurse and adjust orders prn (2) Sepsis Assessment & Plan: right subclavian line removed radiology placed femoral line temporary for venous access hopefully will be able to go without venous access and po meds upon discharge if needs IV access upon discharge will have to change venous line to midline. possibly left upper extremity if concerned about left femoral central venous catheter as etiology of bacteremia, okay to remove once a left upper extremity midline / PICC line placed. two physician consent signed. cannot find good left upper extremity vein need to remove TLC will have to change to tube meds and abx with dialysis thank you Tray Francis Mar 30, 2018 11:41
[2018-03-30 12:00] VITALS: BP 110/48
[2018-03-30] MEDS ORDERED: Amikacin 500 MG in NS 110 ML IV ONE (14:00)
--- NOTE | 2018-03-30 15:11 | Nephrology Progress Note ---
Assessment/Plan Plan m/p polymicrobial line sepsis. No veins for any central line. Asked to pull current TLC! MRSA Sepsis . Unknown etilogy! DW Dr. Prieto ID. Clered by ID for DC ESRD HD MWF Decubiti - Dr. Andrade consulted. VDRF -Per Pul. Severe Anemia --STEPHEN IV Venofer, transfuse PRN. Podiatry consulted. ISA Navarro. Continuing to hold his bed. Spoke to Minda @ [facility]. m/p can accept him tomorrow! Subjective Subjective Obtunded. Objective Objective Last 24 Hour Vital Signs Date Time Temp Pulse Resp B/P (MAP) Pulse Ox O2 Delivery O2 Flow Rate FiO2 03/30/18 13:20 62 21 30 03/30/18 12:00 97.9 63 18 110/48 (68) 100 97.9 03/30/18 12:00 62 03/30/18 11:50 61 23 30 03/30/18 08:47 62 93/41 03/30/18 08:42 60 22 30 03/30/18 08:00 Mechanical Ventilator 03/30/18 08:00 97.9 60 22 104/44 (64) 98 97.9 03/30/18 08:00 61 03/30/18 08:00 30 03/30/18 06:52 63 23 30 03/30/18 05:16 61 23 30 03/30/18 04:00 98.7 61 21 105/46 (65) 97 98.7 03/30/18 04:00 Mechanical Ventilator 03/30/18 04:00 30 03/30/18 04:00 60 03/30/18 03:18 63 20 30 03/30/18 01:30 68 27 30 03/30/18 00:00 66 03/30/18 00:00 30 03/30/18 00:00 Mechanical Ventilator 03/30/18 00:00 99.5 65 22 104/44 (64) 100 99.5 03/29/18 23:27 66 23 30 03/29/18 21:30 75 27 30 03/29/18 21:26 75 120/54 03/29/18 20:00 70 03/29/18 20:00 99.3 75 26 120/54 (76) 100 99.3 03/29/18 20:00 Mechanical Ventilator 03/29/18 20:00 30 03/29/18 19:30 71 20 30 03/29/18 17:26 71 22 30 03/29/18 17:12 68 03/29/18 16:00 Mechanical Ventilator 03/29/18 16:00 98.2 70 28 115/50 (71) 100 98.2 03/29/18 16:00 30 Intake and Output 03/29/18 03/30/18 19:00 07:00 Intake Total 900 ml 800 ml Output Total 100 ml Balance 800 ml 800 ml Intake Free Water 250 ml IV Total 250 ml 250 ml Tube Feeding 400 ml 450 ml Other 100 ml Stool Total 100 ml # Voids 1 # Bowel Movements 50 Laboratory Tests 03/29/18 21:20: White Blood Count 9.0, Red Blood Count 2.68L, Hemoglobin 7.9L, Hematocrit 23.1L , Mean Corpuscular Volume 86, Mean Corpuscular Hemoglobin 29.3, Mean Corpuscular Hemoglobin Concent 34.1, Red Cell Distribution Width 14.3, Platelet Count 107L, Mean Platelet Volume 6.3L, Neutrophils (%) (Auto) 71.5, Lymphocytes (%) (Auto) 18.1L, Monocytes (%) (Auto) 6.9, Eosinophils (%) (Auto) 2.6, Basophils (%) (Auto) 0.9, Sodium Level 134L, Potassium Level 3.8, Chloride Level 100, Carbon Dioxide Level 26, Anion Gap 8, Blood Urea Nitrogen 33H, Creatinine 2.5H, Estimat Glomerular Filtration Rate , Glucose Level 157H, Calcium Level 8.6, Total Bilirubin 0.7, Aspartate Amino Transf (AST/SGOT) 81H, Alanine Aminotransferase (ALT/SGPT) 48, Alkaline Phosphatase 692H, Total Protein 4.8L, Albumin 1.0L, Globulin 3.8, Albumin/Globulin Ratio 0.3L, Random Vancomycin Level 19.8 Height (Feet): 5 Height (Inches): 10.00 Weight (Pounds): 205 Objective Multiple decubiti noted and examined with nursing staff. Thw wounds are very deep! CV RR Trach site Ok. Lungs B ronchi. And SNT. BS +. PEG OK. E muscle wasting. Rt. arm contracture @ elbow. Rt. arm AVF + bruit. Neuro - alert + responsive. Nonverbal. Shechter,Pagiel MD Mar 30, 2018 15:11
[2018-03-30 16:00] VITALS: BP 125/50
[2018-03-30] MEDS ORDERED: NS 275ml ONE (16:30)
[2018-03-30 20:00] VITALS: BP 120/50
[2018-03-30] MEDS: Dyna-Hex 2% Top Sol 2oz TOPIC SCH (20:24)
[2018-03-30] MEDS: Ciprofloxacin 500mg tab ORAL SCH (20:25)
[2018-03-30] MEDS: Atorvastatin 20mg tab GT SCH (20:25)
[2018-03-31] VITALS: BP 110/48
[2018-03-31 04:39] VITALS: BP 133/52
[2018-03-31] MEDS: Renvela 800mg Pkt GT SCH ×2 (05:05→15:21)
[2018-03-31] MEDS: NovoLOG Insulin Flexpen SUBQ SCH ×2 (05:08→12:18)
[2018-03-31] MEDS ORDERED: Heparin Sod 1000 units/ml 10ml IV PRN ×3 (07:00→19:00)
[2018-03-31 08:00] VITALS: BP 141/63
[2018-03-31] MEDS: Amiodarone 200mg tab GT SCH (08:50)
[2018-03-31] MEDS: Lactobacillus-GG tablet GT SCH (08:51)
[2018-03-31] MEDS: Minocycline HCl 50mg cap ORAL SCH (08:51)
[2018-03-31] MEDS: Vitamin B Complex Tab GT SCH (08:51)
[2018-03-31] MEDS: Nephrovite tab (Rena-Vite) ORAL SCH (08:51)
[2018-03-31] MEDS: Betadine 10% Oint 30gm TOPIC SCH (08:51)
[2018-03-31] MEDS: Zinc Sulfate 220mg cap GT SCH (08:51)
[2018-03-31] MEDS: Labetalol 200mg tab ORAL SCH (08:52)
--- NOTE | 2018-03-31 08:57 | Pulmonology Progress Note ---
Assessment/Plan Assessment/Plan IMPRESSION: 1. Respiratory failure. 2. Profound anemia, status post transfusion. 3. Chronic respiratory failure. 4. Severe protein-calorie malnutrition. 5. CVA. 6. Anoxia. 7. Underlying sepsis. 8. pulmonary edema 9. possible pneumonia 10. pleural effusion 11. bacteremia MDR PLAN exam reviewed and stable care noted and same overnight IV antibiotics noted respiratory care reviewed vent reviewed as is; RT care noted no wean at present; full support Ventilatory support - full on AC SNF meds supportive care suction and monitor; intervene as needed keep negative and monitor imaging- overall better prognosis overall poor impression, plan, and exam edited and reviewed in detail care discussed with RN Subjective ROS Limited/Unobtainable: Yes Allergies: Coded Allergies: No Known Allergies (Unverified , 03/18/18) Subjective on vent poorly responsive care reviewed and discussed imaging noted and reviewed cultures noted Objective Last 24 Hour Vital Signs Date Time Temp Pulse Resp B/P (MAP) Pulse Ox O2 Delivery O2 Flow Rate FiO2 03/31/18 08:52 72 141/63 03/31/18 08:47 71 22 30 03/31/18 08:47 66 03/31/18 07:20 74 28 30 03/31/18 05:00 71 24 30 03/31/18 04:39 97.7 65 21 133/52 (79) 99 97.7 03/31/18 04:00 30 03/31/18 04:00 Mechanical Ventilator 03/31/18 04:00 66 03/31/18 03:06 65 21 30 03/31/18 01:00 66 27 30 03/31/18 00:00 73 03/31/18 00:00 97.9 66 21 110/48 (68) 99 97.9 03/31/18 00:00 Mechanical Ventilator 03/31/18 00:00 30 03/30/18 23:18 70 28 30 03/30/18 21:00 70 109/68 03/30/18 20:45 67 25 30 03/30/18 20:00 98.5 70 21 120/50 (73) 100 98.5 03/30/18 20:00 30 03/30/18 20:00 Mechanical Ventilator 03/30/18 20:00 69 03/30/18 18:50 68 25 30 03/30/18 16:30 63 22 30 03/30/18 16:00 Mechanical Ventilator 03/30/18 16:00 30 03/30/18 16:00 97.9 60 20 125/50 (75) 100 97.9 03/30/18 16:00 61 03/30/18 14:40 61 25 30 03/30/18 13:20 62 21 30 03/30/18 12:00 97.9 63 18 110/48 (68) 100 97.9 03/30/18 12:00 62 03/30/18 12:00 30 03/30/18 12:00 Mechanical Ventilator 03/30/18 11:50 61 23 30 Intake and Output 03/30/18 03/31/18 19:00 07:00 Intake Total 562 ml 650 ml Output Total 100 ml 50 ml Balance 462 ml 600 ml Intake Free Water 100 ml 50 ml IV Total 112 ml Tube Feeding 350 ml 600 ml Stool Total 100 ml 50 ml # Voids 1 Objective GENERAL: A well-developed male, chronically ill appearing. male, reduced LOC HEENT: Overall negative. NECK: Supple. Tracheostomy is in midline. Carotids 2+. LUNGS: With scattered rhonchi. Crackles at both bases. CARDIAC: S1, S2. Regular rate and rhythm without murmurs, rubs, or gallops. ABDOMEN: Soft, nontender. G-tube in place. No hepatosplenomegaly. EXTREMITIES: Chronic contractures noted. Notable for significant edema. NEUROLOGIC: The patient is obtunded Current Medications Medications (Trade) Dose Ordered Sig/Marques Route PRN Reason Start Time Stop Time Status Last Admin Dose Admin Acetaminophen (Tylenol) 650 mg Q4H PRN GT Mild Pain/Temp > 100.5 03/18/18 21:00 04/17/18 20:59 03/28/18 11:38 Amikacin Protocol (Amikacin pharmacy to dose) 1 ea DAILY PRN MISC Per rx protocol 03/29/18 16:00 04/28/18 15:59 Amiodarone HCl (Cordarone) 200 mg EVERY 12 HOURS GT 03/18/18 23:00 04/17/18 22:59 03/31/18 08:50 Ampicillin (Ampicillin) 1,000 mg Q24H ORAL 03/29/18 21:00 04/05/18 20:59 03/30/18 20:24 Atorvastatin Calcium (Lipitor) 20 mg BEDTIME GT 03/27/18 21:00 04/17/18 22:59 03/30/18 20:25 Chlorhexidine Gluconate (Linda-Hex 2%) 1 applic DAILY@2000 TOPIC 03/20/18 20:00 04/19/18 19:59 03/30/18 20:24 Ciprofloxacin (Cipro 500mg tab) 500 mg Q24H ORAL 03/29/18 21:00 04/05/18 20:59 03/30/18 20:25 Dextrose (Dextrose 50%) 25 ml Q30M PRN IV Hypoglycemia 03/18/18 22:30 04/17/18 22:29 Dextrose (Dextrose 50%) 50 ml Q30M PRN IV Hypoglycemia 03/18/18 22:30 04/17/18 22:29 Epoetin Pawel (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)) 10,000 units TUE-TUE-TUE SUBQ 03/20/18 21:00 04/19/18 20:59 03/29/18 21:25 Heparin Sodium (Porcine) (Heparin Sod 1000 units/ml 10ml) 2,000 unit ONCE PRN IV DIALYSIS 03/31/18 07:00 03/31/18 23:59 Insulin Aspart (NovoLOG) Q6HR SUBQ 03/19/18 00:00 04/18/18 00:00 03/31/18 05:08 Labetalol HCl (Normodyne) 200 mg Q12HR ORAL 03/24/18 21:00 04/23/18 20:59 03/29/18 21:26 Lactobacillus Acidophilus (Culturelle) 4 tab DAILY GT 03/19/18 09:00 04/18/18 08:59 03/31/18 08:51 Magnesium Hydroxide (Mom) 10 ml DAILY PRN GT Constipation 03/18/18 22:30 04/17/18 22:29 Minocycline HCl (Minocin) 100 mg Q12HR ORAL 03/29/18 21:00 04/05/18 20:59 03/31/18 08:51 Povidone Iodine (Betadine Oint) 1 applic DAILY TOPIC 03/22/18 09:27 04/21/18 09:26 03/31/18 08:51 Sevelamer Carbonate (Renvela) 800 mg Q8HR GT 03/18/18 23:00 04/17/18 22:59 03/31/18 05:05 Sodium Hypochlorite (Dakin's Quarter Strength) 1 applic DAILY TOPIC 03/21/18 10:51 04/20/18 10:50 03/30/18 08:48 Sodium Chloride 1,000 ml @ 500 mls/hr Q2H PRN IVLG sbp<90 during hd 03/31/18 15:11 04/30/18 15:10 Vancomycin HCl (Vanco rx to dose) 1 ea DAILY PRN MISC Per rx protocol 03/25/18 14:45 04/24/18 14:44 Vitamin B Complex (Vitamin B Complex) 1 tab DAILY GT 03/19/18 09:00 04/18/18 08:59 03/31/18 08:51 Vitamin B Complex/ Vit C/Folic Acid (Nephrovite) 1 tab DAILY ORAL 03/20/18 09:31 04/19/18 09:30 03/31/18 08:51 Zinc Sulfate (Zinc Sulfate) 220 mg DAILY GT 03/19/18 09:00 04/18/18 08:59 03/31/18 08:51 Rogelio Chiu MD Mar 31, 2018 08:57
[2018-03-31] MEDS: Dakin's 0.125% Soln (Quarter Strength) 16oz TOPIC SCH (10:39)
[2018-03-31 12:00] VITALS: BP 149/53
--- NOTE | 2018-03-31 13:59 | Nephrology Progress Note ---
Assessment/Plan Plan m/p polymicrobial line sepsis. No veins for any central line. MRSA Sepsis . Unknown etilogy! ISA Prieto ID. Clered by ID for DC ESRD HD MWF done Decubiti - Dr. Andrade consulted. VDRF -Per Pul. Severe Anemia --STEPHEN IV Venofer, transfuse PRN. Podiatry consulted. ISA Navarro. Continuing to hold his bed. Awaiting DC today. Spoke to Minda @ [place]. m/p can accept him tomorrow! Subjective Subjective Obtunded. Objective Objective Last 24 Hour Vital Signs Date Time Temp Pulse Resp B/P (MAP) Pulse Ox O2 Delivery O2 Flow Rate FiO2 03/31/18 13:40 71 03/31/18 12:31 79 27 30 03/31/18 10:36 80 26 30 03/31/18 08:52 72 141/63 03/31/18 08:47 71 22 30 03/31/18 08:47 66 03/31/18 08:00 30 03/31/18 08:00 97.9 72 20 141/63 (89) 100 97.9 03/31/18 08:00 Mechanical Ventilator 03/31/18 07:20 74 28 30 03/31/18 05:00 71 24 30 03/31/18 04:39 97.7 65 21 133/52 (79) 99 97.7 03/31/18 04:00 30 03/31/18 04:00 Mechanical Ventilator 03/31/18 04:00 66 03/31/18 03:06 65 21 30 03/31/18 01:00 66 27 30 03/31/18 00:00 73 03/31/18 00:00 97.9 66 21 110/48 (68) 99 97.9 03/31/18 00:00 Mechanical Ventilator 03/31/18 00:00 30 03/30/18 23:18 70 28 30 03/30/18 21:00 70 109/68 03/30/18 20:45 67 25 30 03/30/18 20:00 98.5 70 21 120/50 (73) 100 98.5 03/30/18 20:00 30 03/30/18 20:00 Mechanical Ventilator 03/30/18 20:00 69 03/30/18 18:50 68 25 30 03/30/18 16:30 63 22 30 03/30/18 16:00 Mechanical Ventilator 03/30/18 16:00 30 03/30/18 16:00 97.9 60 20 125/50 (75) 100 97.9 03/30/18 16:00 61 03/30/18 14:40 61 25 30 Intake and Output 03/30/18 03/31/18 19:00 07:00 Intake Total 562 ml 650 ml Output Total 100 ml 50 ml Balance 462 ml 600 ml Intake Free Water 100 ml 50 ml IV Total 112 ml Tube Feeding 350 ml 600 ml Stool Total 100 ml 50 ml # Voids 1 Height (Feet): 5 Height (Inches): 10.00 Weight (Pounds): 205 Objective Multiple decubiti noted and examined with nursing staff. Thw wounds are very deep! CV RR Trach site Ok. Lungs B ronchi. And SNT. BS +. PEG OK. E muscle wasting. Rt. arm contracture @ elbow. Rt. arm AVF + bruit. Neuro - alert + responsive. Nonverbal. Dilip Conner MD Mar 31, 2018 13:59
--- NOTE | 2018-03-31 14:37 | General Surgery Progress Note ---
General Surgery-Progress Note Subjective Additional Comments no acute events. stable. Objective Last 24 Hour Vital Signs Date Time Temp Pulse Resp B/P (MAP) Pulse Ox O2 Delivery O2 Flow Rate FiO2 03/31/18 13:40 71 03/31/18 12:31 79 27 30 03/31/18 10:36 80 26 30 03/31/18 08:52 72 141/63 03/31/18 08:47 71 22 30 03/31/18 08:47 66 03/31/18 08:00 30 03/31/18 08:00 97.9 72 20 141/63 (89) 100 97.9 03/31/18 08:00 Mechanical Ventilator 03/31/18 07:20 74 28 30 03/31/18 05:00 71 24 30 03/31/18 04:39 97.7 65 21 133/52 (79) 99 97.7 03/31/18 04:00 30 03/31/18 04:00 Mechanical Ventilator 03/31/18 04:00 66 03/31/18 03:06 65 21 30 03/31/18 01:00 66 27 30 03/31/18 00:00 73 03/31/18 00:00 97.9 66 21 110/48 (68) 99 97.9 03/31/18 00:00 Mechanical Ventilator 03/31/18 00:00 30 03/30/18 23:18 70 28 30 03/30/18 21:00 70 109/68 03/30/18 20:45 67 25 30 03/30/18 20:00 98.5 70 21 120/50 (73) 100 98.5 03/30/18 20:00 30 03/30/18 20:00 Mechanical Ventilator 03/30/18 20:00 69 03/30/18 18:50 68 25 30 03/30/18 16:30 63 22 30 03/30/18 16:00 Mechanical Ventilator 03/30/18 16:00 30 03/30/18 16:00 97.9 60 20 125/50 (75) 100 97.9 03/30/18 16:00 61 03/30/18 14:40 61 25 30 I&O Intake and Output 03/30/18 03/31/18 19:00 07:00 Intake Total 562 ml 650 ml Output Total 100 ml 50 ml Balance 462 ml 600 ml Intake Free Water 100 ml 50 ml IV Total 112 ml Tube Feeding 350 ml 600 ml Stool Total 100 ml 50 ml # Voids 1 Dressing: other Wound: other Drains: other Cardiovascular: RSR Respiratory: clear Abdomen: soft, distended, present bowel sounds Extremities: other Plan Problems: (1) Decubitus ulcer of sacral region, stage 4 Assessment & Plan: Unstageable right lower buttock ulcer; large; no active drainage, no foul odor, macerated edges, eschar cap noted Unstageable right inner buttock ulcer; large; no active drainage, no foul odor, macerated edges, necrotic soft eschar cap noted Stage 4 full thickness sacral decubitus ulcer with necrotic / fibrinous tissue noted, macerated edges, bleeding at edges, serous drainage, no odor Unstageable left buttock ulcer; large; no active drainage, no foul odor, macerated edges, eschar w/ debris noted Left heel with large unstageable necrotic eschar cap Left leg with large unstageable necrotic eschar cap left foot with anterior unstageable necrotic eschar cap left leg with large linear wound with necrotic eschar right ankle with large necrotic eschar cap right heel with large necortic eschar cap Maroon indurated area in close proximity Trachea(L)4.8cm x (W)3.5cm ,multiple full thickness wounds with necrosis R and L upper ext including metacarpals of both hands .Scattered full thickness wounds across abd. Largest of which is to R abd (L)6.3cm x (W)2.5cm with loose slough and erythema .Full thickness ulcer noted to deejay R tibia- inferior to R knee (L)1.5cm x (W)1cm wound bed with 75 % slough ,scant purulent exudate.Full thickness wound deejay R tibia (L)12.8cm x (W)2.4 cm,wound has 100% mixed slough /necrosis. Full thickness wound dorsum R foot with 100% soft necrosis(L)8.7cm x (W)5.2cm .Dry eschar lateral and head of R 1st metatarsal (L)3.5cm x (W)1.7cm.Dry eschar R hallux (L) 2.5cm x (W) 2.8cm.Dry eschar noted to2nd through 5th metatarsals.Dry necrosis with yellow slough noted to lateral L tibia (L)17.5cm x (W)2.1cm. 100% necrosis dorso / flexor L foot (L)4.4cm x (W)3.7cm. 100% necrosis lateral L malleolus (L)2.7cm x (W)2.2cm. Necrosis noted to all five metatarsal heads on L foot.Full thickness wound L trochanteric with 90% mixed slough /necrosis (L)6.5cm x (W)7cm.Wound is malodorous. Full thickness wound L Ischium (L)9.3cm x (W)8cm wound with 100% mixed slough /necrosis and is malodorous. Full thickness sacral wound with slough /necrosis (L)14.5cm x (W)11cm x (D)2.4cm.Wound malodorous.Full thickness wound R trochanter (L)11cm x (W)8.4cm with 95% necrosis and is malodorous .Full thickness wound R ischium (L)5cm x (W02.5cm ,95% soft necrosis and erythema ,and is malodorous . all wounds present upon admission. will be cared for during hospital stay. no wounds with active infection some wounds will require debridement Plan: pressure release mattress turn q2h as per protocol elevate heels with pillows. heel protectors apply foam dressings to heels and dry necrotic eschar wounds gauze packing and dressing for sacral wound which will need debridement foam dressings to buttock wounds. appreciate podiatry input will discuss with wound care nurse and adjust orders prn (2) Sepsis Assessment & Plan: right subclavian line removed radiology placed femoral line temporary for venous access hopefully will be able to go without venous access and po meds upon discharge if needs IV access upon discharge will have to change venous line to midline. possibly left upper extremity. lines gone. d/c planning if needs line in future will be difficult and will need re-evaluation. will have to change to tube meds and abx with dialysis thank you for allowing me to participate in patients care Tray Francis Mar 31, 2018 14:37
[2018-03-31 16:00] VITALS: BP 128/49
--- NOTE | 2018-03-31 17:21 | Infectious Diseases Prog Note ---
Assessment/Plan Assessment/Plan ASSESSMENT AND PLAN: 1. sepsis, mrsa/guide delegate bacteremia and likely femoral line infection hx klebsiella (kpc)/proteus/acinetobacter/vre bacteremia/line infection psuedomonas/acinetobacter pna leukocytosis, fevers, multiple wounds - ? infected gram neg uti no iv access, cannot place picc line, femoral line removed because of bacteremia - amikacin iv with HD and po cipro/ampicillin/minocycline x 1 week - iv vancomycin with dialysis for 3 weeks to treat mrsa bacteremia - antibiotics not optimal but limited options with no iv access, sensitivities reviewed - lines removed - monitor labs and chest x-ray, f/u on surveillance blood cultures - f/u on urine culture - wound care and debridement if needed per surgery - surveillance blood cultures - negative so far - TTE - no vegetation mentioned - d/w with Dr. Conner at [facility] - d/w RN about discharge antibiotic mgt 2. The patient has history of cerebrovascular accident and questionable history of hypertension and arrhythmia. 3. Vent respiratory failure, chf 4. Dysphagia, G-tube. 5. End-stage renal disease - getting hd, has shunt 6. Diabetes - Diabetes treatment per primary. 7. Anemia. 8. The patient is on amiodarone. 9. Schizophrenia. 10. Possible hyperlipidemia. 11. No known allergies. 12. Social history is negative. 13. MAR was noted. 14. Case was discussed with RN. 15. Family history is noncontributory. 16. Step-down unit care. 17. Vent care. 18. Continue treatment per primary consultants. 19. Notes and records were noted. 20. Orders were entered. 21. elevated AP noted- abdominal US with cholelithiasis but no ductal dilatation , monitor per primary Subjective Constitutional: Reports: other - + trach and vent ; Denies: fever HEENT: Reports: congestion Respiratory: Reports: shortness of breath Cardiovascular: Denies: chest pain Gastrointestinal/Abdominal: Reports: diarrhea - + rectal tube ; Denies: nausea , vomiting Neurologic: Reports: weakness, other - lethargic Psychiatric: Reports: other - na Skin: Reports: other - wounds covered Endocrine: Reports: other - na Hematologic: Denies: bleeding Musculoskeletal: Reports: other - na Allergies: Coded Allergies: No Known Allergies (Unverified , 03/18/18) Objective Vital Signs Last 24 Hour Vital Signs Date Time Temp Pulse Resp B/P (MAP) Pulse Ox O2 Delivery O2 Flow Rate FiO2 03/31/18 16:34 75 23 30 03/31/18 16:34 72 03/31/18 16:00 Mechanical Ventilator 03/31/18 16:00 98.1 74 24 128/49 (75) 100 98.1 03/31/18 16:00 30 03/31/18 14:51 76 27 30 03/31/18 13:40 71 03/31/18 12:31 79 27 30 03/31/18 12:00 Mechanical Ventilator 03/31/18 12:00 98.1 72 22 149/53 (85) 100 98.1 03/31/18 12:00 30 03/31/18 10:36 80 26 30 03/31/18 08:52 72 141/63 03/31/18 08:47 71 22 30 03/31/18 08:47 66 03/31/18 08:00 30 03/31/18 08:00 97.9 72 20 141/63 (89) 100 97.9 03/31/18 08:00 Mechanical Ventilator 03/31/18 07:20 74 28 30 03/31/18 05:00 71 24 30 03/31/18 04:39 97.7 65 21 133/52 (79) 99 97.7 03/31/18 04:00 30 03/31/18 04:00 Mechanical Ventilator 03/31/18 04:00 66 03/31/18 03:06 65 21 30 03/31/18 01:00 66 27 30 03/31/18 00:00 73 03/31/18 00:00 97.9 66 21 110/48 (68) 99 97.9 03/31/18 00:00 Mechanical Ventilator 03/31/18 00:00 30 03/30/18 23:18 70 28 30 03/30/18 21:00 70 109/68 03/30/18 20:45 67 25 30 03/30/18 20:00 98.5 70 21 120/50 (73) 100 98.5 03/30/18 20:00 30 03/30/18 20:00 Mechanical Ventilator 03/30/18 20:00 69 03/30/18 18:50 68 25 30 Height (Feet): 5 Height (Inches): 10.00 Weight (Pounds): 205 General Appearance: other - + trach and vent HEENT: normocephalic, atraumatic, anicteric, no JVD, status post trach Respiratory/Chest: crackles/rales, rhonchi - bilaterally Cardiovascular: normal rate, regular rhythm, no gallop/murmur, no JVD Abdomen: normal bowel sounds, soft, non tender, no organomegaly, non distended Genitourinary: other - no davidson Extremities: other - wounds covered, no cellulitis Skin: ulcers - wounds covered Neurologic/Psychiatric: motor weakness, other - lethargic and poorly responsive Lymphatic: no neck adenopathy Musculoskeletal: no effusion Objective 03/20 - chest -ray - Comparison: 03/18/2018 Findings: Bilateral pleural effusions, mid and lower lung hazy opacities, interstitial congestive changes are probably not significantly changed allowing for differences in exposure technique. Right axillary stent, right subclavian central venous catheter, tracheostomy remain. Heart size is upper limits normal. Impression: Unchanged, over 2 days, findings as above. 03/23 - chest x-ray - Findings: Interstitial edema suspected with bilateral pleural effusions and cardiomegaly. Tracheostomy again noted. IMPRESSION: Pulmonary edema Chest x-ray - 03/25 - FINDINGS: Single frontal view demonstrates partial the visualized tracheostomy tube. Stable right axillary stent. The left chest is not fully imaged. Continued demonstration opacity in bilateral mid to lower lung zones. Atherosclerotic vascular disease. IMPRESSION: No significant change. Tubes as outlined above. Stable patchy opacity in bilateral mid to lower lung zones. Chest x-ray - 03/28/18 - A single view chest radiograph was obtained. Findings: There is evidence of a right pleural effusion and a probable left effusion. Pulmonary edema is present but appears slightly improved since the prior occasion. Tracheostomy is again noted. Heart is enlarged. IMPRESSION: Pulmonary edema with improvement from the prior study. Suggestion of bilateral pleural effusions. Microbiology Date/Time Source Procedure Growth Status 03/25/18 16:55 Blood Blood Culture - Final NO GROWTH AFTER 5 DAYS Complete 03/19/18 11:30 Sputum Induced Gram Stain - Final Complete 03/19/18 11:30 Sputum Culture - Final A.baumanii Complx - Mdr Pseudomonas Aeruginosa Complete 03/20/18 16:00 Stool Clostridium difficile Toxin Assay - Final Complete 03/27/18 23:15 Urine,Clean Catch Urine Culture - Preliminary K.pneumoniae Carbapenem Resist Providencia Stuartii Ally Tropicalis Resulted 03/21/18 17:30 Catheter Site Catheter Tip Culture - Final NO GROWTH AFTER 4 DAYS Complete Labs Test 03/29/18 21:20 White Blood Count 9.0 K/UL (4.8-10.8) Red Blood Count 2.68 M/UL (4.70-6.10) Hemoglobin 7.9 G/DL (14.2-18.0) Hematocrit 23.1 % (42.0-52.0) Mean Corpuscular Volume 86 FL (80-99) Mean Corpuscular Hemoglobin 29.3 PG (27.0-31.0) Mean Corpuscular Hemoglobin Concent 34.1 G/DL (32.0-36.0) Red Cell Distribution Width 14.3 % (11.6-14.8) Platelet Count 107 K/UL (150-450) Mean Platelet Volume 6.3 FL (6.5-10.1) Neutrophils (%) (Auto) 71.5 % (45.0-75.0) Lymphocytes (%) (Auto) 18.1 % (20.0-45.0) Monocytes (%) (Auto) 6.9 % (1.0-10.0) Eosinophils (%) (Auto) 2.6 % (0.0-3.0) Basophils (%) (Auto) 0.9 % (0.0-2.0) Sodium Level 134 MMOL/L (136-145) Potassium Level 3.8 MMOL/L (3.5-5.1) Chloride Level 100 MMOL/L (98-107) Carbon Dioxide Level 26 MMOL/L (21-32) Anion Gap 8 mmol/L (5-15) Blood Urea Nitrogen 33 mg/dL (7-18) Creatinine 2.5 MG/DL (0.55-1.30) Estimat Glomerular Filtration Rate mL/min (>60) Glucose Level 157 MG/DL (74-106) Calcium Level 8.6 MG/DL (8.5-10.1) Total Bilirubin 0.7 MG/DL (0.2-1.0) Aspartate Amino Transf (AST/SGOT) 81 U/L (15-37) Alanine Aminotransferase (ALT/SGPT) 48 U/L (12-78) Alkaline Phosphatase 692 U/L (46-116) Total Protein 4.8 G/DL (6.4-8.2) Albumin 1.0 G/DL (3.4-5.0) Globulin 3.8 g/dL Albumin/Globulin Ratio 0.3 (1.0-2.7) Random Vancomycin Level 19.8 ug/mL Current Medications Medications (Trade) Dose Ordered Sig/Marques Route PRN Reason Start Time Stop Time Status Last Admin Dose Admin Acetaminophen (Tylenol) 650 mg Q4H PRN GT Mild Pain/Temp > 100.5 03/18/18 21:00 04/17/18 20:59 03/28/18 11:38 Amikacin Protocol (Amikacin pharmacy to dose) 1 ea DAILY PRN MISC Per rx protocol 03/29/18 16:00 04/28/18 15:59 Amiodarone HCl (Cordarone) 200 mg EVERY 12 HOURS GT 03/18/18 23:00 04/17/18 22:59 03/31/18 08:50 Ampicillin (Ampicillin) 1,000 mg Q24H ORAL 03/29/18 21:00 04/05/18 20:59 03/30/18 20:24 Atorvastatin Calcium (Lipitor) 20 mg BEDTIME GT 03/27/18 21:00 04/17/18 22:59 03/30/18 20:25 Chlorhexidine Gluconate (Linad-Hex 2%) 1 applic DAILY@2000 TOPIC 03/20/18 20:00 04/19/18 19:59 03/30/18 20:24 Ciprofloxacin (Cipro 500mg tab) 500 mg Q24H ORAL 03/29/18 21:00 04/05/18 20:59 03/30/18 20:25 Dextrose (Dextrose 50%) 25 ml Q30M PRN IV Hypoglycemia 03/18/18 22:30 04/17/18 22:29 Dextrose (Dextrose 50%) 50 ml Q30M PRN IV Hypoglycemia 03/18/18 22:30 04/17/18 22:29 Epoetin Pawel (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)) 10,000 units MON-WED-TUE SUBQ 03/20/18 21:00 04/19/18 20:59 03/29/18 21:25 Heparin Sodium (Porcine) (Heparin Sod 1000 units/ml 10ml) 2,000 unit ONCE PRN IV DIALYSIS 03/31/18 07:00 03/31/18 23:59 Insulin Aspart (NovoLOG) Q6HR SUBQ 03/19/18 00:00 04/18/18 00:00 03/31/18 12:18 Labetalol HCl (Normodyne) 200 mg Q12HR ORAL 03/24/18 21:00 04/23/18 20:59 03/29/18 21:26 Lactobacillus Acidophilus (Culturelle) 4 tab DAILY GT 03/19/18 09:00 04/18/18 08:59 03/31/18 08:51 Magnesium Hydroxide (Mom) 10 ml DAILY PRN GT Constipation 03/18/18 22:30 04/17/18 22:29 Minocycline HCl (Minocin) 100 mg Q12HR ORAL 03/29/18 21:00 04/05/18 20:59 03/31/18 08:51 Povidone Iodine (Betadine Oint) 1 applic DAILY TOPIC 03/22/18 09:27 04/21/18 09:26 03/31/18 08:51 Sevelamer Carbonate (Renvela) 800 mg Q8HR GT 03/18/18 23:00 04/17/18 22:59 03/31/18 15:21 Sodium Hypochlorite (Dakin's Quarter Strength) 1 applic DAILY TOPIC 03/21/18 10:51 04/20/18 10:50 03/31/18 10:39 Sodium Chloride 1,000 ml @ 500 mls/hr Q2H PRN IVLG sbp<90 during hd 03/31/18 15:11 04/30/18 15:10 Vancomycin HCl (Vanco rx to dose) 1 ea DAILY PRN MISC Per rx protocol 03/25/18 14:45 04/24/18 14:44 Vitamin B Complex (Vitamin B Complex) 1 tab DAILY GT 03/19/18 09:00 04/18/18 08:59 03/31/18 08:51 Vitamin B Complex/ Vit C/Folic Acid (Nephrovite) 1 tab DAILY ORAL 03/20/18 09:31 04/19/18 09:30 03/31/18 08:51 Zinc Sulfate (Zinc Sulfate) 220 mg DAILY GT 03/19/18 09:00 04/18/18 08:59 03/31/18 08:51 Alkasspooles,Salam MD Mar 31, 2018 17:21
[2018-03-31] MEDS ORDERED: NS 275ml ONE (19:09)
[2018-03-31] MEDS ORDERED: NS Irrig 1000ml ONE (19:09)
[2018-03-31] MEDS ORDERED: Tubing IV Secondary IV ONE (19:09)
--- NOTE | 2018-04-02 10:28 | Discharge Summary ---
Discharge Summary Discharge Summary _ DATE OF ADMISSION: 03/10/2018 DATE OF DISCHARGE: 03/31/2018 REASON FOR ADMISSION: 77 years old male resident of subacute [facility] facility, with past medical history of ventilator dependent respiratory failure, tracheostomy status , anoxic encephalopathy following CVA, end-stage renal disease secondary to type 2 diabetes mellitus , on hemodialysis, dysphagia, G-tube feeding, anemia of chronic kidney disease, schizophrenia, multiply decubitus ulcers, presented for evaluation of anemia and probable sepsis . Patient supposed to have dialysis , however was found to be extremely anemic and septic and was subsequently re-routef to emergency room for further management. Patient un-represented : with no family or DURABLE POWER OF MANAGER OF TAX present. Vital signs reveal evidence of tachypnea and low blood pressure. Blood pressure responded to IV bolus. Patient was afebrile. Laboratory workup revealed leukocytosis with WBC 16.2. Hemoglobin 6.7. Hematocrit 21.6. Platelets 59. INR 1.1. BUN 71, creatinine 2.2, consistent with end-stage renal disease. Troponin negative. EKG revealed normal sinus rhythm,, no acute ischemic changes. Lactic acid within normal limits 1.6. Pro BNP over 35,000. Chest x-ray showed large base opacity, likely a combination of pleural fluid and atelectasis/consolidation. Vascular congestion. Patient admitted with diagnoses of suspected line sepsis most likely related to patient's central line, multifactorial anemia mainly of chronic kidney disease,exacerbated by recurrent septicemia, ventilator dependent respiratory failure , anoxic encephalopathy following CVA, end-stage renal failure secondary to type 2 diabetes mellitus, on hemodialysis, dysphagia, status post G-tube, history of schizophrenia, multiply decubitus ulcers present on admission. CONSULTANTS: pulmonary Dr. Apple CONNELL specialist Dr. Quintero surgery Dr. Andrews Vascular surgeon dr Hernandez digital artist [facility] COURSE: Patient started on broad-spectrum antibiotics. Infectious disease specialist closely followed. Existing right subclavian line was disconnected. Blood culture initially revealed Acinetobacter MDR, Proteus, KPC and VRE. Stool for C. difficile was negative. Urine culture was positive for Ally. Sputum culture was positive for Acinetobacter MDR, Pseudomonas. Antibiotic regimen was optimized as per infectious disease recommendation. Catheter tip culture was negative. Repeated blood culture on March 22 , were positive for Staph epidermidis MRSA and Staph hemolyticus. Repeated blood culture on were positive for Staph epidermidis, and Acinetobacter MDR. Finally, blood culture on were all negative. Repeated urine culture revealed KPC , Providencia and Ally. Transesophageal echocardiogram revealed no evidence of vegetation. It demonstrated left ventricular ejection fraction of 50% and right ventricular systolic pressure of 41, consistent with a mild pulmonary hypertension. Infectious disease doctor recommended continue treatment with IV vancomycin for MRSA bacteremia during hemodialysis and oral antibiotic with Cipro , ampicillin and minocycline for 1 week. Ventilator support and pulmonary toilet provided. Patient was on full ventilator support with AC mode. Baseline ABG was stable on current settings. Paper And Prints Restorer closely followed. Pulmonary hygiene provided meticulously, including suctioning as needed, Patient was clsoely monitored. No weaning. Patient was followed with CXR . Last CXR demonstrated improvement in pulmonary edema. Hemodialysis was provided with close monitoring of volumes, renal parameters and electrolytes. Electrolytes corrected as needed. Patient with evidence of profound anemia. Patient was transfused with packed red blood cells during hemodialysis. Prior to discharge hemoglobin 7.9, hematocrit 23.1. Platelet count 108. LFT were closely monitored, some trend down, Abdominal ultrasound revealed cholelithiasis, but negative for dilated ducts. Echogenic bilateral kidneys consistent with medical renal disease. No hydronephrosis. Strict aspiration precautions were maintained. Tube feeding provided via G-tube with close monitoring of feeding tolerance. G-tube site care provided. Patient was able to tolerate tube feeding. Dietary supplements provided as per patternmaker pressure cast recommendations . Patient was multiply decubitus ulcers, present on admission , including stage IV sacral decubitus, un-stageable right lower buttock decubitus, un-stageable right inner buttock decubitus, as well as multiple bilateral leg, heels, ankle and feet wounds. Wound care provided as per surgeon recommendation. No evidence of active infection. Front End Driver closely followed. No surgical intervention was indicated as per digital artist. If lower extremity condition worsened, patient will need below or above knee amputation. Vascular surgeon closely followed. Patient with evidence of calcific peripheral arterial disease , multiply decubitus ulcers, encephalopathic, anoxic, comatose. Vascular surgeon recommended supportive care , concluding that patient had poor ,overall terminal prognosis. All consultants agree that overall prognosis was poor. Patient was transferred to subacute facility to complete antibiotic course as recommended by ID specialist. FINAL DIAGNOSES: Sepsis with polymicrobial bacteremia likely due to line infection MRSA bacteremia Klebsiella pneumonia Carbapenem resistant,( KPC) , Acinetobacter MDR ,VRE bacteremia/line infection Pseudomonas/Acinetobacter pneumonia Providencia, KPC UTI Respiratory failure with ventilator dependency and tracheostomy status Pulmonary edema - improved End-stage renal disease on hemodialysis, Calcific PAD Multiple decubitus ulcers present on admission, including sacral decub stage IV, bilateral leg, heel, ankle ,and feet ulcers Profound anemia, requiring blood transfusion Anemia of chronic kidney disease Dysphagia, G tube Anoxic encephalopathy History of CVA Severe protein calorie malnutrition History of smoking DISCHARGE MEDICATIONS: See Medication Reconciliation list. DISCHARGE INSTRUCTIONS: Patient was discharged to acute [facility] facility. Follow up with medical doctor and plodding operator at the facility. Overall prognosis poor I have been assigned to dictate discharge summary for this account. I was not involved in the patient's management. Brenna Angel NP Apr 02, 2018 10:28
== END 2018-03-31 19:10 | DRG 314 ==
LOC: EDBD 15:01 → EMR 15:37 → 2W 15:40 → EDBEDREQ 18:11 → 2W 19:35
PROC: 5A1D70Z Performance of Urinary Filtration, Intermittent, Less than 6 Hours Per Day (ICD-10-PCS; principal; 2018-03-18)
PROC: 30233N1 Transfusion of Nonautologous Red Blood Cells into Peripheral Vein, Percutaneous Approach (ICD-10-PCS; principal; 2018-03-18)
PROC: 5A1955Z Respiratory Ventilation, Greater than 96 Consecutive Hours (ICD-10-PCS; principal; 2018-03-18)
PROC: 06HN33Z Insertion of Infusion Device into Left Femoral Vein, Percutaneous Approach (ICD-10-PCS; 2018-03-21)
DX: T80.211A Bloodstream infection due to central venous catheter, initial encounter (principal); L89.154 Pressure ulcer of sacral region, stage 4; A41.02 Sepsis due to Methicillin resistant Staphylococcus aureus; N18.6 End stage renal disease; J15.1 Pneumonia due to Pseudomonas; E43 Unspecified severe protein-calorie malnutrition; N39.0 Urinary tract infection, site not specified; J96.10 Chronic respiratory failure, unspecified whether with hypoxia or hypercapnia; Z99.11 Dependence on respirator [ventilator] status; G93.1 Anoxic brain damage, not elsewhere classified; I12.0 Hypertensive chronic kidney disease with stage 5 chronic kidney disease or end stage renal disease; R40.3 Persistent vegetative state; J90 Pleural effusion, not elsewhere classified; J81.1 Chronic pulmonary edema; Z93.0 Tracheostomy status; Z86.73 Personal history of transient ischemic attack (TIA), and cerebral infarction without residual deficits; E11.22 Type 2 diabetes mellitus with diabetic chronic kidney disease; Z99.2 Dependence on renal dialysis; Z93.1 Gastrostomy status; R13.10 Dysphagia, unspecified; F20.9 Schizophrenia, unspecified; D63.1 Anemia in chronic kidney disease; L89.320 Pressure ulcer of left buttock, unstageable; L89.310 Pressure ulcer of right buttock, unstageable; L89.620 Pressure ulcer of left heel, unstageable; L89.890 Pressure ulcer of other site, unstageable; E78.5 Hyperlipidemia, unspecified; Z68.29 Body mass index [BMI] 29.0-29.9, adult; M21.372 Foot drop, left foot; M21.371 Foot drop, right foot; I73.9 Peripheral vascular disease, unspecified; F03.90 Unspecified dementia, unspecified severity, without behavioral disturbance, psychotic disturbance, mood disturbance, and anxiety
CPT/HCPCS: 36415; 36430; 36569; 36600; 71045; 76700; 80048; 80053; 80076; 80150; 80202; 81003; 82550; 82728; 82803; 82962; 83540; 83550; 83605; 83880; 84100; 84484; 85007; 85025; 85610; 85730; 86850; 86900; 86901; 86920; 87040; 87070; 87081; 87086; 87181; 87205; 87324; 93005; 93306; 94002; 94003; 94664; 99291; J1815